=== PATIENT | male | born 1945 | race Caucasian/White ===

== ENCOUNTER → 2016-12-02 | Outpatient (CLI) | payer MEDICARE, BC ==
[2016-12-02 15:31] LABS: Anion Gap 7 mmol/L; Blood Urea Nitrogen 18 mg/dL (9-20); Calcium 8.9 mg/dL (8.4-10.2); Carbon Dioxide 24 mmol/L (22-30); Chloride 108 mmol/L (98-107); Glucose 77 mg/dL (74-99); Non-African American GFR(MDRD) >60 (>60 ml/min/1.73 sqM); Potassium 4.4 mmol/L (3.5-5.1); Sodium 139 mmol/L (137-145)
== END ==
LOC: LABWHC1 13:45
PROVIDERS: ATTEND Internal Medicine Cardiovascular Disease
DX: I50.9 Heart failure, unspecified (principal)
CPT/HCPCS: 36415; 80048

== ENCOUNTER 2017-05-30 13:35 | Inpatient (IN) | payer BC, MEDICARE ==
[2017-05-19 12:03] VITALS: BMI 35.9
--- NOTE | 2017-05-29 13:04 | HP ---
HISTORY AND PHYSICAL CHIEF COMPLAINT: Right knee pain. HISTORY OF PRESENT ILLNESS: The patient is a 72-year-old retired gentleman who presents with progressive right knee pain secondary to osteoarthrosis, worsening over the past year. He is having a difficult time with normal weightbearing activities. He has tried medications and injections with only partial temporary relief. He notes he is significantly limited. PAST MEDICAL HISTORY: Significant for ischemic cardiomyopathy, hypertension, hyperlipidemia. PAST SURGICAL HISTORY: Significant for cardiac stent placement. CURRENT MEDICATIONS: Aspirin, carvedilol, Coumadin, Crestor, nitroglycerin, lisinopril, Lasix, amiodarone. ALLERGIES: He has no known drug allergies. FAMILY HISTORY: Significant for cancer. SOCIAL HISTORY: Negative for current tobacco or alcohol use. REVIEW OF SYSTEMS: Sixteen point review of systems otherwise reviewed and is noncontributory. PHYSICAL EXAMINATION: On examination, the patient is approximately 6 feet tall, 270 pounds, of endomorphic habitus. HEENT exam is nonfocal. Neck is supple. He has painless passive motion of the right hip. Straight leg raise is negative. Active motion right knee -8 to 105 degrees of flexion. He has a moderate effusion. He is tender about the medial and lateral joint line. Collaterals are stable, Shamar's negative, Syd's is equivocal. He has genu valgum alignment. His distal neurovascular appears intact in the right lower extremity. X-rays to include weightbearing notch, lateral and Merchant views of the right knee obtained in the office show severe lateral and patellofemoral compartment narrowing. IMPRESSION: 1. Right knee severe lateral and patellofemoral compartment osteoarthrosis. 2. History of heart disease/pacemaker placement. 3. History of coronary artery disease with previous myocardial infarction. 4. Hypertension. RECOMMENDATIONS: I talked to the patient at length regarding his treatment options. At this point, he is quite symptomatic despite extensive conservative measures. After a thorough discussion, he opts to proceed with surgery. We will plan to proceed with right total knee arthroplasty. Risks and benefits were discussed at length in layman's terms. The patient underwent preoperative medical clearance by Dr. Hartman and preoperative cardiac clearance by Dr. Hsu. MMGUNNARL / DEANAN: [id number] /
[~2017-05-30 13:35] MED LIST: ACETAMINOPHEN TAB 500 MG TAB PO ONE; DEXAMETHASONE SOD PHOSPHATE 10 MG/ML 1 ML VIAL IV ONE; LIDOCAINE 1% 20 ML VIAL (10MG/ML) FOR IV START INTRADERMA PRN; MELOXICAM 7.5 MG TAB PO ONE; MIDAZOLAM 2 MG/2 ML VIAL IV PRN; ONDANSETRON 4 MG/2 ML VIAL IVP ONE; SCOPOLAMINE 1.5MG/72HR PATCH TRANSDERM ONE; TRANEXAMIC ACID 1,000 MG in SODIUM CHLORIDE 0.9% 50 ML IVPB ONE
[2017-05-30] MEDS: LACTATED RINGERS 1,000 ML IV SCH (14:16)
[2017-05-30 15:11] LABS: INR 1.3 (<1.2); Partial Thromboplastin Time 24.5 sec (22.0-30.0)
[2017-05-30] MEDS ORDERED: SUCCINYLCHOLINE CHLORIDE 100 MG/5 ML SYR IV ONE (16:14)
[2017-05-30] MEDS ORDERED: SODIUM CHLORIDE 0.9% 100 ML BAG ONE (16:14)
[2017-05-30] MEDS ORDERED: LIDOCAINE 1% INJ 10MG/ML (20 ML MDV) ONE (16:14)
[2017-05-30] MEDS ORDERED: TRANEXAMIC ACID 1,000 MG/10 ML VIAL ONE (16:14)
[2017-05-30] MEDS ORDERED: ROCURONIUM BROMIDE 10 MG/ML 10 ML VIAL IV ONE (16:14)
[2017-05-30] MEDS ORDERED: MIDAZOLAM 2 MG/2 ML VIAL ONE (16:14)
[2017-05-30] MEDS ORDERED: PROPOFOL 10 MG/ML 20 ML VIAL IV ONE (16:14)
[2017-05-30] MEDS ORDERED: HYDROmorphone (PF) 1 MG/ML ONE (16:14)
[2017-05-30] MEDS ORDERED: fentaNYL (PF) 50 MCG/ML 2 ML AMP ONE (16:14)
[2017-05-30] MEDS: ROPIVACAINE 246.25 MG, EPINEPHrine 0.5 MG, KETOROLAC 30 MG, cloNIDine HCL/PF 80 MCG, WA... MISCELLANE ONE ×10 (16:47→17:15)
[2017-05-30] MEDS ORDERED: ceFAZolin 3,000 MG in SODIUM CHLORIDE 0.9% IRRIGATIO 3,000 ML IRRIGATION ONE (16:48)
[2017-05-30] MEDS ORDERED: MAGNESIUM HYDROXIDE 2,400 MG/10 ML CUP PO PRN (18:08)
[2017-05-30] MEDS ORDERED: HYDROcodone/APAP 5-325MG 1 EACH TAB PO PRN (18:08)
[2017-05-30] MEDS ORDERED: ONDANSETRON 4 MG/2 ML VIAL IVP PRN (18:08)
[2017-05-30] MEDS ORDERED: NALOXONE 0.4 MG/ML 1 ML VIAL IV PRN (18:08)
[2017-05-30] MEDS ORDERED: HYDROmorphone 2 MG/ML 1 ML SYRINGE IVP PRN ×2 (18:08)
[2017-05-30] MEDS ORDERED: LACTATED RINGERS 1,000 ML IV ONE (18:24)
[2017-05-30] MEDS: HYDROmorphone 0.5 MG/0.5 ML SYRINGE IVP PRN ×4 (18:42→19:19)
--- NOTE | 2017-05-30 18:43 | P.OP ---
Date of Procedure: 05/30/17 Preoperative Diagnosis: Right knee severe tricompartmental osteoarthrosis Postoperative Diagnosis: Same Procedure(s) Performed: Right total knee [id number] Implants: Depuy Attune size 7 cemented femoral component, size 7 cemented tibial component , 9 mm articular surface, 35 mm cemented patellar component. This is a posterior stabilized implant. Anesthesia: GETA, local Surgeon: Angel Wright Director [employer]: Jaylon Vasquez Estimated Blood Loss (ml): 75 Pathology: other (Bone fragments) Condition: stable Disposition: PACU Indications for Procedure: The patient's a 72-year-old male who presents with progressive right knee pain secondary to osteoarthrosis despite extensive conservative treatment. A discussion of the risks and benefits of operative intervention versus continued conservative measures was made with the patient. He opted to proceed with surgery. Operative risks to include infection, neurovascular injury, development of blood clots, possible component loosening, possible component failure and need for subsequent procedures was discussed. Informed consent was obtained. Operative Findings: As below Description of Procedure: The patient was brought to the operating room, and after induction of general anesthesia the right lower extremity was prepped and draped in normal fashion. The tourniquet was inflated to 270 mmHg. A longitudinal incision extending 3 finger breaths above the superior pole of patella extending to the medial aspect the tibial tubercle was then made. The skin and subcutaneous tissues were divided sharply. Electrocautery was used for hemostasis. A medial parapatellar arthrotomy is performed. The medial soft tissues to include the superficial and deep portions the medial collateral ligament were elevated subperiosteally. The patella was everted. A portion of the retropatellar fat pad was excised sharply. The lateral soft tissues to include the lateral collateral ligament and popliteus were elevated subperiosteally off the lateral femoral epicondyle as he had significant valgus deformity. A starting hole was made in the distal femur 1 cm anterior to the posterior cruciate origin. An intramedullary femoral guide was then gently inserted planning on 5 valgus distal cut with 9 mm distal resection. The cutting block was pinned in place. The distal cut was then made. The posterior referencing sizing guide was utilized. I felt size 7 was most appropriate. 3 of external rotation was built into the system and verified off the trans-epicondylar axis and the posterior condyles. The cutting block was pinned in place. The anterior, posterior, and chamfer cuts were made. The bone fragments were then removed. The cutting block was then placed for the notch. A reciprocating saw was used to fashion the intercondylar box. The bone was removed in one fragment. A trial femoral component was then placed and was fully seated. There was good anterior to posterior and medial to lateral fit. The distal peg holes were drilled. The trial component was then removed. Attention was then paid towards preparing the proximal tibia. An extra measure tibial guide was utilized in line with the tibial shaft and second metatarsal distally. I planned on 0 posterior slope. I planned on 2 m resection from the lateral compartment. The cutting block was pinned in place. The proximal tibial cut was then made. The bone was removed in one fragment. I felt this was inadequate for both flexion and extension gaps therefore an additional 2 mm was resected utilizing the cutting block. The tibia sized most appropriate size 7. The remnants of the medial and lateral menisci were excised at the capsular junction with electrocautery. The trial femoral and tibial components were placed along with a 9 mm articular surface. I was able to obtain full flexion and extension with good stability with varus and valgus stress. The tibial rotation was marked in line with the medial one third of the tibial tubercle after several flexion and extension cycles. Attention was then paid towards preparing the patella. A patella reamer was utilized taking this down to 14 mm of bone stock. A good flush cut was made. The patella sized most appropriately 35 mm. The peg holes were drilled. The trial component was placed. The knee was taken through range of motion. I had good patellofemoral tracking with no hands technique. The trial components were then removed. The tibia was prepared in the appropriate rotation with the appropriate drill and keel punch. The posterior osteophytes off the distal femur were carefully removed with a curved osteotome. The flexion and extension gaps were checked and felt to be symmetric. The posterior soft tissues were injected with ropivacaine. The bony surfaces were prepared with pulsatile lavage and dried. The tibial component was then cemented in place and was fully seated. Excess cement was removed. The femoral component was cemented placed and was fully seated. Excess cement was removed. The trial 9 mm articular surface was placed and the knee was put in full extension. The patella component was cemented in placed and was fully seated. After the cement had sufficiently hardened, the knee was again taken through range of motion. Again I was able to obtain full flexion and extension with good stability with varus and valgus stress. The trial articular surface was then removed and the final one inserted. Care was taken to avoid any soft tissue interposition. Pulsatile lavage was again utilized. The medial parapatellar arthrotomy was closed with # 2 Ethibond suture. A deep drain was placed exiting laterally. The tourniquet was deflated less than 80 minutes total tourniquet time. Final hemostasis was obtained with electrocautery. The subcutaneous tissues were reapproximated with interrupted 2-0 Vicryl sutures. The skin was reapproximated with 3-0 subcuticular strata fix suture. Skin tape and adhesive was applied. A sterile dressing was applied. The patient was awoken from general anesthesia and transferred to the recovery room in good condition. Blood loss was estimated at 75 mL. No complications were incurred. Sponge and needle counts were correct in the case.
--- NOTE | 2017-05-30 19:27 | XR ---
PROCEDURE: XR knee limited RT DATE AND TIME: 05/30/2017 6:49 PM REFERRING PHYSICIAN: Jaylon Vasquez CLINICAL INDICATION: PHH, Evaluation for Postop abnormality and alignment TECHNIQUE: AP and crosstable lateral views COMPARISON: None FINDINGS: TKR is noted to be in anatomic alignment. No unexpected radiopaque foreign bodies. Bones an d joints and soft tissues are otherwise unremarkable. IMPRESSION: Postprocedural study.
[2017-05-30] MEDS ORDERED: FUROSEMIDE 20 MG TAB PO PRN (21:31)
[2017-05-30] MEDS ORDERED: NITROGLYCERIN SL TABS 0.4 MG TAB SUBLINGUAL PRN (21:31)
[2017-05-30] MEDS: traMADol 50 MG TAB PO SCH (22:36)
[2017-05-30] MEDS: CARVEDILOL 6.25 MG TAB PO SCH (22:37)
[2017-05-30] MEDS: SENNOSIDES-DOCUSATE SODIUM 1 EACH TAB PO SCH (22:37)
[2017-05-30] MEDS: SOTALOL 80 MG TAB PO SCH (22:37)
[2017-05-31] MEDS: LACTATED RINGERS 1,000 ML IV SCH (00:07)
[2017-05-31] MEDS ORDERED: SODIUM CHLORIDE 0.9% 1,000 ML IV SCH (05:00)
[2017-05-31 07:51] LABS: INR 1.3 (<1.2); Prothrombin Time 12.6 sec (9.0-12.0)
[2017-05-31 08:23] LABS: Basophils % (A) 0 %; Eosinophils % (A) 0 %; HCT 41.2 % (39.0-53.0); HGB 13.7 gm/dL (13.0-17.5); Lymphocytes # (A) 0.5 k/uL (1.0-4.8); Lymphocytes % (A) 5 %; MCH 30.9 pg (25.0-35.0); MCHC 33.2 g/dL (31.0-37.0); Mean Platelet Volume 8.8; Monocytes # (A) 0.9 k/uL (0-1.0); Monocytes % (A) 10 %; Neutrophils # (A) 7.3 k/uL (1.3-7.7); Neutrophils % (A) 84 %; Platelet Count 138 k/uL (150-450); RBC 4.43 m/uL (4.30-5.90); WBC 8.7 k/uL (3.8-10.6)
[2017-05-31] MEDS: ENOXAPARIN 30 MG/0.3 ML SYRINGE SQ SCH ×2 (09:10→21:15)
[2017-05-31] MEDS: SOTALOL 80 MG TAB PO SCH ×2 (09:10→21:15)
[2017-05-31] MEDS: CHOLECALCIFEROL 1,000 UNIT TAB PO SCH (09:10)
[2017-05-31] MEDS: ATORVASTATIN 10 MG TAB PO SCH (09:11)
[2017-05-31] MEDS: ASPIRIN 81 MG PO SCH (09:11)
[2017-05-31] MEDS: FAMOTIDINE 20 MG TAB PO SCH (09:11)
[2017-05-31] MEDS: CARVEDILOL 12.5 MG TAB PO SCH (09:12)
[2017-05-31] MEDS: traMADol 50 MG TAB PO SCH ×3 (09:21→17:14)
[2017-05-31] MEDS: HYDROcodone/APAP 5-325MG 1 EACH TAB PO PRN ×2 (10:08→16:12)
--- NOTE | 2017-05-31 11:55 | P.PN ---
Subjective Progress Note Date: 05/31/17 Principal diagnosis: Status post right total knee arthroplasty Patient seen today resting in his hospital chair, he has family present at bedside. He's doing very well, no acute pain. He is done well with physical therapy. He denies any headaches, lightheadedness, chest pain or shortness breath. Objective - Vital Signs Vital signs: Vital Signs Temp 97.6 F 05/31/17 07:38 Pulse 75 05/31/17 09:09 Resp 16 05/31/17 07:38 BP 115/65 05/31/17 09:09 Pulse Ox 98 05/31/17 07:38 Intake & Output 05/30/17 05/31/17 05/31/17 18:59 06:59 18:59 Intake Total 1251 550 240 Output Total 175 430 150 Balance 1076 120 90 Intake: IV 1251 550 Lactated Ringers 1,000 ml 350 @ 50 mls/hr IV .Q20H [facility] Rx#:[id number] Oral 240 Output: Drainage 180 Right Knee 180 Urine 100 250 150 Uretheral ([place]) 250 150 Estimated Blood Loss 75 Other: Voiding Method Indwelling Catheter Indwelling Catheter - Exam Right lower extremity: Incision is clean, dry, and intact. The prineo tape is in good condition. There is minimal soft tissue swelling and ecchymosis surrounding the medial and lateral aspects of the incision. Calf is soft, no tenderness with palpation. Plantar flexion, dorsiflexion, EHL, FHL are intact. Sensory exam to light touch throughout the extremity is intact, dorsal pedis pulses 2+. - Labs CBC & Chem 7: 05/31/17 06:39 Labs: Abnormal Lab Results - Last 24 Hours (Table) 05/30/17 05/31/17 05/31/17 Range/Units 14:10 06:39 06:39 Plt Count 138 L (150-450) k/uL Lymphocytes # 0.5 L (1.0-4.8) k/uL PT 12.6 H (9.0-12.0) sec INR 1.3 H 1.3 H (<1.2) Assessment and Plan Plan: Assessment: 1. Postop day 1 status post right total knee arthroplasty Plan: 1. Pain control, continue use of oral medication 2. Continue work physical therapy and use of CPM 3. Encourage incentive spirometer 4. Daily dressing changes/ice and elevate 5. GI and DVT prophylaxis, continue Xarelto Lovenox and Coumadin 6. Medical recommendations 7. Discharge planning: Patient will likely be discharged home tomorrow Time with Patient: Less than 30
--- NOTE | 2017-05-31 13:12 | P.HPIM ---
History of Present Illness H&P Date: 05/31/17 Iker Layton is a 72-year-old male who presents with progressive right knee pain secondary to osteoarthrosis despite extensive conservative treatment. He was admitted by Dr Wright and underwent right total knee arthroplasty. Patient is well known to my practice and has a known history of prior [place] was cardiac arrest history of cardiomyopathy with AICD placement and history of atrial fibrillation. Past Medical History Past Medical History: Atrial Fibrillation, Eye Disorder, Hyperlipidemia, Hypertension, Myocardial Infarction (VA), Osteoarthritis (OA) Additional Past Medical History / Comment(s): varicose veins, Last Myocardial Infarction Date:: 2006 History of Any Multi-Drug Resistant Organisms: None Reported Past Surgical History: AICD, Cardiac Ablation, Heart Catheterization With Stent Additional Past Surgical History / Comment(s): bilateral CATARACT, one cardiac stent, total right knee 05/30/16 Past Anesthesia/Blood Transfusion Reactions: No Reported Reaction Date of Last Stent Placement:: 2006 Type of Cardiac Device: AICD Device Placement Date:: [facility] Past Psychological History: No Psychological Hx Reported Smoking Status: Never smoker Past Alcohol Use History: Rare Past Drug Use History: None Reported - Past Family History Father Family Medical History: Cancer Mother Family Medical History: Cancer Medications and Allergies Home Medications Medication Instructions Recorded Confirmed Type Aspirin 81 mg PO DAILY 04/14/14 05/30/17 History Carvedilol [Coreg] 12.5 mg PO DAILY 04/14/14 05/30/17 History Furosemide [Lasix] 20 mg PO DAILY PRN 04/14/14 05/30/17 History Lisinopril [Prinivil] 10 mg PO HS 04/14/14 05/30/17 History Nitroglycerin Sl Tabs [Nitrostat] 0.4 mg SUBLINGUAL Q5M PRN 04/14/14 05/30/17 History Spironolactone [Aldactone] 12.5 mg PO HS 04/14/14 05/30/17 History Warfarin [Coumadin] 7.5 mg PO MOWESA 04/14/14 05/30/17 History Carvedilol [Coreg] 6.25 mg PO HS 06/09/14 05/30/17 History Sotalol [Betapace] 40 mg PO QAM 01/14/15 05/30/17 History Cholecalciferol [Vitamin D3] 1,000 unit PO DAILY 01/19/15 05/30/17 History Acetaminophen [Tylenol Extra 1,000 mg PO DIRECTED PRN 05/19/17 05/30/17 History Strength] Pitavastatin Calcium [Livalo] 2 mg PO DAILY 05/19/17 05/30/17 History Sotalol [Betapace] 80 mg PO HS 05/19/17 05/30/17 History Warfarin [Coumadin] 5 mg PO SUTUTHFR 05/19/17 05/30/17 History Allergies Allergy/AdvReac Type Severity Reaction Status Date / Time No Known Allergies Allergy Verified 05/30/17 19:17 Physical Exam Vitals: Vital Signs Temp Pulse Pulse Resp BP BP Pulse Ox 05/31/17 09:09 75 115/65 05/31/17 07:38 97.6 F 16 100/62 98 05/31/17 00:39 97.3 F L 59 L 16 114/66 97 05/30/17 21:30 61 129/64 05/30/17 21:23 96 05/30/17 21:15 58 L 121/65 05/30/17 21:00 113/62 05/30/17 20:45 54 L 123/60 05/30/17 20:30 56 L 119/57 05/30/17 20:15 132/63 05/30/17 20:00 62 138/62 05/30/17 19:45 64 129/77 05/30/17 19:30 97.5 F L 62 16 137/65 92 L 05/30/17 19:15 67 16 93 L 05/30/17 19:00 65 16 142/66 93 L 05/30/17 18:45 67 16 143/80 98 05/30/17 18:32 99 F 80 16 146/86 93 L 05/30/17 14:39 65 15 120/71 100 05/30/17 14:00 96.9 F L 68 16 155/83 99 Intake and Output 05/30/17 05/31/17 05/31/17 22:59 06:59 14:59 Intake Total 1151 350 240 Output Total 175 430 300 Balance 976 -80 -60 Intake: IV 1151 350 Lactated Ringers 1,000 ml 350 @ 50 mls/hr IV .Q20H [facility] Rx#:[id number] Oral 240 Output: Drainage 180 Right Knee 180 Urine 100 250 300 Uretheral ([place]) 250 300 Estimated Blood Loss 75 Other: Voiding Method Indwelling Catheter Indwelling Catheter Indwelling Catheter In general patient is alert and oriented 3 in no apparent distress HEENT head normocephalic and atraumatic Neck is supple no JVD no goiter no lymphadenopathy Chest exam reveals a few scattered crackles no wheezing Cardiac exam reveals regular heart sounds S1 and S2 no gallops no murmurs Abdomen is soft nontender no organomegaly Extremity exam reveals no edema no cyanosis or clubbing Results CBC & Chem 7: 05/31/17 06:39 Labs: Abnormal Lab Results - Last 24 Hours (Table) 05/30/17 05/31/17 05/31/17 Range/Units 14:10 06:39 06:39 Plt Count 138 L (150-450) k/uL Lymphocytes # 0.5 L (1.0-4.8) k/uL PT 12.6 H (9.0-12.0) sec INR 1.3 H 1.3 H (<1.2) Thrombosis Risk Factor Assmnt - Choose All That Apply Any of the Below Risk Factors Present?: Yes Each Factor Represents 1 point: Obesity (BMI >25), Swollen legs (current), Varicose veins Other Risk Factors: Yes Each Risk Factor Represents 2 Points: Age 61-74 years, Major surgery Other congenital or acquired thrombophilia - If yes, enter type in comment: No Thrombosis Risk Factor Assessment Total Risk Factor Score: 7 Thrombosis Risk Factor Assessment Level: High Risk Assessment and Plan Plan: #1 osteoarthritis status post right total knee arthroplasty post operative day # 1 #2 underlying history of ischemic cardiomyopathy #3 previous history of myocardial infarction with cardiac arrest #4 underlying history of atrial fibrillation #5 underlying history of hypertension #6 underlying history of hyperlipidemia #7 low urine output last night agent received IV fluid normal saline at 100 mL an hour. At this time patient is stable, urine output is adequate Will discontinue IV fluid due to known history of cardiomyopathy patient is having good oral intake Home medications were resumed Patient was started on Coumadin he is also on Lovenox until Coumadin dose is therapeutic Continue was current management will follow closely
--- NOTE | 2017-05-31 15:21 | P.CRDCN ---
History of Present Illness Consult date: 05/31/17 History of present illness: Mr. Layton is a pleasant 72-year-old male with past medical history significant for ischemic cardiomyopathy status post AICD placement, coronary artery disease with prior PCI to the LAD, chronic systolic heart failure with ejection fraction 20%, hypertension and dyslipidemia. The patient follows with Dr. Hsu in the office. He was seen prior to surgery in mid April for cardiac preoperative evaluation. He was given an acceptable with increased risk for surgery. He underwent right knee replacement as planned. There is no immediate complications of the surgery. The patient is seen sitting up in bed resting comfortably in no acute distress. He denies chest pain, shortness of breath, dizziness, palpitations, nausea, vomiting or diaphoresis. There was no EKG or chest xray done on admission. Laboratory data reviewed, hgb 13.7, plt 138, INR 1.3. Current cardiac medications include carvedilol 12.5 mg in the a.m. and 6.25 mg at bedtime, Coumadin 5 mg Monday and Monday 7.5 mg Monday, Aldactone 12.5 mg daily, sotalol 80 mg at bedtime and 40 mg in am, livalo 2 mg daily, lisinopril 10 mg daily, lasix 20mg daily prn and aspirin 81 mg daily. Review of Systems CONSTITUTIONAL: Denies fever. Denies chills. EYES: Denies blurred vision. Denies vision changes. Denies eye pain. EARS, NOSE, MOUTH & THROAT: Denies headache. Denies sore throat. Denies ear pain. CARDIOVASCULAR: Denies chest pain. Denies shortness of breath. Denies orthopnea. Denies PND. Denies palpitations. RESPIRATORY: Denies cough. GASTROINTESTINAL: Denies abdominal pain. Denies diarrhea. Denies constipation. Denies nausea. Denies vomiting. MUSCULOSKELETAL: Denies myalgias. INTEGUMENTARY: Denies pruitis. Denies rash. NEUROLOGIC: Denies numbness. Denies tingling. Denies weakness. PSYCHIATRIC: Denies anxiety. Denies depression. ENDOCRINE: Denies fatigue. Denies weight change. Denies polydipsia. Denies polyurina. GENITOURINARY: Denies burning, hematuria or urgency with micturation. HEMATOLOGIC: Denies history of anemia. Denies bleeding. Past Medical History Past Medical History: Atrial Fibrillation, Eye Disorder, Hyperlipidemia, Hypertension, Myocardial Infarction ([place]), Osteoarthritis ([place]) Additional Past Medical History / Comment(s): varicose veins, Last Myocardial Infarction Date:: 2006 History of Any Multi-Drug Resistant Organisms: None Reported Past Surgical History: AICD, Cardiac Ablation, Heart Catheterization With Stent Additional Past Surgical History / Comment(s): bilateral CATARACT, one cardiac stent, total right knee 05/30/16 Past Anesthesia/Blood Transfusion Reactions: No Reported Reaction Date of Last Stent Placement:: 2006 Type of Cardiac Device: AICD Device Placement Date:: [facility] Past Psychological History: No Psychological Hx Reported Smoking Status: Never smoker Past Alcohol Use History: Rare Past Drug Use History: None Reported - Past Family History Father Family Medical History: Cancer Mother Family Medical History: Cancer Medications and Allergies Home Medications Medication Instructions Recorded Confirmed Type Aspirin 81 mg PO DAILY 04/14/14 05/30/17 History Carvedilol [Coreg] 12.5 mg PO DAILY 04/14/14 05/30/17 History Furosemide [Lasix] 20 mg PO DAILY PRN 04/14/14 05/30/17 History Lisinopril [Prinivil] 10 mg PO HS 04/14/14 05/30/17 History Nitroglycerin Sl Tabs [Nitrostat] 0.4 mg SUBLINGUAL Q5M PRN 04/14/14 05/30/17 History Spironolactone [Aldactone] 12.5 mg PO HS 04/14/14 05/30/17 History Warfarin [Coumadin] 7.5 mg PO MOWESA 04/14/14 05/30/17 History Carvedilol [Coreg] 6.25 mg PO HS 06/09/14 05/30/17 History Sotalol [Betapace] 40 mg PO QAM 01/14/15 05/30/17 History Cholecalciferol [Vitamin D3] 1,000 unit PO DAILY 01/19/15 05/30/17 History Acetaminophen [Tylenol Extra 1,000 mg PO DIRECTED PRN 05/19/17 05/30/17 History Strength] Pitavastatin Calcium [Livalo] 2 mg PO DAILY 05/19/17 05/30/17 History Sotalol [Betapace] 80 mg PO HS 05/19/17 05/30/17 History Warfarin [Coumadin] 5 mg PO SUTUTHFR 05/19/17 05/30/17 History Allergies Allergy/AdvReac Type Severity Reaction Status Date / Time No Known Allergies Allergy Verified 05/30/17 19:17 Physical Exam Vitals: Vital Signs Temp Pulse Pulse Resp BP Pulse Ox 05/31/17 14:52 97.9 F 65 16 101/64 95 05/31/17 09:09 75 115/65 05/31/17 07:38 97.6 F 16 100/62 98 05/31/17 00:39 97.3 F L 59 L 16 114/66 97 05/30/17 21:30 61 129/64 05/30/17 21:23 96 05/30/17 21:15 58 L 121/65 05/30/17 21:00 113/62 05/30/17 20:45 54 L 123/60 05/30/17 20:30 56 L 119/57 05/30/17 20:15 132/63 05/30/17 20:00 62 138/62 05/30/17 19:45 64 129/77 05/30/17 19:30 97.5 F L 62 16 137/65 92 L 05/30/17 19:15 67 16 93 L 05/30/17 19:00 65 16 142/66 93 L 05/30/17 18:45 67 16 143/80 98 05/30/17 18:32 99 F 80 16 146/86 93 L Intake and Output 05/30/17 05/31/17 05/31/17 22:59 06:59 14:59 Intake Total 8531 169 1038 Output Total 175 430 300 Balance 976 -80 740 Intake: IV 1151 350 800 Lactated Ringers 1,000 ml 350 @ 50 mls/hr IV .Q20H ALEXEI Rx#:[id number] Sodium Chloride 0.9% 1, 800 000 ml @ 100 mls/hr IV . Q10H ALEXEI Rx#:[id number] Oral 240 Output: Drainage 180 Right Knee 180 Urine 100 250 300 Uretheral ([place]) 250 300 Estimated Blood Loss 75 Other: Voiding Method Indwelling Catheter Indwelling Catheter Indwelling Catheter Blood pressure 115/65 heart rate 75 afebrile GENERAL: This is a 72-year-old male in no apparent distress at the time of my examination. HEENT: Head is atraumatic, normocephalic. Pupils are equal, round. Sclerae anicteric. Conjunctivae are clear. Mucous membranes of the mouth are moist. Neck is supple. There is no jugular venous distention. No carotid bruit is heard. LUNGS: Clear to auscultation no wheezes, rales or rhonchi. No chest wall tenderness is noted on palpation or with deep breathing. HEART: Regular rate and rhythm without murmurs, rubs or gallops. S1 and S2 heard. ABDOMEN: Soft, nontender. Bowel sounds are heard. No organomegaly noted. EXTREMITIES: 2+ peripheral pulses with no evidence of peripheral edema and no calf tenderness noted. Right knee status post total arthroplasty. NEUROLOGIC: Patient is awake, alert and oriented x3. Results 05/31/17 06:39 Coagulation 05/30/17 05/31/17 Range/Units 14:10 06:39 PT 12.0 12.6 H (9.0-12.0) sec APTT 24.5 (22.0-30.0) sec CBC 05/31/17 Range/Units 06:39 WBC 8.7 (3.8-10.6) k/uL RBC 4.43 (4.30-5.90) m/uL Hgb 13.7 (13.0-17.5) gm/dL Hct 41.2 (39.0-53.0) % Plt Count 138 L (150-450) k/uL Current Medications Generic Name Dose Route Start Last Admin Trade Name Freq PRN Reason Stop Dose Admin Hydrocodone Bitart/Acetaminophen 1 each 05/30/17 18:08 05/31/17 04:16 [place] 5-325 PO 1 each Q6HR PRN Administration Pain Scale 1 to 5 Hydrocodone Bitart/Acetaminophen 2 each 05/30/17 18:08 05/31/17 10:08 [place] 5-325 PO 2 each Q6HR PRN Administration Pain Scale 6 to 10 Aspirin 81 mg 05/31/17 09:00 05/31/17 09:11 Aspirin PO 81 mg DAILY ALEXEI Administration Atorvastatin Calcium 10 mg 05/31/17 09:00 05/31/17 09:11 Lipitor PO 10 mg DAILY ALEXEI Administration Carvedilol 6.25 mg 05/30/17 21:45 05/30/17 22:37 Coreg PO 6.25 mg HS [facility] Administration Carvedilol 12.5 mg 05/31/17 07:30 05/31/17 09:12 Coreg PO 12.5 mg W/BRKFST [facility] Administration Cholecalciferol 1,000 unit 05/31/17 09:00 05/31/17 09:10 Vitamin D3 PO 1,000 unit DAILY [facility] Administration Enoxaparin Sodium 30 mg 05/31/17 09:00 05/31/17 09:10 Lovenox SQ 30 mg Q12HR [facility] Administration Famotidine 20 mg 05/31/17 09:00 05/31/17 09:11 Pepcid PO 20 mg DAILY [facility] Administration Furosemide 20 mg 05/30/17 21:31 Lasix PO DAILY PRN Edema Hydromorphone HCl 0.25 mg 05/30/17 18:08 Dilaudid IVP Q3HR PRN Pain Scale 1 to 3 Hydromorphone HCl 0.5 mg 05/30/17 18:08 Dilaudid IVP Q3HR PRN Pain Scale 4 to 6 Cefazolin Sodium 3 gm/ Sodium 50 mls @ 50 mls/hr 05/31/17 00:00 05/31/17 09: 22 Chloride IVPB 50 mls/hr Q8HR [facility] Administration Lidocaine HCl 0.1 ml 05/30/17 05:28 05/30/17 14:16 .Xylocaine 1% Inj (10mg/Ml) For Iv Start INTRADERMA 0.1 ml PER PROTOCOL PRN Administration IV Start Lisinopril 10 mg 05/31/17 21:00 Zestril PO HS [facility] Magnesium Hydroxide 2,400 mg 05/30/17 18:08 Milk Of Magnesia PO DAILY PRN Constipation Miscellaneous Information 1 each 05/31/17 12:00 05/31/17 13:57 Coumadin Per Ortho Protocol MISCELLANE Not Given DAILY@1200 [facility] Protocol Naloxone HCl 0.2 mg 05/30/17 18:08 Narcan IV Q2M PRN Opioid Reversal Nitroglycerin 0.4 mg 05/30/17 21:31 Nitrostat SUBLINGUAL Q5M PRN Chest Pain Ondansetron HCl 4 mg 05/30/17 18:08 Zofran IVP Q8HR PRN Nausea And Vomiting Senna/Docusate Sodium 2 each 05/30/17 21:00 05/30/17 22:37 Senokot-S PO Not Given HS [facility] Sotalol HCl 40 mg 05/31/17 09:00 05/31/17 09:10 Betapace PO 40 mg QAM [facility] Administration Sotalol HCl 80 mg 05/30/17 21:00 05/30/17 22:37 Betapace PO 80 mg HS [facility] Administration Spironolactone 12.5 mg 05/31/17 21:00 Aldactone PO HS [facility] Tramadol HCl 50 mg 05/30/17 22:00 05/31/17 13:45 Ultram PO 50 mg QID [facility] Administration Warfarin Sodium 7.5 mg 05/31/17 18:00 Coumadin PO 05/31/17 18:01 ONCE@1800 ONE Intake and Output 05/30/17 05/31/17 05/31/17 22:59 06:59 14:59 Intake Total 8123 127 6031 Output Total 175 430 300 Balance 976 -80 740 Intake: IV 1151 350 800 Lactated Ringers 1,000 ml 350 @ 50 mls/hr IV .Q20H [facility]LEXEI Rx#:[id number] Sodium Chloride 0.9% 1, 800 000 ml @ 100 mls/hr IV . Q10H [facility]LEXEI Rx#:[id number] Oral 240 Output: Drainage 180 Right Knee 180 Urine 100 250 300 Uretheral ([place]) 250 300 Estimated Blood Loss 75 Other: Voiding Method Indwelling Catheter Indwelling Catheter Indwelling Catheter 05/31/17 06:39 Assessment and Plan Assessment: ASSESSMENT 1. Right knee arthroplasty, postoperative day #1 2. Chronic stable systolic heart failure with EF 20%, currently compensated 3. History of AICD placement 4. History coronary artery disease with previous PCI LAD (2007) 5. Ischemic cardiomyopathy 6. Hypertension 7. Dyslipidemia PLAN Continue all cardiac medications as previously ordered. There is no sign of overt heart failure. Increase activity with physical therapy as tolerated. Follow up with Dr. Hsu as an outpatient. The above impression and plan of care have been discussed and directed by the signing physician. Alicia Zeng, nurse practitioner, acting as scribe for signing physician.
[2017-05-31] MEDS ORDERED: WARFARIN 7.5 MG TAB PO ONE (18:00)
[2017-05-31] MEDS ORDERED: SPIRONOLACTONE 25 MG TAB PO SCH (21:00)
[2017-05-31] MEDS ORDERED: LISINOPRIL 10 MG TAB PO SCH (21:00)
[2017-05-31] MEDS: CARVEDILOL 6.25 MG TAB PO SCH (21:15)
[2017-05-31] MEDS: SENNOSIDES-DOCUSATE SODIUM 1 EACH TAB PO SCH (21:15)
[2017-06-01] MEDS: traMADol 50 MG TAB PO SCH ×3 (00:31→12:46)
[2017-06-01 03:34] VITALS: RESP 16
[2017-06-01 07:28] LABS: INR 1.3 (<1.2); Prothrombin Time 12.7 sec (9.0-12.0)
[2017-06-01 07:32] LABS: Basophils % (A) 0 %; Eosinophils # (A) 0.1 k/uL (0-0.7); Eosinophils % (A) 1 %; HCT 40.6 % (39.0-53.0); HGB 13.4 gm/dL (13.0-17.5); Lymphocytes # (A) 0.8 k/uL (1.0-4.8); Lymphocytes % (A) 11 %; MCHC 33.1 g/dL (31.0-37.0); MCV 93.6 fL (80.0-100.0); Mean Platelet Volume 8.5; Monocytes % (A) 13 %; Neutrophils # (A) 5.4 k/uL (1.3-7.7); Neutrophils % (A) 73 %; Platelet Count 139 k/uL (150-450); RBC 4.33 m/uL (4.30-5.90); RDW 14.3 % (11.5-15.5); WBC 7.4 k/uL (3.8-10.6)
[2017-06-01 07:51] LABS: ALT 19 U/L (21-72); AST 22 U/L (17-59); Albumin 3.8 g/dL (3.5-5.0); Alkaline Phosphatase 58 U/L (38-126); Anion Gap 9 mmol/L; Blood Urea Nitrogen 24 mg/dL (9-20); Calcium 8.7 mg/dL (8.4-10.2); Carbon Dioxide 28 mmol/L (22-30); Chloride 101 mmol/L (98-107); Glucose 90 mg/dL (74-99); Potassium 4.2 mmol/L (3.5-5.1); Sodium 138 mmol/L (137-145); Total Bilirubin 0.7 mg/dL (0.2-1.3); Total Protein 5.4 g/dL (6.3-8.2)
[2017-06-01] MEDS: ENOXAPARIN 30 MG/0.3 ML SYRINGE SQ SCH (08:26)
[2017-06-01] MEDS: ATORVASTATIN 10 MG TAB PO SCH (08:26)
[2017-06-01] MEDS: CHOLECALCIFEROL 1,000 UNIT TAB PO SCH (08:26)
[2017-06-01] MEDS: ASPIRIN 81 MG PO SCH (08:26)
[2017-06-01] MEDS: SOTALOL 80 MG TAB PO SCH ×2 (08:27→11:48)
[2017-06-01] MEDS: FAMOTIDINE 20 MG TAB PO SCH (08:28)
[2017-06-01] MEDS: CARVEDILOL 12.5 MG TAB PO SCH (08:31)
--- NOTE | 2017-06-01 09:50 | P.PN ---
Subjective Progress Note Date: 06/01/17 Principal diagnosis: Status post right total knee arthroplasty Patient seen today resting in his hospital chair. He's doing very well, no acute pain. He is done well with physical therapy. He denies any headaches, lightheadedness, chest pain or shortness breath. Objective - Vital Signs Vital signs: Vital Signs Temp 97.5 F L 06/01/17 01:15 Pulse 67 06/01/17 01:15 Resp 16 06/01/17 01:15 BP 107/64 06/01/17 01:15 Pulse Ox 96 06/01/17 07:43 Intake & Output 05/31/17 06/01/17 06/01/17 18:59 06:59 18:59 Intake Total 1040 Output Total 650 Balance 390 Intake: IV 800 Sodium Chloride 0.9% 1, 800 000 ml @ 100 mls/hr IV . Q10H [facility]LEXEI Rx#:[id number] Oral 240 Output: Urine 650 Uretheral ([place]) 300 Other: Voiding Method Indwelling Catheter Indwelling Catheter # Voids 2 - Exam Right lower extremity: Incision is clean, dry, and intact. The prineo tape is in good condition. There is minimal soft tissue swelling and ecchymosis surrounding the medial and lateral aspects of the incision. Calf is soft, no tenderness with palpation. Plantar flexion, dorsiflexion, EHL, FHL are intact. Sensory exam to light touch throughout the extremity is intact, dorsal pedis pulses 2+. - Labs CBC & Chem 7: 06/01/17 06:54 06/01/17 06:54 Labs: Abnormal Lab Results - Last 24 Hours (Table) 06/01/17 06/01/17 06/01/17 Range/Units 06:54 06:54 06:54 Plt Count 139 L (150-450) k/uL Lymphocytes # 0.8 L (1.0-4.8) k/uL PT 12.7 H (9.0-12.0) sec INR 1.3 H (<1.2) BUN 24 H (9-20) mg/dL ALT 19 L (21-72) U/L Total Protein 5.4 L (6.3-8.2) g/dL Assessment and Plan Plan: Assessment: 1. Postop day #2 status post right total knee arthroplasty Plan: 1. Pain control, continue use of oral medication 2. Continue work physical therapy and use of CPM 3. Encourage incentive spirometer 4. Daily dressing changes/ice and elevate 5. GI and DVT prophylaxis, continue Coumadin after discharge 6. Medical recommendations 7. Discharge planning: Patient will be discharged home today Time with Patient: Less than 30
--- NOTE | 2017-06-01 09:54 | P.DS ---
Providers Date of admission: 05/30/17 13:35 Expected date of discharge: 06/01/17 Attending physician: Angel Wright Consults: 05/30/17 18:11 Consult Physician Routine Consulting Provider: Roman Hartman Consult Reason/Comments: Medical Management Do you want consulting provider notified?: Yes 05/30/17 21:32 Consult Physician Routine Consulting Provider: Sujatha Hsu Consult Reason/Comments: extensive cardiac history, patient's physician, post op Do you want consulting provider notified?: Yes, Notify in am Primary care physician: Roman Devan [facility] Course: Date of admission: 05/30/2017 Date of discharge: 06/01/2017 Admission diagnosis: Status post right total knee arthroplasty Discharge diagnosis: Same Attending physician: Dr. Wright Surgical procedures: Right total knee arthroplasty Brief history: Patient is a 72-year-old male with a history of progressive primary right knee osteoarthritis. At this point patient has failed conservative treatment measures and has opted to proceed with a elective right total knee arthroplasty. Hospital course: Details of patient's surgery can be found in operative report. Patient tolerated the procedure well and was subsequently transported to orthopedic floor. Patient's orthopeidc and medical care was provided daily. Patient had daily laboratory tests performed for evaluation of overall blood counts . Patient had daily physical therapy to include strengthening range of motion as well as education with walker ambulation. Patient had daily CPM usage as part of their physical therapy program. Patient was treated with Lovenox and Coumadin for their postoperative DVT prophylaxis during their inpatient stay. Patient was noted to have a relatively uneventful postoperative course. Patient reported satisfactory pain control with oral pain medications by postoperative day 0. Patient showed satisfactory progress with physical therapy. Patient moved steadily through the program and had no difficulty meeting the goals by postoperative day 2. Given patient's otherwise satisfactory course and having met physical therapy goals, plan is to discharge patient home on postoperative day 2. Discharge condition/disposition: Patient will be discharged home in stable condition. Discharge medications: Instructions are given on resumption of patient's normal daily medications per primary care recommendation, in addition patient will be prescribed Ancram 5 mg/25 mg, tramadol 50 mg, Colace 100 mg. Discharge instructions: 1. Wound care and infection precautions, keep incision dry and covered while showering, no lotions, creams, moisturizers. No soaking, tubs, pools, hottubs. Do not scrub over the incision. 2. Weight-bear as tolerated with walker / cane until follow-up. 3. Ice and elevate when necessary. Do not exceed 20 minutes per hour with ice pack. 4. Utilize compression sleeve until seen at first follow up appointment. 5. Visiting nursing care. 6. Home physical therapy including home CPM]. 7. Pain meds and anticoagulants per prescription. 8. Pain medication has potential to cause constipation. Increase oral fluid and fiber intake. Contact primary care provider if you have not had a bowel movement within 48 hours after discharge 9. No anti-inflammatory medication until discussed at first post operative visit, this including Motrin, Aleve, Mobic, Diclofenac. 10. Follow up in office at 2 weeks postop with John Vasquez PA-C 11. Follow up with your primary care doctor 7-10 days after discharge. 12. Contact [facility] with any questions, . Procedures: Right total knee arthroplasty Patient Condition at Discharge: Good Plan - Discharge Summary Discharge Rx Participant: Yes New Discharge Prescriptions: New Docusate [Colace] 100 mg PO DAILY #30 capsule Hydrocodone/Acetaminophen [Ancram 5-325] 1 - 2 each PO Q6HR PRN #60 tab PRN Reason: Pain traMADol HCl [Ultram] 50 mg PO Q6H PRN #40 tab PRN Reason: Pain No Action Carvedilol [Coreg] 12.5 mg PO DAILY Warfarin [Coumadin] 7.5 mg PO [place] Aspirin 81 mg PO DAILY Furosemide [Lasix] 20 mg PO DAILY PRN PRN Reason: Edema Nitroglycerin Sl Tabs [Nitrostat] 0.4 mg SUBLINGUAL Q5M PRN PRN Reason: Chest Pain Lisinopril [Prinivil] 10 mg PO HS Spironolactone [Aldactone] 12.5 mg PO HS Carvedilol [Coreg] 6.25 mg PO HS Sotalol [Betapace] 40 mg PO QAM Cholecalciferol [Vitamin D3] 1,000 unit PO DAILY Pitavastatin Calcium [Livalo] 2 mg PO DAILY Sotalol [Betapace] 80 mg PO HS Warfarin [Coumadin] 5 mg PO SUTUTHFR Acetaminophen [Tylenol Extra Strength] 1,000 mg PO DIRECTED PRN PRN Reason: Pain Discharge Medication List Aspirin 81 mg PO DAILY 04/14/14 [History] Carvedilol [Coreg] 12.5 mg PO DAILY 04/14/14 [History] Furosemide [Lasix] 20 mg PO DAILY PRN 04/14/14 [History] Lisinopril [Prinivil] 10 mg PO HS 04/14/14 [History] Nitroglycerin Sl Tabs [Nitrostat] 0.4 mg SUBLINGUAL Q5M PRN 04/14/14 [History] Spironolactone [Aldactone] 12.5 mg PO HS 04/14/14 [History] Warfarin [Coumadin] 7.5 mg PO MOWESA 04/14/14 [History] Carvedilol [Coreg] 6.25 mg PO HS 06/09/14 [History] Sotalol [Betapace] 40 mg PO QAM 01/14/15 [History] Cholecalciferol [Vitamin D3] 1,000 unit PO DAILY 01/19/15 [History] Acetaminophen [Tylenol Extra Strength] 1,000 mg PO DIRECTED PRN 05/19/17 [ History] Pitavastatin Calcium [Livalo] 2 mg PO DAILY 05/19/17 [History] Sotalol [Betapace] 80 mg PO HS 05/19/17 [History] Warfarin [Coumadin] 5 mg PO SUTUTHFR 05/19/17 [History] Docusate [Colace] 100 mg PO DAILY #30 capsule 06/01/17 [Rx] Hydrocodone/Acetaminophen [Ancram 5-325] 1 - 2 each PO Q6HR PRN #60 tab 06/01/17 [Rx] traMADol HCl [Ultram] 50 mg PO Q6H PRN #40 tab 06/01/17 [Rx] Follow up Appointment(s)/Referral(s): Jaylon Vasquez PAC [PHYSICIAN PRODUCTION LEADER] - 2 Weeks Roman Hartman MD [Primary Care Provider] - 1 Week Activity/Diet/Wound Care/Special Instructions: Orthopedic Discharge Instructions: 1. Wound care and infection precautions, keep incision dry and covered while showering, no lotions, creams, moisturizers. No soaking, pools, hot tubs. Do not scrub over incision. 2. Weight-bear as tolerated with walker / cane until follow-up. 3. Ice and elevate when necessary. Do not exceed 20 minutes per hour with ice pack. 4. Utilize compression sleeve until seen at first follow up appointment. 5. Visiting nursing care. 6. Home physical therapy including home CPM. 7. Pain meds and anticoagulants per prescription. 8. Pain medication has potential to cause constipation. Increase oral fluid and fiber intake. Contact primary care provider if you have not had a bowel movement within 48 hours after discharge. 9. No anti-inflammatory medication until discussed at first post operative visit, this including Motrin, Aleve, Mobic, Diclofenac. 10. Follow up in office at 2 weeks postop with John Vasquez PA-C 11. Follow up with your primary care doctor 7-10 days after discharge. 12. Contact [facility] with any questions, [phone]. 13. [facility] - [phone] - will deliver to room before discharge. Discharge Disposition: HOME WITH HOME HEALTH SERVICES
[2017-06-01 11:42] VITALS: BP 91/60; PULSE 68; TEMP 97.2
[2017-06-01] MEDS ORDERED: ENOXAPARIN 80 MG/0.8 ML SYRINGE SQ STA (12:52)
--- NOTE | 2017-06-01 12:58 | P.PN ---
Subjective Progress Note Date: 06/01/17 Status post right total knee arthroplasty. Patient is doing well with no complaints. Orthopedics have cleared him for discharge. Objective - Vital Signs Vital signs: Vital Signs Temp 97.2 F L 06/01/17 07:00 Pulse 68 06/01/17 07:00 Resp 16 06/01/17 01:15 BP 91/60 06/01/17 07:00 Pulse Ox 96 06/01/17 07:43 Intake & Output 05/31/17 06/01/17 06/01/17 18:59 06:59 18:59 Intake Total 1040 Output Total 650 Balance 390 Intake: IV 800 Sodium Chloride 0.9% 1, 800 000 ml @ 100 mls/hr IV . Q10H [facility]LEX[facility]I Rx#:[id number] Oral 240 Output: Urine 650 Uretheral ([place]) 300 Other: Voiding Method Indwelling Catheter Indwelling Catheter Indwelling Catheter # Voids 2 - Exam Head normocephalic Neck supple Lungs clear to auscultation bilaterally no wheezing or crackles Heart regular rate and rhythm S1-S2, no rub or gallop Abdomen is soft nontender nondistended positive bowel sounds no hepatosplenomegaly Extremities right knee minimal swelling. Dressing clean dry and intact Neuro alert and orientated to 3 - Labs CBC & Chem 7: 06/01/17 06:54 06/01/17 06:54 Labs: Abnormal Lab Results - Last 24 Hours (Table) 06/01/17 06/01/17 06/01/17 Range/Units 06:54 06:54 06:54 Plt Count 139 L (150-450) k/uL Lymphocytes # 0.8 L (1.0-4.8) k/uL PT 12.7 H (9.0-12.0) sec INR 1.3 H (<1.2) BUN 24 H (9-20) mg/dL ALT 19 L (21-72) U/L Total Protein 5.4 L (6.3-8.2) g/dL Assessment and Plan Assessment: #1 osteoarthritis status post right total knee arthroplasty post operative day # 2 #2 underlying history of ischemic cardiomyopathy #3 previous history of myocardial infarction with cardiac arrest #4 underlying history of atrial fibrillation #5 underlying history of hypertension #6 underlying history of hyperlipidemia #7 low urine output last night agent received IV fluid normal saline at 100 mL an hour. Urine output has improved Patient is medically stable for discharge. Please note his INR is 1.3. Recommend Coumadin 10 mg today and Lovenox 80 mg before discharge. Patient's to take his Coumadin 7.5 mg tomorrow and then starting Monday resume his home dosing of Coumadin Patient follow up with Dr. Hartman in 1 week. I performed an examination of the patient and discussed their management with the physician [employer]inisher. I have reviewed the Physician [employer] Refinisher's notes and agree with the documented findings and plan of care
[2017-06-01] MEDS ORDERED: WARFARIN 10 MG TAB PO ONE (13:00)
[2017-06-01] MEDS ORDERED: WARFARIN 7.5 MG TAB PO ONE (18:00)
== END 2017-06-01 14:07 | disposition home health service (06) | DRG 470 ==
LOC: 2ORMAIN 13:35 → 3SUR 18:05
PROVIDERS: ADMIT Orthopaedic Surgery; ATTEND Orthopaedic Surgery
PROC: 0SRC0J9 Replacement of Right Knee Joint with Synthetic Substitute, Cemented, Open Approach (ICD-10-PCS; principal; 2017-05-30 16:10)
DX: M17.11 Unilateral primary osteoarthritis, right knee (principal); I11.0 Hypertensive heart disease with heart failure; I95.9 Hypotension, unspecified; I48.91 Unspecified atrial fibrillation; I50.22 Chronic systolic (congestive) heart failure; E78.5 Hyperlipidemia, unspecified; I25.10 Atherosclerotic heart disease of native coronary artery without angina pectoris; I25.5 Ischemic cardiomyopathy; M21.061 Valgus deformity, not elsewhere classified, right knee; Z79.01 Long term (current) use of anticoagulants; Z79.82 Long term (current) use of aspirin; I25.2 Old myocardial infarction; Z79.899 Other long term (current) drug therapy; Z86.74 Personal history of sudden cardiac arrest; Z95.5 Presence of coronary angioplasty implant and graft; Z95.810 Presence of automatic (implantable) cardiac defibrillator
CPT/HCPCS: 80053; 85025; 85610; 85730; 88300; 93005; 94760

== ENCOUNTER → 2018-02-12 | Outpatient (CLI) | payer MEDICARE ==
[2018-02-12 12:50] LABS: Calcium 8.9 mg/dL (8.4-10.2); Potassium 5.2 mmol/L (3.5-5.1)
== END | disposition home or self-care (01) ==
LOC: LABWHC1 11:12
PROVIDERS: ATTEND Internal Medicine Cardiovascular Disease
DX: I50.9 Heart failure, unspecified (principal)
CPT/HCPCS: 36415; 80048; 83880

== ENCOUNTER → 2021-04-28 | Outpatient (CLI) | payer MEDICARE ==
[2021-04-28 20:33] LABS: African American GFR (CKD) 84.4 (60.0-200.0); Anion Gap 12.8 mmol/L (10.00-18.00); BUN/Creat Ratio 17.7 Ratio (12.00-20.00); Blood Urea Nitrogen 17.7 mg/dL (9.0-27.0); Calcium 9.1 mg/dL (8.7-10.3); Carbon Dioxide 24.2 mmol/L (20.0-27.5); Non-African American GFR(CKD) 72.8 (60.0-200.0); Potassium 4.5 mmol/L (3.5-5.5)
== END | disposition home or self-care (01) ==
LOC: LABWHC1 12:37
PROVIDERS: ATTEND Internal Medicine Clinical Cardiac Electrophysiology
DX: I42.9 Cardiomyopathy, unspecified (principal); I47.2 Ventricular tachycardia
CPT/HCPCS: 36415; 80048; 84443

== ENCOUNTER 2021-06-04 19:29 | Inpatient (IN) | payer MEDICARE ==
[2021-06-04] MEDS ORDERED: DEXAMETHASONE SOD PHOSPHATE 10 MG/ML 1 ML VIAL IVP STA (20:23)
[2021-06-04] MEDS ORDERED: ACETAMINOPHEN TAB 500 MG TAB PO STA (20:23)
--- NOTE | 2021-06-04 20:23 | ED ---
General Adult HPI - General Source: patient, family, RN notes reviewed, old records reviewed Mode of arrival: wheelchair Limitations: no limitations - History of Present Illness -: week(s) (2) Severity scale (1-10): 5 Quality: aching Consistency: constant Associated Symptoms: chest pain, fever/chills, loss of appetite, malaise, sh ortness of breath, weakness <Mann Neil - Last Filed: 06/05/21 00:00> <Shabbir Figueroa - Last Filed: 06/06/21 17:31> - General Chief complaint: Chest Pain Stated complaint: Chest pain,weakness Time Seen by Provider: 06/04/21 20:15 - History of Present Illness Initial comments: 76-year-old male presents to the emergency room with shortness of breath, weakness and fever for the past 2 weeks. Patient states he has been vaccinated for coronavirus last year. He has not gotten booster. He states that his has also been sick but she's gotten better. is at the bedside states that he has not been taking his water pill either. He has had decreased appetite, body aches and shortness of breath with bilateral lower extremity swelling. He does have a history of an AICD, hypertension and [place]. (Mann Neil) - Related Data Home Medications Medication Instructions Recorded Confirmed Aspirin 81 mg PO DAILY 04/14/14 06/04/21 Nitroglycerin Sl Tabs [Nitrostat] 0.4 mg SUBLINGUAL Q5M PRN 04/14/14 06/04/21 Spironolactone [Aldactone] 12.5 mg PO HS 04/14/14 06/04/21 Warfarin [Coumadin] 7.5 mg PO TUTHSA 04/14/14 06/04/21 Carvedilol [Coreg] 6.25 mg PO BID 06/09/14 06/04/21 Sotalol [Betapace] 80 mg PO BID 05/19/17 06/04/21 Warfarin [Coumadin] 5 mg PO SUMOWEFR 05/19/17 06/04/21 Allopurinol [Zyloprim] 100 mg PO DAILY 06/04/21 06/04/21 Multivit-Min/FA/Lycopen/Lutein 1 tab PO DAILY 06/04/21 06/04/21 [Centrum Silver Men Tablet] Sacubitril/Valsartan [Entresto 24 2 tab PO BID 06/04/21 06/04/21 mg-26 mg Tablet] Allergies Allergy/AdvReac Type Severity Reaction Status Date / Time No Known Allergies Allergy Verified 06/04/21 23:45 Review of Systems ROS Other: All systems not noted in ROS Statement are negative. <Mann Neil - Last Filed: 06/05/21 00:00> ROS Other: All systems not noted in ROS Statement are negative. <Shabbir Figueroa - Last Filed: 06/06/21 17:31> ROS Statement: Those systems with pertinent positive or pertinent negative responses have been documented in the HPI. Past Medical History Past Medical History: Eye Disorder, Hyperlipidemia, Hypertension, Myocardial Infarction ([place]) Additional Past Medical History / Comment(s): see Dr Jain H&P, arthritis. AICD, W/ LEAD MALFUNCTION. CATARACTS.PAST AFIB HAD ABLATION DONE, SINCE HAD 1 EPIDSODE OF AFIB CHANGED MEDS AROUND AND NO AFIB SINCE Last Myocardial Infarction Date:: 2006 History of Any Multi-Drug Resistant Organisms: None Reported Past Surgical History: Ablation, AICD, Heart Catheterization With Stent Additional Past Surgical History / Comment(s): bilateral CATARACT, one cardiac stent, total right knee 05/30/16 Past Anesthesia/Blood Transfusion Reactions: No Reported Reaction Date of Last Stent Placement:: 2006 Type of Cardiac Device: AICD Device Placement Date:: Past Psychological History: No Psychological Hx Reported Smoking Status: Never smoker Past Alcohol Use History: Rare Past Drug Use History: None Reported - Past Family History Father Family Medical History: Cancer Mother Family Medical History: Cancer <Mann Neil - Last Filed: 06/05/21 00:00> General Exam Limitations: no limitations General appearance: alert, in distress (Tachypnea) Head exam: Present: atraumatic, normocephalic, normal inspection Eye exam: Present: normal appearance, PERRL, EOMI. Absent: scleral icterus, periorbital swelling, periorbital tenderness Pupils: Present: normal accommodation ENT exam: Present: mucous membranes moist Neck exam: Present: normal inspection, full ROM. Absent: tenderness, meningismus, lymphadenopathy Respiratory exam: Present: wheezes (Bilaterally), accessory muscle use (Diaphragmatic). Absent: stridor, chest wall tenderness, decreased breath sounds Cardiovascular Exam: Present: regular rate, normal rhythm, normal heart sounds. Absent: systolic murmur, diastolic murmur, rubs, gallop, clicks GI/Abdominal exam: Present: soft, distended. Absent: tenderness, rigid Extremities exam: Present: normal capillary refill, pedal edema (Bilateral 3+). Absent: calf tenderness Back exam: Present: normal inspection. Absent: tenderness, CVA tenderness (R), CVA tenderness (L), rash noted Neurological exam: Present: alert, oriented X3 Psychiatric exam: Present: normal affect, normal mood Skin exam: Present: warm, dry, normal color. Absent: cyanosis, diaphoretic <Mann Neil - Last Filed: 06/05/21 00:00> Course - Reevaluation(s) Time: 23:28 <Mann Neil - Last Filed: 06/05/21 00:00> Vital Signs 06/04/21 06/04/21 06/04/21 20:00 21:26 23:24 Temperature 103.7 F H 98.5 F Pulse Rate 93 68 Respiratory 22 16 18 Rate Blood Pressure 121/70 106/62 O2 Sat by Pulse 96 93 L Oximetry 06/05/21 00:39 Temperature Pulse Rate 62 Respiratory 20 Rate Blood Pressure 106/62 O2 Sat by Pulse 94 L Oximetry - Reevaluation(s) Reevaluation #1: 06/04/21 23:28 Patient is asleep on the bed, temperature is down, oxygen saturation 93% on room air. No respiratory distress. The antibiotics are started, fluids started at 1 30 mL an hour. patient was not given IV fluid boluses due to his congestive heart failure with fluid overload. (Mann Neil) Medical Decision Making - Lab Data Result diagrams: 06/04/21 20:25 06/04/21 20:25 <Mann Neil - Last Filed: 06/05/21 00:00> - Lab Data Result diagrams: 06/06/21 09:08 06/06/21 09:08 <Shabbir Figueroa - Last Filed: 06/06/21 17:31> - Medical Decision Making 76-year-old male presents to the emergency room with shortness of breath, weakness and fever for the past 2 weeks. Patient states he has been vaccinated for coronavirus last year. His was sick with similar symptoms which have resolved. Patient has not been taking his water pill and has bilateral lower extremity swelling. Chest x-ray shows no evidence of pleural effusion, pulmonary vascularity is unremarkable. There is no acute cardiopulmonary disease. Blood cell count is 1.6, neutrophil count is 0.5, lymphocyte count is 0.5. hemoglobin and hematocrit are stable. D-dimer is age-appropriate at 0.77. Blood glucose level 102. Troponin is elevated 0.045, EKG shows a ventricularly paced rhythm. ProBNP is elevated at 2470, patient was given IV Lasix. Patient was unable to urinate, bladder scan shows 300 mL of urine. A Everett catheter was placed. He was febrile upon arrival. This appears to be sepsis. Blood cultures were drawn and patient was started on 2 g of Rocephin. IV fluid boluses were held because the patient is in heart failure with an elevated BNP. He was given Lasix and started on IV fluids at 0.9 normal saline 130 mL an hour. Coronavirus testing is pending. Case was discussed with Dr. Figueroa. (Mann Neil) I saw this patient in conjunction with the physician assistant professor of economics. I performed independent history and physical exam. Agree with case management. (Shabbir Figueroa) - Lab Data Lab Results 06/04/21 06/04/21 06/04/21 Range/Units 20:25 20:25 20:25 WBC 1.6 L (3.8-10.6) k/uL RBC 4.71 (4.30-5.90) m/uL Hgb 15.1 (13.0-17.5) gm/dL Hct 44.5 (39.0-53.0) % MCV 94.6 (80.0-100.0) fL MCH 32.0 (25.0-35.0) pg MCHC 33.9 (31.0-37.0) g/dL RDW 12.7 (11.5-15.5) % Plt Count 66 L (150-450) k/uL MPV 11.8 Neutrophils % (Manual) 28 % Band Neuts % (Manual) 4 % Lymphocytes % (Manual) 32 % Monocytes % (Manual) 35 % Metamyelocytes % 1 % Neutrophils # (Manual) 0.50 L (1.3-7.7) k/uL Lymphocytes # (Manual) 0.51 L (1.0-4.8) k/uL Monocytes # (Manual) 0.56 (0-1.0) k/uL Metamyelocytes # (Man) 0.02 H (0) k/uL Nucleated RBCs 0 (0-0) /100 WBC Manual Slide Review Performed PT 25.4 H (9.0-12.0) sec INR 2.6 H (<1.2) APTT 35.8 H (22.0-30.0) sec D-Dimer 0.77 H (<0.60) mg/L FEU Sodium 137 (137-145) mmol/L Potassium 4.4 (3.5-5.1) mmol/L Chloride 105 (98-107) mmol/L Carbon Dioxide 22 (22-30) mmol/L Anion Gap 10 mmol/L BUN 19 (9-20) mg/dL Creatinine 1.03 (0.66-1.25) mg/dL Est GFR (CKD-EPI)AfAm 82 (>60 ml/min/1.73 sqM) Est GFR (CKD-EPI)NonAf 71 (>60 ml/min/1.73 sqM) Glucose 102 H (74-99) mg/dL Calcium 8.5 (8.4-10.2) mg/dL Magnesium 2.1 (1.6-2.3) mg/dL Total Bilirubin 1.1 (0.2-1.3) mg/dL AST 86 H (17-59) U/L ALT 28 (4-49) U/L Alkaline Phosphatase 72 (38-126) U/L Troponin I (0.000-0.034) ng/mL NT-Pro-B Natriuret Pep pg/mL Total Protein 6.5 (6.3-8.2) g/dL Albumin 3.9 (3.5-5.0) g/dL Urine Color Urine Appearance (Clear) Urine pH (5.0-8.0) Ur Specific [place] (1.001-1.035) Urine Protein (Negative) Urine Glucose (UA) (Negative) Urine Ketones (Negative) Urine Blood (Negative) Urine Nitrite (Negative) Urine Bilirubin (Negative) Urine Urobilinogen (<2.0) mg/dL Ur Leukocyte Esterase (Negative) Urine RBC (0-5) /hpf Urine WBC (0-5) /hpf Ur Squamous Epith Cells (0-4) /hpf Urine Bacteria (None) /hpf Urine Mucus (None) /hpf Influenza Type A (PCR) (Not Detectd) Influenza Type B (PCR) (Not Detectd) RSV (PCR) (Not Detectd) SARS-CoV-2 (PCR) (Not Detectd) 06/04/21 06/04/21 06/04/21 Range/Units 20:25 20:25 21:08 WBC (3.8-10.6) k/uL RBC (4.30-5.90) m/uL Hgb (13.0-17.5) gm/dL Hct (39.0-53.0) % MCV (80.0-100.0) fL MCH (25.0-35.0) pg MCHC (31.0-37.0) g/dL RDW (11.5-15.5) % Plt Count (150-450) k/uL MPV Neutrophils % (Manual) % Band Neuts % (Manual) % Lymphocytes % (Manual) % Monocytes % (Manual) % Metamyelocytes % % Neutrophils # (Manual) (1.3-7.7) k/uL Lymphocytes # (Manual) (1.0-4.8) k/uL Monocytes # (Manual) (0-1.0) k/uL Metamyelocytes # (Man) (0) k/uL Nucleated RBCs (0-0) /100 WBC Manual Slide Review PT (9.0-12.0) sec INR (<1.2) APTT (22.0-30.0) sec D-Dimer (<0.60) mg/L FEU Sodium (137-145) mmol/L Potassium (3.5-5.1) mmol/L Chloride (98-107) mmol/L Carbon Dioxide (22-30) mmol/L Anion Gap mmol/L BUN (9-20) mg/dL Creatinine (0.66-1.25) mg/dL Est GFR (CKD-EPI)AfAm (>60 ml/min/1.73 sqM) Est GFR (CKD-EPI)NonAf (>60 ml/min/1.73 sqM) Glucose (74-99) mg/dL Calcium (8.4-10.2) mg/dL Magnesium (1.6-2.3) mg/dL Total Bilirubin (0.2-1.3) mg/dL AST (17-59) U/L ALT (4-49) U/L Alkaline Phosphatase (38-126) U/L Troponin I 0.045 H* (0.000-0.034) ng/mL NT-Pro-B Natriuret Pep 2470 pg/mL Total Protein (6.3-8.2) g/dL Albumin (3.5-5.0) g/dL Urine Color Yellow Urine Appearance Clear (Clear) Urine pH 5.5 (5.0-8.0) Ur Specific [place] 1.024 (1.001-1.035) Urine Protein 1+ H (Negative) Urine Glucose (UA) Negative (Negative) Urine Ketones 1+ H (Negative) Urine Blood Large H (Negative) Urine Nitrite Negative (Negative) Urine Bilirubin Negative (Negative) Urine Urobilinogen <2.0 (<2.0) mg/dL Ur Leukocyte Esterase Negative (Negative) Urine RBC 24 H (0-5) /hpf Urine WBC 2 (0-5) /hpf Ur Squamous Epith Cells <1 (0-4) /hpf Urine Bacteria Rare H (None) /hpf Urine Mucus Rare H (None) /hpf Influenza Type A (PCR) (Not Detectd) Influenza Type B (PCR) (Not Detectd) RSV (PCR) (Not Detectd) SARS-CoV-2 (PCR) (Not Detectd) 06/04/21 Range/Units 23:20 WBC (3.8-10.6) k/uL RBC (4.30-5.90) m/uL Hgb (13.0-17.5) gm/dL Hct (39.0-53.0) % MCV (80.0-100.0) fL MCH (25.0-35.0) pg MCHC (31.0-37.0) g/dL RDW (11.5-15.5) % Plt Count (150-450) k/uL MPV Neutrophils % (Manual) % Band Neuts % (Manual) % Lymphocytes % (Manual) % Monocytes % (Manual) % Metamyelocytes % % Neutrophils # (Manual) (1.3-7.7) k/uL Lymphocytes # (Manual) (1.0-4.8) k/uL Monocytes # (Manual) (0-1.0) k/uL Metamyelocytes # (Man) (0) k/uL Nucleated RBCs (0-0) /100 WBC Manual Slide Review PT (9.0-12.0) sec INR (<1.2) APTT (22.0-30.0) sec D-Dimer (<0.60) mg/L FEU Sodium (137-145) mmol/L Potassium (3.5-5.1) mmol/L Chloride (98-107) mmol/L Carbon Dioxide (22-30) mmol/L Anion Gap mmol/L BUN (9-20) mg/dL Creatinine (0.66-1.25) mg/dL Est GFR (CKD-EPI)AfAm (>60 ml/min/1.73 sqM) Est GFR (CKD-EPI)NonAf (>60 ml/min/1.73 sqM) Glucose (74-99) mg/dL Calcium (8.4-10.2) mg/dL Magnesium (1.6-2.3) mg/dL Total Bilirubin (0.2-1.3) mg/dL AST (17-59) U/L ALT (4-49) U/L Alkaline Phosphatase (38-126) U/L Troponin I (0.000-0.034) ng/mL NT-Pro-B Natriuret Pep pg/mL Total Protein (6.3-8.2) g/dL Albumin (3.5-5.0) g/dL Urine Color Urine Appearance (Clear) Urine pH (5.0-8.0) Ur Specific [place] (1.001-1.035) Urine Protein (Negative) Urine Glucose (UA) (Negative) Urine Ketones (Negative) Urine Blood (Negative) Urine Nitrite (Negative) Urine Bilirubin (Negative) Urine Urobilinogen (<2.0) mg/dL Ur Leukocyte Esterase (Negative) Urine RBC (0-5) /hpf Urine WBC (0-5) /hpf Ur Squamous Epith Cells (0-4) /hpf Urine Bacteria (None) /hpf Urine Mucus (None) /hpf Influenza Type A (PCR) Not Detected (Not Detectd) Influenza Type B (PCR) Not Detected (Not Detectd) RSV (PCR) Not Detected (Not Detectd) SARS-CoV-2 (PCR) Detected A (Not Detectd) Disposition Decision Date: 06/04/21 Decision Time: 23:20 <Mann Neil - Last Filed: 06/05/21 00:00> <Shabbir Figueroa - Last Filed: 06/06/21 17:31> Clinical Impression: Chest pain, Neutropenia, CHF (congestive heart failure), Urinary retention Disposition: ADMITTED IP TO THIS HOSP
[2021-06-04] MEDS ORDERED: FUROSEMIDE 10 MG/ML 4 ML VIAL IV STA (20:24)
--- NOTE | 2021-06-04 21:15 | XR ---
EXAMINATION TYPE: XR chest 1V portable DATE OF EXAM: 06/04/2021 9:00 PM COMPARISON:Chest radiographs from 11/08/2014. CLINICAL INDICATION:Male, 76 years old with history of Chest Pain; TECHNIQUE: Frontal view of the chest. FINDINGS: Lungs/Pleura: There is no evidence of pleural effusion, focal consolidation, or pneumothorax. Pulmonary vascularity: Unremarkable. Heart/mediastinum: Cardiomediastinal silhouette is enlarged and stable. Musculoskeletal: No acute osseous pathology. Other findings: Three lead cardiac conduction device overlying the left hemithorax with lead tips projecting over the right ventricle, right atrium and coronary sinus. IMPRESSION: No acute cardiopulmonary disease/process.
[2021-06-04 21:19] LABS: Appearance,Urine Clear (Clear); Bacteria,Urine Rare /hpf; Bilirubin,Urine Negative (Negative); Blood,Urine Large (Negative); Color,Urine Yellow; Glucose,Urine (UA) Negative (Negative); Ketones,Urine 1+ (Negative); Leukocyte Esterase,Urine Negative (Negative); Mucus,Urine Rare /hpf; Nitrite,Urine Negative (Negative); PH, Urine 5.5 (5.0-8.0); Protein,Urine 1+ (Negative); RBC,Urine 24 /hpf (0-5); Specific Gravity,Urine 1.024 (1.001-1.035); Squamous Epithelial Cell,Urine <1 /hpf (0-4); Urobilinogen,Urine <2.0 mg/dL (<2.0); WBC,Urine 2 /hpf (0-5)
[2021-06-04 22:04] LABS: HCT 44.5 % (39.0-53.0); HGB 15.1 gm/dL (13.0-17.5); MCHC 33.9 g/dL (31.0-37.0); MCV 94.6 fL (80.0-100.0); Mean Platelet Volume 11.8; RBC 4.71 m/uL (4.30-5.90); RDW 12.7 % (11.5-15.5); WBC 1.6 k/uL (3.8-10.6)
[2021-06-04 22:06] LABS: Platelet Count 66 k/uL (150-450)
[2021-06-04 22:14] LABS: INR 2.6 (<1.2); Partial Thromboplastin Time 35.8 sec (22.0-30.0); Prothrombin Time 25.4 sec (9.0-12.0)
[2021-06-04 22:19] LABS: Albumin 3.9 g/dL (3.5-5.0); Calcium 8.5 mg/dL (8.4-10.2); Magnesium 2.1 mg/dL (1.6-2.3); Potassium 4.4 mmol/L (3.5-5.1); Total Bilirubin 1.1 mg/dL (0.2-1.3); Total Protein 6.5 g/dL (6.3-8.2)
[2021-06-04 22:35] LABS: Band Neutrophils % 4 %; Lymphocytes # (M) 0.51 k/uL (1.0-4.8); Metamyelocytes # (M) 0.02 k/uL (0); Metamyelocytes % 1 %; Monocytes # (M) 0.56 k/uL (0-1.0); Neutrophils % (M) 28 %; Nucleated Red Blood Cells 0 /100 WBC (0-0); Total Cells Counted 100
[2021-06-04] MEDS ORDERED: NALOXONE 0.4 MG/ML 1 ML VIAL IV PRN (23:21)
[2021-06-05] MEDS: SODIUM CHLORIDE 0.9% 1,000 ML IV SCH ×2 (00:37→10:41)
[2021-06-05] MEDS ORDERED: NITROGLYCERIN SL TABS 0.4 MG TAB SUBLINGUAL PRN (09:35)
--- NOTE | 2021-06-05 10:40 | P.CRDCN ---
History of Present Illness Consult date: 06/05/21 Consult reason: chest pain, congestive heart failure Chief complaint: Chest pain History of present illness: This is Sathish Javier NP dictating a consult on this patient on behalf of Dr. Jain. The patient was interviewed and examined. HPI: [Patient is a pleasant 76-year-old male who initially presented to the hosp ital with complaints of shortness of breath, weakness, and fever for the last 2 weeks. Per emergency room notes, the patient had not been taking his water pill, and had a decreased appetite, body aches, shortness of breath, and bilateral lower extremity swelling for the last few weeks. He is also reporting chest pain, fever and chills, malaise. This prompted him to be brought to the hospital and evaluated. Patient was found to be Covid 19 positive on the emergency department. He was also found to have elevated troponin. Patient was vaccinated against COVID-19 last year, however did not receive a booster. Patient was worked up in the emergency department, and was found to be febrile, along with an elevated BNP. Patient was given IV Lasix and antipyretics. He was also diagnosed with sepsis, blood cultures were drawn and antibiotics were started. ER elected to hold fluid boluses secondary to the patient's congestive heart failure. Patient has a past medical history that includes hypertension, hyperlipidemia, myocardial infarction, arthritis, AICD implantation, cataracts, atrial fibrillation with ablation. Patient has a past surgical history that includes ablation, AICD implantation, and heart catheterization with stent placement, along with bilateral cataract removal, and a right total knee. Patient reports he is a never smoker, denies current alcohol or illicit subst ance use.] ROS: Patient had limited interview/exam secondary to active Covid infection. EXAMINATION: GENERAL: Well-appearing, well-nourished and in no acute distress. Patient had limited interview/exam secondary to active Covid infection. REVIEW OF LABS, ECG & MEDICAL DATA: LABS: White count 1.6, hemoglobin 15.1, platelets 66, d-dimer 0.77, sodium 137, potassium 4.4, B1 19, creatinine 1.03, magnesium 2.1, troponin 0.045, BNP 2470 EKG: AV dual paced rhythm IMAGING: Chest x-ray dated 06/04/2021 shows no acute cardiopulmonary disease/process VITALS: Temp 97.6, pulse 56, respirations 20, blood pressure 113/75, O2 saturation 96% on room air IMPRESSION/PLAN: [1. Congestive heart failure-BNP is currently within normal limits. Encourage oral fluid intake. Continue carvedilol, and Entresto. 2. Elevated troponin-echocardiogram. Trend troponins. 3. Peripheral edema-continue Aldactone. 4. Elevated [id number] warfarin. Further recommendations will be made based on the patient's clinical course.] Thank you for the consult and allowing us to participate in the care of this patient. The patient has been seen and evaluated. Plan of care has been reviewed and agreed upon by Dr. Jain. Past Medical History Past Medical History: Eye Disorder, Hyperlipidemia, Hypertension, Myocardial Infarction ([place]) Additional Past Medical History / Comment(s): AICD, W/ LEAD MALFUNCTION. CATARACTS.PAST AFIB HAD ABLATION DONE, SINCE HAD 1 EPIDSODE OF AFIB CHANGED MEDS AROUND AND NO AFIB SINCE Last Myocardial Infarction Date:: 2006 History of Any Multi-Drug Resistant Organisms: None Reported Past Surgical History: Ablation, AICD, Heart Catheterization With Stent Additional Past Surgical History / Comment(s): bilateral CATARACT, one cardiac stent, total right knee 05/30/16 Past Anesthesia/Blood Transfusion Reactions: No Reported Reaction Date of Last Stent Placement:: 2006 Type of Cardiac Device: AICD Device Placement Date:: unknown Past Psychological History: No Psychological Hx Reported Smoking Status: Never smoker Past Alcohol Use History: Rare Past Drug Use History: None Reported - Past Family History Father Family Medical History: Cancer Mother Family Medical History: Cancer Medications and Allergies Home Medications Medication Instructions Recorded Confirmed Type Aspirin 81 mg PO DAILY 04/14/14 06/04/21 History Nitroglycerin Sl Tabs [Nitrostat] 0.4 mg SUBLINGUAL Q5M PRN 04/14/14 06/04/21 History Spironolactone [Aldactone] 12.5 mg PO HS 04/14/14 06/04/21 History Warfarin [Coumadin] 7.5 mg PO TUTHSA 04/14/14 06/04/21 History Carvedilol [Coreg] 6.25 mg PO BID 06/09/14 06/04/21 History Sotalol [Betapace] 80 mg PO BID 05/19/17 06/04/21 History Warfarin [Coumadin] 5 mg PO SUMOWEFR 05/19/17 06/04/21 History Allopurinol [Zyloprim] 100 mg PO DAILY 06/04/21 06/04/21 History Multivit-Min/FA/Lycopen/Lutein 1 tab PO DAILY 06/04/21 06/04/21 History [Centrum Silver Men Tablet] Sacubitril/Valsartan [Entresto 24 2 tab PO BID 06/04/21 06/04/21 History mg-26 mg Tablet] Allergies Allergy/AdvReac Type Severity Reaction Status Date / Time No Known Allergies Allergy Verified 06/04/21 23:45 Physical Exam Vitals: Vital Signs Temp Pulse Pulse Resp BP BP Pulse Ox 06/05/21 03:56 97.6 F 56 L 20 113/75 96 06/05/21 02:16 20 06/05/21 02:01 97.6 F 74 20 127/80 97 06/05/21 01:43 98.6 F 64 24 110/67 95 06/05/21 00:39 62 20 106/62 94 L 06/04/21 23:24 98.5 F 68 18 106/62 93 L 06/04/21 21:26 16 06/04/21 20:00 103.7 F H 93 22 121/70 96 Intake and Output 06/04/21 06/05/21 06/05/21 22:59 06:59 14:59 Output Total 700 Balance -700 Output: Urine 700 Other: Voiding Method Indwelling Catheter Weight 129.274 kg 129.27 kg Results 06/04/21 20:25 06/04/21 20:25 Cardiac Enzymes 06/04/21 06/04/21 Range/Units 20:25 20:25 AST 86 H (17-59) U/L Troponin I 0.045 H* (0.000-0.034) ng/mL Coagulation 06/04/21 Range/Units 20:25 PT 25.4 H (9.0-12.0) sec APTT 35.8 H (22.0-30.0) sec CBC 06/04/21 Range/Units 20:25 WBC 1.6 L (3.8-10.6) k/uL RBC 4.71 (4.30-5.90) m/uL Hgb 15.1 (13.0-17.5) gm/dL Hct 44.5 (39.0-53.0) % Plt Count 66 L (150-450) k/uL Comprehensive Metabolic Panel 06/04/21 Range/Units 20:25 Sodium 137 (137-145) mmol/L Potassium 4.4 (3.5-5.1) mmol/L Chloride 105 (98-107) mmol/L Carbon Dioxide 22 (22-30) mmol/L BUN 19 (9-20) mg/dL Creatinine 1.03 (0.66-1.25) mg/dL Glucose 102 H (74-99) mg/dL Calcium 8.5 (8.4-10.2) mg/dL AST 86 H (17-59) U/L ALT 28 (4-49) U/L Alkaline Phosphatase 72 (38-126) U/L Total Protein 6.5 (6.3-8.2) g/dL Albumin 3.9 (3.5-5.0) g/dL Current Medications Generic Name Dose Route Start Last Admin Trade Name Freq PRN Reason Stop Dose Admin Allopurinol 100 mg 06/05/21 09:45 Allopurinol 100 Mg Tab PO DAILY [facility] Aspirin 81 mg 06/05/21 09:45 Aspirin 81 Mg PO DAILY [facility] Carvedilol 6.25 mg 06/05/21 09:45 Carvedilol 6.25 Mg Tab PO AC-BID [facility] Miscellaneous Information 0 each 06/05/21 09:44 Warfarin Per Pharmacy MISCELLANE DIRECTED PRN ANTICOAG Multivitamins 1 each 06/06/21 09:00 Multivitamins, Thera 1 Each Tab PO DAILY [facility] Naloxone HCl 0.2 mg 06/04/21 23:21 Naloxone 0.4 Mg/Ml 1 Ml Vial IV Q2M PRN Opioid Reversal Nitroglycerin 0.4 mg 06/05/21 09:35 Nitroglycerin Sl Tabs 0.4 Mg Tab SUBLINGUAL Q5M PRN Chest Pain Sacubitril/Valsartan 2 each 06/05/21 09:45 Sacubitril/Valsartan 24 Mg-26 Mg Tablet PO BID [facility] Sotalol HCl 80 mg 06/05/21 21:00 Sotalol 80 Mg Tab PO BID [facility] Spironolactone 12.5 mg 06/05/21 21:00 Spironolactone 25 Mg Tab PO HS [facility] Warfarin Sodium 5 mg 06/06/21 18:00 Warfarin 5 Mg Tab PO [email or web address] [facility] Protocol Warfarin Sodium 7.5 mg 06/05/21 18:00 Warfarin 7.5 Mg Tab PO [email or web address] [facility] Protocol Intake and Output 06/04/21 06/05/21 06/05/21 22:59 06:59 14:59 Output Total 700 Balance -700 Output: Urine 700 Other: Voiding Method Indwelling Catheter Weight 129.274 kg 129.27 kg 06/04/21 20:25 06/04/21 20:25
[2021-06-05] MEDS: SACUBITRIL/VALSARTAN 24 MG-26 MG TABLET PO SCH ×2 (10:41→20:20)
[2021-06-05] MEDS: allopurinoL 100 MG TAB PO SCH (10:42)
[2021-06-05] MEDS: ASPIRIN 81 MG PO SCH (10:42)
[2021-06-05] MEDS: carvediloL 6.25 MG TAB PO SCH ×2 (10:42→17:41)
[2021-06-05 11:09] LABS: INR 2.7 (<1.2); Prothrombin Time 26.5 sec (9.0-12.0)
--- NOTE | 2021-06-05 13:00 | ECHOF ---
Referral Reason:CHF MEASUREMENTS -------- HEIGHT: 182.9 cm WEIGHT: 128.8 kg BP: 113/75 IVSd: 1.2 cm (0.6 - 1.1) LVIDd: 5.5 cm (3.9 - 5.3) LVPWd: 1.1 cm (0.6 - 1.1) EDV(Teich): 148 ml IVSs: 1.1 cm LVIDs: 5.2 cm LVPWs: 1.7 cm %IVS Thck: -8 % ESV(Teich): 132 ml EF(Teich): 11 % %FS: 5 % SV(Teich): 16 ml LA Diam: 3.9 cm (2.7 - 3.8) RVIDd: 3.6 cm (< 3.3) LALs A4C: 6.3 cm LAAs A4C: 21.9 cm LAESV A-L A4C: 65 ml LAESV MOD A4C: 60 ml LALs A2C: 4.9 cm LAAs A2C: 17.2 cm LAESV A-L A2C: 52 ml LAESV MOD A2C: 50 ml LAESV(A-L): 66 ml LAESV Index (A-L): 26.59 ml/m Ao Diam: 3.4 cm (2.0 - 3.7) AV Cusp: 2.2 cm (1.5 - 2.6) EPSS: 3.9 cm MV E Ricky: 0.58 m/s MV DecT: 179 ms MV Dec [place]: 3.2 m/s MV A Ricky: 0.66 m/s MV E/A Ratio: 0.88 MV PHT: 52 ms AV Vmax: 1.01 m/s AV maxP.06 mmHg TR Vmax: 2.03 m/s TR maxP.56 mmHg RAP: 5.00 mmHg RVSP: 21.56 mmHg MV EF SLOPE: 50.78 mm/s (70 - 150) MV EXCURSION: 12.84 mm (> 18.000) FINDINGS -------- This was a technically difficult study with suboptimal views. The left ventricular size is normal. There is borderline concentric left ventricular hypertrophy. Overall left ventricular systolic function is severely impaired with, an EF between 20 - 25 %. Abby bal hypokinesis The right ventricle is mildly enlarged. Normal LA size by volume 22+/-6 ml/m2. The right atrium is normal in size. The aortic valve is trileaflet, and appears structurally normal. No aortic stenosis or regurgitation. The mitral valve is normal. Mild tricuspid regurgitation present. Right ventricular systolic pressure is normal at < 35 mmHg. The pulmonic valve was not well visualized. The aortic root size is normal. Normal inferior vena cava with normal inspiratory collapse consistent with estimated right atrial pre ssure of 5 mmHg. There is no pericardial effusion. CONCLUSIONS -------- 1. The left ventricular size is normal. 2. There is borderline concentric left ventricular hypertrophy. 3. Overall left ventricular systolic function is severely impaired with, an EF between 20 - 25 %. 4. Global hypokinesis 5. The right ventricle is mildly enlarged. 6. The aortic valve is trileaflet, and appears structurally normal. No aortic stenosis or regurgitati on. 7. Mild tricuspid regurgitation present. 8. There is no pericardial effusion. [employer] ARCHITECT: Aixa Cox RDCS
--- NOTE | 2021-06-05 14:11 | P.HPIM ---
History of Present Illness H&P Date: 06/05/21 Iker Layton, is a 76-year-old male well-known to my practice who presented to [facility] emergency room with a chief complaint of severe weakness, diarrhea, and occasional episodes of sharp pain in the chest for the last several days. He was evaluated in the emergency room vital examination on presentation revealed a temperature of 103.7 pulse 93 respiration 22 blood pressure 121/70 and pulse ox 96% on room air Laboratory data revealed a white blood count of 1.6 hemoglobin 15.1 platelet count 66 INR 2.6 d-dimer 0.77 BUN 19 creatinine 1.03 troponin level 0.045 COVID- 19 PCR was positive Testing in the emergency room revealed chest x-ray done emergency room revealed no acute cardiopulmonary disease, EKG revealed dual paced rhythm. Patient was admitted to medical floor for further evaluation and treatment. Past medical history is significant for chronic systolic congestive heart failure with cardiomyopathy, ejection fraction 20-25%, history of cardiac arrhythmia with pacemaker placement. On review of systems patient was complaining of severe weakness and diarrhea for several days, there was episodes of fever no chills, no headache or dizziness, he had frequent sharp episodes of chest pain lasting a few seconds, there was no shortness of breath no cough no nausea or vomiting no abdominal pain however patient had severe diarrhea, no blood in the stools no burning with urination no frequency or urgency no hematuria. Past Medical History Past Medical History: Eye Disorder, Hyperlipidemia, Hypertension, Myocardial Infarction ([place]) Additional Past Medical History / Comment(s): AICD, W/ LEAD MALFUNCTION. CATARACTS.PAST AFIB HAD ABLATION DONE, SINCE HAD 1 EPIDSODE OF AFIB CHANGED MEDS AROUND AND NO AFIB SINCE Last Myocardial Infarction Date:: 2006 History of Any Multi-Drug Resistant Organisms: None Reported Past Surgical History: Ablation, AICD, Heart Catheterization With Stent Additional Past Surgical History / Comment(s): bilateral CATARACT, one cardiac stent, total right knee 05/30/16 Past Anesthesia/Blood Transfusion Reactions: No Reported Reaction Date of Last Stent Placement:: 2006 Type of Cardiac Device: AICD Device Placement Date:: unknown Past Psychological History: No Psychological Hx Reported Smoking Status: Never smoker Past Alcohol Use History: Rare Past Drug Use History: None Reported - Past Family History Father Family Medical History: Cancer Mother Family Medical History: Cancer Medications and Allergies Home Medications Medication Instructions Recorded Confirmed Type Aspirin 81 mg PO DAILY 04/14/14 06/04/21 History Nitroglycerin Sl Tabs [Nitrostat] 0.4 mg SUBLINGUAL Q5M PRN 04/14/14 06/04/21 History Spironolactone [Aldactone] 12.5 mg PO HS 04/14/14 06/04/21 History Warfarin [Coumadin] 7.5 mg PO TUTHSA 04/14/14 06/04/21 History Carvedilol [Coreg] 6.25 mg PO BID 06/09/14 06/04/21 History Sotalol [Betapace] 80 mg PO BID 05/19/17 06/04/21 History Warfarin [Coumadin] 5 mg PO SUMOWEFR 05/19/17 06/04/21 History Allopurinol [Zyloprim] 100 mg PO DAILY 06/04/21 06/04/21 History Multivit-Min/FA/Lycopen/Lutein 1 tab PO DAILY 06/04/21 06/04/21 History [Centrum Silver Men Tablet] Sacubitril/Valsartan [Entresto 24 2 tab PO BID 06/04/21 06/04/21 History mg-26 mg Tablet] Allergies Allergy/AdvReac Type Severity Reaction Status Date / Time No Known Allergies Allergy Verified 06/04/21 23:45 Physical Exam Vitals: Vital Signs Temp Pulse Pulse Resp BP BP Pulse Ox 06/05/21 03:56 97.6 F 56 L 20 113/75 96 06/05/21 02:16 20 06/05/21 02:01 97.6 F 74 20 127/80 97 06/05/21 01:43 98.6 F 64 24 110/67 95 06/05/21 00:39 62 20 106/62 94 L 06/04/21 23:24 98.5 F 68 18 106/62 93 L 06/04/21 21:26 16 06/04/21 20:00 103.7 F H 93 22 121/70 96 Intake and Output 06/04/21 06/05/21 06/05/21 22:59 06:59 14:59 Output Total 700 Balance -700 Output: Urine 700 Other: Voiding Method Indwelling Catheter Weight 129.274 kg 129.27 kg In general patient is alert and oriented x 3 in no distress HEENT head normocephalic and atraumatic Neck is supple no JVD no goiter no lymphadenopathy no carotid bruit Chest examination is clear to auscultation no crackles no wheezing Cardiac exam reveals regular heart sounds S1 and S2 no gallops no murmurs Abdomen is soft nontender no organomegaly with normal bowel sounds Extremity exam reveals no edema no cyanosis or clubbing Neurological examination reveals no gross focal deficits Results CBC & Chem 7: 06/04/21 20:25 06/04/21 20:25 Labs: Abnormal Lab Results - Last 24 Hours (Table) 06/04/21 06/04/21 06/04/21 Range/Units 20:25 20:25 20:25 WBC 1.6 L (3.8-10.6) k/uL Plt Count 66 L (150-450) k/uL Neutrophils # (Manual) 0.50 L (1.3-7.7) k/uL Lymphocytes # (Manual) 0.51 L (1.0-4.8) k/uL Metamyelocytes # (Man) 0.02 H (0) k/uL PT 25.4 H (9.0-12.0) sec INR 2.6 H (<1.2) APTT 35.8 H (22.0-30.0) sec D-Dimer 0.77 H (<0.60) mg/L FEU Glucose 102 H (74-99) mg/dL AST 86 H (17-59) U/L Troponin I (0.000-0.034) ng/mL Urine Protein (Negative) Urine Ketones (Negative) Urine Blood (Negative) Urine RBC (0-5) /hpf Urine Bacteria (None) /hpf Urine Mucus (None) /hpf SARS-CoV-2 (PCR) (Not Detectd) 06/04/21 06/04/21 06/04/21 Range/Units 20:25 21:08 23:20 WBC (3.8-10.6) k/uL Plt Count (150-450) k/uL Neutrophils # (Manual) (1.3-7.7) k/uL Lymphocytes # (Manual) (1.0-4.8) k/uL Metamyelocytes # (Man) (0) k/uL PT (9.0-12.0) sec INR (<1.2) APTT (22.0-30.0) sec D-Dimer (<0.60) mg/L FEU Glucose (74-99) mg/dL AST (17-59) U/L Troponin I 0.045 H* (0.000-0.034) ng/mL Urine Protein 1+ H (Negative) Urine Ketones 1+ H (Negative) Urine Blood Large H (Negative) Urine RBC 24 H (0-5) /hpf Urine Bacteria Rare H (None) /hpf Urine Mucus Rare H (None) /hpf SARS-CoV-2 (PCR) Detected A (Not Detectd) Thrombosis Risk Factor Assmnt - Choose All That Apply Any of the Below Risk Factors Present?: Yes Each Risk Factor Represents 3 Points: Age 75 years or older Thrombosis Risk Factor Assessment Total Risk Factor Score: 3 Thrombosis Risk Factor Assessment Level: Moderate Risk Assessment and Plan Plan: Acute Covid 19 infection, no evidence of pneumonia, no evidence of respiratory failure patient is maintained on room air O2 sat duration is 94% Severe diarrhea, will obtain stool sample for culture and C. diff Leukopenia white blood count is 1.6 Will monitor Thrombocytopenia platelet count 66 Mildly elevated d-dimer at 0.77 Underlying history of paroxysmal atrial fibrillation maintained on Coumadin INR therapeutic History of chronic systolic congestive heart failure, with cardiomyopathy, ejection fraction 20-25% Underlying history of coronary artery disease Underlying history of hypertension Underlying history of gout Underlying history of hyperlipidemia At this time patient is admitted to telemetry floor, cardiology consultation was requested Home medications reviewed and reordered Echocardiogram Will check stool samples and repeat labs in a.m. Patient was given 1 dose of IV Rocephin in the emergency room, however no clear evidence of bacterial infection at this time will hold IV antibiotic and consult infectious disease
[2021-06-05] MEDS: ASCORBIC ACID 500 MG TAB PO SCH (17:41)
[2021-06-05] MEDS: CHOLECALCIFEROL 25 MCG (1000 IU) TABLET PO SCH (17:41)
[2021-06-05] MEDS ORDERED: WARFARIN 7.5 MG TAB PO SCH (18:00)
[2021-06-05] MEDS: SPIRONOLACTONE 25 MG TAB PO SCH (20:20)
[2021-06-05] MEDS: SOTALOL 80 MG TAB PO SCH (20:20)
[2021-06-06] MEDS: METOPROLOL TARTRATE 25 MG TAB PO SCH ×2 (08:53→21:35)
[2021-06-06] MEDS: allopurinoL 100 MG TAB PO SCH (08:53)
[2021-06-06] MEDS: SACUBITRIL/VALSARTAN 24 MG-26 MG TABLET PO SCH ×2 (08:53→21:36)
[2021-06-06] MEDS: SOTALOL 80 MG TAB PO SCH ×2 (08:53→21:36)
[2021-06-06] MEDS: guaiFENesin-Coden 100-10MG/5ML 10 ML CUP PO PRN ×2 (08:53→16:34)
[2021-06-06] MEDS: MULTIVITAMINS, THERA 1 EACH TAB PO SCH (08:54)
[2021-06-06] MEDS: ZINC SULFATE 220 MG CAP PO SCH (08:54)
[2021-06-06] MEDS: ASPIRIN 81 MG PO SCH (08:54)
[2021-06-06] MEDS: ASCORBIC ACID 500 MG TAB PO SCH (08:54)
[2021-06-06] MEDS: CHOLECALCIFEROL 25 MCG (1000 IU) TABLET PO SCH (08:54)
[2021-06-06 10:08] LABS: INR 3.8 (<1.2); Partial Thromboplastin Time 37.1 sec (22.0-30.0); Prothrombin Time 36.3 sec (9.0-12.0)
[2021-06-06 10:26] LABS: ALT 37 U/L (4-49); AST 91 U/L (17-59); African American GFR (CKD) 83 (>60 ml/min/1.73 sqM); Albumin 3.7 g/dL (3.5-5.0); Alkaline Phosphatase 60 U/L (38-126); Anion Gap 7 mmol/L; Blood Urea Nitrogen 30 mg/dL (9-20); Calcium 8.2 mg/dL (8.4-10.2); Carbon Dioxide 25 mmol/L (22-30); Chloride 105 mmol/L (98-107); Glucose 107 mg/dL (74-99); LDH 1356 U/L (313-618); Magnesium 2.2 mg/dL (1.6-2.3); Non-African American GFR(CKD) 72 (>60 ml/min/1.73 sqM); Potassium 4.4 mmol/L (3.5-5.1); Sodium 137 mmol/L (137-145); Total Protein 6.3 g/dL (6.3-8.2)
--- NOTE | 2021-06-06 10:37 | P.GSCN ---
History of Present Illness Consult date: 06/06/21 Reason for Consult: Urinary retention Requesting physician: Roman Hartman History of present illness: The patient is a 76-year-old white male with an unremarkable urologic history. Specifically, he denies any prior history of UTIs, urolithiasis, or BPH. For the past week, he has experienced significant weakness and diarrhea. He has been incontinent of feces and urine. He presented to the ER and was admitted. He has tested positive for caliber, but has no respiratory distress. Bladder Scan in the ER showed 300 mL, and a Everett catheter was placed. Review of Systems - Constitutional Reports chills, Reports fever, Reports weakness - Gastrointestinal Reports diarrhea, Denies nausea, Denies vomiting - Genitourinary Denies dysuria, Denies flank pain, Denies hematuria Past Medical History Past Medical History: Eye Disorder, Hyperlipidemia, Hypertension, Myocardial Infarction ([place]) Additional Past Medical History / Comment(s): AICD, W/ LEAD MALFUNCTION. CATARACTS.PAST AFIB HAD ABLATION DONE, SINCE HAD 1 EPIDSODE OF AFIB CHANGED MEDS AROUND AND NO AFIB SINCE Last Myocardial Infarction Date:: 2006 History of Any Multi-Drug Resistant Organisms: None Reported Past Surgical History: Ablation, AICD, Heart Catheterization With Stent Additional Past Surgical History / Comment(s): bilateral CATARACT, one cardiac stent, total right knee 05/30/16 Past Anesthesia/Blood Transfusion Reactions: No Reported Reaction Date of Last Stent Placement:: 2006 Type of Cardiac Device: AICD Device Placement Date:: unknown Past Psychological History: No Psychological Hx Reported Smoking Status: Never smoker Past Alcohol Use History: Rare Past Drug Use History: None Reported - Past Family History Father Family Medical History: Cancer Mother Family Medical History: Cancer Medications and Allergies Home Medications Medication Instructions Recorded Confirmed Type Aspirin 81 mg PO DAILY 04/14/14 06/04/21 History Nitroglycerin Sl Tabs [Nitrostat] 0.4 mg SUBLINGUAL Q5M PRN 04/14/14 06/04/21 History Spironolactone [Aldactone] 12.5 mg PO HS 04/14/14 06/04/21 History Warfarin [Coumadin] 7.5 mg PO TUTHSA 04/14/14 06/04/21 History Carvedilol [Coreg] 6.25 mg PO BID 06/09/14 06/04/21 History Sotalol [Betapace] 80 mg PO BID 05/19/17 06/04/21 History Warfarin [Coumadin] 5 mg PO SUMOWEFR 05/19/17 06/04/21 History Allopurinol [Zyloprim] 100 mg PO DAILY 06/04/21 06/04/21 History Multivit-Min/FA/Lycopen/Lutein 1 tab PO DAILY 06/04/21 06/04/21 History [Centrum Silver Men Tablet] Sacubitril/Valsartan [Entresto 24 2 tab PO BID 06/04/21 06/04/21 History mg-26 mg Tablet] Allergies Allergy/AdvReac Type Severity Reaction Status Date / Time No Known Allergies Allergy Verified 06/04/21 23:45 Surgical - Exam Vital Signs Temp Pulse Resp BP Pulse Ox 103.7 F H 93 22 121/70 96 06/04/21 20:00 06/04/21 20:00 06/04/21 20:00 06/04/21 20:00 06/04/21 20:00 - General well developed, well nourished, no distress - Respiratory normal respiratory effort - Abdomen Abdomen: soft, non tender, no guarding, no rigid, no rebound - Genitourinary normal penis with no external lesions, testicles non-tender - Rectum Rectum: normal sphincter tone, no masses, other (Prostate moderately enlarged and smooth) - Psychiatric oriented to time, oriented to person, oriented to place, speech is normal, memory intact Results - Labs 06/04/21 20:25 06/06/21 09:08 Abnormal Lab Results - Last 24 Hours (Table) 06/05/21 06/05/21 Range/Units 09:12 10:34 PT 26.5 H (9.0-12.0) sec INR 2.7 H (<1.2) Procalcitonin 0.62 H (0.02-0.09) ng/mL Microbiology - Last 24 Hours (Table) 06/05/21 15:05 Stool Culture - Preliminary Stool 06/04/21 21:00 Blood Culture - Preliminary Blood No Growth after 24 hours 06/04/21 21:16 Blood Culture - Preliminary Blood No Growth after 24 hours Assessment and Plan (1) Urinary retention Current Visit: Yes Status: Acute Code(s): R33.9 - RETENTION OF URINE, UNSPECIFIED SNOMED Code(s): 973834271 Plan: The patient was admitted with a febrile illness. He was noted to be leukopenic at the time of admission. He denies inability to void, and states that his primary urinary symptom was incontinence. This may be a manifestation of his overall illness. The 300 mL volume of urine does not constitute urinary retention. I would suggest the Everett catheter remain in place until his overall condition improves. At that time, the catheter may be removed for a voiding trial. Postvoid residuals should be monitored to confirm adequate bladder emptying. Time with Patient: Greater than 30
[2021-06-06 10:39] LABS: HGB 17.9 gm/dL (13.0-17.5); Hypochromasia Slight; MCH 31.8 pg (25.0-35.0); MCHC 31.8 g/dL (31.0-37.0); Mean Platelet Volume 11.3; RBC 5.62 m/uL (4.30-5.90); RDW 13.2 % (11.5-15.5); WBC 3.9 k/uL (3.8-10.6)
[2021-06-06 10:41] LABS: HCT 56.2 % (39.0-53.0); MCV 99.9 fL (80.0-100.0); Platelet Count 86 k/uL (150-450)
[2021-06-06 11:00] LABS: Band Neutrophils % 1 %; Lymphocytes # (M) 0.51 k/uL (1.0-4.8); Metamyelocytes # (M) 0.04 k/uL (0); Metamyelocytes % 1 %; Monocytes # (M) 0.94 k/uL (0-1.0); Myelocytes # (M) 0.04 k/uL (0); Myelocytes % 1 %; Neutrophils % (M) 61 %; Nucleated Red Blood Cells 0 /100 WBC (0-0); Total Cells Counted 200
[2021-06-06 11:01] LABS: Anisocytosis (M) Present; Poikilocytosis (M) Present
--- NOTE | 2021-06-06 11:22 | P.PN ---
Subjective Progress Note Date: 06/06/21 This is Sathish rojas NP, dictating a progress note on behalf of Dr. Jain. Patient was interviewed and examined. Patient's pleasant 76-year-old male reports that he doesn't feel very good today. He doesn't chest pain and shortness of breath, and cannot give a real definitive description of why he doesn't feel so good. Troponin is back to normal. He is positive for COVID-19. GENERAL: Well-appearing, well-nourished and in no acute distress. NECK: Supple without JVD or thyromegaly. LUNGS: Breath sounds clear to auscultation bilaterally. Respiration equal and unlabored. No wheezes, rales or rhonchi. HEART: Regular rate and rhythm without murmurs, rubs or gallops. S1 and S2 heard. EXTREMITIES: Normal range of motion, no edema. No clubbing or cyanosis. Peripheral pulses intact and strong. VITALS: Temp 99.5, pulse 76, respirations 16, blood pressure 105/67, O2 saturation 94% on room air TELEMETRY: [AV dual paced rhythm on telemetry] LABS: [White count 3.9, hemoglobin 17.9, platelets 86, PT 36.3, INR 3.8, sodium 137, potassium 4.4, B1 30, creatinine 1.01, magnesium 2.2, iron studies pending, troponin 0.028] IMPRESSION: [Congestive heart failure Elevated troponin Peripheral edema Elevated d-dimer] PLAN: [Continue medications as prescribed Encourage oral fluid intake] The patient has been seen and evaluated. Plan of care has been reviewed and agreed upon by Dr. Jain. Please to hesitate to contact us if further recommendations are needed. Objective - Vital Signs Vital signs: Vital Signs Temp 98.1 F 06/06/21 03:46 Pulse 100 06/06/21 03:46 Resp 18 06/06/21 03:46 BP 91/59 06/06/21 03:46 Pulse Ox 97 06/06/21 03:46 Intake & Output 06/05/21 06/06/21 06/06/21 18:59 06:59 18:59 Intake Total 838 240 Output Total 375 500 Balance 463 -500 240 Intake: Oral 838 240 Output: Urine 375 500 Other: Voiding Method Indwelling Catheter Indwelling Catheter # Bowel Movements 1 - Labs CBC & Chem 7: 06/06/21 09:08 06/06/21 09:08 Labs: Abnormal Lab Results - Last 24 Hours (Table) 06/05/21 06/05/21 Range/Units 09:12 10:34 PT 26.5 H (9.0-12.0) sec INR 2.7 H (<1.2) Procalcitonin 0.62 H (0.02-0.09) ng/mL Microbiology - Last 24 Hours (Table) 06/05/21 15:05 Stool Culture - Preliminary Stool 06/04/21 21:00 Blood Culture - Preliminary Blood No Growth after 24 hours 06/04/21 21:16 Blood Culture - Preliminary Blood No Growth after 24 hours
[2021-06-06] MEDS ORDERED: ACETAMINOPHEN TAB 325 MG TAB PO PRN (12:01)
--- NOTE | 2021-06-06 15:21 | P.PN ---
Subjective Progress Note Date: 06/06/21 Iker Layton, is a 76-year-old male well-known to my practice who presented to [facility] emergency room with a chief complaint of severe weakness, diarrhea, and occasional episodes of sharp pain in the chest for the last several days. He was evaluated in the emergency room vital examination on presentation revealed a temperature of 103.7 pulse 93 respiration 22 blood pressure 121/70 and pulse ox 96% on room air Laboratory data revealed a white blood count of 1.6 hemoglobin 15.1 platelet count 66 INR 2.6 d-dimer 0.77 BUN 19 creatinine 1.03 troponin level 0.045 COVID- 19 PCR was positive Testing in the emergency room revealed chest x-ray done emergency room revealed no acute cardiopulmonary disease, EKG revealed dual paced rhythm. Patient was admitted to medical floor for further evaluation and treatment. Past medical history is significant for chronic systolic congestive heart failure with cardiomyopathy, ejection fraction 20-25%, history of cardiac arrhythmia with pacemaker placement. On review of systems patient was complaining of severe weakness and diarrhea for several days, there was episodes of fever no chills, no headache or dizziness, he had frequent sharp episodes of chest pain lasting a few seconds, there was no shortness of breath no cough no nausea or vomiting no abdominal pain however patient had severe diarrhea, no blood in the stools no burning with urination no frequency or urgency no hematuria. On 06/06/2021 patient was seen and examined on the telemetry floor he is alert and oriented 3 in no apparent distress he is complaining of cough and feeling tired and weak otherwise he denies any complaints, he had a high temperature of 102.3 this morning no chills no headache or dizziness no chest pain no shortness of breath there is no nausea or vomiting no abdominal pain no diarrhea no blood in the stools patient has a Everett catheter in place. Due to elevated temperature this morning I am repeating blood culture, chest x- ray, and urine analysis, patient had elevated pro-calcitonin I would start him on IV Zosyn prophylactically consultation for infectious disease was initiated Objective - Vital Signs Vital signs: Vital Signs Temp 99.5 F 06/06/21 13:50 Pulse 110 H 06/06/21 11:25 Resp 16 06/06/21 11:25 BP 110/72 06/06/21 11:25 Pulse Ox 92 L 06/06/21 11:25 Intake & Output 06/05/21 06/06/21 06/06/21 18:59 06:59 18:59 Intake Total 838 240 Output Total 375 500 350 Balance 463 -500 -110 Intake: Oral 838 240 Output: Urine 375 500 350 Other: Voiding Method Indwelling Catheter Indwelling Catheter Indwelling Catheter # Bowel Movements 1 - Exam In general patient is alert and oriented x 3 in no distress HEENT head normocephalic and atraumatic Neck is supple no JVD no goiter no lymphadenopathy no carotid bruit Chest examination is clear to auscultation no crackles no wheezing Cardiac exam reveals regular heart sounds S1 and S2 no gallops no murmurs Abdomen is soft nontender no organomegaly with normal bowel sounds Extremity exam reveals no edema no cyanosis or clubbing Neurological examination reveals no gross focal deficits - Labs CBC & Chem 7: 06/06/21 09:08 06/06/21 09:08 Labs: Abnormal Lab Results - Last 24 Hours (Table) 06/05/21 06/06/21 06/06/21 Range/Units 09:12 09:08 09:08 Hgb 17.9 H (13.0-17.5) gm/dL Hct 56.2 H (39.0-53.0) % Plt Count 86 L (150-450) k/uL Lymphocytes # (Manual) 0.51 L (1.0-4.8) k/uL Metamyelocytes # (Man) 0.04 H (0) k/uL Myelocytes # (Manual) 0.04 H (0) k/uL ESR (0-15) mm/hr PT 36.3 H (9.0-12.0) sec INR 3.8 H (<1.2) APTT 37.1 H (22.0-30.0) sec BUN (9-20) mg/dL Glucose (74-99) mg/dL Calcium (8.4-10.2) mg/dL AST (17-59) U/L Lactate Dehydrogenase (313-618) U/L Procalcitonin 0.62 H (0.02-0.09) ng/mL 06/06/21 06/06/21 Range/Units 09:08 11:37 Hgb (13.0-17.5) gm/dL Hct (39.0-53.0) % Plt Count (150-450) k/uL Lymphocytes # (Manual) (1.0-4.8) k/uL Metamyelocytes # (Man) (0) k/uL Myelocytes # (Manual) (0) k/uL ESR 17 H (0-15) mm/hr PT (9.0-12.0) sec INR (<1.2) APTT (22.0-30.0) sec BUN 30 H (9-20) mg/dL Glucose 107 H (74-99) mg/dL Calcium 8.2 L (8.4-10.2) mg/dL AST 91 H (17-59) U/L Lactate Dehydrogenase 1356 H (313-618) U/L Procalcitonin (0.02-0.09) ng/mL Microbiology - Last 24 Hours (Table) 06/05/21 15:05 Stool Culture - Preliminary Stool 06/04/21 21:00 Blood Culture - Preliminary Blood No Growth after 24 hours 06/04/21 21:16 Blood Culture - Preliminary Blood No Growth after 24 hours Assessment and Plan Plan: Acute Covid 19 infection, no evidence of pneumonia, no evidence of respiratory failure patient is maintained on room air O2 sat duration is 94% Severe diarrhea, will obtain stool sample for culture and C. diff Leukopenia white blood count is 1.6 Will monitor Thrombocytopenia platelet count 66 Mildly elevated d-dimer at 0.77 Underlying history of paroxysmal atrial fibrillation maintained on Coumadin INR therapeutic History of chronic systolic congestive heart failure, with cardiomyopathy, ejection fraction 20-25% Underlying history of coronary artery disease Underlying history of hypertension Underlying history of gout Underlying history of hyperlipidemia At this time patient is admitted to telemetry floor, cardiology consultation was requested Home medications reviewed and reordered Echocardiogram Will check stool samples and repeat labs in a.m. Patient was given 1 dose of IV Rocephin in the emergency room, however no clear evidence of bacterial infection at this time will hold IV antibiotic and consult infectious disease
--- NOTE | 2021-06-06 16:20 | P.CONS ---
History of Present Illness - Reason for Consult Consult date: 06/06/21 Leukopenia and Thrombocytopenia Requesting physician: Roman Hartman - Chief Complaint COVID Pneumonia - History of Present Illness Mr. Layton has been admitted to [facility] with Covid Pneumonia. Cesar admission complaints of weakness, diarrhea, and chest pain. Symptoms progessed over the past week and when worsened he presented to emergency. Fever on admission 103.7, COVID positive. WNC = 1.6, Platelet 66K In trending his WBC it appears he has had a low normal WBC since 08/2017. His Platelet count also appears to run in low normal range approx 120K. Records from January within the past few months reeveal Platelet in 90K. Because of the cytopenias we have been asked to further evaluate. He has known cardiac medical history AICD, MD and HTN. Review of Systems All systems: negative Constitutional: Reports as per HPI Past Medical History Past Medical History: Eye Disorder, Hyperlipidemia, Hypertension, Myocardial Infarction (MD) Additional Past Medical History / Comment(s): AICD, W/ LEAD MALFUNCTION. CATARACTS.PAST AFIB HAD ABLATION DONE, SINCE HAD 1 EPIDSODE OF AFIB CHANGED MEDS AROUND AND NO AFIB SINCE Last Myocardial Infarction Date:: 2006 History of Any Multi-Drug Resistant Organisms: None Reported Past Surgical History: Ablation, AICD, Heart Catheterization With Stent Additional Past Surgical History / Comment(s): bilateral CATARACT, one cardiac stent, total right knee 05/30/16 Past Anesthesia/Blood Transfusion Reactions: No Reported Reaction Date of Last Stent Placement:: 2006 Type of Cardiac Device: AICD Device Placement Date:: unknown Past Psychological History: No Psychological Hx Reported Smoking Status: Never smoker Past Alcohol Use History: Rare Past Drug Use History: None Reported - Past Family History Father Family Medical History: Cancer Mother Family Medical History: Cancer Medications and Allergies Home Medications Medication Instructions Recorded Confirmed Type Aspirin 81 mg PO DAILY 04/14/14 06/04/21 History Nitroglycerin Sl Tabs [Nitrostat] 0.4 mg SUBLINGUAL Q5M PRN 04/14/14 06/04/21 History Spironolactone [Aldactone] 12.5 mg PO HS 04/14/14 06/04/21 History Warfarin [Coumadin] 7.5 mg PO TUTHSA 04/14/14 06/04/21 History Carvedilol [Coreg] 6.25 mg PO BID 06/09/14 06/04/21 History Sotalol [Betapace] 80 mg PO BID 05/19/17 06/04/21 History Warfarin [Coumadin] 5 mg PO SUMOWEFR 05/19/17 06/04/21 History Allopurinol [Zyloprim] 100 mg PO DAILY 06/04/21 06/04/21 History Multivit-Min/FA/Lycopen/Lutein 1 tab PO DAILY 06/04/21 06/04/21 History [Centrum Silver Men Tablet] Sacubitril/Valsartan [Entresto 24 2 tab PO BID 06/04/21 06/04/21 History mg-26 mg Tablet] Allergies Allergy/AdvReac Type Severity Reaction Status Date / Time No Known Allergies Allergy Verified 06/04/21 23:45 Physical Exam Vitals: Vital Signs Temp Pulse Resp BP Pulse Ox 06/06/21 13:50 99.5 F 06/06/21 11:25 102.7 F H 110 H 16 110/72 92 L 06/06/21 09:25 99.5 F 76 16 105/67 94 L 06/06/21 03:46 98.1 F 100 18 91/59 97 06/06/21 01:23 18 06/06/21 00:00 98.4 F 126 H 18 90/51 96 06/05/21 20:00 98.4 F 122 H 18 90/48 95 06/05/21 16:40 98.5 F 47 L 16 110/62 96 Intake and Output 06/06/21 06/06/21 06/06/21 06:59 14:59 22:59 Intake Total 240 Output Total 500 350 Balance -500 -110 Intake: Oral 240 Output: Urine 500 350 Other: Voiding Method Indwelling Catheter Indwelling Catheter - Constitutional General appearance: cooperative, no acute distress - EENT Eyes: EOMI ENT: NA/AT - Neck Neck: normal ROM - Respiratory Respiratory: bilateral: diminished - Cardiovascular Rhythm: regularly irregular - Gastrointestinal General gastrointestinal: soft - Integumentary Integumentary: pale - Neurologic Neurologic: CNII-XII intact - Musculoskeletal Musculoskeletal: generalized weakness - Psychiatric Psychiatric: A&O x's 3 Results CBC & Chem 7: 06/06/21 09:08 06/06/21 09:08 Labs: Abnormal Lab Results - Last 24 Hours (Table) 06/05/21 06/06/21 06/06/21 Range/Units 09:12 09:08 09:08 Hgb 17.9 H (13.0-17.5) gm/dL Hct 56.2 H (39.0-53.0) % Plt Count 86 L (150-450) k/uL Lymphocytes # (Manual) 0.51 L (1.0-4.8) k/uL Metamyelocytes # (Man) 0.04 H (0) k/uL Myelocytes # (Manual) 0.04 H (0) k/uL ESR (0-15) mm/hr PT 36.3 H (9.0-12.0) sec INR 3.8 H (<1.2) APTT 37.1 H (22.0-30.0) sec BUN (9-20) mg/dL Glucose (74-99) mg/dL Calcium (8.4-10.2) mg/dL AST (17-59) U/L Lactate Dehydrogenase (313-618) U/L Procalcitonin 0.62 H (0.02-0.09) ng/mL 06/06/21 06/06/21 Range/Units 09:08 11:37 Hgb (13.0-17.5) gm/dL Hct (39.0-53.0) % Plt Count (150-450) k/uL Lymphocytes # (Manual) (1.0-4.8) k/uL Metamyelocytes # (Man) (0) k/uL Myelocytes # (Manual) (0) k/uL ESR 17 H (0-15) mm/hr PT (9.0-12.0) sec INR (<1.2) APTT (22.0-30.0) sec BUN 30 H (9-20) mg/dL Glucose 107 H (74-99) mg/dL Calcium 8.2 L (8.4-10.2) mg/dL AST 91 H (17-59) U/L Lactate Dehydrogenase 1356 H (313-618) U/L Procalcitonin (0.02-0.09) ng/mL Microbiology - Last 24 Hours (Table) 06/05/21 15:05 Stool Culture - Preliminary Stool 06/04/21 21:00 Blood Culture - Preliminary Blood No Growth after 24 hours 06/04/21 21:16 Blood Culture - Preliminary Blood No Growth after 24 hours Assessment and Plan (1) Leukopenia Narrative/Plan: - Appears he has a chronically decreased WBC, and with the inflammatory picture of COVID this was decreased further. It appears to have improved today and as he recovers from COVID should continue to see improvements. - Additional testing has been ordered to rule out other associated contributing factors of thrombocytopenia and Leukopenia Current Visit: Yes Status: Acute Code(s): D72.819 - DECREASED WHITE BLOOD CELL COUNT, UNSPECIFIED SNOMED Code(s): 10852495 (2) Thrombocytopenia associated with COVID-19 Narrative/Plan: Monitor closely Hold AC therapy if less than 40K Current Visit: Yes Status: Acute Code(s): U07.1 - COVID-19; D69.59 - OTHER SECONDARY THROMBOCYTOPENIA SNOMED Code(s): 447480777 (3) COVID-19 Narrative/Plan: Per pulmonary and ID Current Visit: Yes Status: Acute Code(s): U07.1 - COVID-19 SNOMED Code(s): 429596711
[2021-06-06] MEDS: PIPERACILLIN-TAZOBACTAM 3.375 GM in SODIUM CHLORIDE 0.9% 100 ML IVPB SCH (16:33)
[2021-06-06 17:18] LABS: Appearance,Urine Cloudy (Clear); Bacteria,Urine Few /hpf; Bilirubin,Urine Negative (Negative); Blood,Urine Large (Negative); Color,Urine Yellow; Glucose,Urine (UA) Negative (Negative); Ketones,Urine Negative (Negative); Leukocyte Esterase,Urine Small (Negative); Mucus,Urine Many /hpf; Nitrite,Urine Negative (Negative); PH, Urine 5.5 (5.0-8.0); Protein,Urine 1+ (Negative); RBC,Urine >182 /hpf (0-5); Specific Gravity,Urine 1.031 (1.001-1.035); Squamous Epithelial Cell,Urine <1 /hpf (0-4); WBC,Urine 25 /hpf (0-5)
[2021-06-06 17:20] LABS: Protein, Total 6.2 g/dL (6.2-8.2)
[2021-06-06 17:36] LABS: % Iron Saturation 38.48 (15.00-50.00); Iron 91 ug/dL (65-175); Total Iron Binding Capacity 235 ug/dL (228-460)
[2021-06-06 17:49] LABS: Rheumatoid Factor, Qnt <10 IU/mL (0-15)
[2021-06-06] MEDS ORDERED: WARFARIN 0.5 MG TAB PO ONE (18:00)
[2021-06-06] MEDS ORDERED: WARFARIN 5 MG TAB PO SCH (18:00)
--- NOTE | 2021-06-06 21:15 | P.CONS ---
History of Present Illness - Reason for Consult Consult date: 06/06/21 Fever Requesting physician: Roman Hartman - Chief Complaint weakness and fever x 2 weeks - History of Present Illness History of present illness : Patient is 76-year male partially vaccinated for COVID-19 with the Pfizer last/second dose was in July 2020 when he did not get the booster patient presenting to the ER 2 days ago for evaluation of increasing shortness of breath weakness and fever in this patient symptom has been going on for almost a week before presentation to the hospital with the symptoms not improving and the patient was getting worse having increased weakness decreased appetite body aches shortness of breath and lower extremity swelling with the symptom the patient was brought into the ER on arrival to the ER patient did have a fever of 103.7 degree for night patient was hypoxic and is requiring supplemental oxygen patient did have leukopenia as well as lymphopenia repeat white count is normal D-dimer was mildly elevated creatinine was normal AST is elevated troponin was mildly elevated but there is a 0.6 2 repeat urine is mildly positive COVID PCR was positive patient did have a chest x-ray no acute cardiopulmonary disease he did have a repeat x-ray done this afternoon with report currently pending with his persistent fever in fectious disease was consulted for further management Review of system: CONSTITUTIONAL: Positive for weakness along with the fever. EYES: No complaint. ENT: No complaint. RESPIRATORY: As per history of present illness. CARDIOVASCULAR: No complaint. GENITOURINARY: No complaint. GASTROINTESTINAL: As per history of present illness. MUSCULOSKELETAL: No complaint. INTEGUMENTARY: No complaint. PSYCHOLOGIC: No complaint. ENDOCRINE: No complaint. NEUROLOGIC: No complaint. Past medical history : Reviewed, documented below Past surgical history : Reviewed, documented below Social history: Reviewed, documented below Medications: Reviewed, as documented below EXAMINATION: Vital sigans= Reviewed and documented below GENERAL DESCRIPTION: Elderly male lying in bed, no distress. No tachypnea or accessory muscle of respiration use. HEENT: Shows Pallor , no scleral icterus. Oral mucous membrane is dry. NECK: Trachea central, no thyromegaly. LUNGS: Unlabored breathing. Decreased breath sounds at bases. No wheeze or crackle. HEART: S1, S2, regular rate and rhythm. ABDOMEN: Soft, no tenderness , guarding or rigidity EXTREMITIES: No edema of feet. SKIN: No rash, no masses palpable. NEUROLOGICAL: The patient is awake, alert, oriented x3, mood and affect normal. LABS AND RADIOLOGY: Reviewed results see below Assessment : Patient presented hospital of head with increasing weakness ge neralized body aches and a fever symptom has been going on for more than 2 weeks secondary to COVID-19 pneumonia in this patient is partially vaccinated for COVID-19 unfortunately symptoms have been going on for more than 7 days and would not qualify for remdesivir per [facility] policy clinic suspicious low for secondary bacterial pneumonia as a prophylaxis with mildly elevated, patient did have mildly positive UA possible urinary source not entirely excluded for his fever Plan: 1-we will start the patient on dexamethasone he is on Coumadin zinc and ascorbic acid 2-Zosyn has been added empirically to continue antibiotic for the consult to finalize 3-no blood isolation and respiratory support We will follow on clinical condition and cultures to further adjust medication if needed Thank you for this consultation we will follow the patient along with you Past Medical History Past Medical History: Eye Disorder, Hyperlipidemia, Hypertension, Myocardial Infarction (CT) Additional Past Medical History / Comment(s): AICD, W/ LEAD MALFUNCTION. CATARACTS.PAST AFIB HAD ABLATION DONE, SINCE HAD 1 EPIDSODE OF AFIB CHANGED MEDS AROUND AND NO AFIB SINCE Last Myocardial Infarction Date:: 2006 History of Any Multi-Drug Resistant Organisms: None Reported Past Surgical History: Ablation, AICD, Heart Catheterization With Stent Additional Past Surgical History / Comment(s): bilateral CATARACT, one cardiac stent, total right knee 05/30/16 Past Anesthesia/Blood Transfusion Reactions: No Reported Reaction Date of Last Stent Placement:: 2006 Type of Cardiac Device: AICD Device Placement Date:: Past Psychological History: No Psychological Hx Reported Smoking Status: Never smoker Past Alcohol Use History: Rare Past Drug Use History: None Reported - Past Family History Father Family Medical History: Cancer Mother Family Medical History: Cancer Medications and Allergies Home Medications Medication Instructions Recorded Confirmed Type Aspirin 81 mg PO DAILY 04/14/14 06/04/21 History Nitroglycerin Sl Tabs [Nitrostat] 0.4 mg SUBLINGUAL Q5M PRN 04/14/14 06/04/21 History Spironolactone [Aldactone] 12.5 mg PO HS 04/14/14 06/04/21 History Warfarin [Coumadin] 7.5 mg PO TUTHSA 04/14/14 06/04/21 History Carvedilol [Coreg] 6.25 mg PO BID 06/09/14 06/04/21 History Sotalol [Betapace] 80 mg PO BID 05/19/17 06/04/21 History Warfarin [Coumadin] 5 mg PO SUMOWEFR 05/19/17 06/04/21 History Allopurinol [Zyloprim] 100 mg PO DAILY 06/04/21 06/04/21 History Multivit-Min/FA/Lycopen/Lutein 1 tab PO DAILY 06/04/21 06/04/21 History [Centrum Silver Men Tablet] Sacubitril/Valsartan [Entresto 24 2 tab PO BID 06/04/21 06/04/21 History mg-26 mg Tablet] Allergies Allergy/AdvReac Type Severity Reaction Status Date / Time No Known Allergies Allergy Verified 06/04/21 23:45 Physical Exam Vitals: Vital Signs Temp Pulse Resp BP Pulse Ox 06/06/21 13:50 99.5 F 06/06/21 11:25 102.7 F H 110 H 16 110/72 92 L 06/06/21 09:25 99.5 F 76 16 105/67 94 L 06/06/21 03:46 98.1 F 100 18 91/59 97 06/06/21 01:23 18 06/06/21 00:00 98.4 F 126 H 18 90/51 96 06/05/21 20:00 98.4 F 122 H 18 90/48 95 06/05/21 16:40 98.5 F 47 L 16 110/62 96 Intake and Output 06/06/21 06/06/21 06/06/21 06:59 14:59 22:59 Intake Total 240 Output Total 500 350 Balance -500 -110 Intake: Oral 240 Output: Urine 500 350 Other: Voiding Method Indwelling Catheter Indwelling Catheter Results CBC & Chem 7: 06/06/21 09:08 06/06/21 09:08 Labs: Abnormal Lab Results - Last 24 Hours (Table) 06/05/21 06/06/21 06/06/21 Range/Units 09:12 09:08 09:08 Hgb 17.9 H (13.0-17.5) gm/dL Hct 56.2 H (39.0-53.0) % Plt Count 86 L (150-450) k/uL Lymphocytes # (Manual) 0.51 L (1.0-4.8) k/uL Metamyelocytes # (Man) 0.04 H (0) k/uL Myelocytes # (Manual) 0.04 H (0) k/uL ESR (0-15) mm/hr PT 36.3 H (9.0-12.0) sec INR 3.8 H (<1.2) APTT 37.1 H (22.0-30.0) sec BUN (9-20) mg/dL Glucose (74-99) mg/dL Calcium (8.4-10.2) mg/dL AST (17-59) U/L Lactate Dehydrogenase (313-618) U/L Procalcitonin 0.62 H (0.02-0.09) ng/mL 06/06/21 06/06/21 Range/Units 09:08 11:37 Hgb (13.0-17.5) gm/dL Hct (39.0-53.0) % Plt Count (150-450) k/uL Lymphocytes # (Manual) (1.0-4.8) k/uL Metamyelocytes # (Man) (0) k/uL Myelocytes # (Manual) (0) k/uL ESR 17 H (0-15) mm/hr PT (9.0-12.0) sec INR (<1.2) APTT (22.0-30.0) sec BUN 30 H (9-20) mg/dL Glucose 107 H (74-99) mg/dL Calcium 8.2 L (8.4-10.2) mg/dL AST 91 H (17-59) U/L Lactate Dehydrogenase 1356 H (313-618) U/L Procalcitonin (0.02-0.09) ng/mL Microbiology - Last 24 Hours (Table) 06/05/21 15:05 Stool Culture - Preliminary Stool 06/04/21 21:00 Blood Culture - Preliminary Blood No Growth after 24 hours 06/04/21 21:16 Blood Culture - Preliminary Blood No Growth after 24 hours
[2021-06-06] MEDS: SPIRONOLACTONE 25 MG TAB PO SCH (21:35)
--- NOTE | 2021-06-06 21:54 | XR ---
EXAMINATION TYPE: XR chest 1V portable DATE OF EXAM: 06/06/2021 COMPARISON: Chest radiograph 06/04/2021 HISTORY: Fever. TECHNIQUE: Single frontal view of the chest is obtained. FINDINGS: Left chest wall generator so with lead tips over the right atrium, right ventricle and cor onary sinus. The cardiomediastinal silhouette and pulmonary vasculature are within normal limits. Strandy opacities at the left base and blunting of the left costophrenic angle similar to prior. The right lung is clear. IMPRESSION: Left basilar atelectasis. No acute process.
[2021-06-06] MEDS: DEXAMETHASONE SOD PHOSPHATE 10 MG/ML 1 ML VIAL IV SCH (22:00)
[2021-06-07] MEDS: PIPERACILLIN-TAZOBACTAM 3.375 GM in SODIUM CHLORIDE 0.9% 100 ML IVPB SCH ×4 (00:10→23:46)
[2021-06-07] MEDS: ZINC SULFATE 220 MG CAP PO SCH (08:32)
[2021-06-07] MEDS: ASPIRIN 81 MG PO SCH (08:32)
[2021-06-07] MEDS: allopurinoL 100 MG TAB PO SCH (08:32)
[2021-06-07] MEDS: MULTIVITAMINS, THERA 1 EACH TAB PO SCH (08:32)
[2021-06-07] MEDS: ASCORBIC ACID 500 MG TAB PO SCH (08:32)
[2021-06-07] MEDS: CHOLECALCIFEROL 25 MCG (1000 IU) TABLET PO SCH (08:32)
[2021-06-07] MEDS: DEXAMETHASONE SOD PHOSPHATE 10 MG/ML 1 ML VIAL IV SCH (08:32)
[2021-06-07] MEDS: METOPROLOL TARTRATE 25 MG TAB PO SCH ×2 (08:36→21:03)
[2021-06-07] MEDS: SOTALOL 80 MG TAB PO SCH ×2 (08:37→21:04)
[2021-06-07] MEDS: SACUBITRIL/VALSARTAN 24 MG-26 MG TABLET PO SCH ×2 (08:37→21:04)
[2021-06-07 10:04] LABS: HCT 43.1 % (39.0-53.0); MCH 31.8 pg (25.0-35.0); MCHC 33.4 g/dL (31.0-37.0); MCV 95.3 fL (80.0-100.0); Mean Platelet Volume 10.1; Platelet Count 104 k/uL (150-450); RBC 4.53 m/uL (4.30-5.90); RDW 13.3 % (11.5-15.5); WBC 2.1 k/uL (3.8-10.6)
[2021-06-07 10:10] LABS: Prothrombin Time 38.7 sec (9.0-12.0)
[2021-06-07 10:16] LABS: HGB 14.4 gm/dL (13.0-17.5)
[2021-06-07 11:00] LABS: Free Kappa Lt Chain Qnt, Serum 2.11 mg/dL (0.33-1.94)
--- NOTE | 2021-06-07 13:23 | CDI ---
Documentation Clarification Form Date: 06/07/2021 01:12:32 PM From: Cesilia Capps CCS, CCDS Admit Date: 06/05/2021 12:35:00 AM Patient Name: Iker Layton Visit Number: [id number] Discharge Date: ATTENTION: The Clinical Documentation Specialists (CDI) and [facility] Coding Staff appreciate your assistance in clarifying documentation. Please respond to the clarification below the line at the bottom and electronically sign. The CDI & [facility] Coding staff will review the response and follow-up if needed. Please note: Queries are made part of the Legal Health Record. If you have any questions, please contact the author of this message via ITS. Dr. Roman Hartman: The patient is admitted with Severe Diarrhea and diagnosed with COVID 19 infection. Please clarify if there is a relationship between the diagnosis and Severe Diarrhea and COVID 19. History/Risk Factors per the 06/05 H/P: Paroxysmal Atrial Fibrillation on Coumadin, Chronic Systolic CHF with Cardiomyopathy and EF 20-25%, CAD with history of FL, CABG and coronary stent, Hypertension, Hyperlipidemia and Gout. Clinical Indicators: Presented to the ED on 06/04 with Chest Pain, Fever, Chills, Loss of Appetite, Malaise, SOB and Weakness, symptoms >7 days. Admit with Chest Pain, Neutropenia, CHF and Urinary Retention. Per the H/P: Admit with COVID 19 infection, no evidence of Pneumonia, no evidence of Respiratory Failure; Severe Diarrhea. 06/04 VS: T 103.7, P 93, R 22 (sob, cough, talks in phrases), BP 121/70, PO 96 RA - 93 RA, BMI: 38.7 06/04 LAB: WBC 1.6, Pl Ct 66, Neut 0.50, Lymph 0.51, Nabb 0.02; PT 25.4, INR 2.6, APTT 35.8, D Dimer 0.77; Glucose 102, AST 86, Troponin 0.045, BNP 2470, Procalcitonin 0.62 06/04 UA: 1+ protein, 1+ ketones, Large blood, RBC 24. 06/04 Influenza A/B: Negative 06/04 RSV: Negative 06/04 COVID Positive 06/05 C Diff Negative. Treatment: Blood culture, O2 2Lnc, IV Decadron, IV Lasix, IV Rocephin, IV fluid bolus held due to CHF (per ED note). Please clarify the relationship, if any, which is clinically appropriate for this patient: [x ] Severe Diarrhea is due to COVID infection [ ] Severe Diarrhea is not due to COVID infection [ ] Other cause of Diarrhea, please specify: [ ] Unable to determine (Template Last Revised: July 2020) MTDD
--- NOTE | 2021-06-07 16:16 | P.PN ---
Subjective Progress Note Date: 06/07/21 Principal diagnosis: bicytopenia In f/u today pt is doing fairly well, no acute c/o, he denies bleeding, hemoptysis. Objective - Vital Signs Vital signs: Vital Signs Temp 98 F 06/07/21 12:01 Pulse 64 06/07/21 12:01 Resp 18 06/07/21 12:01 BP 108/66 06/07/21 12:01 Pulse Ox 95 06/07/21 12:01 Intake & Output 06/06/21 06/07/21 06/07/21 18:59 06:59 18:59 Intake Total 358 240 Output Total 350 700 225 Balance 8 -700 15 Intake: Oral 358 240 Output: Urine 350 700 225 Other: Voiding Method Indwelling Catheter Indwelling Catheter Indwelling Catheter # Bowel Movements 0 0 1 - Constitutional General appearance: Present: average body habitus, cooperative, no acute distress - EENT Eyes: Present: anicteric sclerae, EOMI ENT: Present: hearing grossly normal - Neurologic Neurologic: Present: CNII-XII intact (grossly) - Psychiatric Psychiatric: Present: A&O x's 3, appropriate affect, intact judgment & insight - Labs CBC & Chem 7: 06/07/21 09:22 06/06/21 09:08 Labs: Abnormal Lab Results - Last 24 Hours (Table) 06/06/21 06/06/21 06/06/21 Range/Units 09:08 09:08 16:40 WBC (3.8-10.6) k/uL Plt Count (150-450) k/uL Haptoglobin 286.0 H (31.2-198.0) mg/dL PT (9.0-12.0) sec INR (<1.2) Transferrin 168.0 L (204.0-354.0) mg/dL Ferritin 1387.0 H (22.0-322.0) ng/mL Urine Protein 1+ H (Negative) Urine Blood Large H (Negative) Ur Leukocyte Esterase Small H (Negative) Urine RBC >182 H (0-5) /hpf Urine WBC 25 H (0-5) /hpf Urine Bacteria Few H (None) /hpf Urine Mucus Many H (None) /hpf Free [place] Tak LC, Quant 2.11 H (0.33-1.94) mg/dL 06/07/21 06/07/21 Range/Units 09:22 09:22 WBC 2.1 L (3.8-10.6) k/uL Plt Count 104 L (150-450) k/uL Haptoglobin (31.2-198.0) mg/dL PT 38.7 H (9.0-12.0) sec INR 4.0 H (<1.2) Transferrin (204.0-354.0) mg/dL Ferritin (22.0-322.0) ng/mL Urine Protein (Negative) Urine Blood (Negative) Ur Leukocyte Esterase (Negative) Urine RBC (0-5) /hpf Urine WBC (0-5) /hpf Urine Bacteria (None) /hpf Urine Mucus (None) /hpf Free [place] LC, Quant (0.33-1.94) mg/dL Microbiology - Last 24 Hours (Table) 06/04/21 21:16 Blood Culture - Preliminary Blood No Growth after 48 hours 06/04/21 21:00 Blood Culture - Preliminary Blood No Growth after 48 hours - Imaging and Cardiology Chest x-ray: report reviewed (lt basilar atelectasis) Assessment and Plan (1) Bicytopenia Narrative/Plan: Still pending work up. Counts are low but not needing intervention at this time. Current Visit: Yes Status: Acute Priority: High Code(s): D75.89 - OTHER SPECIFIED DISEASES OF BLOOD AND BLOOD-FORMING ORGANS SNOMED Code(s): 45610393
[2021-06-07] MEDS ORDERED: WARFARIN 0.5 MG TAB PO ONE (18:00)
--- NOTE | 2021-06-07 18:15 | P.PN ---
Subjective Progress Note Date: 06/07/21 Iker Layton, is a 76-year-old male well-known to my practice who presented to [facility] emergency room with a chief complaint of severe weakness, diarrhea, and occasional episodes of sharp pain in the chest for the last several days. He was evaluated in the emergency room vital examination on presentation revealed a temperature of 103.7 pulse 93 respiration 22 blood pressure 121/70 and pulse ox 96% on room air Laboratory data revealed a white blood count of 1.6 hemoglobin 15.1 platelet count 66 INR 2.6 d-dimer 0.77 BUN 19 creatinine 1.03 troponin level 0.045 COVID- 19 PCR was positive Testing in the emergency room revealed chest x-ray done emergency room revealed no acute cardiopulmonary disease, EKG revealed dual paced rhythm. Patient was admitted to medical floor for further evaluation and treatment. Past medical history is significant for chronic systolic congestive heart failure with cardiomyopathy, ejection fraction 20-25%, history of cardiac arrhythmia with pacemaker placement. On review of systems patient was complaining of severe weakness and diarrhea for several days, there was episodes of fever no chills, no headache or dizziness, he had frequent sharp episodes of chest pain lasting a few seconds, there was no shortness of breath no cough no nausea or vomiting no abdominal pain however patient had severe diarrhea, no blood in the stools no burning with urination no frequency or urgency no hematuria. On 06/06/2021 patient was seen and examined on the telemetry floor he is alert and oriented 3 in no apparent distress he is complaining of cough and feeling tired and weak otherwise he denies any complaints, he had a high temperature of 102.3 this morning no chills no headache or dizziness no chest pain no shortness of breath there is no nausea or vomiting no abdominal pain no diarrhea no blood in the stools patient has a Everett catheter in place. Due to elevated temperature this morning I am repeating blood culture, chest x- ray, and urine analysis, patient had elevated pro-calcitonin I would start him on IV Zosyn prophylactically consultation for infectious disease was initiated On 06/07/2021 patient was seen and examined on the medical floor he is alert and oriented 3 in no apparent distress he is still complaining of generalized body ache and severe fatigue and weakness otherwise he denies any complaints there is no fever or chills no headache or dizziness no chest pain no shortness of breath no cough, no nausea or vomiting no abdominal pain no diarrhea no blood in the stools no burning with urination no frequency or urgency and no hematuria. Objective - Vital Signs Vital signs: Vital Signs Temp 98.6 F 06/07/21 08:44 Pulse 66 06/07/21 08:44 Resp 16 06/07/21 08:44 BP 96/55 06/07/21 08:44 Pulse Ox 96 06/07/21 08:44 Intake & Output 06/06/21 06/07/21 06/07/21 18:59 06:59 18:59 Intake Total 358 240 Output Total 350 700 225 Balance 8 -700 15 Intake: Oral 358 240 Output: Urine 350 700 225 Other: Voiding Method Indwelling Catheter Indwelling Catheter Indwelling Catheter # Bowel Movements 0 0 1 - Exam In general patient is alert and oriented x 3 in no distress HEENT head normocephalic and atraumatic Neck is supple no JVD no goiter no lymphadenopathy no carotid bruit Chest examination is clear to auscultation no crackles no wheezing Cardiac exam reveals regular heart sounds S1 and S2 no gallops no murmurs Abdomen is soft nontender no organomegaly with normal bowel sounds Extremity exam reveals no edema no cyanosis or clubbing Neurological examination reveals no gross focal deficits - Labs CBC & Chem 7: 06/07/21 09:22 06/06/21 09:08 Labs: Abnormal Lab Results - Last 24 Hours (Table) 06/06/21 06/06/21 06/06/21 Range/Units 09:08 09:08 09:08 Hgb 17.9 H (13.0-17.5) gm/dL Hct 56.2 H (39.0-53.0) % Plt Count 86 L (150-450) k/uL Lymphocytes # (Manual) 0.51 L (1.0-4.8) k/uL Metamyelocytes # (Man) 0.04 H (0) k/uL Myelocytes # (Manual) 0.04 H (0) k/uL ESR (0-15) mm/hr Haptoglobin 286.0 H (31.2-198.0) mg/dL PT (9.0-12.0) sec INR (<1.2) BUN 30 H (9-20) mg/dL Glucose 107 H (74-99) mg/dL Calcium 8.2 L (8.4-10.2) mg/dL Transferrin 168.0 L (204.0-354.0) mg/dL Ferritin 1387.0 H (22.0-322.0) ng/mL AST 91 H (17-59) U/L Lactate Dehydrogenase 1356 H (313-618) U/L Urine Protein (Negative) Urine Blood (Negative) Ur Leukocyte Esterase (Negative) Urine RBC (0-5) /hpf Urine WBC (0-5) /hpf Urine Bacteria (None) /hpf Urine Mucus (None) /hpf 06/06/21 06/06/21 06/07/21 Range/Units 11:37 16:40 09:22 Hgb (13.0-17.5) gm/dL Hct (39.0-53.0) % Plt Count (150-450) k/uL Lymphocytes # (Manual) (1.0-4.8) k/uL Metamyelocytes # (Man) (0) k/uL Myelocytes # (Manual) (0) k/uL ESR 17 H (0-15) mm/hr Haptoglobin (31.2-198.0) mg/dL PT 38.7 H (9.0-12.0) sec INR 4.0 H (<1.2) BUN (9-20) mg/dL Glucose (74-99) mg/dL Calcium (8.4-10.2) mg/dL Transferrin (204.0-354.0) mg/dL Ferritin (22.0-322.0) ng/mL AST (17-59) U/L Lactate Dehydrogenase (313-618) U/L Urine Protein 1+ H (Negative) Urine Blood Large H (Negative) Ur Leukocyte Esterase Small H (Negative) Urine RBC >182 H (0-5) /hpf Urine WBC 25 H (0-5) /hpf Urine Bacteria Few H (None) /hpf Urine Mucus Many H (None) /hpf Microbiology - Last 24 Hours (Table) 06/04/21 21:16 Blood Culture - Preliminary Blood No Growth after 48 hours 06/04/21 21:00 Blood Culture - Preliminary Blood No Growth after 48 hours Assessment and Plan Plan: Acute Covid 19 infection, no evidence of pneumonia, no evidence of respiratory failure patient is maintained on room air O2 sat duration is 94% Severe diarrhea, will obtain stool sample for culture and C. diff Leukopenia white blood count is 1.6 Will monitor Thrombocytopenia platelet count 66 Mildly elevated d-dimer at 0.77 Underlying history of paroxysmal atrial fibrillation maintained on Coumadin INR therapeutic History of chronic systolic congestive heart failure, with cardiomyopathy, ejection fraction 20-25% Underlying history of coronary artery disease Underlying history of hypertension Underlying history of gout Underlying history of hyperlipidemia At this time patient is admitted to telemetry floor, cardiology consultation was requested Home medications reviewed and reordered Echocardiogram Will check stool samples and repeat labs in a.m. Patient was given 1 dose of IV Rocephin in the emergency room, however no clear evidence of bacterial infection at this time will hold IV antibiotic and consult infectious disease
[2021-06-07] MEDS: SPIRONOLACTONE 25 MG TAB PO SCH (21:03)
[2021-06-08 08:53] LABS: HCT 50.3 % (39.0-53.0); Hypochromasia Slight; MCH 31.5 pg (25.0-35.0); MCHC 31.9 g/dL (31.0-37.0); MCV 98.7 fL (80.0-100.0); Mean Platelet Volume 10.4; RDW 12.9 % (11.5-15.5); WBC 2.6 k/uL (3.8-10.6)
[2021-06-08 09:07] LABS: INR 4.4 (<1.2); Prothrombin Time 42.4 sec (9.0-12.0)
[2021-06-08 09:08] LABS: ALT 71 U/L (4-49); African American GFR (CKD) >90 (>60 ml/min/1.73 sqM); Albumin 3.1 g/dL (3.5-5.0); Anion Gap 3 mmol/L; Blood Urea Nitrogen 27 mg/dL (9-20); Carbon Dioxide 25 mmol/L (22-30); Chloride 108 mmol/L (98-107); Glucose 124 mg/dL (74-99); Non-African American GFR(CKD) 78 (>60 ml/min/1.73 sqM); Sodium 136 mmol/L (137-145); Total Bilirubin 1.2 mg/dL (0.2-1.3); Total Protein 5.7 g/dL (6.3-8.2)
[2021-06-08 09:11] LABS: Platelet Count 92 k/uL (150-450)
[2021-06-08 09:13] LABS: AST 91 U/L (17-59); Alkaline Phosphatase 54 U/L (38-126); Potassium 4.8 mmol/L (3.5-5.1)
[2021-06-08] MEDS: CHOLECALCIFEROL 25 MCG (1000 IU) TABLET PO SCH (09:51)
[2021-06-08] MEDS: MULTIVITAMINS, THERA 1 EACH TAB PO SCH (09:51)
[2021-06-08] MEDS: allopurinoL 100 MG TAB PO SCH (09:51)
[2021-06-08] MEDS: ASPIRIN 81 MG PO SCH (09:51)
[2021-06-08] MEDS: METOPROLOL TARTRATE 25 MG TAB PO SCH ×2 (09:51→20:19)
[2021-06-08] MEDS: SACUBITRIL/VALSARTAN 24 MG-26 MG TABLET PO SCH ×2 (09:51→20:20)
[2021-06-08] MEDS: DEXAMETHASONE SOD PHOSPHATE 10 MG/ML 1 ML VIAL IV SCH (09:52)
[2021-06-08] MEDS: ZINC SULFATE 220 MG CAP PO SCH (09:52)
[2021-06-08] MEDS: ASCORBIC ACID 500 MG TAB PO SCH (09:52)
[2021-06-08] MEDS: PIPERACILLIN-TAZOBACTAM 3.375 GM in SODIUM CHLORIDE 0.9% 100 ML IVPB SCH ×3 (09:52→22:55)
[2021-06-08] MEDS: SOTALOL 80 MG TAB PO SCH ×2 (09:52→20:20)
[2021-06-08 12:17] LABS: Lymphocytes # (M) 0.88 k/uL (1.0-4.8); Monocytes # (M) 0.52 k/uL (0-1.0); Neutrophils % (M) 46 %; Nucleated Red Blood Cells 0 /100 WBC (0-0); Total Cells Counted 100
[2021-06-08 12:20] LABS: Poikilocytosis (M) Present
[2021-06-08 14:04] LABS: Heparin Induced Plt Abs 0.074 OD (<0.4)
--- NOTE | 2021-06-08 16:59 | P.PN ---
Subjective Progress Note Date: 06/08/21 Principal diagnosis: bicytopenia In f/u today pt is doing better, he is starting to eat a little more, he was up in the chair did walk around the room with assistance today. He has been cleared to get up and go to the bathroom. He feels his breathing is stable, he is no longer on oxygen. He denies any bleeding. Objective - Vital Signs Vital signs: Vital Signs Temp 97.6 F 06/08/21 16:26 Pulse 59 L 06/08/21 16:26 Resp 16 06/08/21 16:26 BP 97/61 06/08/21 16:26 Pulse Ox 96 06/08/21 16:26 Intake & Output 06/07/21 06/08/21 06/08/21 18:59 06:59 18:59 Intake Total 720 360 Output Total 625 575 300 Balance 95 -575 60 Weight 128 kg 129 kg Intake: Oral 720 360 Output: Urine 625 575 300 Other: Voiding Method Indwelling Catheter Indwelling Catheter Indwelling Catheter # Bowel Movements 1 - Exam Deferred secondary to covid infection. Visually patient is well-developed, adequately nourished, no acute distress, A&O 4. Resp are even and unlabored. - Constitutional General appearance: Present: average body habitus, cooperative, no acute distress - Labs CBC & Chem 7: 06/08/21 07:46 06/08/21 07:46 Labs: Abnormal Lab Results - Last 24 Hours (Table) 06/08/21 06/08/21 06/08/21 Range/Units 07:46 07:46 07:46 WBC 2.6 L (3.8-10.6) k/uL Plt Count 92 L (150-450) k/uL Neutrophils # (Manual) 1.20 L (1.3-7.7) k/uL Lymphocytes # (Manual) 0.88 L (1.0-4.8) k/uL PT 42.4 H (9.0-12.0) sec INR 4.4 H (<1.2) Sodium 136 L (137-145) mmol/L Chloride 108 H (98-107) mmol/L BUN 27 H (9-20) mg/dL Glucose 124 H (74-99) mg/dL Calcium 8.0 L (8.4-10.2) mg/dL AST 91 H (17-59) U/L ALT 71 H (4-49) U/L Total Protein 5.7 L (6.3-8.2) g/dL Albumin 3.1 L (3.5-5.0) g/dL Microbiology - Last 24 Hours (Table) 06/04/21 21:16 Blood Culture - Preliminary Blood No Growth after 72 hours 06/04/21 21:00 Blood Culture - Preliminary Blood No Growth after 72 hours 06/06/21 16:11 Blood Culture - Preliminary Blood No Growth after 24 hours 06/05/21 15:05 Stool Culture - Preliminary Stool Assessment and Plan (1) Bicytopenia Narrative/Plan: Hit antibody negative. WBC and platelet counts are stable. Results are slowly resulting, nothing concerning thus far. Will follow up until all results avail able. Counts are low but not needing intervention at this time. Current Visit: Yes Status: Acute Priority: High Code(s): D75.89 - OTHER SPECIFIED DISEASES OF BLOOD AND BLOOD-FORMING ORGANS SNOMED Code(s): 10104707
--- NOTE | 2021-06-08 17:13 | P.PN ---
Subjective Progress Note Date: 06/08/21 Iker Layton, is a 76-year-old male well-known to my practice who presented to [facility] emergency room with a chief complaint of severe weakness, diarrhea, and occasional episodes of sharp pain in the chest for the last several days. He was evaluated in the emergency room vital examination on presentation revealed a temperature of 103.7 pulse 93 respiration 22 blood pressure 121/70 and pulse ox 96% on room air Laboratory data revealed a white blood count of 1.6 hemoglobin 15.1 platelet count 66 INR 2.6 d-dimer 0.77 BUN 19 creatinine 1.03 troponin level 0.045 COVID- 19 PCR was positive Testing in the emergency room revealed chest x-ray done emergency room revealed no acute cardiopulmonary disease, EKG revealed dual paced rhythm. Patient was admitted to medical floor for further evaluation and treatment. Past medical history is significant for chronic systolic congestive heart failure with cardiomyopathy, ejection fraction 20-25%, history of cardiac arrhythmia with pacemaker placement. On review of systems patient was complaining of severe weakness and diarrhea for several days, there was episodes of fever no chills, no headache or dizziness, he had frequent sharp episodes of chest pain lasting a few seconds, there was no shortness of breath no cough no nausea or vomiting no abdominal pain however patient had severe diarrhea, no blood in the stools no burning with urination no frequency or urgency no hematuria. On 06/06/2021 patient was seen and examined on the telemetry floor he is alert and oriented 3 in no apparent distress he is complaining of cough and feeling tired and weak otherwise he denies any complaints, he had a high temperature of 102.3 this morning no chills no headache or dizziness no chest pain no shortness of breath there is no nausea or vomiting no abdominal pain no diarrhea no blood in the stools patient has a Everett catheter in place. Due to elevated temperature this morning I am repeating blood culture, chest x- ray, and urine analysis, patient had elevated pro-calcitonin I would start him on IV Zosyn prophylactically consultation for infectious disease was initiated On 06/07/2021 patient was seen and examined on the medical floor he is alert and oriented 3 in no apparent distress he is still complaining of generalized body ache and severe fatigue and weakness otherwise he denies any complaints there is no fever or chills no headache or dizziness no chest pain no shortness of breath no cough, no nausea or vomiting no abdominal pain no diarrhea no blood in the stools no burning with urination no frequency or urgency and no hematuria. On 06/08/2021 patient was seen and examined on the medical floor he is alert and oriented, he is still complaining fatigue and weakness otherwise he denies any complaints there is no fever or chills no headache or dizziness no chest pain no shortness of breath no cough, no nausea or vomiting no abdominal pain no diarrhea no blood in the stools no burning with urination no frequency or urgency and no hematuria. Objective - Vital Signs Vital signs: Vital Signs Temp 98.3 F 06/08/21 12:25 Pulse 58 L 06/08/21 12:25 Resp 17 06/08/21 12:25 BP 96/64 06/08/21 12:25 Pulse Ox 95 06/08/21 12:25 Intake & Output 06/07/21 06/08/21 06/08/21 18:59 06:59 18:59 Intake Total 720 360 Output Total 625 575 Balance 95 -575 360 Weight 128 kg 129 kg Intake: Oral 720 360 Output: Urine 625 575 Other: Voiding Method Indwelling Catheter Indwelling Catheter Indwelling Catheter # Bowel Movements 1 - Exam In general patient is alert and oriented x 3 in no distress HEENT head normocephalic and atraumatic Neck is supple no JVD no goiter no lymphadenopathy no carotid bruit Chest examination is clear to auscultation no crackles no wheezing Cardiac exam reveals regular heart sounds S1 and S2 no gallops no murmurs Abdomen is soft nontender no organomegaly with normal bowel sounds Extremity exam reveals no edema no cyanosis or clubbing Neurological examination reveals no gross focal deficits - Labs CBC & Chem 7: 06/08/21 07:46 06/08/21 07:46 Labs: Abnormal Lab Results - Last 24 Hours (Table) 06/08/21 06/08/21 06/08/21 Range/Units 07:46 07:46 07:46 WBC 2.6 L (3.8-10.6) k/uL Plt Count 92 L (150-450) k/uL Neutrophils # (Manual) 1.20 L (1.3-7.7) k/uL Lymphocytes # (Manual) 0.88 L (1.0-4.8) k/uL PT 42.4 H (9.0-12.0) sec INR 4.4 H (<1.2) Sodium 136 L (137-145) mmol/L Chloride 108 H (98-107) mmol/L BUN 27 H (9-20) mg/dL Glucose 124 H (74-99) mg/dL Calcium 8.0 L (8.4-10.2) mg/dL AST 91 H (17-59) U/L ALT 71 H (4-49) U/L Total Protein 5.7 L (6.3-8.2) g/dL Albumin 3.1 L (3.5-5.0) g/dL Microbiology - Last 24 Hours (Table) 06/04/21 21:16 Blood Culture - Preliminary Blood No Growth after 72 hours 06/04/21 21:00 Blood Culture - Preliminary Blood No Growth after 72 hours 06/06/21 16:11 Blood Culture - Preliminary Blood No Growth after 24 hours 06/05/21 15:05 Stool Culture - Preliminary Stool Assessment and Plan Plan: Acute Covid 19 infection, no evidence of pneumonia, no evidence of respiratory failure patient is maintained on room air O2 sat duration is 94% Severe diarrhea, will obtain stool sample for culture and C. diff Leukopenia white blood count is 1.6 Will monitor Thrombocytopenia platelet count 66 Mildly elevated d-dimer at 0.77 Underlying history of paroxysmal atrial fibrillation maintained on Coumadin INR therapeutic History of chronic systolic congestive heart failure, with cardiomyopathy, ejection fraction 20-25% Underlying history of coronary artery disease Underlying history of hypertension Underlying history of gout Underlying history of hyperlipidemia At this time patient is admitted to telemetry floor, cardiology consultation was requested Home medications reviewed and reordered Echocardiogram Will check stool samples and repeat labs in a.m. Patient was given 1 dose of IV Rocephin in the emergency room, however no clear evidence of bacterial infection at this time will hold IV antibiotic and consult infectious disease
[2021-06-08] MEDS ORDERED: WARFARIN 0.5 MG TAB PO ONE (18:00)
[2021-06-08 20:15] LABS: Glucose,Whole Blood 166 mg/dL (75-99)
[2021-06-08] MEDS: INSULIN ASPART (NovoLOG) 100 UNIT/ML VIAL SQ SCH (20:19)
[2021-06-08] MEDS: SPIRONOLACTONE 25 MG TAB PO SCH (20:20)
[2021-06-08] MEDS: guaiFENesin-Coden 100-10MG/5ML 10 ML CUP PO PRN (20:40)
--- NOTE | 2021-06-08 23:13 | P.PN ---
Subjective Progress Note Date: 06/07/21 Principal diagnosis: Pneumonia Patient is a 76 year male partially vaccination for COVID-19 presented to the hospital for increasing shortness of breath has been diagnosed with the COVID-19 pneumonia. On today's evaluation that is 06/07/2020 the patient is afebrile, the patient is breathing comfortably, denies having any chest pain she did have a cough not bringing up any sputum. No abdominal pain no diarrhea Objective - Vital Signs Vital signs: Vital Signs Temp 98 F 06/07/21 12:01 Pulse 64 06/07/21 12:01 Resp 18 06/07/21 12:01 BP 108/66 06/07/21 12:01 Pulse Ox 95 06/07/21 12:01 Intake & Output 06/06/21 06/07/21 06/07/21 18:59 06:59 18:59 Intake Total 358 240 Output Total 350 700 225 Balance 8 -700 15 Intake: Oral 358 240 Output: Urine 350 700 225 Other: Voiding Method Indwelling Catheter Indwelling Catheter Indwelling Catheter # Bowel Movements 0 0 1 - Exam General description is an elderly male lying in bed in no distress. Respiratory system:Unlabored breathing, decreased intensity in breath sounds. No wheeze. Heart S1, S2. Regular rate and rhythm. Abdomen soft, no tenderness. Extremities: No edema feet - Labs CBC & Chem 7: 06/08/21 07:46 06/08/21 07:46 Labs: Abnormal Lab Results - Last 24 Hours (Table) 06/06/21 06/06/21 06/06/21 Range/Units 09:08 09:08 16:40 WBC (3.8-10.6) k/uL Plt Count (150-450) k/uL Haptoglobin 286.0 H (31.2-198.0) mg/dL PT (9.0-12.0) sec INR (<1.2) Transferrin 168.0 L (204.0-354.0) mg/dL Ferritin 1387.0 H (22.0-322.0) ng/mL Urine Protein 1+ H (Negative) Urine Blood Large H (Negative) Ur Leukocyte Esterase Small H (Negative) Urine RBC >182 H (0-5) /hpf Urine WBC 25 H (0-5) /hpf Urine Bacteria Few H (None) /hpf Urine Mucus Many H (None) /hpf [place] LC, Quant 2.11 H (0.33-1.94) mg/dL 06/07/21 06/07/21 Range/Units 09:22 09:22 WBC 2.1 L (3.8-10.6) k/uL Plt Count 104 L (150-450) k/uL Haptoglobin (31.2-198.0) mg/dL PT 38.7 H (9.0-12.0) sec INR 4.0 H (<1.2) Transferrin (204.0-354.0) mg/dL Ferritin (22.0-322.0) ng/mL Urine Protein (Negative) Urine Blood (Negative) Ur Leukocyte Esterase (Negative) Urine RBC (0-5) /hpf Urine WBC (0-5) /hpf Urine Bacteria (None) /hpf Urine Mucus (None) /hpf [place] LC, Quant (0.33-1.94) mg/dL Microbiology - Last 24 Hours (Table) 06/04/21 21:16 Blood Culture - Preliminary Blood No Growth after 48 hours 06/04/21 21:00 Blood Culture - Preliminary Blood No Growth after 48 hours Assessment and Plan Assessment: 1- patient with fever source is acute covid 19 pneumonia clinically suspicious low for secondary bacterial pneumonia not entirely excluded patient seemed to be clinically responded to the current supportive treatment of dexamethasone Coumadin zinc and ascorbic to continue on empiric Zosyn, try to obtain a sputum
--- NOTE | 2021-06-08 23:15 | P.PN ---
Subjective Progress Note Date: 06/08/21 Principal diagnosis: Pneumonia Patient is a 76 year male partially vaccination for COVID-19 presented to the hospital for increasing shortness of breath has been diagnosed with the COVID-19 pneumonia. On today's evaluation that is 06/08/2020 the patient remains to be afebrile, the patient is breathing comfortably on nasal cannula oxygen, the patient denies having any chest pain she did have a cough not bringing up any sputum. No abdominal pain no diarrhea Objective - Vital Signs Vital signs: Vital Signs Temp 98.1 F 06/08/21 23:11 Pulse 56 L 06/08/21 23:11 Resp 18 06/08/21 23:11 BP 113/69 06/08/21 23:11 Pulse Ox 96 06/08/21 23:11 Intake & Output 06/08/21 06/08/21 06/09/21 06:59 18:59 06:59 Intake Total 582 260 Output Total 575 300 Balance -575 282 260 Weight 129 kg Intake: IV 160 0.9 160 Intake, IV Titration 100 Amount Piperacillin-Tazobactam 3 100 .375 gm In Sodium Chloride 0.9% 100 ml @ 25 mls/hr IVPB Q8HR [facility] Rx# :[id number] Oral 582 Output: Urine 575 300 Other: Voiding Method Indwelling Catheter Indwelling Catheter Indwelling Catheter - Exam General description is an elderly male lying in bed in no distress. Respiratory system:Unlabored breathing, decreased intensity in breath sounds. No wheeze. Heart S1, S2. Regular rate and rhythm. Abdomen soft, no tenderness. Extremities: No edema feet - Labs CBC & Chem 7: 06/08/21 07:46 06/08/21 07:46 Labs: Abnormal Lab Results - Last 24 Hours (Table) 06/08/21 06/08/21 06/08/21 Range/Units 07:46 07:46 07:46 WBC 2.6 L (3.8-10.6) k/uL Plt Count 92 L (150-450) k/uL Neutrophils # (Manual) 1.20 L (1.3-7.7) k/uL Lymphocytes # (Manual) 0.88 L (1.0-4.8) k/uL PT 42.4 H (9.0-12.0) sec INR 4.4 H (<1.2) Sodium 136 L (137-145) mmol/L Chloride 108 H (98-107) mmol/L BUN 27 H (9-20) mg/dL Glucose 124 H (74-99) mg/dL POC Glucose (mg/dL) (75-99) mg/dL Calcium 8.0 L (8.4-10.2) mg/dL AST 91 H (17-59) U/L ALT 71 H (4-49) U/L Total Protein 5.7 L (6.3-8.2) g/dL Albumin 3.1 L (3.5-5.0) g/dL 06/08/21 Range/Units 20:13 WBC (3.8-10.6) k/uL Plt Count (150-450) k/uL Neutrophils # (Manual) (1.3-7.7) k/uL Lymphocytes # (Manual) (1.0-4.8) k/uL PT (9.0-12.0) sec INR (<1.2) Sodium (137-145) mmol/L Chloride (98-107) mmol/L BUN (9-20) mg/dL Glucose (74-99) mg/dL POC Glucose (mg/dL) 166 H (75-99) mg/dL Calcium (8.4-10.2) mg/dL AST (17-59) U/L ALT (4-49) U/L Total Protein (6.3-8.2) g/dL Albumin (3.5-5.0) g/dL Microbiology - Last 24 Hours (Table) 06/06/21 16:11 Blood Culture - Preliminary Blood No Growth after 48 hours 06/05/21 15:05 Stool Culture - Final Stool 06/04/21 21:16 Blood Culture - Preliminary Blood No Growth after 72 hours 06/04/21 21:00 Blood Culture - Preliminary Blood No Growth after 72 hours Assessment and Plan Assessment: 1- patient with fever source is acute covid 19 pneumonia clinically suspicious low for secondary bacterial pneumonia not entirely excluded patient has clinically responded to the current supportive treatment of dexamethasone Coumadin zinc and ascorbic to continue on empiric Zosyn, try to obtain a sputum to narrow down his antibiotics and recheck his inflammatory markers
[2021-06-09] MEDS: guaiFENesin-Coden 100-10MG/5ML 10 ML CUP PO PRN ×3 (02:26→20:24)
[2021-06-09 06:10] LABS: Glucose,Whole Blood 117 mg/dL (75-99)
[2021-06-09] MEDS: INSULIN ASPART (NovoLOG) 100 UNIT/ML VIAL SQ SCH ×4 (06:12→20:24)
[2021-06-09 08:22] LABS: Basophils # (A) 0.1 k/uL (0-0.2); Basophils % (A) 2 %; Eosinophils % (A) 0 %; HCT 43.9 % (39.0-53.0); HGB 14.4 gm/dL (13.0-17.5); Lymphocytes # (A) 0.7 k/uL (1.0-4.8); Lymphocytes % (A) 17 %; MCH 31.8 pg (25.0-35.0); MCHC 32.9 g/dL (31.0-37.0); MCV 96.6 fL (80.0-100.0); Mean Platelet Volume 10.2; Monocytes # (A) 0.5 k/uL (0-1.0); Monocytes % (A) 11 %; Neutrophils % (A) 68 %; Platelet Count 103 k/uL (150-450); RBC 4.54 m/uL (4.30-5.90); RDW 12.7 % (11.5-15.5); WBC 4.4 k/uL (3.8-10.6)
[2021-06-09 08:33] LABS: Albumin 3.1 g/dL (3.5-5.0); Calcium 8.2 mg/dL (8.4-10.2); Potassium 4.6 mmol/L (3.5-5.1); Total Bilirubin 1.2 mg/dL (0.2-1.3); Total Protein 5.6 g/dL (6.3-8.2)
[2021-06-09 08:35] LABS: INR 3.8 (<1.2); Prothrombin Time 36.2 sec (9.0-12.0)
[2021-06-09 08:48] LABS: Albumin 3.58 g/dL (3.80-4.90); Gamma Globulin 0.57 g/dL (0.70-1.50)
[2021-06-09] MEDS: allopurinoL 100 MG TAB PO SCH (09:17)
[2021-06-09] MEDS: PIPERACILLIN-TAZOBACTAM 3.375 GM in SODIUM CHLORIDE 0.9% 100 ML IVPB SCH ×3 (09:17→23:36)
[2021-06-09] MEDS: ASCORBIC ACID 500 MG TAB PO SCH (09:17)
[2021-06-09] MEDS: ZINC SULFATE 220 MG CAP PO SCH (09:17)
[2021-06-09] MEDS: CHOLECALCIFEROL 25 MCG (1000 IU) TABLET PO SCH (09:17)
[2021-06-09] MEDS: METOPROLOL TARTRATE 25 MG TAB PO SCH ×2 (09:18→20:25)
[2021-06-09] MEDS: DEXAMETHASONE SOD PHOSPHATE 10 MG/ML 1 ML VIAL IV SCH (09:18)
[2021-06-09] MEDS: SACUBITRIL/VALSARTAN 24 MG-26 MG TABLET PO SCH ×2 (09:18→20:25)
[2021-06-09] MEDS: ASPIRIN 81 MG PO SCH (09:18)
[2021-06-09] MEDS: MULTIVITAMINS, THERA 1 EACH TAB PO SCH (09:18)
[2021-06-09] MEDS: SOTALOL 80 MG TAB PO SCH ×2 (09:19→20:25)
[2021-06-09 09:35] LABS: C Reactive Protein 1.6 mg/dL (<1.0)
--- NOTE | 2021-06-09 09:59 | CDI ---
Documentation Clarification Form Date: 06/09/2021 09:34:56 AM From: Cesilia Capps CCS, CCDS Admit Date: 06/05/2021 12:35:00 AM Patient Name: Iker Layton Visit Number: [id number] Discharge Date: ATTENTION: The Clinical Documentation Specialists (CDI) and [facility] Coding Staff appreciate your assistance in clarifying documentation. Please respond to the clarification below the line at the bottom and electronically sign. The CDI & [facility] Coding staff will review the response and follow-up if needed. Please note: Queries are made part of the Legal Health Record. If you have any questions, please contact the author of this message via ITS. Dr. Roman Hartman: Conflicting documentation has been found in the medical record. As attending physician, please provide clarification. Per the 06/05 H/P and subsequent Progress Notes: Acute COVID 19 infection, no evidence of pneumonia, no evidence of respiratory failure. Per the 06/06 Infectious Disease Consult and Progress Notes: Presented with increasing weakness, generalized body aches and a fever, symptoms going on for more than 2 weeks secondary to COVID 19 pneumonia. History/Risk Factors per the 06/06 H/P: Chronic Systolic CHF with Cardiomyopathy, EF 20-25%, Atrial Fibrillation with Pacemaker and Ablation, Hypertension, Hyperlipidemia, GA, previous Heart Catheterization with Stent. Clinical Indicators: Presented to the ED on 06/04 with Chest Pain, Fever, Chills, Loss of Appetite, Malaise, SOB and Weakness x2 weeks, vaccinated for COVID last year. The patient's has been ill. A: Chest Pain, Neutropenia, CHF, Urinary Retention 06/04 VS: T 103.7, P 93, R 22 (sob, cough), BP 121/70, PO 96 RA - 93 RA, BMI: 38.3 06/04 LAB: WBC 1.6, Pl Ct 66, Neut 0.50, Lymph 0.51, [place] 0.02; PT 25.4, INR 2.6, APTT 35.8, D Dimer 0.77; Glucose 102, AST 86, Troponin 0.045, Procalcitonin 0.62 06/04 UA: 1+ protein, 1+ ketones, Large blood, RBC 24 06/04 Serology: C Diff: negative. Influenza A/B: negative. RSV negative. 06/04 COVID: Positive 06/04 Blood Culture x2: (Preliminary) negative. 06/05 Stool Culture (Final) negative. 06/06 Blood Culture (Preliminary @ 48 hrs) Negative. Treatment: Blood Cultures, Sputum Culture, No O2, IV Decadron 10 mg x1, IV Lasix 40 mg x1, IV Rocephin 50 mls x1 06/06: IV Zosyn 100 mls q8H Please clarify which diagnosis is most appropriate: [x ] Pneumonia, ruled in; Please specify type, if known: ___viral____ [ x] Present on Admission [ ] Not Present on Admission [ ] Pneumonia, ruled out [ ] Other (please specify) [ ] Unable to determine (Template Last Revised: July 2020) MTDD
[2021-06-09 16:42] LABS: Glucose,Whole Blood 111 mg/dL (75-99)
[2021-06-09] MEDS ORDERED: WARFARIN 0.5 MG TAB PO ONE (18:00)
--- NOTE | 2021-06-09 18:03 | P.PN ---
Subjective Progress Note Date: 06/09/21 Principal diagnosis: bicytopenia In f/u today pt cont to improve, he was up in chair, is walking in the room without significant SOB, he does recognize he is still weak but better each day. Objective - Vital Signs Vital signs: Vital Signs Temp 98 F 06/09/21 12:00 Pulse 61 06/09/21 13:33 Resp 18 06/09/21 12:00 BP 101/64 06/09/21 12:00 Pulse Ox 96 06/09/21 12:00 Intake & Output 06/08/21 06/09/21 06/09/21 18:59 06:59 18:59 Intake Total 582 260 240 Output Total 300 1025 Balance 282 -765 240 Weight 128 kg Intake: IV 160 0.9 160 Intake, IV Titration 100 Amount Piperacillin-Tazobactam 3 100 .375 gm In Sodium Chloride 0.9% 100 ml @ 25 mls/hr IVPB Q8HR [facility] Rx# :[id number] Oral 582 240 Output: Urine 300 1025 Other: Voiding Method Indwelling Catheter Indwelling Catheter Indwelling Catheter - Exam Deferred secondary to covid infection. Visually patient is well-developed, adequately nourished, no acute distress, A&O 4. Resp are even and unlabored. - Constitutional General appearance: Present: average body habitus, cooperative, no acute distress - EENT Eyes: Present: anicteric sclerae - Neurologic Neurologic: Present: CNII-XII intact (grossly) - Musculoskeletal Musculoskeletal: Present: generalized weakness - Psychiatric Psychiatric: Present: A&O x's 3, appropriate affect, intact judgment & insight - Labs CBC & Chem 7: 06/09/21 07:11 06/09/21 07:11 Labs: Abnormal Lab Results - Last 24 Hours (Table) 06/06/21 06/08/21 06/09/21 Range/Units 09:08 20:13 06:01 Plt Count (150-450) k/uL Lymphocytes # (1.0-4.8) k/uL PT (9.0-12.0) sec INR (<1.2) Sodium (137-145) mmol/L BUN (9-20) mg/dL Glucose (74-99) mg/dL POC Glucose (mg/dL) 166 H 117 H (75-99) mg/dL Calcium (8.4-10.2) mg/dL AST (17-59) U/L ALT (4-49) U/L C-Reactive Protein (<1.0) mg/dL Total Protein (6.3-8.2) g/dL Albumin (3.5-5.0) g/dL Albumin (PEP) 3.58 L (3.80-4.90) g/dL Ylzye-8-Wxsoslniu 0.43 H (0.10-0.40) g/dL Qjvdn-4-Pvfgtfvbu 1.05 H (0.60-1.00) g/dL Beta Globulins 0.57 L (0.60-1.30) g/dL Gamma Globulins 0.57 L (0.70-1.50) g/dL 06/09/21 06/09/21 06/09/21 Range/Units 07:11 07:11 07:11 Plt Count 103 L (150-450) k/uL Lymphocytes # 0.7 L (1.0-4.8) k/uL PT 36.2 H (9.0-12.0) sec INR 3.8 H (<1.2) Sodium 136 L (137-145) mmol/L BUN 28 H (9-20) mg/dL Glucose 102 H (74-99) mg/dL POC Glucose (mg/dL) (75-99) mg/dL Calcium 8.2 L (8.4-10.2) mg/dL AST 60 H (17-59) U/L ALT 64 H (4-49) U/L C-Reactive Protein 1.6 H (<1.0) mg/dL Total Protein 5.6 L (6.3-8.2) g/dL Albumin 3.1 L (3.5-5.0) g/dL Albumin (PEP) (3.80-4.90) g/dL Ensya-6-Oerldqsyn (0.10-0.40) g/dL Lzlyp-3-Sdvogcmtz (0.60-1.00) g/dL Beta Globulins (0.60-1.30) g/dL Gamma Globulins (0.70-1.50) g/dL Microbiology - Last 24 Hours (Table) 06/05/21 15:05 Stool Culture - Final Stool 06/04/21 21:16 Blood Culture - Preliminary Blood No Growth after 96 hours 06/04/21 21:00 Blood Culture - Preliminary Blood No Growth after 96 hours 06/06/21 16:11 Blood Culture - Preliminary Blood No Growth after 48 hours Assessment and Plan (1) Bicytopenia Narrative/Plan: Hit antibody negative, no m-protein, WBC normal today, plt increased to 103,000, no hemolysis, inflammatory markers are elevated. Cont to follow counts to ensure return to baseline. US liver and spleen now that pt is stable. Current Visit: Yes Status: Acute Priority: High Code(s): D75.89 - OTHER SPECIFIED DISEASES OF BLOOD AND BLOOD-FORMING ORGANS SNOMED Code(s): 14618437
--- NOTE | 2021-06-09 18:14 | P.PN ---
Subjective Progress Note Date: 06/09/21 Iker Layton, is a 76-year-old male well-known to my practice who presented to [facility] emergency room with a chief complaint of severe weakness, diarrhea, and occasional episodes of sharp pain in the chest for the last several days. He was evaluated in the emergency room vital examination on presentation revealed a temperature of 103.7 pulse 93 respiration 22 blood pressure 121/70 and pulse ox 96% on room air Laboratory data revealed a white blood count of 1.6 hemoglobin 15.1 platelet count 66 INR 2.6 d-dimer 0.77 BUN 19 creatinine 1.03 troponin level 0.045 COVID- 19 PCR was positive Testing in the emergency room revealed chest x-ray done emergency room revealed no acute cardiopulmonary disease, EKG revealed dual paced rhythm. Patient was admitted to medical floor for further evaluation and treatment. Past medical history is significant for chronic systolic congestive heart failure with cardiomyopathy, ejection fraction 20-25%, history of cardiac arrhythmia with pacemaker placement. On review of systems patient was complaining of severe weakness and diarrhea for several days, there was episodes of fever no chills, no headache or dizziness, he had frequent sharp episodes of chest pain lasting a few seconds, there was no shortness of breath no cough no nausea or vomiting no abdominal pain however patient had severe diarrhea, no blood in the stools no burning with urination no frequency or urgency no hematuria. On 06/06/2021 patient was seen and examined on the telemetry floor he is alert and oriented 3 in no apparent distress he is complaining of cough and feeling tired and weak otherwise he denies any complaints, he had a high temperature of 102.3 this morning no chills no headache or dizziness no chest pain no shortness of breath there is no nausea or vomiting no abdominal pain no diarrhea no blood in the stools patient has a Everett catheter in place. Due to elevated temperature this morning I am repeating blood culture, chest x- ray, and urine analysis, patient had elevated pro-calcitonin I would start him on IV Zosyn prophylactically consultation for infectious disease was initiated On 06/07/2021 patient was seen and examined on the medical floor he is alert and oriented 3 in no apparent distress he is still complaining of generalized body ache and severe fatigue and weakness otherwise he denies any complaints there is no fever or chills no headache or dizziness no chest pain no shortness of breath no cough, no nausea or vomiting no abdominal pain no diarrhea no blood in the stools no burning with urination no frequency or urgency and no hematuria. On 06/08/2021 patient was seen and examined on the medical floor he is alert and oriented, he is still complaining fatigue and weakness otherwise he denies any complaints there is no fever or chills no headache or dizziness no chest pain no shortness of breath no cough, no nausea or vomiting no abdominal pain no diarrhea no blood in the stools no burning with urination no frequency or urgency and no hematuria. On 06/09/2021 patient was seen and examined on the medical floor he is alert and oriented 3 in no distress , he is still complaining of fatigue and generalized weakness otherwise he denies any complaints there is no fever or chills no headache or dizziness no chest pain no shortness of breath no cough, no nausea or vomiting no abdominal pain no diarrhea no blood in the stools and no urinary symptoms, patient had a Everett catheter for mild urinary retention on pr esentation, at this time will discontinue Everett catheter, and check bladder scan every 3 hours for the next 12 hours, will reassess in a.m., patient was encouraged to ambulate, possible discharge to home in the next 1-2 days Objective - Vital Signs Vital signs: Vital Signs Temp 98 F 06/09/21 12:00 Pulse 61 06/09/21 13:33 Resp 18 06/09/21 12:00 BP 101/64 06/09/21 12:00 Pulse Ox 96 06/09/21 12:00 Intake & Output 06/08/21 06/09/21 06/09/21 18:59 06:59 18:59 Intake Total 582 260 240 Output Total 300 1025 Balance 282 -765 240 Weight 128 kg Intake: IV 160 0.9 160 Intake, IV Titration 100 Amount Piperacillin-Tazobactam 3 100 .375 gm In Sodium Chloride 0.9% 100 ml @ 25 mls/hr IVPB Q8HR [facility] Rx# :[id number] Oral 582 240 Output: Urine 300 1025 Other: Voiding Method Indwelling Catheter Indwelling Catheter Indwelling Catheter - Exam In general patient is alert and oriented x 3 in no distress HEENT head normocephalic and atraumatic Neck is supple no JVD no goiter no lymphadenopathy no carotid bruit Chest examination is clear to auscultation no crackles no wheezing Cardiac exam reveals regular heart sounds S1 and S2 no gallops no murmurs Abdomen is soft nontender no organomegaly with normal bowel sounds Extremity exam reveals no edema no cyanosis or clubbing Neurological examination reveals no gross focal deficits - Labs CBC & Chem 7: 06/09/21 07:11 06/09/21 07:11 Labs: Abnormal Lab Results - Last 24 Hours (Table) 06/06/21 06/08/21 06/09/21 Range/Units 09:08 20:13 06:01 Plt Count (150-450) k/uL Lymphocytes # (1.0-4.8) k/uL PT (9.0-12.0) sec INR (<1.2) Sodium (137-145) mmol/L BUN (9-20) mg/dL Glucose (74-99) mg/dL POC Glucose (mg/dL) 166 H 117 H (75-99) mg/dL Calcium (8.4-10.2) mg/dL AST (17-59) U/L ALT (4-49) U/L C-Reactive Protein (<1.0) mg/dL Total Protein (6.3-8.2) g/dL Albumin (3.5-5.0) g/dL Albumin (PEP) 3.58 L (3.80-4.90) g/dL Csocr-1-Kidajzacl 0.43 H (0.10-0.40) g/dL Rsbhy-7-Emozhevmi 1.05 H (0.60-1.00) g/dL Beta Globulins 0.57 L (0.60-1.30) g/dL Gamma Globulins 0.57 L (0.70-1.50) g/dL 06/09/21 06/09/21 06/09/21 Range/Units 07:11 07:11 07:11 Plt Count 103 L (150-450) k/uL Lymphocytes # 0.7 L (1.0-4.8) k/uL PT 36.2 H (9.0-12.0) sec INR 3.8 H (<1.2) Sodium 136 L (137-145) mmol/L BUN 28 H (9-20) mg/dL Glucose 102 H (74-99) mg/dL POC Glucose (mg/dL) (75-99) mg/dL Calcium 8.2 L (8.4-10.2) mg/dL AST 60 H (17-59) U/L ALT 64 H (4-49) U/L C-Reactive Protein 1.6 H (<1.0) mg/dL Total Protein 5.6 L (6.3-8.2) g/dL Albumin 3.1 L (3.5-5.0) g/dL Albumin (PEP) (3.80-4.90) g/dL Felwf-5-Tkttaooev (0.10-0.40) g/dL Nnpbc-4-Wqgytstmz (0.60-1.00) g/dL Beta Globulins (0.60-1.30) g/dL Gamma Globulins (0.70-1.50) g/dL Microbiology - Last 24 Hours (Table) 06/05/21 15:05 Stool Culture - Final Stool 06/04/21 21:16 Blood Culture - Preliminary Blood No Growth after 96 hours 06/04/21 21:00 Blood Culture - Preliminary Blood No Growth after 96 hours 06/06/21 16:11 Blood Culture - Preliminary Blood No Growth after 48 hours Assessment and Plan Plan: Acute Covid 19 infection, no evidence of pneumonia, no evidence of respiratory failure patient is maintained on room air O2 sat duration is 94% Severe diarrhea, will obtain stool sample for culture and C. diff Leukopenia white blood count is 1.6 Will monitor Thrombocytopenia platelet count 66 Mildly elevated d-dimer at 0.77 Underlying history of paroxysmal atrial fibrillation maintained on Coumadin INR therapeutic History of chronic systolic congestive heart failure, with cardiomyopathy, ejection fraction 20-25% Underlying history of coronary artery disease Underlying history of hypertension Underlying history of gout Underlying history of hyperlipidemia At this time patient is admitted to telemetry floor, cardiology consultation was requested Home medications reviewed and reordered Echocardiogram Will check stool samples and repeat labs in a.m. Patient was given 1 dose of IV Rocephin in the emergency room, however no clear evidence of bacterial infection at this time will hold IV antibiotic and consult infectious disease
[2021-06-09 20:04] LABS: Glucose,Whole Blood 133 mg/dL (75-99)
[2021-06-09] MEDS: SPIRONOLACTONE 25 MG TAB PO SCH (20:24)
--- NOTE | 2021-06-09 21:35 | P.PN ---
Subjective Progress Note Date: 06/09/21 Principal diagnosis: Pneumonia Patient is a 76 year male partially vaccination for COVID-19 presented to the hospital for increasing shortness of breath has been diagnosed with the COVID-19 pneumonia. On today's evaluation that is 06/09/2020 The patient continues to be afebrile, the patient is breathing comfortably on room air denies any chest pain cough decreased intensity is mostly dry in nature denies any nausea no vomiting no abdominal pain and no diarrhea Objective - Vital Signs Vital signs: Vital Signs Temp 97.4 F L 06/09/21 16:00 Pulse 55 L 06/09/21 16:00 Resp 18 06/09/21 16:00 BP 112/63 06/09/21 16:00 Pulse Ox 95 06/09/21 16:00 Intake & Output 06/09/21 06/09/21 06/10/21 06:59 18:59 06:59 Intake Total 260 480 Output Total 1025 Balance -765 480 Weight 128 kg Intake: IV 160 0.9 160 Intake, IV Titration 100 Amount Piperacillin-Tazobactam 3 100 .375 gm In Sodium Chloride 0.9% 100 ml @ 25 mls/hr IVPB Q8HR [facility] Rx# :[id number] Oral 480 Output: Urine 1025 Other: Voiding Method Indwelling Catheter Indwelling Catheter - Exam General description is an elderly male lying in bed in no distress. Respiratory system:Unlabored breathing, decreased intensity in breath sounds. No wheeze. Heart S1, S2. Regular rate and rhythm. Abdomen soft, no tenderness. Extremities: No edema feet - Labs CBC & Chem 7: 06/09/21 07:11 06/09/21 07:11 Labs: Abnormal Lab Results - Last 24 Hours (Table) 06/06/21 06/09/21 06/09/21 Range/Units 09:08 06:01 07:11 Plt Count (150-450) k/uL Lymphocytes # (1.0-4.8) k/uL PT 36.2 H (9.0-12.0) sec INR 3.8 H (<1.2) Sodium (137-145) mmol/L BUN (9-20) mg/dL Glucose (74-99) mg/dL POC Glucose (mg/dL) 117 H (75-99) mg/dL Calcium (8.4-10.2) mg/dL AST (17-59) U/L ALT (4-49) U/L C-Reactive Protein (<1.0) mg/dL Total Protein (6.3-8.2) g/dL Albumin (3.5-5.0) g/dL Albumin (PEP) 3.58 L (3.80-4.90) g/dL Imstz-9-Wiolwgljb 0.43 H (0.10-0.40) g/dL Hmsrl-3-Sopydpkwx 1.05 H (0.60-1.00) g/dL Beta Globulins 0.57 L (0.60-1.30) g/dL Gamma Globulins 0.57 L (0.70-1.50) g/dL Procalcitonin (0.02-0.09) ng/mL 06/09/21 06/09/21 06/09/21 Range/Units 07:11 07:11 07:11 Plt Count 103 L (150-450) k/uL Lymphocytes # 0.7 L (1.0-4.8) k/uL PT (9.0-12.0) sec INR (<1.2) Sodium 136 L (137-145) mmol/L BUN 28 H (9-20) mg/dL Glucose 102 H (74-99) mg/dL POC Glucose (mg/dL) (75-99) mg/dL Calcium 8.2 L (8.4-10.2) mg/dL AST 60 H (17-59) U/L ALT 64 H (4-49) U/L C-Reactive Protein 1.6 H (<1.0) mg/dL Total Protein 5.6 L (6.3-8.2) g/dL Albumin 3.1 L (3.5-5.0) g/dL Albumin (PEP) (3.80-4.90) g/dL Eytsc-1-Lrbdwibci (0.10-0.40) g/dL Bnsep-8-Kgzqfqyam (0.60-1.00) g/dL Beta Globulins (0.60-1.30) g/dL Gamma Globulins (0.70-1.50) g/dL Procalcitonin 0.12 H (0.02-0.09) ng/mL 06/09/21 06/09/21 Range/Units 16:31 20:03 Plt Count (150-450) k/uL Lymphocytes # (1.0-4.8) k/uL PT (9.0-12.0) sec INR (<1.2) Sodium (137-145) mmol/L BUN (9-20) mg/dL Glucose (74-99) mg/dL POC Glucose (mg/dL) 111 H 133 H (75-99) mg/dL Calcium (8.4-10.2) mg/dL AST (17-59) U/L ALT (4-49) U/L C-Reactive Protein (<1.0) mg/dL Total Protein (6.3-8.2) g/dL Albumin (3.5-5.0) g/dL Albumin (PEP) (3.80-4.90) g/dL Vanft-2-Lqukcltvb (0.10-0.40) g/dL Sqxbn-0-Dvhdtbwam (0.60-1.00) g/dL Beta Globulins (0.60-1.30) g/dL Gamma Globulins (0.70-1.50) g/dL Procalcitonin (0.02-0.09) ng/mL Microbiology - Last 24 Hours (Table) 06/06/21 16:11 Blood Culture - Preliminary Blood No Growth after 72 hours 06/05/21 15:05 Stool Culture - Final Stool 06/04/21 21:16 Blood Culture - Preliminary Blood No Growth after 96 hours 06/04/21 21:00 Blood Culture - Preliminary Blood No Growth after 96 hours Assessment and Plan Assessment: 1- patient with fever source is acute covid 19 pneumonia clinically suspicious low for secondary bacterial pneumonia Less likely as a procalcitonin 0.12, patient seen at overall clinical improvement and is currently off supplemental oxygen to continue with current supportive treatment of dexamethasone zinc ascorbic acid and monitor clinical course closely Time with Patient: Less than 30
[2021-06-10 04:00] VITALS: RESP 16
[2021-06-10] MEDS: INSULIN ASPART (NovoLOG) 100 UNIT/ML VIAL SQ SCH ×2 (06:26→12:18)
[2021-06-10] MEDS: PIPERACILLIN-TAZOBACTAM 3.375 GM in SODIUM CHLORIDE 0.9% 100 ML IVPB SCH (09:11)
[2021-06-10] MEDS: ZINC SULFATE 220 MG CAP PO SCH (09:12)
[2021-06-10] MEDS: METOPROLOL TARTRATE 25 MG TAB PO SCH (09:12)
[2021-06-10] MEDS: MULTIVITAMINS, THERA 1 EACH TAB PO SCH (09:12)
[2021-06-10] MEDS: CHOLECALCIFEROL 25 MCG (1000 IU) TABLET PO SCH (09:12)
[2021-06-10] MEDS: ASCORBIC ACID 500 MG TAB PO SCH (09:12)
[2021-06-10] MEDS: allopurinoL 100 MG TAB PO SCH (09:12)
[2021-06-10] MEDS: ASPIRIN 81 MG PO SCH (09:12)
[2021-06-10] MEDS: DEXAMETHASONE SOD PHOSPHATE 10 MG/ML 1 ML VIAL IV SCH (09:12)
[2021-06-10] MEDS: SOTALOL 80 MG TAB PO SCH (09:13)
[2021-06-10] MEDS: SACUBITRIL/VALSARTAN 24 MG-26 MG TABLET PO SCH (09:13)
[2021-06-10] MEDS: guaiFENesin-Coden 100-10MG/5ML 10 ML CUP PO PRN (09:24)
[2021-06-10 09:27] LABS: HCT 44.9 % (39.0-53.0); HGB 14.6 gm/dL (13.0-17.5); MCH 31.5 pg (25.0-35.0); MCHC 32.6 g/dL (31.0-37.0); MCV 96.5 fL (80.0-100.0); Mean Platelet Volume 9.5; Platelet Count 149 k/uL (150-450); RBC 4.65 m/uL (4.30-5.90); RDW 13.4 % (11.5-15.5); WBC 7.1 k/uL (3.8-10.6)
[2021-06-10 09:43] LABS: Calcium 8.3 mg/dL (8.4-10.2); Potassium 4.5 mmol/L (3.5-5.1); Total Bilirubin 1.1 mg/dL (0.2-1.3); Total Protein 5.5 g/dL (6.3-8.2)
[2021-06-10 09:45] LABS: INR 2.8 (<1.2); Prothrombin Time 27.1 sec (9.0-12.0)
[2021-06-10 09:49] LABS: Glucose,Whole Blood 99 mg/dL (75-99)
[2021-06-10 11:51] LABS: Glucose,Whole Blood 96 mg/dL (75-99)
--- NOTE | 2021-06-10 12:32 | P.PN ---
Subjective Progress Note Date: 06/10/21 Principal diagnosis: bicytopenia In f/u today pt is anticipating discharge, he feels pretty good, no acute physical c/o. Objective - Vital Signs Vital signs: Vital Signs Temp 97.9 F 06/10/21 10:05 Pulse 58 L 06/10/21 10:05 Resp 16 06/10/21 10:05 BP 109/69 06/10/21 10:05 Pulse Ox 94 L 06/10/21 10:05 Intake & Output 06/09/21 06/10/21 06/10/21 18:59 06:59 18:59 Intake Total 480 940 Output Total 1400 100 Balance 480 -1400 840 Weight 128.5 kg Intake: Intake, IV Titration 100 Amount Piperacillin-Tazobactam 3 100 .375 gm In Sodium Chloride 0.9% 100 ml @ 25 mls/hr IVPB Q8HR [facility] Rx# :[id number] Oral 480 840 Output: Urine 1400 100 Uretheral (Everett) 100 Other: Voiding Method Indwelling Catheter Indwelling Catheter Indwelling Catheter - Exam Deferred secondary to covid infection. Visually patient is well-developed, adequately nourished, no acute distress, A&O 4. Resp are even and unlabored. - Labs CBC & Chem 7: 06/10/21 08:54 06/10/21 08:54 Labs: Abnormal Lab Results - Last 24 Hours (Table) 06/09/21 06/09/21 06/09/21 Range/Units 07:11 16:31 20:03 Plt Count (150-450) k/uL PT (9.0-12.0) sec INR (<1.2) Sodium (137-145) mmol/L Chloride (98-107) mmol/L Carbon Dioxide (22-30) mmol/L BUN (9-20) mg/dL Glucose (74-99) mg/dL POC Glucose (mg/dL) 111 H 133 H (75-99) mg/dL Calcium (8.4-10.2) mg/dL ALT (4-49) U/L Total Protein (6.3-8.2) g/dL Albumin (3.5-5.0) g/dL Procalcitonin 0.12 H (0.02-0.09) ng/mL 06/10/21 06/10/2122 Range/Units 08:54 08:54 08:54 Plt Count 149 L (150-450) k/uL PT 27.1 H (9.0-12.0) sec INR 2.8 H (<1.2) Sodium 136 L (137-145) mmol/L Chloride 109 H (98-107) mmol/L Carbon Dioxide 21 L (22-30) mmol/L BUN 25 H (9-20) mg/dL Glucose 113 H (74-99) mg/dL POC Glucose (mg/dL) (75-99) mg/dL Calcium 8.3 L (8.4-10.2) mg/dL ALT 52 H (4-49) U/L Total Protein 5.5 L (6.3-8.2) g/dL Albumin 3.0 L (3.5-5.0) g/dL Procalcitonin (0.02-0.09) ng/mL Microbiology - Last 24 Hours (Table) 06/04/21 21:00 Blood Culture - Preliminary Blood No Growth after 120 hours 06/04/21 21:16 Blood Culture - Preliminary Blood No Growth after 120 hours 06/06/21 16:11 Blood Culture - Preliminary Blood No Growth after 72 hours 06/05/21 15:05 Stool Culture - Final Stool Assessment and Plan (1) Bicytopenia Narrative/Plan: Bicytopenia has recovered as pt has recovered from covid infection. Hit antibody negative, no m-protein, WBC normal today, plt increased to 149,000, no hemolysis, inflammatory markers are elevated likely 2/2 infection. Pt will cont to follow with his PCP. If pt has any recurrent abnormalities then referral back to Hematology for further work up would be warranted. Current Visit: Yes Status: Acute Priority: High Code(s): D75.89 - OTHER SPECIFIED DISEASES OF BLOOD AND BLOOD-FORMING ORGANS SNOMED Code(s): 87604855
[2021-06-10 13:09] LABS: Band Neutrophils % 3 %; Eosinophils # (M) 0.07 k/uL (0-0.7); Lymphocytes # (M) 0.92 k/uL (1.0-4.8); Monocytes # (M) 1.28 k/uL (0-1.0); Neutrophils % (M) 65 %; Nucleated Red Blood Cells 0 /100 WBC (0-0); Total Cells Counted 100
[2021-06-10 14:13] VITALS: BMI 38.4
[2021-06-10 15:46] VITALS: BP 97/55; PULSE 55; TEMP 97.4
--- NOTE | 2021-06-10 17:12 | P.DS ---
Providers Date of admission: 06/05/21 00:35 Expected date of discharge: 06/10/21 Attending physician: Roman Hartman Consults: 06/04/21 23:22 Consult Physician Routine Consulting Provider: Osvaldo Barrow Consult Reason/Comments: Urinary retention Do you want consulting provider notified?: Yes 06/04/21 23:23 Consult Physician Routine Consulting Provider: Wayne Charles Consult Reason/Comments: CHF Do you want consulting provider notified?: Yes 06/05/21 14:15 Consult Physician Routine Consulting Provider: Pito Jones Consult Reason/Comments: leukopenia, thrombocytopenia Do you want consulting provider notified?: Yes 06/06/21 14:46 Consult Physician Routine Consulting Provider: Stephania Hensley Consult Reason/Comments: fever Do you want consulting provider notified?: Yes Primary care physician: Roman Hartman [facility] Course: Diagnosis on discharge: Acute Covid 19 infection, no evidence of pneumonia, no evidence of respiratory failure patient is maintained on room air O2 sat duration is 94% Severe diarrhea, will obtain stool sample for culture and C. diff Leukopenia white blood count is 1.6 Will monitor Thrombocytopenia platelet count 66 Mildly elevated d-dimer at 0.77 Underlying history of paroxysmal atrial fibrillation maintained on Coumadin INR therapeutic History of chronic systolic congestive heart failure, with cardiomyopathy, ejection fraction 20-25% Underlying history of coronary artery disease Underlying history of hypertension Underlying history of gout Underlying history of hyperlipidemia Urinary tract infection treated with IV Zosyn and switched to oral Augmentin at the time of discharge Hospital course: Iker Layton, is a 76-year-old male well-known to my practice who presented to [facility] emergency room with a chief complaint of severe weakness, diarrhea, and occasional episodes of sharp pain in the chest for the last several days. He was evaluated in the emergency room vital examination on presentation revealed a temperature of 103.7 pulse 93 respiration 22 blood pressure 121/70 and pulse ox 96% on room air Laboratory data revealed a white blood count of 1.6 hemoglobin 15.1 platelet count 66 INR 2.6 d-dimer 0.77 BUN 19 creatinine 1.03 troponin level 0.045 COVID- 19 PCR was positive Testing in the emergency room revealed chest x-ray done emergency room revealed no acute cardiopulmonary disease, EKG revealed dual paced rhythm. Patient was admitted to medical floor for further evaluation and treatment. Past medical history is significant for chronic systolic congestive heart failure with cardiomyopathy, ejection fraction 20-25%, history of cardiac arrhythmia with pacemaker placement. On review of systems patient was complaining of severe weakness and diarrhea for several days, there was episodes of fever no chills, no headache or dizziness, he had frequent sharp episodes of chest pain lasting a few seconds, there was no shortness of breath no cough no nausea or vomiting no abdominal pain however patient had severe diarrhea, no blood in the stools no burning with urination no frequency or urgency no hematuria. On 06/06/2021 patient was seen and examined on the telemetry floor he is alert and oriented 3 in no apparent distress he is complaining of cough and feeling tired and weak otherwise he denies any complaints, he had a high temperature of 102.3 this morning no chills no headache or dizziness no chest pain no shortness of breath there is no nausea or vomiting no abdominal pain no diarrhea no blood in the stools patient has a Everett catheter in place. Due to elevated temperature this morning I am repeating blood culture, chest x- ray, and urine analysis, patient had elevated pro-calcitonin I would start him o n IV Zosyn prophylactically consultation for infectious disease was initiated On 06/07/2021 patient was seen and examined on the medical floor he is alert and oriented 3 in no apparent distress he is still complaining of generalized body ache and severe fatigue and weakness otherwise he denies any complaints there is no fever or chills no headache or dizziness no chest pain no shortness of breath no cough, no nausea or vomiting no abdominal pain no diarrhea no blood in the stools no burning with urination no frequency or urgency and no hematuria. On 06/08/2021 patient was seen and examined on the medical floor he is alert and oriented, he is still complaining fatigue and weakness otherwise he denies any complaints there is no fever or chills no headache or dizziness no chest pain no shortness of breath no cough, no nausea or vomiting no abdominal pain no diarrhea no blood in the stools no burning with urination no frequency or urgency and no hematuria. On 06/09/2021 patient was seen and examined on the medical floor he is alert and oriented 3 in no distress , he is still complaining of fatigue and generalized weakness otherwise he denies any complaints there is no fever or chills no headache or dizziness no chest pain no shortness of breath no cough, no nausea or vomiting no abdominal pain no diarrhea no blood in the stools and no urinary symptoms, patient had a Everett catheter for mild urinary retention on presentation, at this time will discontinue Everett catheter, and check bladder scan every 3 hours for the next 12 hours, will reassess in a.m., patient was encouraged to ambulate, possible discharge to home in the next 1-2 days On 06/10/2021 patient was seen and examined on the medical floor he is alert and oriented 3 in no apparent distress he is feeling better, diarrhea has stopped, his oral intake has improved, there is no fever or chills no headache or dizziness no chest pain no shortness of breath no cough no nausea or vomiting no abdominal pain no diarrhea no blood in the stools, Everett catheter was removed and patient is able to urinate without significant post void residual. At this time IV antibiotic will be discontinued patient will be started on oral Augmentin he will be followed in our office within one week for further evaluation Plan - Discharge Summary Discharge Rx Participant: No New Discharge Prescriptions: New Amoxic-Pot Clav 500-125 mg [Augmentin 500-125 mg] 1 tab PO Q12HR 7 Days #14 tab Metoprolol Tartrate [Lopressor] 75 mg PO BID tab Zinc Sulfate [Orazinc] 220 mg PO DAILY cap Ascorbic Acid [Vitamin C] 500 mg PO DAILY tab Cholecalciferol [Vitamin D3 (25 Mcg = 1000 Iu)] 25 mcg PO DAILY tablet Continue Warfarin [Coumadin] 7.5 mg PO TUTHSA Aspirin 81 mg PO DAILY Nitroglycerin Sl Tabs [Nitrostat] 0.4 mg SUBLINGUAL Q5M PRN PRN Reason: Chest Pain Spironolactone [Aldactone] 12.5 mg PO HS Sotalol [Betapace] 80 mg PO BID Warfarin [Coumadin] 5 mg PO SUMOWEFR Sacubitril/Valsartan [Entresto 24 mg-26 mg Tablet] 2 tab PO BID Multivit-Min/FA/Lycopen/Lutein [Centrum Silver Men Tablet] 1 tab PO DAILY Allopurinol [Zyloprim] 100 mg PO DAILY Discontinued Carvedilol [Coreg] 6.25 mg PO BID Discharge Medication List Aspirin 81 mg PO DAILY 04/14/14 [History] Nitroglycerin Sl Tabs [Nitrostat] 0.4 mg SUBLINGUAL Q5M PRN 04/14/14 [History] Spironolactone [Aldactone] 12.5 mg PO HS 04/14/14 [History] Warfarin [Coumadin] 7.5 mg PO TUTHSA 04/14/14 [History] Sotalol [Betapace] 80 mg PO BID 05/19/17 [History] Warfarin [Coumadin] 5 mg PO SUMOWEFR 05/19/17 [History] Allopurinol [Zyloprim] 100 mg PO DAILY 06/04/21 [History] Multivit-Min/FA/Lycopen/Lutein [Centrum Silver Men Tablet] 1 tab PO DAILY 06/04/21 [History] Sacubitril/Valsartan [Entresto 24 mg-26 mg Tablet] 2 tab PO BID 06/04/21 [History] Amoxic-Pot Clav 500-125 mg [Augmentin 500-125 mg] 1 tab PO Q12HR 7 Days #14 tab 06/10/21 [Rx] Ascorbic Acid [Vitamin C] 500 mg PO DAILY tab 06/10/21 [Rx] Cholecalciferol [Vitamin D3 (25 Mcg = 1000 Iu)] 25 mcg PO DAILY tablet 06/10/21 [Rx] Metoprolol Tartrate [Lopressor] 75 mg PO BID tab 06/10/21 [Rx] Zinc Sulfate [Orazinc] 220 mg PO DAILY cap 06/10/21 [Rx] Follow up Appointment(s)/Referral(s): Roman Hartman MD [Primary Care Provider] - 1-2 days Patient Instructions/Handouts: Coronavirus Disease 2019 (COVID-19) Discharge Disposition: HOME SELF-CARE
[2021-06-10] MEDS ORDERED: WARFARIN 2.5 MG TAB PO ONE (18:00)
[2021-06-11 08:22] LABS: Methylmalonic Acid 0.28 umol/L (<0.40)
--- NOTE | 2021-06-14 11:28 | CDI ---
Documentation Clarification Form Date: 06/14/21 From: Yeny Ortiz Admit Date: 06/05/2021 12:35:00 AM Patient Name: Iker Layton Visit Number: [id number] Discharge Date: 06/10/2021 04:53:00 PM ATTENTION: The Clinical Documentation Specialists (CDI) and [facility] Coding Staff appreciate your assistance in clarifying documentation. Please respond to the clarification below the line at the bottom and electronically sign. The CDI & [facility] Coding staff will review the response and follow-up if needed. Please note: Queries are made part of the Legal Health Record. If you have any questions, please contact the author of this message via ITS. Dr. Roman Hartman, Sepsis is documented in the ED Note, and in 06/05 cardiology consult, but is not noted in subsequent documentation. Clarification is requested. 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
--- NOTE | 2021-06-17 20:45 | P.PN ---
Subjective Progress Note Date: 06/10/21 Principal diagnosis: Pneumonia Patient is a 76 year male partially vaccination for COVID-19 presented to the hospital for increasing shortness of breath has been diagnosed with the COVID-19 pneumonia. On today's evaluation that is 06/10/2020 The patient remains to be afebrile, the patient is breathing comfortably on room air, the patient denies any chest pain cough has decreased intensity is mostly dry in nature, the patient denies any nausea no vomiting no abdominal pain and no diarrhea Objective - Vital Signs Vital signs: Vital Signs Temp 97.9 F 06/10/21 10:05 Pulse 58 L 06/10/21 10:05 Resp 16 06/10/21 10:05 BP 109/69 06/10/21 10:05 Pulse Ox 94 L 06/10/21 10:05 Intake & Output 06/09/21 06/10/21 06/10/21 18:59 06:59 18:59 Intake Total 480 940 Output Total 1400 100 Balance 480 -1400 840 Weight 128.5 kg 128.5 kg Intake: Intake, IV Titration 100 Amount Piperacillin-Tazobactam 3 100 .375 gm In Sodium Chloride 0.9% 100 ml @ 25 mls/hr IVPB Q8HR [facility] Rx# :[id number] Oral 480 840 Output: Urine 1400 100 Uretheral (Everett) 100 Other: Voiding Method Indwelling Catheter Indwelling Catheter Indwelling Catheter - Exam General description is an elderly male lying in bed in no distress. Respiratory system:Unlabored breathing, decreased intensity in breath sounds. No wheeze. Heart S1, S2. Regular rate and rhythm. Abdomen soft, no tenderness. Extremities: No edema feet - Labs CBC & Chem 7: 06/10/21 08:54 06/10/21 08:54 Labs: Abnormal Lab Results - Last 24 Hours (Table) 06/09/21 06/09/21 06/09/21 Range/Units 07:11 16:31 20:03 Plt Count (150-450) k/uL Lymphocytes # (Manual) (1.0-4.8) k/uL Monocytes # (Manual) (0-1.0) k/uL PT (9.0-12.0) sec INR (<1.2) Sodium (137-145) mmol/L Chloride (98-107) mmol/L Carbon Dioxide (22-30) mmol/L BUN (9-20) mg/dL Glucose (74-99) mg/dL POC Glucose (mg/dL) 111 H 133 H (75-99) mg/dL Calcium (8.4-10.2) mg/dL ALT (4-49) U/L Total Protein (6.3-8.2) g/dL Albumin (3.5-5.0) g/dL Procalcitonin 0.12 H (0.02-0.09) ng/mL 06/10/21 06/10/21 06/10/21 Range/Units 08:54 08:54 08:54 Plt Count 149 L (150-450) k/uL Lymphocytes # (Manual) 0.92 L (1.0-4.8) k/uL Monocytes # (Manual) 1.28 H (0-1.0) k/uL PT 27.1 H (9.0-12.0) sec INR 2.8 H (<1.2) Sodium 136 L (137-145) mmol/L Chloride 109 H (98-107) mmol/L Carbon Dioxide 21 L (22-30) mmol/L BUN 25 H (9-20) mg/dL Glucose 113 H (74-99) mg/dL POC Glucose (mg/dL) (75-99) mg/dL Calcium 8.3 L (8.4-10.2) mg/dL ALT 52 H (4-49) U/L Total Protein 5.5 L (6.3-8.2) g/dL Albumin 3.0 L (3.5-5.0) g/dL Procalcitonin (0.02-0.09) ng/mL Microbiology - Last 24 Hours (Table) 06/04/21 21:00 Blood Culture - Preliminary Blood No Growth after 120 hours 06/04/21 21:16 Blood Culture - Preliminary Blood No Growth after 120 hours 06/06/21 16:11 Blood Culture - Preliminary Blood No Growth after 72 hours 06/05/21 15:05 Stool Culture - Final Stool Assessment and Plan Assessment: 1- patient with fever source is acute covid 19 pneumonia clinically suspicious low for secondary bacterial pneumonia , patient has shown overall clinical improvement and is currently off supplemental oxygen to continue with current supportive treatment of dexamethasone zinc ascorbic acid and close outpatient follow-up Time with Patient: Less than 30
== END 2021-06-10 16:53 | disposition home or self-care (01) | DRG 177 ==
LOC: EC 19:29 → 3SCARD 06-05 00:35 → 4SSUR 06-10 10:04
PROVIDERS: ADMIT Internal Medicine; ATTEND Internal Medicine
DX: U07.1 COVID-19 (principal); J12.82 Pneumonia due to coronavirus disease 2019; I50.22 Chronic systolic (congestive) heart failure; I42.9 Cardiomyopathy, unspecified; N39.0 Urinary tract infection, site not specified; A08.39 Other viral enteritis; D70.9 Neutropenia, unspecified; D69.59 Other secondary thrombocytopenia; I11.0 Hypertensive heart disease with heart failure; I48.0 Paroxysmal atrial fibrillation; E78.5 Hyperlipidemia, unspecified; I25.10 Atherosclerotic heart disease of native coronary artery without angina pectoris; I25.2 Old myocardial infarction; M10.9 Gout, unspecified; R33.9 Retention of urine, unspecified; R32 Unspecified urinary incontinence; R15.9 Full incontinence of feces; M19.90 Unspecified osteoarthritis, unspecified site; Z79.82 Long term (current) use of aspirin; Z79.01 Long term (current) use of anticoagulants; Z79.899 Other long term (current) drug therapy; Z95.810 Presence of automatic (implantable) cardiac defibrillator; Z98.42 Cataract extraction status, left eye; Z98.41 Cataract extraction status, right eye; Z95.5 Presence of coronary angioplasty implant and graft; Z96.651 Presence of right artificial knee joint; Z98.890 Other specified postprocedural states; Z71.3 Dietary counseling and surveillance; Z80.9 Family history of malignant neoplasm, unspecified
CPT/HCPCS: 36415; 71045; 80053; 81001; 82607; 82728; 82746; 82784; 83010; 83540; 83550; 83615; 83735; 83880; 83883; 83921; 84145; 84165; 84484; 85025; 85027; 85379; 85610; 85652; 85730; 86022; 86038; 86140; 86334; 86431; 87040; 87045; 87046; 87324; 87636; 93005; 93306; 94760; 96374; 96375; 99285

== ENCOUNTER 2022-02-23 16:53 | Emergency (ER) | payer MEDICARE ==
--- NOTE | 2022-02-23 17:25 | ED ---
General Adult HPI - General Chief complaint: Recheck/Abnormal Lab/Rx Stated complaint: pacemaker went off Time Seen by Provider: 02/23/22 17:13 Source: patient Mode of arrival: ambulatory Limitations: no limitations - History of Present Illness Initial comments: This patient is 77-year-old man who presents 7 evaluation after his defibrillator fired this afternoon. The patient states that he had been mowing grass. He finished that and went to go into his house. He states that he started feeling lightheaded and then felt the defibrillator fire. He was not having chest pain prior to or after. No dyspnea or diaphoresis. No nausea or vomiting. The patient states that he feels nearly back to his baseline he is just a little shaky right now. Onset/Timin -: hour(s) Severity scale (1-10): 0 Consistency: now resolved Improves with: none Worsens with: none Associated Symptoms: other (Lightheadedness) Treatments Prior to Arrival: none - Related Data Home Medications Medication Instructions Recorded Confirmed Aspirin 81 mg PO DAILY 04/14/14 02/23/22 Nitroglycerin Sl Tabs [Nitrostat] 0.4 mg SUBLINGUAL Q5M PRN 04/14/14 02/23/22 Spironolactone [Aldactone] 12.5 mg PO HS 04/14/14 02/23/22 Warfarin [Coumadin] 7.5 mg PO TUTHSA@1700 04/14/14 02/23/22 Sotalol [Betapace] 80 mg PO BID 05/19/17 02/23/22 Warfarin [Coumadin] 5 mg PO SUMOWEFR@1700 05/19/17 02/23/22 Sacubitril/Valsartan [Entresto 24 2 tab PO BID 06/04/21 02/23/22 mg-26 mg Tablet] allopurinoL [Zyloprim] 100 mg PO HS 06/04/21 02/23/22 Furosemide [Lasix] 20 mg PO DAILY PRN 02/23/22 02/23/22 Tamsulosin [Flomax] 0.4 mg PO DAILY@1700 02/23/22 02/23/22 carvediloL [Coreg] 12.5 mg PO BID 02/23/22 02/23/22 Previous Rx's Medication Instructions Recorded Cholecalciferol [Vitamin D3 (25 25 mcg PO DAILY tablet 06/10/21 Mcg = 1000 Iu)] Allergies Allergy/AdvReac Type Severity Reaction Status Date / Time No Known Allergies Allergy Verified 02/23/22 18:23 Review of Systems ROS Statement: Those systems with pertinent positive or pertinent negative responses have been documented in the HPI. ROS Other: All systems not noted in ROS Statement are negative. Constitutional: Denies: fever, chills Respiratory: Denies: cough, dyspnea Cardiovascular: Reports: as per HPI, syncope (Lightheadedness). Denies: chest p ain, palpitations, orthopnea, edema Gastrointestinal: Denies: abdominal pain, nausea, vomiting, melena, hematochezia Genitourinary: Denies: dysuria, frequency Musculoskeletal: Denies: back pain Skin: Denies: rash Neurological: Denies: headache, weakness, numbness, confusion Past Medical History Past Medical History: Eye Disorder, Hyperlipidemia, Hypertension, Myocardial Infarction (VT) Additional Past Medical History / Comment(s): AICD, W/ LEAD MALFUNCTION. CATARACTS.PAST AFIB HAD ABLATION DONE, SINCE HAD 1 EPIDSODE OF AFIB CHANGED MEDS AROUND AND NO AFIB SINCE Last Myocardial Infarction Date:: 2006 History of Any Multi-Drug Resistant Organisms: None Reported Past Surgical History: Ablation, AICD, Heart Catheterization With Stent Additional Past Surgical History / Comment(s): bilateral CATARACT, one cardiac stent, total right knee 05/30/16 Past Anesthesia/Blood Transfusion Reactions: No Reported Reaction Date of Last Stent Placement:: 2006 Type of Cardiac Device: AICD Device Placement Date:: Past Psychological History: No Psychological Hx Reported Smoking Status: Never smoker Past Alcohol Use History: Rare Past Drug Use History: None Reported - Past Family History Father Family Medical History: Cancer Mother Family Medical History: Cancer General Exam Limitations: no limitations General appearance: alert, in no apparent distress Head exam: Present: atraumatic, normocephalic Eye exam: Present: normal appearance. Absent: scleral icterus, conjunctival injection Neck exam: Present: normal inspection, full ROM Respiratory exam: Present: normal lung sounds bilaterally. Absent: respiratory distress, wheezes, rales, rhonchi, stridor Cardiovascular Exam: Present: regular rate, normal rhythm, normal heart sounds. Absent: systolic murmur, diastolic murmur, rubs, gallop GI/Abdominal exam: Present: soft. Absent: distended, tenderness, guarding, rebound, rigid, mass Extremities exam: Present: normal inspection, normal capillary refill, pedal edema (Unchanged per patient). Absent: calf tenderness Back exam: Present: normal inspection. Absent: CVA tenderness (R), CVA tenderness (L) Neurological exam: Present: alert Skin exam: Present: warm, dry, intact, normal color. Absent: rash Course Vital Signs 02/23/22 02/23/22 02/23/22 17:02 18:00 20:55 Temperature 97.9 F 98 F Pulse Rate 58 L 64 62 Respiratory 16 15 18 Rate Blood Pressure 112/76 113/72 107/73 O2 Sat by Pulse 98 95 97 Oximetry EKG Findings - EKG Comments: EKG Findings:: 12-lead ECG shows paced rhythm rate is 73 bpm - EKG Results: EKG: interpreted by CARLOS Medical Decision Making - Medical Decision Making Patient is 77-year-old man here after his defibrillator had fired. The workup within normal limits other than perhaps mild degree of CHF based on chest x-ray. The patient is feeling well and would like to go home. We do not have the defibrillator report yet, and he realizes that there is possibility of missing cardiac event. Patient will follow with his 3d artist, returning if any symptoms develop. - Lab Data Result diagrams: 02/23/22 18:44 02/23/22 18:44 Lab Results 02/23/22 02/23/22 02/23/22 Range/Units 18:44 18:44 18:44 WBC 3.4 L (3.8-10.6) k/uL RBC 4.25 L (4.30-5.90) m/uL Hgb 13.1 (13.0-17.5) gm/dL Hct 38.6 L (39.0-53.0) % MCV 90.9 (80.0-100.0) fL MCH 30.8 (25.0-35.0) pg MCHC 33.8 (31.0-37.0) g/dL RDW 13.6 (11.5-15.5) % Plt Count 91 L (150-450) k/uL MPV 10.5 Neutrophils % 52 % Lymphocytes % 22 % Monocytes % 20 % Eosinophils % 3 % Basophils % 0 % Neutrophils # 1.8 (1.3-7.7) k/uL Lymphocytes # 0.8 L (1.0-4.8) k/uL Monocytes # 0.7 (0-1.0) k/uL Eosinophils # 0.1 (0-0.7) k/uL Basophils # 0.0 (0-0.2) k/uL Manual Slide Review Performed PT 18.7 H (9.0-12.0) sec INR 1.9 H (<1.2) APTT 28.1 (22.0-30.0) sec Sodium 139 (137-145) mmol/L Potassium 4.1 (3.5-5.1) mmol/L Chloride 107 (98-107) mmol/L Carbon Dioxide 24 (22-30) mmol/L Anion Gap 8 mmol/L BUN 20 (9-20) mg/dL Creatinine 0.93 (0.66-1.25) mg/dL Est GFR (CKD-EPI)AfAm >90 (>60 ml/min/1.73 sqM) Est GFR (CKD-EPI)NonAf 79 (>60 ml/min/1.73 sqM) Glucose 86 (74-99) mg/dL Calcium 8.8 (8.4-10.2) mg/dL Magnesium 2.1 (1.6-2.3) mg/dL Total Bilirubin 0.8 (0.2-1.3) mg/dL AST 22 (17-59) U/L ALT 14 (4-49) U/L Alkaline Phosphatase 83 (38-126) U/L Troponin I (0.000-0.034) ng/mL Total Protein 6.1 L (6.3-8.2) g/dL Albumin 4.1 (3.5-5.0) g/dL 02/23/22 Range/Units 18:44 WBC (3.8-10.6) k/uL RBC (4.30-5.90) m/uL Hgb (13.0-17.5) gm/dL Hct (39.0-53.0) % MCV (80.0-100.0) fL MCH (25.0-35.0) pg MCHC (31.0-37.0) g/dL RDW (11.5-15.5) % Plt Count (150-450) k/uL MPV Neutrophils % % Lymphocytes % % Monocytes % % Eosinophils % % Basophils % % Neutrophils # (1.3-7.7) k/uL Lymphocytes # (1.0-4.8) k/uL Monocytes # (0-1.0) k/uL Eosinophils # (0-0.7) k/uL Basophils # (0-0.2) k/uL Manual Slide Review PT (9.0-12.0) sec INR (<1.2) APTT (22.0-30.0) sec Sodium (137-145) mmol/L Potassium (3.5-5.1) mmol/L Chloride (98-107) mmol/L Carbon Dioxide (22-30) mmol/L Anion Gap mmol/L BUN (9-20) mg/dL Creatinine (0.66-1.25) mg/dL Est GFR (CKD-EPI)AfAm (>60 ml/min/1.73 sqM) Est GFR (CKD-EPI)NonAf (>60 ml/min/1.73 sqM) Glucose (74-99) mg/dL Calcium (8.4-10.2) mg/dL Magnesium (1.6-2.3) mg/dL Total Bilirubin (0.2-1.3) mg/dL AST (17-59) U/L ALT (4-49) U/L Alkaline Phosphatase (38-126) U/L Troponin I <0.012 (0.000-0.034) ng/mL Total Protein (6.3-8.2) g/dL Albumin (3.5-5.0) g/dL Disposition Clinical Impression: Defibrillator discharge Disposition: HOME SELF-CARE Condition: Good Instructions (If sedation given, give patient instructions): Implantable Cardioverter Defibrillator (DC) Additional Instructions: As we discussed, follow-up with your 3d artist. Return if any symptoms develop or if you're not feeling right in anyway. Is patient prescribed a controlled substance at d/c from ED?: No Referrals: Roman Hartman MD [Primary Care Provider] - 1-2 days
[2022-02-23 19:10] LABS: ALT 14 U/L (4-49); AST 22 U/L (17-59); African American GFR (CKD) >90 (>60 ml/min/1.73 sqM); Albumin 4.1 g/dL (3.5-5.0); Alkaline Phosphatase 83 U/L (38-126); Anion Gap 8 mmol/L; Blood Urea Nitrogen 20 mg/dL (9-20); Calcium 8.8 mg/dL (8.4-10.2); Carbon Dioxide 24 mmol/L (22-30); Chloride 107 mmol/L (98-107); Glucose 86 mg/dL (74-99); Magnesium 2.1 mg/dL (1.6-2.3); Non-African American GFR(CKD) 79 (>60 ml/min/1.73 sqM); Potassium 4.1 mmol/L (3.5-5.1); Sodium 139 mmol/L (137-145); Total Bilirubin 0.8 mg/dL (0.2-1.3); Total Protein 6.1 g/dL (6.3-8.2)
[2022-02-23 19:14] LABS: Basophils % (A) 0 %; Eosinophils # (A) 0.1 k/uL (0-0.7); Eosinophils % (A) 3 %; HCT 38.6 % (39.0-53.0); HGB 13.1 gm/dL (13.0-17.5); Lymphocytes # (A) 0.8 k/uL (1.0-4.8); Lymphocytes % (A) 22 %; MCH 30.8 pg (25.0-35.0); MCHC 33.8 g/dL (31.0-37.0); MCV 90.9 fL (80.0-100.0); Mean Platelet Volume 10.5; Monocytes # (A) 0.7 k/uL (0-1.0); Monocytes % (A) 20 %; Neutrophils # (A) 1.8 k/uL (1.3-7.7); Neutrophils % (A) 52 %; RBC 4.25 m/uL (4.30-5.90); RDW 13.6 % (11.5-15.5); WBC 3.4 k/uL (3.8-10.6)
[2022-02-23 19:19] LABS: INR 1.9 (<1.2)
[2022-02-23 19:20] LABS: Partial Thromboplastin Time 28.1 sec (22.0-30.0); Prothrombin Time 18.7 sec (9.0-12.0)
[2022-02-23 19:35] LABS: Platelet Count 91 k/uL (150-450)
--- NOTE | 2022-02-23 19:48 | XR ---
EXAMINATION TYPE: XR chest 2V DATE OF EXAM: 02/23/2022 7:19 PM COMPARISON: Chest radiographs from 06/06/2021. TECHNIQUE: XR chest 2V Frontal and lateral views of the chest. CLINICAL INDICATION:Male, 77 years old with history of Chest Pain; FINDINGS: Lungs/Pleura: There is no evidence of pleural effusion, focal consolidation, or pneumothorax. Pulmonary vascularity: Pulmonary vascular prominence Heart/mediastinum: Cardiomediastinal silhouette is enlarged and stable. Two lead cardiac conduction d evice overlying the left hemithorax with lead tips projecting over the right ventricle and right atri um. Musculoskeletal: No acute osseous pathology. IMPRESSION: No focal consolidation, cardiomegaly correlate with BNP for congestive heart failure.
[2022-02-23 20:57] VITALS: BP 107/73; PULSE 62; RESP 18; TEMP 98
== END 2022-02-23 21:11 | disposition home or self-care (01) ==
LOC: EC 16:53
DX: Z45.02 Encounter for adjustment and management of automatic implantable cardiac defibrillator (principal); E78.5 Hyperlipidemia, unspecified; I10 Essential (primary) hypertension; I25.2 Old myocardial infarction
CPT/HCPCS: 36415; 71046; 80053; 83735; 84484; 85025; 85610; 85730; 93005; 99284

== ENCOUNTER → 2022-03-07 | Outpatient (CLI) | payer MEDICARE ==
[2022-03-08 01:17] LABS: T4, Free (Free Thyroxine) 1.26 ng/dL (0.800-1.800)
== END | disposition home or self-care (01) ==
LOC: LABWHC1 12:10
PROVIDERS: ATTEND Internal Medicine Clinical Cardiac Electrophysiology
DX: I48.0 Paroxysmal atrial fibrillation (principal); I47.20 Ventricular tachycardia, unspecified
CPT/HCPCS: 36415; 84439; 84443

== ENCOUNTER → 2022-12-28 | Day surgery (SDC) | payer MEDICARE ==
[2022-12-21 15:05] VITALS: BMI 40.6
[~2022-12-28] MED LIST changes: +ACETAMINOPHEN IV (For NPO) 1,000 MG in EMPTY BAG 1 BAG IVPB ONE; +ACETAMINOPHEN TAB 325 MG TAB PO PRN; -ACETAMINOPHEN TAB 500 MG TAB PO ONE; -DEXAMETHASONE SOD PHOSPHATE 10 MG/ML 1 ML VIAL IV ONE; +FUROSEMIDE 40 MG TAB PO ONE; +LACTATED RINGERS 1,000 ML IV SCH; +LIDOCAINE 1% (10MG/ML) FOR IV START INTRADERMA PRN; -LIDOCAINE 1% 20 ML VIAL (10MG/ML) FOR IV START INTRADERMA PRN; +LIDOCAINE 1% INJ 10MG/ML (20 ML MDV) ONE; +LIDOCAINE 1% INJ 10MG/ML (20 ML MDV) SQ ONE; -MELOXICAM 7.5 MG TAB PO ONE; -MIDAZOLAM 2 MG/2 ML VIAL IV PRN; +MIDAZOLAM 2 MG/2 ML VIAL ONE; -ONDANSETRON 4 MG/2 ML VIAL IVP ONE; -SCOPOLAMINE 1.5MG/72HR PATCH TRANSDERM ONE; +SODIUM CHLORIDE 0.9% 1,000 ML IV ONE; +SODIUM CHLORIDE 0.9% 1,000 ML IV SCH; -TRANEXAMIC ACID 1,000 MG in SODIUM CHLORIDE 0.9% 50 ML IVPB ONE; +VANCOMYCIN 2,000 MG in SODIUM CHLORIDE 0.9% 500 ML 500 ML IVPB STA; +ceFAZolin 1 GM in SODIUM CHLORIDE 0.9% IRRIG BTL 250 ML IRRIGATION PRN; +ceFAZolin 1,000 MG in SODIUM CHLORIDE 0.9% IRRIGATIO 1,000 ML IRRIGATION ONE; +ceFAZolin 3 GM in SODIUM CHLORIDE 0.9% 100 ML IVPB ONE; +diphenhydrAMINE 50 MG/ML 1 ML VIAL ONE; +fentaNYL (PF) 50 MCG/ML 2 ML AMP ONE
[2022-12-28 09:58] VITALS: RESP 16; TEMP 97.3
[2022-12-28 10:24] LABS: INR 2.8 (<1.2); Prothrombin Time 27.4 sec (9.0-12.0)
[2022-12-28 10:26] LABS: African American GFR (CKD) 78 (>60 ml/min/1.73 sqM); Anion Gap 9 mmol/L; Blood Urea Nitrogen 22 mg/dL (9-20); Calcium 8.6 mg/dL (8.4-10.2); Carbon Dioxide 24 mmol/L (22-30); Chloride 107 mmol/L (98-107); Glucose 99 mg/dL (74-99); Non-African American GFR(CKD) 68 (>60 ml/min/1.73 sqM); Potassium 4.3 mmol/L (3.5-5.1); Sodium 140 mmol/L (137-145)
[2022-12-28 10:49] LABS: Basophils % (A) 0 %; Eosinophils # (A) 0.1 k/uL (0-0.7); Eosinophils % (A) 3 %; HCT 41.8 % (39.0-53.0); HGB 14.5 gm/dL (13.0-17.5); Lymphocytes # (A) 0.7 k/uL (1.0-4.8); Lymphocytes % (A) 22 %; MCH 31.8 pg (25.0-35.0); MCHC 34.7 g/dL (31.0-37.0); MCV 91.8 fL (80.0-100.0); Mean Platelet Volume 9.8; Monocytes # (A) 0.8 k/uL (0-1.0); Monocytes % (A) 26 %; Neutrophils # (A) 1.5 k/uL (1.3-7.7); Neutrophils % (A) 46 %; RBC 4.55 m/uL (4.30-5.90); RDW 13.6 % (11.5-15.5); WBC 3.1 k/uL (3.8-10.6)
[2022-12-28 10:50] LABS: Platelet Count 76 k/uL (150-450)
--- NOTE | 2022-12-28 12:04 | P.EPPROC ---
- EP Procedure Note Electrophysiology Procedure Note: Diagnosis Ischemic Cardiomyopathy, chronic CAD status post stenting Congestive heart failure [place] [employer] class2-3 Wide QRS On guide line directed medical treatment History of sustained monomorphic ventricular tachycardia, on sotalol Status post biventricular ICD. Generator is at TREVON for normal battery depletion Procedure: Biventricular ICD generator change under conscious sedation Result: Successful biventricular ICD generator change, [employer]/Friend Atrial lead: P wave 5 mV, pacing impedance 410 ohms, pacing threshold 0.75 V at 0.5 ms RV ICD lead: DF 1-lead, R waves 12 mV, pacing impedance 380 ohms, pacing threshold 0.5 V at 0.5 ms, high-voltage impedance 47 ohms Left ventricular lead: [employer] medical, pacing threshold in M3-RV coil = 1.75 V at 0.5 ms Procedure details: Patient was brought to the EP lab in a fasting state. Written informed consent was obtained prior to the procedure. Options, pros and cons, benefits and risks and complications discussed with patient in detail prior to the procedure (shared decision making) previously. Importance of continuing medical treatment emphasized previously. Alternatives discussed previously. The left pectoral area was prepped and draped as a protocol. IV antibiotics administered 1% lidocaine was used for local anesthesia. A 4 cm incision was made parallel to the deltopectoral groove, about 1.5 cm medial to it. The incision was carried down to the level of the pectoralis muscle and the ge nerator was explanted. Partial capsulectomy was performed. Hemostasis assured. New generator implanted, [employer] MP, Friend [id number] Serial number [id number] Pocket irrigated with antibiotic solution. Antibiotic pouch placed Leads connected to the biventricular ICD generator. Wound closed in 3 layers and dressed per protocol Biventricular ICD interrogated and programmed. Appropriate pacing parameters, antitachycardia therapies with antitachycardia pacing cardioversion defibrillations programmed. AV delay and biventricular pacing parameters programmed to achieve optimal physiologic pacing Patient tolerated the procedure well without any acute complications. See scanned device report in EMR for lead details Result Successful biventricular ICD generator change, Friend [employer] medical
[2022-12-28 15:28] VITALS: BP 155/59; PULSE 64
== END ==
LOC: CATHEP 09:13
PROVIDERS: ATTEND Internal Medicine Clinical Cardiac Electrophysiology
DX: I48.91 Unspecified atrial fibrillation (principal); I11.0 Hypertensive heart disease with heart failure; I25.5 Ischemic cardiomyopathy; I50.9 Heart failure, unspecified; I47.20 Ventricular tachycardia, unspecified; I25.10 Atherosclerotic heart disease of native coronary artery without angina pectoris; E78.5 Hyperlipidemia, unspecified; Z79.01 Long term (current) use of anticoagulants
CPT/HCPCS: 33264; 80048; 85025; 85610; C1882; J2250; J3370; J1200; J0690; J2001; J3010; J0131

== ENCOUNTER 2023-03-25 06:09 | Inpatient (IN) | payer MEDICARE ==
[2023-03-25] MEDS ORDERED: SODIUM CHLORIDE 0.9% 500 ML 500 ML IV STA (06:27)
[2023-03-25] MEDS ORDERED: IPRATROPIUM-ALBUTEROL 3 ML NEB INHALATION STA (06:28)
[2023-03-25] MEDS ORDERED: methylPREDNISolone SOD SUCCI 125 MG/2 ML VIAL IV STA (06:29)
--- NOTE | 2023-03-25 06:54 | ED ---
General Adult HPI - General Chief complaint: Shortness of Breath Stated complaint: Difficulty breathing Time Seen by Provider: 03/25/23 06:11 Source: patient, EMS, RN notes reviewed Mode of arrival: EMS Limitations: no limitations - History of Present Illness Initial comments: 78-year-old male presents emergency Department with chief complaint of shortness of breath. Patient presented via EMS. Patient states that is not fell over the last few days states this morning negative couch because he was so weak. He denies any history of asthma or COPD patient was given DuoNeb treatment still continues to have increasing wheezing. Patient denies any chest pain denies abdominal pain. Patient states that he does have left leg swelling which is chronic he states he looks fluid. He does have Lasix when necessary states is not taking it lately. Denies any significant orthopnea. Patient denies fevers or chills. Patient does have notable cough. - Related Data Home Medications Medication Instructions Recorded Confirmed Aspirin 81 mg PO DAILY 04/14/14 03/25/23 Nitroglycerin Sl Tabs [Nitrostat] 0.4 mg SUBLINGUAL Q5M PRN 04/14/14 03/25/23 Spironolactone [Aldactone] 12.5 mg PO HS 04/14/14 03/25/23 Warfarin [Coumadin] 5 mg PO SUTUTHSA@1700 04/14/14 03/25/23 Sotalol [Betapace] 80 mg PO BID 05/19/17 03/25/23 Warfarin [Coumadin] 7.5 mg PO MOWEFR@1700 05/19/17 03/25/23 allopurinoL [Zyloprim] 100 mg PO HS 06/04/21 03/25/23 Furosemide [Lasix] 20 mg PO DAILY PRN 02/23/22 03/25/23 Tamsulosin [Flomax] 0.4 mg PO DAILY@1700 02/23/22 03/25/23 carvediloL [Coreg] 6.25 mg PO BID 02/23/22 03/25/23 Mv-Min/Folic/K1/Lycopen/Lutein 1 tab PO DAILY 12/21/22 03/25/23 [Centrum Silver Men Tablet] Sacubitril/Valsartan [Entresto 49 1 tab PO BID 12/21/22 03/25/23 mg-51 mg Tablet] Allergies Allergy/AdvReac Type Severity Reaction Status Date / Time No Known Allergies Allergy Verified 03/25/23 12:30 Review of Systems ROS Statement: Those systems with pertinent positive or pertinent negative responses have been documented in the HPI. ROS Other: All systems not noted in ROS Statement are negative. Past Medical History Past Medical History: Atrial Fibrillation, Eye Disorder, Hyperlipidemia, Hypertension, Myocardial Infarction (CA) Additional Past Medical History / Comment(s): See Dr Jain's H&P,CATARACTS.PAST AFIB,COVID infection 2021-hospitalized. Last Myocardial Infarction Date:: 2006 History of Any Multi-Drug Resistant Organisms: None Reported Past Surgical History: AICD, Cardiac Ablation, Heart Catheterization With Stent Additional Past Surgical History / Comment(s): bilateral CATARACT, one cardiac stent, total right knee 05/30/16,[facility] Left chest Past Anesthesia/Blood Transfusion Reactions: No Reported Reaction Additional Past Anesthesia/Blood Transfusion Reaction / Comment(s): no hx blood transfusion Date of Last Stent Placement:: 2006 Type of Cardiac Device: AICD Device Placement Date:: Past Psychological History: No Psychological Hx Reported Smoking Status: Never smoker Past Alcohol Use History: None Reported Past Drug Use History: None Reported - Past Family History Father Family Medical History: Cancer Mother Family Medical History: Cancer General Exam Limitations: no limitations General appearance: alert, in no apparent distress Head exam: Present: atraumatic, normocephalic, normal inspection Eye exam: Present: normal appearance, PERRL, EOMI. Absent: scleral icterus, conjunctival injection, periorbital swelling ENT exam: Present: normal exam, normal oropharynx, mucous membranes moist Neck exam: Present: normal inspection. Absent: tenderness, meningismus, lymphadenopathy Respiratory exam: Present: wheezes. Absent: normal lung sounds bilaterally, respiratory distress, rales, rhonchi, stridor Cardiovascular Exam: Present: tachycardia, irregular rhythm, normal heart sounds. Absent: regular rate, normal rhythm, systolic murmur, diastolic murmur, rubs, gallop, clicks GI/Abdominal exam: Present: soft, normal bowel sounds. Absent: distended, tenderness, guarding, rebound, rigid Extremities exam: Present: other (Left leg edema) Skin exam: Present: warm, dry, intact, normal color. Absent: rash Course Vital Signs 03/25/23 03/25/2303/25/23 06:15 06:29 06:40 Temperature 97.4 F L Pulse Rate 116 H 124 H 112 H Respiratory 32 H 32 H Rate Blood Pressure 79/48 83/59 O2 Sat by Pulse 97 100 Oximetry 03/25/23 03/25/23 03/25/23 06:47 07:20 07:50 Temperature Pulse Rate 120 H 118 H 131 H Respiratory 32 H 32 H Rate Blood Pressure 109/47 108/64 O2 Sat by Pulse 97 97 Oximetry 03/25/23 03/25/23 03/25/23 08:05 08:28 09:02 Temperature Pulse Rate 112 H 117 H 122 H Respiratory 30 H 18 28 H Rate Blood Pressure 75/54 94/84 86/55 O2 Sat by Pulse 97 97 100 Oximetry 03/25/23 03/25/23 03/25/23 10:00 10:27 11:08 Temperature Pulse Rate 107 H 108 H 105 H Respiratory 22 20 20 Rate Blood Pressure 91/44 85/45 82/49 O2 Sat by Pulse 98 98 100 Oximetry 03/25/23 03/25/23 03/25/23 11:41 12:05 12:28 Temperature Pulse Rate 106 H 106 H Respiratory 18 18 Rate Blood Pressure 102/68 84/36 89/62 O2 Sat by Pulse 97 95 Oximetry 03/25/23 12:51 Temperature Pulse Rate 117 H Respiratory 18 Rate Blood Pressure 101/46 O2 Sat by Pulse 97 Oximetry Medical Decision Making - Medical Decision Making Was pt. sent in by a medical professional or institution (, PA, PAINTING INSTRUCTOR, urgent care, hospital, or long-term...) When possible be specific @ -No Did you speak to anyone other than the patient for history (EMS, parent, family, police, friend...)? What history was obtained from this source @ - since the past medical history, EMS providing prehospital treatment and vitals Did you review nursing and triage notes (agree or disagree)? Why? @ -I reviewed and agree with nursing and triage notes Were old charts reviewed (outside hosp., previous admission, EMS record, old EKG, old radiological studies, urgent care reports/EKG's, long-term records)? Report findings @ -No old charts were reviewed Differential Diagnosis (chest pain, altered mental status, abdominal pain women, abdominal pain men, vaginal bleeding, weakness, fever, dyspnea, syncope, headache, dizziness, GI bleed, back pain, seizure, CVA, palpatations, mental health, musculoskeletal)? @ -Differential Dyspnea: Coronary syndrome, arrhythmia, tamponade, asthma, COPD, pulmonary embolism, pneumonia, pneumothorax, pulmonary effusion, anaphylaxis, diabetic ketoacidosis, flailed chest, pulmonary contusion, diaphragmatic rupture, anemia, neuromuscular, this is not meant to be an all-inclusive list. e EKG interpreted by me (3pts min.). @ -As above X-rays interpreted by me (1pt min.). @ -Chest x-ray shows pulmonary edema CT interpreted by me (1pt min.). @ -None done U/S interpreted by me (1pt. min.). @ -None done What testing was considered but not performed or refused? (CT, X-rays, U/S, labs)? Why? @ -None What meds were considered but not given or refused? Why? @ -None Did you discuss the management of the patient with other professionals (professionals i.e. , PA, PAINTING INSTRUCTOR, lab, RT, psych nurse, high school social studies teacher, manager plant, teacher, workers' compensation hearings officer, residential case manager)? Give summary @ -[Dr. Jaramillo for admission secondary to A. fib, acute kidney injury, CHF Was smoking cessation discussed for >3mins.? @ -No Was critical care preformed (if so, how long)? @ -35mins , Were there social determinants of health that impacted care today? How? (Homelessness, low income, unemployed, alcoholism, drug addiction, transportation, low edu. Level, literacy, decrease access to med. care, retirement, rehab)? @ -No Was there de-escalation of care discussed even if they declined (Discuss DNR or withdrawal of care, Hospice)? DNR status @ -No What co-morbidities impacted this encounter? (DM, HTN, Smoking, COPD, CAD, Cancer, CVA, ARF, Chemo, Hep., AIDS, mental health diagnosis, sleep apnea, morbid obesity)? @ -[A. fib, CHF Was patient admitted / discharged? Hospital course, mention meds given and route, prescriptions, significant lab abnormalities, going to OR and other pertinent info. @ -admitted patient was found initially in A. fib RVR with acute wheezing. Patient was given region, site Medrol. Patient chest x-ray did show mild pulmonary edema patient was initially given 500 mL of saline bolus secondary to hypotension blood pressure did improve Cardizem 2.5 was ordered. Patient her he was improving but secondary to persistent hypotension this was discontinued patient was started on dopamine once blood pressure improved with Lasix was given. Patient be admitted for CHF exacerbation, A. fib RVR, acute kidney injury Undiagnosed new problem with uncertain prognosis? @ -No Drug Therapy requiring intensive monitoring for toxicity (Heparin, Nitro, Insulin, Cardizem)? @ -Cardizem, dopamine Were any procedures done? @ -No Diagnosis/symptom? @ -CHF, A. fib, acute kidney injury Acute, or Chronic, or Acute on Chronic? @ -[Acute Uncomplicated (without systemic symptoms) or Complicated (systemic symptoms)? @ -Complicated Side effects of treatment? @ -No Exacerbation, Progression, or Severe Exacerbation? @ -No Poses a threat to life or bodily function? How? (Chest pain, [place], CA, pneumonia, PE, COPD, DKA, ARF, appy, cholecystitis, CVA, Diverticulitis, Homicidal, Suicidal, threat to staff... and all critical care pts) @ -Yes patient has chronic arrhythmia, CHF with hypotension - Lab Data Result diagrams: 03/25/23 06:16 03/25/23 06:16 Lab Results 03/25/23 03/25/23 03/25/23 Range/Units 06:16 06:16 06:16 WBC 9.5 (3.8-10.6) k/uL RBC 4.22 L (4.30-5.90) m/uL Hgb 13.2 (13.0-17.5) gm/dL Hct 39.7 (39.0-53.0) % MCV 94.1 (80.0-100.0) fL MCH 31.2 (25.0-35.0) pg MCHC 33.2 (31.0-37.0) g/dL RDW 14.2 (11.5-15.5) % Plt Count 58 L (150-450) k/uL MPV 11.5 Neutrophils % (Manual) 87 % Band Neuts % (Manual) 9 % Lymphocytes % (Manual) 1 % Monocytes % (Manual) 3 % Neutrophils # (Manual) 9.10 H (1.3-7.7) k/uL Lymphocytes # (Manual) 0.10 L (1.0-4.8) k/uL Monocytes # (Manual) 0.29 (0-1.0) k/uL Nucleated RBCs 0 (0-0) /100 WBC Manual Slide Review Performed RBC Morphology Normal PT 32.1 H (10.0-12.5) sec INR 3.3 H (<1.2) APTT 37.3 H (22.0-30.0) sec Sodium 138 (137-145) mmol/L Potassium 5.3 H (3.5-5.1) mmol/L Chloride 105 (98-107) mmol/L Carbon Dioxide 20 L (22-30) mmol/L Anion Gap 13 mmol/L BUN 64 H (9-20) mg/dL Creatinine 2.29 H (0.66-1.25) mg/dL Est GFR (CKD-EPI)AfAm 31 (>60 ml/min/1.73 sqM) Est GFR (CKD-EPI)NonAf 26 (>60 ml/min/1.73 sqM) Glucose 120 H (74-99) mg/dL Lactic Ac Sepsis Rflx Plasma Lactic Acid Rios (0.7-2.0) mmol/L Calcium 8.7 (8.4-10.2) mg/dL Magnesium 1.8 (1.6-2.3) mg/dL Total Bilirubin 0.9 (0.2-1.3) mg/dL AST 22 (17-59) U/L ALT 15 (4-49) U/L Alkaline Phosphatase 58 (38-126) U/L Troponin I (0.000-0.034) ng/mL NT-Pro-B Natriuret Pep 44781 pg/mL Total Protein 6.1 L (6.3-8.2) g/dL Albumin 3.7 (3.5-5.0) g/dL Urine Color Urine Appearance (Clear) Urine pH (5.0-8.0) Ur Specific [place] (1.001-1.035) Urine Protein (Negative) Urine Glucose (UA) (Negative) Urine Ketones (Negative) Urine Blood (Negative) Urine Nitrite (Negative) Urine Bilirubin (Negative) Urine Urobilinogen (<2.0) mg/dL Ur Leukocyte Esterase (Negative) Urine RBC (0-5) /hpf Urine WBC (0-5) /hpf Ur Squamous Epith Cells (0-4) /hpf Hyaline Casts (0-2) /lpf Urine Mucus (None) /hpf Influenza Type A (PCR) (Not Detectd) Influenza Type B (PCR) (Not Detectd) RSV (PCR) (Not Detectd) SARS-CoV-2 (PCR) (Not Detectd) 03/25/23 03/25/23 03/25/23 Range/Units 06:16 06:16 06:16 WBC (3.8-10.6) k/uL RBC (4.30-5.90) m/uL Hgb (13.0-17.5) gm/dL Hct (39.0-53.0) % MCV (80.0-100.0) fL MCH (25.0-35.0) pg MCHC (31.0-37.0) g/dL RDW (11.5-15.5) % Plt Count (150-450) k/uL MPV Neutrophils % (Manual) % Band Neuts % (Manual) % Lymphocytes % (Manual) % Monocytes % (Manual) % Neutrophils # (Manual) (1.3-7.7) k/uL Lymphocytes # (Manual) (1.0-4.8) k/uL Monocytes # (Manual) (0-1.0) k/uL Nucleated RBCs (0-0) /100 WBC Manual Slide Review RBC Morphology PT (10.0-12.5) sec INR (<1.2) APTT (22.0-30.0) sec Sodium (137-145) mmol/L Potassium (3.5-5.1) mmol/L Chloride (98-107) mmol/L Carbon Dioxide (22-30) mmol/L Anion Gap mmol/L BUN (9-20) mg/dL Creatinine (0.66-1.25) mg/dL Est GFR (CKD-EPI)AfAm (>60 ml/min/1.73 sqM) Est GFR (CKD-EPI)NonAf (>60 ml/min/1.73 sqM) Glucose (74-99) mg/dL Lactic Ac Sepsis Rflx Plasma Lactic Acid Rios 2.6 H* (0.7-2.0) mmol/L Calcium (8.4-10.2) mg/dL Magnesium (1.6-2.3) mg/dL Total Bilirubin (0.2-1.3) mg/dL AST (17-59) U/L ALT (4-49) U/L Alkaline Phosphatase (38-126) U/L Troponin I 0.032 (0.000-0.034) ng/mL NT-Pro-B Natriuret Pep pg/mL Total Protein (6.3-8.2) g/dL Albumin (3.5-5.0) g/dL Urine Color Urine Appearance (Clear) Urine pH (5.0-8.0) Ur Specific [place] (1.001-1.035) Urine Protein (Negative) Urine Glucose (UA) (Negative) Urine Ketones (Negative) Urine Blood (Negative) Urine Nitrite (Negative) Urine Bilirubin (Negative) Urine Urobilinogen (<2.0) mg/dL Ur Leukocyte Esterase (Negative) Urine RBC (0-5) /hpf Urine WBC (0-5) /hpf Ur Squamous Epith Cells (0-4) /hpf Hyaline Casts (0-2) /lpf Urine Mucus (None) /hpf Influenza Type A (PCR) Not Detected (Not Detectd) Influenza Type B (PCR) Not Detected (Not Detectd) RSV (PCR) Not Detected (Not Detectd) SARS-CoV-2 (PCR) Not Detected (Not Detectd) 03/25/23 03/25/23 03/25/23 Range/Units 07:29 09:58 10:55 WBC (3.8-10.6) k/uL RBC (4.30-5.90) m/uL Hgb (13.0-17.5) gm/dL Hct (39.0-53.0) % MCV (80.0-100.0) fL MCH (25.0-35.0) pg MCHC (31.0-37.0) g/dL RDW (11.5-15.5) % Plt Count (150-450) k/uL MPV Neutrophils % (Manual) % Band Neuts % (Manual) % Lymphocytes % (Manual) % Monocytes % (Manual) % Neutrophils # (Manual) (1.3-7.7) k/uL Lymphocytes # (Manual) (1.0-4.8) k/uL Monocytes # (Manual) (0-1.0) k/uL Nucleated RBCs (0-0) /100 WBC Manual Slide Review RBC Morphology PT (10.0-12.5) sec INR (<1.2) APTT (22.0-30.0) sec Sodium (137-145) mmol/L Potassium (3.5-5.1) mmol/L Chloride (98-107) mmol/L Carbon Dioxide (22-30) mmol/L Anion Gap mmol/L BUN (9-20) mg/dL Creatinine (0.66-1.25) mg/dL Est GFR (CKD-EPI)AfAm (>60 ml/min/1.73 sqM) Est GFR (CKD-EPI)NonAf (>60 ml/min/1.73 sqM) Glucose (74-99) mg/dL Lactic Ac Sepsis Rflx Y Plasma Lactic Acid Rios 1.9 (0.7-2.0) mmol/L Calcium (8.4-10.2) mg/dL Magnesium (1.6-2.3) mg/dL Total Bilirubin (0.2-1.3) mg/dL AST (17-59) U/L ALT (4-49) U/L Alkaline Phosphatase (38-126) U/L Troponin I 0.036 H* (0.000-0.034) ng/mL NT-Pro-B Natriuret Pep pg/mL Total Protein (6.3-8.2) g/dL Albumin (3.5-5.0) g/dL Urine Color Urine Appearance (Clear) Urine pH (5.0-8.0) Ur Specific [place] (1.001-1.035) Urine Protein (Negative) Urine Glucose (UA) (Negative) Urine Ketones (Negative) Urine Blood (Negative) Urine Nitrite (Negative) Urine Bilirubin (Negative) Urine Urobilinogen (<2.0) mg/dL Ur Leukocyte Esterase (Negative) Urine RBC (0-5) /hpf Urine WBC (0-5) /hpf Ur Squamous Epith Cells (0-4) /hpf Hyaline Casts (0-2) /lpf Urine Mucus (None) /hpf Influenza Type A (PCR) (Not Detectd) Influenza Type B (PCR) (Not Detectd) RSV (PCR) (Not Detectd) SARS-CoV-2 (PCR) (Not Detectd) 03/25/23 Range/Units 11:07 WBC (3.8-10.6) k/uL RBC (4.30-5.90) m/uL Hgb (13.0-17.5) gm/dL Hct (39.0-53.0) % MCV (80.0-100.0) fL MCH (25.0-35.0) pg MCHC (31.0-37.0) g/dL RDW (11.5-15.5) % Plt Count (150-450) k/uL MPV Neutrophils % (Manual) % Band Neuts % (Manual) % Lymphocytes % (Manual) % Monocytes % (Manual) % Neutrophils # (Manual) (1.3-7.7) k/uL Lymphocytes # (Manual) (1.0-4.8) k/uL Monocytes # (Manual) (0-1.0) k/uL Nucleated RBCs (0-0) /100 WBC Manual Slide Review RBC Morphology PT (10.0-12.5) sec INR (<1.2) APTT (22.0-30.0) sec Sodium (137-145) mmol/L Potassium (3.5-5.1) mmol/L Chloride (98-107) mmol/L Carbon Dioxide (22-30) mmol/L Anion Gap mmol/L BUN (9-20) mg/dL Creatinine (0.66-1.25) mg/dL Est GFR (CKD-EPI)AfAm (>60 ml/min/1.73 sqM) Est GFR (CKD-EPI)NonAf (>60 ml/min/1.73 sqM) Glucose (74-99) mg/dL Lactic Ac Sepsis Rflx Plasma Lactic Acid Rios (0.7-2.0) mmol/L Calcium (8.4-10.2) mg/dL Magnesium (1.6-2.3) mg/dL Total Bilirubin (0.2-1.3) mg/dL AST (17-59) U/L ALT (4-49) U/L Alkaline Phosphatase (38-126) U/L Troponin I (0.000-0.034) ng/mL NT-Pro-B Natriuret Pep pg/mL Total Protein (6.3-8.2) g/dL Albumin (3.5-5.0) g/dL Urine Color Yellow Urine Appearance Clear (Clear) Urine pH 5.0 (5.0-8.0) Ur Specific [place] 1.021 (1.001-1.035) Urine Protein 1+ H (Negative) Urine Glucose (UA) Negative (Negative) Urine Ketones Negative (Negative) Urine Blood Small H (Negative) Urine Nitrite Negative (Negative) Urine Bilirubin Negative (Negative) Urine Urobilinogen <2.0 (<2.0) mg/dL Ur Leukocyte Esterase Negative (Negative) Urine RBC 30 H (0-5) /hpf Urine WBC 4 (0-5) /hpf Ur Squamous Epith Cells 1 (0-4) /hpf Hyaline Casts 16 H (0-2) /lpf Urine Mucus Rare H (None) /hpf Influenza Type A (PCR) (Not Detectd) Influenza Type B (PCR) (Not Detectd) RSV (PCR) (Not Detectd) SARS-CoV-2 (PCR) (Not Detectd) Disposition Clinical Impression: CHF (congestive heart failure), Atrial fibrillation with RVR, LUCIA (acute kidney injury) Disposition: ADMITTED IP TO THIS HOSP Condition: Poor Time of Disposition: 10:31
[2023-03-25 07:00] LABS: INR 3.3 (<1.2); Partial Thromboplastin Time 37.3 sec (22.0-30.0); Prothrombin Time 32.1 sec (10.0-12.5)
[2023-03-25 07:05] LABS: ALT 15 U/L (4-49); AST 22 U/L (17-59); African American GFR (CKD) 31 (>60 ml/min/1.73 sqM); Albumin 3.7 g/dL (3.5-5.0); Alkaline Phosphatase 58 U/L (38-126); Anion Gap 13 mmol/L; Blood Urea Nitrogen 64 mg/dL (9-20); Calcium 8.7 mg/dL (8.4-10.2); Carbon Dioxide 20 mmol/L (22-30); Chloride 105 mmol/L (98-107); Glucose 120 mg/dL (74-99); Magnesium 1.8 mg/dL (1.6-2.3); Non-African American GFR(CKD) 26 (>60 ml/min/1.73 sqM); Potassium 5.3 mmol/L (3.5-5.1); Sodium 138 mmol/L (137-145); Total Bilirubin 0.9 mg/dL (0.2-1.3); Total Protein 6.1 g/dL (6.3-8.2)
[2023-03-25 07:13] LABS: NT-Pro-B-Type Natriuretic Pept 10500 pg/mL
[2023-03-25 07:22] LABS: HCT 39.7 % (39.0-53.0); HGB 13.2 gm/dL (13.0-17.5); MCH 31.2 pg (25.0-35.0); MCHC 33.2 g/dL (31.0-37.0); MCV 94.1 fL (80.0-100.0); Mean Platelet Volume 11.5; RBC 4.22 m/uL (4.30-5.90); RDW 14.2 % (11.5-15.5); WBC 9.5 k/uL (3.8-10.6)
[2023-03-25] MEDS ORDERED: DILTIAZEM DRIP BOLUS FROM BAG 1 MG SOLN IV ONE (07:38)
--- NOTE | 2023-03-25 07:52 | XR ---
EXAMINATION TYPE: XR chest 2V DATE OF EXAM: 03/25/2023 7:37 AM CLINICAL INDICATION:Male, 78 years old with history of difficulty breathing; [facility] COMPARISON: 02/23/2022 TECHNIQUE: XR chest 2V Frontal and lateral views of the chest. FINDINGS: Lines/Tubes: EKG leads overlie the chest. No indwelling lines are seen. Left chest dual-lead AICD/pacemaker appea rs stable. Old abandoned epicardial leads over the heart. Lungs/Pleura: There is no evidence of significant pleural effusion, focal consolidation, or pneumotho rax. Pulmonary vascularity: Mild pulmonary vascular congestion. Diffusely increased interstitial markings likely related to edema versus infiltrates. Heart/mediastinum: Heart appears enlarged and stable. Stable mediastinal silhouette. Musculoskeletal: No acute osseous abnormality is demonstrated. Degenerative changes of the shoulders and remote appearing deformity of the left upper chest wall again seen. Mild endplate spurring in the dorsal spine. Other findings: None significant. IMPRESSION: 1. Cardiomegaly with stable left chest AICD/pacemaker. 2. Mild pulmonary vascular congestion. Diffusely increased interstitial markings likely related to e bishnu versus infiltrates. Correlate for CHF.
[2023-03-25] MEDS ORDERED: DILTIAZEM 125 MG in SODIUM CHLORIDE 0.9% 100 ML IV SCH (08:15)
[2023-03-25] MEDS ORDERED: SODIUM CHLORIDE 0.9% 500 ML 500 ML IV ONE (10:33)
[2023-03-25 10:49] LABS: Band Neutrophils % 9 %; Monocytes # (M) 0.29 k/uL (0-1.0); Neutrophils % (M) 87 %; Nucleated Red Blood Cells 0 /100 WBC (0-0); Total Cells Counted 100
[2023-03-25 10:50] LABS: RBC Morphology Normal
[2023-03-25 10:51] LABS: Platelet Count 58 k/uL (150-450)
[2023-03-25] MEDS ORDERED: DOBUTamine DRIP 500 MG in DEXTROSE/WATER 1 250ML.BAG IV SCH (11:00)
[2023-03-25] MEDS ORDERED: FUROSEMIDE 10 MG/ML 2 ML VIAL IV STA (11:42)
[2023-03-25 12:43] LABS: Appearance,Urine Clear (Clear); Bilirubin,Urine Negative (Negative); Blood,Urine Small (Negative); Color,Urine Yellow; Glucose,Urine (UA) Negative (Negative); Hyaline Casts,Urine 16 /lpf (0-2); Ketones,Urine Negative (Negative); Leukocyte Esterase,Urine Negative (Negative); Mucus,Urine Rare /hpf; Nitrite,Urine Negative (Negative); Protein,Urine 1+ (Negative); RBC,Urine 30 /hpf (0-5); Specific Gravity,Urine 1.021 (1.001-1.035); Squamous Epithelial Cell,Urine 1 /hpf (0-4); Urobilinogen,Urine <2.0 mg/dL (<2.0); WBC,Urine 4 /hpf (0-5)
[2023-03-25] MEDS ORDERED: DEXTROSE/WATER 1 250ML.BAG with DOPamine DRIP 800 MG IV SCH (13:00)
--- NOTE | 2023-03-25 13:18 | P.HPIM ---
History of Present Illness H&P Date: 03/25/23 History of present illness; patient is a 78-year-old gentleman with past medical history significant for hypertension, hyperlipidemia, myocardial infarction, AICD implantation, cataracts, atrial fibrillation with ablation presented to the hospital for not feeling well for the last few days. Patient stated that 2 days ago he started feeling lethargic and weak. There was no complain of any fever but patient felt cold. Complaining of shortness of breath at rest. Denies any chest pain. Denies any nausea, vomiting abdominal pain. Patient has chronic swelling of left lower extremity. Complaining of lightheadedness. Denied any orthopnea or PND. Because symptoms, patient came to the ER Initial lab work done in the ER showed WBC 9.5, hemoglobin 13.2, platelet count 58 sodium 1:30, potassium 5.3, BUN 64, creatinine 2.09 EKG done in the ER Chest x-ray done in the ER showed cardiomegaly with stable left chest AICD, mild pulmonary vascular congestion, diffuse increased interstitial markings related to edema versus infiltrates Patient admitted to medicine service REVIEW OF SYSTEMS: CONSTITUTIONAL: As mentioned above HEENT: No recent visual problems or hearing problems. Denied any sore throat. CARDIOVASCULAR: No chest pain, as mentioned above PULMONARY: As mentioned in GASTROINTESTINAL: No diarrhea, no nausea, no vomiting, no abdominal pain. NEUROLOGICAL: No headaches, no weakness, no numbness. HEMATOLOGICAL: Denies any bleeding or petechiae. GENITOURINARY: Denies any burning micturition, frequency, or urgency. MUSCULOSKELETAL/RHEUMATOLOGICAL: Denies any joint pain, swelling, or any muscle pain. ENDOCRINE: Denies any polyuria or polydipsia. The rest of the 14-point review of systems is negative. PHYSICAL EXAMINATION: GENERAL: The patient is alert and oriented x3, not in any acute distress. Ill- looking HEENT: Pupils are round and equally reacting to light. EOMI. No scleral icterus. No conjunctival pallor. Normocephalic, atraumatic. No pharyngeal erythema. No thyromegaly. CARDIOVASCULAR: S1 and S2 present. No murmurs, rubs, or gallops. Tachycardia, irregular in rate and rhythm PULMONARY: Diminished breath sounds at the bases bilaterally ABDOMEN: Soft, nontender, nondistended, normoactive bowel sounds. No palpable organomegaly. MUSCULOSKELETAL: No joint swelling or deformity. EXTREMITIES: Lower extremity swollen, left more than right NEUROLOGICAL: Gross neurological examination did not reveal any focal deficits. SKIN: No rashes. Assessment and plan A. fib with RVR Hypotension Hyperkalemia Acute kidney injury History of hypertension History of hyperlipidemia history of coronary artery disease Monitor vital signs Monitor CBC Monitor CMP Continue telemetry monitoring Continue oxygen supplementation Encourage use of I-S, Bronchopulmonary hygiene Trend troponins Continue Cardizem drip Patient blood pressure is borderline, start patient on dopamine Hold blood pressure medications for now Avoid nephrotoxic agents Ordered 2-D echo ordered ultrasound of kidneys Nephrology consulted Cardiology consulted Pulmonology consulted Labs and medication were reviewed.. Continue same treatment. Continue with symptomatic treatment. Resume home medication. Monitor labs and vitals. DVT and GI prophylaxis. Further recommendations as per clinical course of the patient Dictation was produced using [employer]ger[employer] dictation software. please excuse any grammatical, word or spelling errors. Past Medical History Past Medical History: Atrial Fibrillation, Eye Disorder, Hyperlipidemia, Hypertension, Myocardial Infarction ([place]) Additional Past Medical History / Comment(s): See Dr Jain's H&P,CATARACTS.PAST AFIB,COVID infection 2021-hospitalized. Last Myocardial Infarction Date:: 2006 History of Any Multi-Drug Resistant Organisms: None Reported Past Surgical History: AICD, Cardiac Ablation, Heart Catheterization With Stent Additional Past Surgical History / Comment(s): bilateral CATARACT, one cardiac stent, total right knee 05/30/16,[facility] Left chest Past Anesthesia/Blood Transfusion Reactions: No Reported Reaction Additional Past Anesthesia/Blood Transfusion Reaction / Comment(s): no hx blood transfusion Date of Last Stent Placement:: 2006 Type of Cardiac Device: AICD Device Placement Date:: unknown Past Psychological History: No Psychological Hx Reported Smoking Status: Never smoker Past Alcohol Use History: None Reported Past Drug Use History: None Reported - Past Family History Father Family Medical History: Cancer Mother Family Medical History: Cancer Medications and Allergies Home Medications Medication Instructions Recorded Confirmed Type Aspirin 81 mg PO DAILY 04/14/14 03/25/23 History Nitroglycerin Sl Tabs [Nitrostat] 0.4 mg SUBLINGUAL Q5M PRN 04/14/14 03/25/23 History Spironolactone [Aldactone] 12.5 mg PO HS 04/14/14 03/25/23 History Warfarin [Coumadin] 5 mg PO SUTUTHSA@1700 04/14/14 03/25/23 History Sotalol [Betapace] 80 mg PO BID 05/19/17 03/25/23 History Warfarin [Coumadin] 7.5 mg PO MOWEFR@1700 05/19/17 03/25/23 History allopurinoL [Zyloprim] 100 mg PO HS 06/04/21 03/25/23 History Furosemide [Lasix] 20 mg PO DAILY PRN 02/23/22 03/25/23 History Tamsulosin [Flomax] 0.4 mg PO DAILY@1700 02/23/22 03/25/23 History carvediloL [Coreg] 6.25 mg PO BID 02/23/22 03/25/23 History Mv-Min/Folic/K1/Lycopen/Lutein 1 tab PO DAILY 12/21/22 03/25/23 History [Centrum Silver Men Tablet] Sacubitril/Valsartan [Entresto 49 1 tab PO BID 12/21/22 03/25/23 History mg-51 mg Tablet] Allergies Allergy/AdvReac Type Severity Reaction Status Date / Time No Known Allergies Allergy Verified 03/25/23 12:30 Physical Exam Vitals: Vital Signs Temp Pulse Resp BP Pulse Ox 03/25/23 12:51 117 H 18 101/46 97 03/25/23 12:28 106 H 18 89/62 95 03/25/23 12:05 84/36 03/25/23 11:41 106 H 18 102/68 97 03/25/23 11:08 105 H 20 82/49 100 03/25/23 10:27 108 H 20 85/45 98 03/25/23 10:00 107 H 22 91/44 98 03/25/23 09:02 122 H 28 H 86/55 100 03/25/23 08:28 117 H 18 94/84 97 03/25/23 08:05 112 H 30 H 75/54 97 03/25/23 07:50 131 H 32 H 108/64 97 03/25/23 07:20 118 H 32 H 109/47 97 03/25/23 06:47 120 H 03/25/23 06:40 112 H 03/25/23 06:29 124 H 32 H 83/59 100 03/25/23 06:15 97.4 F L 116 H 32 H 79/48 97 Intake and Output 03/24/23 03/25/23 03/25/23 22:59 06:59 14:59 Other: Weight 142.882 kg Results CBC & Chem 7: 03/25/23 06:16 03/25/23 06:16 Labs: Abnormal Lab Results - Last 24 Hours (Table) 03/25/23 03/25/23 03/25/23 Range/Units 06:16 06:16 06:16 RBC 4.22 L (4.30-5.90) m/uL Plt Count 58 L (150-450) k/uL Neutrophils # (Manual) 9.10 H (1.3-7.7) k/uL Lymphocytes # (Manual) 0.10 L (1.0-4.8) k/uL PT 32.1 H (10.0-12.5) sec INR 3.3 H (<1.2) APTT 37.3 H (22.0-30.0) sec Potassium 5.3 H (3.5-5.1) mmol/L Carbon Dioxide 20 L (22-30) mmol/L BUN 64 H (9-20) mg/dL Creatinine 2.29 H (0.66-1.25) mg/dL Glucose 120 H (74-99) mg/dL Plasma Lactic Acid Rios (0.7-2.0) mmol/L Troponin I (0.000-0.034) ng/mL Total Protein 6.1 L (6.3-8.2) g/dL Urine Protein (Negative) Urine Blood (Negative) Urine RBC (0-5) /hpf Hyaline Casts (0-2) /lpf Urine Mucus (None) /hpf 03/25/23 03/25/23 03/25/23 Range/Units 06:16 10:55 11:07 RBC (4.30-5.90) m/uL Plt Count (150-450) k/uL Neutrophils # (Manual) (1.3-7.7) k/uL Lymphocytes # (Manual) (1.0-4.8) k/uL PT (10.0-12.5) sec INR (<1.2) APTT (22.0-30.0) sec Potassium (3.5-5.1) mmol/L Carbon Dioxide (22-30) mmol/L BUN (9-20) mg/dL Creatinine (0.66-1.25) mg/dL Glucose (74-99) mg/dL Plasma Lactic Acid Rios 2.6 H* (0.7-2.0) mmol/L Troponin I 0.036 H* (0.000-0.034) ng/mL Total Protein (6.3-8.2) g/dL Urine Protein 1+ H (Negative) Urine Blood Small H (Negative) Urine RBC 30 H (0-5) /hpf Hyaline Casts 16 H (0-2) /lpf Urine Mucus Rare H (None) /hpf
--- NOTE | 2023-03-25 13:22 | P.CRDCN ---
History of Present Illness Consult date: 03/25/23 History of present illness: History of Present Illness: The patient is a 78-year-old male who presented was progressive fatigue and weakness and dyspnea. He is followed on a regular basis by Dr. Jain. He has a known history of severe ischemic cardiomyopathy status post bi-V ICD implantation, history of atrial fibrillation, CAD who has been complaining for the last week or so for progressive weakness with worsening dyspnea and peripheral edema. He has no chest discomfort. He does not feel the atrial fibrillation. Has underwent ablation in the past. He denies any cough or fever no nausea or vomiting. He feels dizzy at times. He is quite limited in his a ctivity recently. His ejection fraction in May 2021 was 20-25%. He has been maintained on sotalol and has been anticoagulated. On presentation he was in atrial fibrillation with episodes of rapid ventricular response. Medications: Coumadin, Coreg 6.25 mg twice a day, sotalol 80 mg twice a day, aspirin, Aldactone 12.5 mg daily, Entresto 4951 milligrams twice a day and Lasix on as-needed basis Review of Systems: Respiratory: He has symptoms of progressive dyspnea but no recent cough GI: No nausea or vomiting . No history of peptic ulcer disease. No recent GI bleed. : No hematuria or dysuria. Nervous System: No stroke or seizure. Physical Examination: 78-year-old male, alert and oriented mildly dyspneic ,Blood pressure 101/50, Heart rate 110 Head: Normocephalic. Eyes: Sclerae nonicteric. Neck: Good carotid upstroke, no bruit, no jugular venous distention. Lungs: Bibasilar crackles Heart: Irregular rate and rhythm, S1-S2, no S3, no rub. Systolic ejection murmur. Abdomen: Soft nontender, positive bowel sounds no organomegaly. Extremities: 2-3+ edema, intact distal pulses. Chronic skin changes Labs: INR 3.3, hemoglobin 13.2, potassium 5.3, BUN 64, creatinine 2.29, NT proBNP 10,500, troponin 0.032 and 0.036. Chest x-ray with evidence of heart failure EKG: Atrial fibrillation was evidence of pacemaker function, rate of 117 Impression: 1. Acute on chronic congestive heart failure in a patient with a known history of severe ischemic cardiomyopathy 2. Atrial fibrillation, anticoagulated 3. History of CAD 4. Worsening renal failure, probable related to low cardiac output 5. History of CAD 6. Status post ICD biventricular implant Plan: 1. IV Lasix 2. Restart beta boy and Betapace 3. Hold interest until blood pressure stabilize 4. Hold Aldactone and follow her renal functions 5. Repeat echocardiogram 6. Add Farxiga 10 mg daily 7. Follow INR 8. Depending on his progress further recommendations will be made, thank you for this consult we will follow with you. Past Medical History Past Medical History: Atrial Fibrillation, Eye Disorder, Hyperlipidemia, Hypertension, Myocardial Infarction ([place]) Additional Past Medical History / Comment(s): See Dr Jain's H&P,CATARACTS.PAST AFIB,COVID infection 2021-hospitalized. Last Myocardial Infarction Date:: 2006 History of Any Multi-Drug Resistant Organisms: None Reported Past Surgical History: AICD, Cardiac Ablation, Heart Catheterization With Stent Additional Past Surgical History / Comment(s): bilateral CATARACT, one cardiac stent, total right knee 05/30/16,[facility] Left chest Past Anesthesia/Blood Transfusion Reactions: No Reported Reaction Additional Past Anesthesia/Blood Transfusion Reaction / Comment(s): no hx blood transfusion Date of Last Stent Placement:: 2006 Type of Cardiac Device: AICD Device Placement Date:: unknown Past Psychological History: No Psychological Hx Reported Smoking Status: Never smoker Past Alcohol Use History: None Reported Past Drug Use History: None Reported - Past Family History Father Family Medical History: Cancer Mother Family Medical History: Cancer Medications and Allergies Home Medications Medication Instructions Recorded Confirmed Type Aspirin 81 mg PO DAILY 04/14/14 03/25/23 History Nitroglycerin Sl Tabs [Nitrostat] 0.4 mg SUBLINGUAL Q5M PRN 04/14/14 03/25/23 History Spironolactone [Aldactone] 12.5 mg PO HS 04/14/14 03/25/23 History Warfarin [Coumadin] 5 mg PO SUTUTHSA@1700 04/14/14 03/25/23 History Sotalol [Betapace] 80 mg PO BID 05/19/17 03/25/23 History Warfarin [Coumadin] 7.5 mg PO MOWEFR@1700 05/19/17 03/25/23 History allopurinoL [Zyloprim] 100 mg PO HS 06/04/21 03/25/23 History Furosemide [Lasix] 20 mg PO DAILY PRN 02/23/22 03/25/23 History Tamsulosin [Flomax] 0.4 mg PO DAILY@1700 02/23/22 03/25/23 History carvediloL [Coreg] 6.25 mg PO BID 02/23/22 03/25/23 History Mv-Min/Folic/K1/Lycopen/Lutein 1 tab PO DAILY 12/21/22 03/25/23 History [Centrum Silver Men Tablet] Sacubitril/Valsartan [Entresto 49 1 tab PO BID 12/21/22 03/25/23 History mg-51 mg Tablet] Allergies Allergy/AdvReac Type Severity Reaction Status Date / Time No Known Allergies Allergy Verified 03/25/23 12:30 Physical Exam Vitals: Vital Signs Temp Pulse Resp BP Pulse Ox 03/25/23 12:51 117 H 18 101/46 97 03/25/23 12:28 106 H 18 89/62 95 03/25/23 12:05 84/36 03/25/23 11:41 106 H 18 102/68 97 03/25/23 11:08 105 H 20 82/49 100 03/25/23 10:27 108 H 20 85/45 98 03/25/23 10:00 107 H 22 91/44 98 03/25/23 09:02 122 H 28 H 86/55 100 03/25/23 08:28 117 H 18 94/84 97 03/25/23 08:05 112 H 30 H 75/54 97 03/25/23 07:50 131 H 32 H 108/64 97 03/25/23 07:20 118 H 32 H 109/47 97 03/25/23 06:47 120 H 03/25/23 06:40 112 H 03/25/23 06:29 124 H 32 H 83/59 100 03/25/23 06:15 97.4 F L 116 H 32 H 79/48 97 Intake and Output 03/24/23 03/25/23 03/25/23 22:59 06:59 14:59 Other: Weight 142.882 kg Results 03/25/23 06:16 03/25/23 06:16 Cardiac Enzymes 03/25/23 03/25/23 03/25/23 Range/Units 06:16 06:16 10:55 AST 22 (17-59) U/L Troponin I 0.032 0.036 H* (0.000-0.034) ng/mL Coagulation 03/25/23 Range/Units 06:16 PT 32.1 H (10.0-12.5) sec APTT 37.3 H (22.0-30.0) sec CBC 03/25/23 Range/Units 06:16 WBC 9.5 (3.8-10.6) k/uL RBC 4.22 L (4.30-5.90) m/uL Hgb 13.2 (13.0-17.5) gm/dL Hct 39.7 (39.0-53.0) % Plt Count 58 L (150-450) k/uL Comprehensive Metabolic Panel 03/25/23 Range/Units 06:16 Sodium 138 (137-145) mmol/L Potassium 5.3 H (3.5-5.1) mmol/L Chloride 105 (98-107) mmol/L Carbon Dioxide 20 L (22-30) mmol/L BUN 64 H (9-20) mg/dL Creatinine 2.29 H (0.66-1.25) mg/dL Glucose 120 H (74-99) mg/dL Calcium 8.7 (8.4-10.2) mg/dL AST 22 (17-59) U/L ALT 15 (4-49) U/L Alkaline Phosphatase 58 (38-126) U/L Total Protein 6.1 L (6.3-8.2) g/dL Albumin 3.7 (3.5-5.0) g/dL Current Medications Generic Name Dose Route Start Last Admin Trade Name Freq PRN Reason Stop Dose Admin Diltiazem HCl 125 mg/ Sodium 125 mls @ 2.5 mls/hr 03/25/23 08:15 03/25/23 07:58 Chloride IV 2.5 mg/hr .Q24H ALEXEI 2.5 mls/hr Administration 2.5 MG/HR Dopamine HCl/Dextrose 800 mg/ 250 mls @ 6.698 mls/hr 03/25/23 13:00 03/25/23 12:48 IV Solution IV 6.698 mls/hr .Q24H ALEXEI Administration 2.5 MCG/KG/MIN Intake and Output 03/24/23 03/25/23 03/25/23 22:59 06:59 14:59 Other: Weight 142.882 kg 03/25/23 06:16 03/25/23 06:16
[2023-03-25] MEDS: METOPROLOL TARTRATE 25 MG TAB PO SCH ×2 (14:15→21:21)
[2023-03-25] MEDS: SOTALOL 80 MG TAB PO SCH ×3 (14:50→21:22)
[2023-03-25] MEDS: DAPAGLIFLOZIN PROPANEDIOL 10 MG TABLET PO SCH (14:51)
--- NOTE | 2023-03-25 14:59 | CA ---
Transthoracic Echo Report Name: Iker Layton Age: 78 Gender: M : 1945 Exam Date: 03/25/2023 12:40 Exam Location: [facility] Ht (in): 72 Wt (lb): 315 Ordering Physician: Marvel Shannon Attending/Referring Phys: [id number], Shiva Senior Investment Manager Opal Akhtar RDCS Procedure CPT: Indications: Heart failure Cardiac Hx: Technical Quality: Technically difficult study Contrast 1: Definity Total Dose (mL): 2 Contrast 2: Total Dose (mL): MEASUREMENTS (Male / Female) Normal Values 2D ECHO LV Diastolic Diameter PLAX 5.9 cm 4.2 - 5.9 / 3.9 - 5.3 cm LV Systolic Diameter PLAX 5.8 cm IVS Diastolic Thickness 1.0 cm 0.6 - 1.0 / 0.6 - 0.9 cm LVPW Diastolic Thickness 1.1 cm 0.6 - 1.0 / 0.6 - 0.9 cm LV Relative Wall Thickness 0.4 RV Internal Dim ED PLAX 2.9 cm LA Volume 105.8 cm??? 18 - 58 / 22 - 52 cm??? LA Volume Index 38.4 cm???/m??? 16 - 28 cm???/m??? M-MODE Aortic Root Diameter MM 3.2 cm LA Systolic Diameter MM 4.6 cm LA Ao Ratio MM 1.4 AV Cusp Separation MM 1.6 cm DOPPLER AV Peak Velocity 97.7 cm/s AV Peak Gradient 3.8 mmHg AV Mean Velocity 73.1 cm/s AV Mean Gradient 2.3 mmHg AV Velocity Time Integral 15.3 cm LVOT Peak Velocity 80.4 cm/s LVOT Peak Gradient 2.6 mmHg LVOT Velocity Time Integral 12.4 cm MV E' Velocity 6.2 cm/s TR Peak Velocity 280.4 cm/s TR Peak Gradient 31.5 mmHg Right Ventricular Systolic Press 36.5 mmHg FINDINGS Left Ventricle Left ventricular wall thickness normal. Mild left ventricular dilatation. Severely reduced global left ventricular systolic function. Anteroapical akinesis with severe hypokinesis in the rest of the segments. Left ventricular ejection fraction is estimated at < 20 %. Right Ventricle Normal right ventricular size. Mild pulmonary hypertension. Right Atrium Right atrium not well visualized. Left Atrium Moderately increased left atrial volume. Mildly increased left atrial area. Mitral Valve Structurally normal mitral valve. Mild mitral regurgitation. Aortic Valve No aortic valve stenosis or regurgitation. Aortic valve sclerosis. Tricuspid Valve [id number]-yztoshox tricuspid regurgitation.structurally normal tricuspid valve. Pulmonic Valve Pulmonic valve not well visualized. Pericardium No pericardial effusion. Aorta Normal size aortic root and proximal ascending aorta. CONCLUSIONS Technically difficult study. Definity ECHO contrast used for improved visualization of the endocardial borders (inadequate visualization of two or more contiguous segments). Dilated left ventricle with severe impairment in the left ventricular systolic function with segmental wall motion abnormalities Mild mitral with mild to moderate tricuspid regurgitation Previewed by: Dr. Maynor Mercedes MD (Electronically Signed) Final Date: 25 March 2023 14:58
[2023-03-25] MEDS: FUROSEMIDE 10 MG/ML 4 ML VIAL IV SCH ×2 (15:31→23:43)
[2023-03-25] MEDS: TAMSULOSIN 0.4 MG CAP.ER.24H PO SCH (17:01)
--- NOTE | 2023-03-25 17:35 | US ---
EXAMINATION TYPE: US kidneys/renal and bladder DATE OF EXAM: 03/25/2023 COMPARISON: NONE CLINICAL INDICATION: Male, 78 years old with history of Georeg; GEORGE EXAM MEASUREMENTS: Right Kidney: 10.6 x 5.9 x 4.8 cm Left Kidney: 10.4 x 5.7 x 4.8 cm *Technical limitations due to overlying bowel gas Right Kidney: no evidence of hydronephrosis Left Kidney: possible anechoic area upper pole = 4.1 x 3.6 x 3.5cm Bladder: diverticula noted anteriorly Bilateral Jets seen: no There is no evidence for hydronephrosis at this point in time. No nephrolithiasis is seen. No jorge l s are identified. The urinary bladder is anechoic. The renal cortices are normal in echotexture and thickness and there is no evidence of medical renal disease. There is probable 4 cm exophytic cyst of the upper pole of the left kidney. IMPRESSION: 1. No hydronephrosis. 2. No renal calcifications. 3. Probable 4 cm exophytic cyst of the upper pole left kidney 4. No medical renal disease. 5. Bladder diverticulum.
[2023-03-25 20:24] LABS: Creatinine,Urine Random 207.7 mg/dL
[2023-03-26] MEDS: DAPAGLIFLOZIN PROPANEDIOL 10 MG TABLET PO SCH (08:46)
[2023-03-26] MEDS: METOPROLOL TARTRATE 25 MG TAB PO SCH ×3 (08:46→21:53)
[2023-03-26] MEDS: SOTALOL 80 MG TAB PO SCH ×2 (08:46→21:53)
[2023-03-26] MEDS: FUROSEMIDE 10 MG/ML 4 ML VIAL IV SCH ×3 (08:46→23:56)
[2023-03-26] MEDS: ASPIRIN 81 MG PO SCH (08:46)
[2023-03-26 10:11] LABS: MCH 31.3 pg (25.0-35.0); MCHC 32.6 g/dL (31.0-37.0); MCV 96.2 fL (80.0-100.0); Mean Platelet Volume 11.7; RBC 3.85 m/uL (4.30-5.90); RDW 13.8 % (11.5-15.5); WBC 6.8 k/uL (3.8-10.6)
[2023-03-26 10:16] LABS: INR 3.3 (<1.2); Prothrombin Time 32.7 sec (10.0-12.5)
[2023-03-26 10:18] LABS: African American GFR (CKD) 46 (>60 ml/min/1.73 sqM); Anion Gap 13 mmol/L; Blood Urea Nitrogen 70 mg/dL (9-20); Calcium 8.2 mg/dL (8.4-10.2); Carbon Dioxide 19 mmol/L (22-30); Chloride 105 mmol/L (98-107); Glucose 132 mg/dL (74-99); Non-African American GFR(CKD) 40 (>60 ml/min/1.73 sqM); Sodium 137 mmol/L (137-145)
[2023-03-26 10:22] LABS: Platelet Count 76 k/uL (150-450)
[2023-03-26 10:23] LABS: Potassium 4.9 mmol/L (3.5-5.1)
--- NOTE | 2023-03-26 11:19 | P.NPCON ---
History of Present Illness - Reason for Consult acute renal failure - History of Present Illness Reason for consultation: Acute kidney injury History of present illness: Patient is a 78-year-old male seen in renal consultation for acute kidney injury. Patient's baseline creatinine is near 1-1.2. Creatinine was 2.29 on admission and is improved to 1.62 today. Patient came to the hospital for worsening shortness of breath over the last 1 week. Patient states he does have history of congestive heart failure with ejection fraction of less than 20% and mild to moderate tricuspid regurgitation with history of AICD placement. Patient states he takes Lasix on and off. He does have a cardiac stent. No history of diabetes. He does admit to taking NSAIDs for pain almost on a daily basis. Denies vomiting or diarrhea. No chest pain. He's currently on a nasal cannula. Denies gross hematuria or dysuria. Kidney ultrasound showed no evidence of hydronephrosis. Patient receiving IV Lasix. He was also on dobutamine which is now been discontinued. No fever or chills. Vital signs are stable. General: No acute distress. HEENT: Head exam is unremarkable. On nasal cannula. LUNGS: Scattered rhonchi. HEART: Rate and Rhythm are regular. ABDOMEN: Obese, nontender. EXTREMITITES: 2+ edema. Left lower extremity wrapped. Past Medical History Past Medical History: Atrial Fibrillation, Eye Disorder, Hyperlipidemia, Hypertension, Myocardial Infarction ([place]) Additional Past Medical History / Comment(s): See Dr Jain's H&P,CATARACT S.PAST AFIB,COVID infection 2021-hospitalized. Last Myocardial Infarction Date:: 2006 History of Any Multi-Drug Resistant Organisms: None Reported Past Surgical History: AICD, Cardiac Ablation, Heart Catheterization With Stent Additional Past Surgical History / Comment(s): bilateral CATARACT, one cardiac stent, total right knee 05/30/16,[facility] Left chest Past Anesthesia/Blood Transfusion Reactions: No Reported Reaction Additional Past Anesthesia/Blood Transfusion Reaction / Comment(s): no hx blood transfusion Date of Last Stent Placement:: 2006 Type of Cardiac Device: AICD Device Placement Date:: unknown Past Psychological History: No Psychological Hx Reported Smoking Status: Never smoker Past Alcohol Use History: None Reported Past Drug Use History: None Reported - Past Family History Father Family Medical History: Cancer Mother Family Medical History: Cancer Medications and Allergies Home Medications Medication Instructions Recorded Confirmed Type Aspirin 81 mg PO DAILY 04/14/14 03/25/23 History Nitroglycerin Sl Tabs [Nitrostat] 0.4 mg SUBLINGUAL Q5M PRN 04/14/14 03/25/23 History Spironolactone [Aldactone] 12.5 mg PO HS 04/14/14 03/25/23 History Warfarin [Coumadin] 5 mg PO SUTUTHSA@1700 04/14/14 03/25/23 History Sotalol [Betapace] 80 mg PO BID 05/19/17 03/25/23 History Warfarin [Coumadin] 7.5 mg PO MOWEFR@1700 05/19/17 03/25/23 History allopurinoL [Zyloprim] 100 mg PO HS 06/04/21 03/25/23 History Furosemide [Lasix] 20 mg PO DAILY PRN 02/23/22 03/25/23 History Tamsulosin [Flomax] 0.4 mg PO DAILY@1700 02/23/22 03/25/23 History carvediloL [Coreg] 6.25 mg PO BID 02/23/22 03/25/23 History Mv-Min/Folic/K1/Lycopen/Lutein 1 tab PO DAILY 12/21/22 03/25/23 History [Centrum Silver Men Tablet] Sacubitril/Valsartan [Entresto 49 1 tab PO BID 12/21/22 03/25/23 History mg-51 mg Tablet] Allergies Allergy/AdvReac Type Severity Reaction Status Date / Time No Known Allergies Allergy Verified 03/25/23 12:30 Physical Exam Vitals: Vital Signs Temp Pulse Pulse Resp BP BP Pulse Ox 03/26/23 08:52 98.2 F 122 H 24 103/71 96 03/26/23 04:00 98.6 F 117 H 22 102/69 96 03/26/23 01:08 EST 120 H 03/25/23 23:49 98.2 F 120 H 24 90/56 95 03/25/23 21:29 116 H 03/25/23 20:14 98.4 F 115 H 28 H 88/52 96 03/25/23 16:20 99 F 126 H 22 117/70 96 03/25/23 15:27 122 H 27 H 97/42 100 03/25/23 12:51 117 H 18 101/46 97 03/25/23 12:28 106 H 18 89/62 95 Intake and Output 03/25/23 03/26/23 03/26/23 23:59 06:59 14:59 Intake Total 354 Output Total 500 Balance -146 Intake: Oral 354 Output: Urine 500 Other: Voiding Method External Catheter # Voids Weight Results - Lab Results Most recent lab results Calcium 8.2 mg/dL (8.4-10.2) L 03/26/23 09:39 Magnesium 1.8 mg/dL (1.6-2.3) 03/25/23 06:16 03/26/23 09:39 03/26/23 09:39 Assessment and Plan Plan: Assessment: 1. Acute kidney injury secondary to ATN secondary to cardiorenal syndrome and NSAID use. Creatinine 2.29 on admission and is 1.62 today. Baseline creatinine 1-1.2. No hydronephrosis noted on imaging. UA reveals 1+ protein and some blood. 2. Acute on chronic systolic CHF ejection fraction of 20% with mild to moderate tricuspid regurgitation. 3. Volume overload. 4. Coronary disease with prior stenting. 5. Metabolic acidosis secondary to acute kidney injury. Plan: Maintain IV Lasix. Maintain [id number]. Repeat UA. Low-salt diet and 1500 mL fluid restriction. Avoid nephrotoxins. Continue to monitor renal function and urine output. Thank you for the consultation. I will continue to follow this patient with you during his hospital stay.
--- NOTE | 2023-03-26 12:45 | P.PN ---
Subjective Progress Note Date: 03/26/23 PROGRESS NOTE The patient is a 78-year-old male who presented was progressive fatigue and weakness and dyspnea. He is followed on a regular basis by Dr. Jain. He has a known history of severe ischemic cardiomyopathy status post bi-V ICD implantation, history of atrial fibrillation, CAD who has been complaining for the last week or so for progressive weakness with worsening dyspnea and peripheral edema. He has no chest discomfort. He does not feel the atrial fibrillation. Has underwent ablation in the past. He denies any cough or fever no nausea or vomiting. He feels dizzy at times. He is quite limited in his activity recently. His ejection fraction in May 2021 was 20-25%. He has b een maintained on sotalol and has been anticoagulated. On presentation he was in atrial fibrillation with episodes of rapid ventricular response. March 26: The patient presented yesterday with symptoms of worsening heart failure, severe fatigue. He's feeling slightly better today but continues to be dyspneic. His edema is better. He denies any dizziness or palpitations, he continues to be in atrial fibrillation. He denies any nausea or vomiting. His echocardiogram showed a severely impaired left ventricle systolic function with segmental wall motion abnormality and mild mitral with mild to moderate tricuspid regurgitation. His weight is down. Medications: Aspirin, Lasix 40 mg IV every 8 hours, metoprolol 25 mg twice a day, sotalol 80 mg twice a day. Coumadin is on hold PHYSICAL EXAMINATION: Blood pressure 103/70 heart rate 110 LUNGS: Few crackles at the base HEART: Irregularly irregular, S1-S2 was a systolic murmur at the base ABDOMEN: Soft, nontender, no organomegaly EXTREMETIES: +1-2 edema with chronic skin changes LAB: Hemoglobin 12, INR 3.3, BUN 70, creatinine 1.62 IMPRESSION: 1. Acute exacerbation of CHF in a patient with known history of severe ischemic cardiomyopathy 2. Atrial fibrillation, anticoagulated, continues to have episodes of rapid ventricle response 3. History of CAD 4. Status post ICD BiV implant 5. Acute renal injury, improving PLAN: 1. Continue IV diuresis 2. For blood pressure renal function and if stable restart Entresto 3. Interrogate his ICD to see if atrial fibrillation is persistent, evaluate for the need to restore sinus mechanism 4. Increase beta boy to 3 times a day and depending on the blood pressure make further adjustment 5. Follow renal functions Objective - Vital Signs Vital signs: Vital Signs Temp 98.2 F 03/26/23 08:52 Pulse 111 H 03/26/23 12:24 Resp 20 03/26/23 12:24 BP 99/70 03/26/23 12:24 Pulse Ox 95 03/26/23 12:24 FiO2 Intake & Output 03/25/23 03/26/23 03/26/23 19:59 06:59 18:59 Intake Total 354 Output Total 700 Balance -346 Weight Intake: Oral 354 Output: Urine 700 Other: Voiding Method External Catheter # Voids - Labs CBC & Chem 7: 03/26/23 09:39 03/26/23 09:39 Labs: Abnormal Lab Results - Last 24 Hours (Table) 03/26/23 03/26/23 03/26/23 Range/Units 09:39 09:39 09:39 RBC 3.85 L (4.30-5.90) m/uL Hgb 12.0 L (13.0-17.5) gm/dL Hct 37.0 L (39.0-53.0) % Plt Count 76 L (150-450) k/uL PT 32.7 H (10.0-12.5) sec INR 3.3 H (<1.2) Carbon Dioxide 19 L (22-30) mmol/L BUN 70 H (9-20) mg/dL Creatinine 1.62 H (0.66-1.25) mg/dL Glucose 132 H (74-99) mg/dL Calcium 8.2 L (8.4-10.2) mg/dL
--- NOTE | 2023-03-26 13:41 | P.PN ---
Subjective Progress Note Date: 03/26/23 patient is a 78-year-old gentleman with past medical history significant for hypertension, hyperlipidemia, myocardial infarction, AICD implantation, cataracts, atrial fibrillation with ablation presented to the hospital for not feeling well for the last few days. Patient stated that 2 days ago he started feeling lethargic and weak. There was no complain of any fever but patient felt cold. Complaining of shortness of breath at rest. Denies any chest pain. Denies any nausea, vomiting abdominal pain. Patient has chronic swelling of left lower extremity. Complaining of lightheadedness. Denied any orthopnea or PND. Because symptoms, patient came to the ER Initial lab work done in the ER showed WBC 9.5, hemoglobin 13.2, platelet count 58 sodium 1:30, potassium 5.3, BUN 64, creatinine 2.09 EKG done in the ER Chest x-ray done in the ER showed cardiomegaly with stable left chest AICD, mild pulmonary vascular congestion, diffuse increased interstitial markings related to edema versus infiltrates Patient admitted to medicine service 03/26. Patient seen and examined. Still complaining of shortness of breath on exertion. Denies any chest pain. Denies any nausea or vomiting. Currently on 2 L of oxygen REVIEW OF SYSTEMS: CONSTITUTIONAL: No fever, no malaise,. CARDIOVASCULAR: No chest pain, no palpitations, no syncope. PULMONARY: No shortness of breath, no cough, GASTROINTESTINAL: No diarrhea, no nausea, no vomiting, no abdominal pain. NEUROLOGICAL: No headaches, no weakness, PHYSICAL EXAMINATION: GENERAL: The patient is alert and oriented x3, not in any acute distress. Well developed, well nourished. HEENT: Pupils are round and equally reacting to light. EOMI. No scleral icterus. No conjunctival pallor. Normocephalic, atraumatic. No pharyngeal erythema. No thyromegaly. CARDIOVASCULAR: S1 and S2 present. No murmurs, rubs, or gallops. PULMONARY: Chest is clear to auscultation, no wheezing or crackles. ABDOMEN: Soft, nontender, nondistended, normoactive bowel sounds. No palpable organomegaly. MUSCULOSKELETAL: No joint swelling or deformity. EXTREMITIES: 2+ pitting edema lower extremities bilaterally NEUROLOGICAL: Gross neurological examination did not reveal any focal deficits. SKIN: No rashes. Assessment and plan A. fib with RVR Acute on chronic systolic CHF Ischemic cardiomyopathy Hypotension Hyperkalemia Acute kidney injury History of hypertension History of hyperlipidemia history of coronary artery disease Monitor vital signs Monitor CBC Monitor CMP Continue telemetry monitoring Continue oxygen supplementation Encourage use of I-S, Bronchopulmonary hygiene Trend troponins Strict I's and O's, daily weights, continue IV Lasix Continue Lopressor and sotalol Hold Aldactone and eneteresto for now Avoid nephrotoxic agents Ordered 2-D echo Nephrology following Cardiology following Pulmonology following Labs and medication were reviewed.. Continue same treatment. Continue with symptomatic treatment. Resume home medication. Monitor labs and vitals. DVT and GI prophylaxis. Further recommendations as per clinical course of the patient Dictation was produced using [employer] dictation software. please excuse any grammatical, word or spelling errors. Objective - Vital Signs Vital signs: Vital Signs Temp 98.2 F 03/26/23 08:52 Pulse 122 H 03/26/23 08:52 Resp 24 03/26/23 08:52 BP 103/71 03/26/23 08:52 Pulse Ox 96 03/26/23 08:52 FiO2 Intake & Output 03/25/23 03/26/23 03/26/23 19:59 06:59 18:59 Intake Total 354 Output Total 250 Balance 104 Weight Intake: Oral 354 Output: Urine 250 Other: Voiding Method # Voids - Labs CBC & Chem 7: 03/26/23 09:39 03/26/23 09:39 Labs: Abnormal Lab Results - Last 24 Hours (Table) 03/25/23 03/25/23 03/25/23 Range/Units 06:16 10:55 11:07 Plt Count 58 L (150-450) k/uL Neutrophils # (Manual) 9.10 H (1.3-7.7) k/uL Lymphocytes # (Manual) 0.10 L (1.0-4.8) k/uL Troponin I 0.036 H* (0.000-0.034) ng/mL Urine Protein 1+ H (Negative) Urine Blood Small H (Negative) Urine RBC 30 H (0-5) /hpf Hyaline Casts 16 H (0-2) /lpf Urine Mucus Rare H (None) /hpf
--- NOTE | 2023-03-26 14:14 | P.CNPUL ---
History of Present Illness Consult date: 03/26/23 Requesting physician: Melchor Jaramillo Reason for consult: dyspnea, hypoxemia, abnormal CXR/CT Chief complaint: Shortness of breath, lower extremity swelling History of present illness: This is a 78-year-old male patient with a known history of atrial fibrillation anticoagulated with warfarin, congestive heart failure, gout, hyperlipidemia, hypertension, coronary artery disease with previous stenting, ischemic cardiomyopathy with AICD placement. Lifelong nonsmoker. He presented to the emergency room yesterday with a 3 to four-day history of increasing shortness of breath, weakness, lower extremity swelling. He was to be on Lasix but has been somewhat noncompliant with that according to the patient's . His x-ray revealed evidence of cardiomegaly with mild pulmonary vascular congestion. Diffuse initially increased interstitial markings suspicious for pulmonary edema/CHF. Echocardiogram revealed severely impaired left ventricle systolic function with ejection fraction less than 20%. Anteroapical akinesis with severe hypokinesis and the rest of the segments. White count 6.8. Hemoglobin 12.0. INR 3.3. Platelets 76,000. Sodium 137. Potassium 4.9. Bicarb 19. BUN 70. Creatinine 1.62. Glucose 132. He is seen today in consultation on the selective care unit. Currently resting quite flat in bed. Awake and alert in no acute distress. Maintaining O2 saturations in the 90s on 2 L/m per nasal cannula. He is breathing a bit easier today compared to yesterday. He is cur rently on Lasix 40 mg IV every 8 hours. He is initiated on Farxiga. Review of Systems REVIEW OF SYSTEMS: CONSTITUTIONAL: Positive for weight gain. EYES: Denies change in vision. EARS, NOSE, MOUTH, THROAT: Denies headaches, denies sore throat. CARDIOVASCULAR: Denies chest pain, palpitations or syncopal episodes. RESPIRATORY: Positive for shortness of breath, cough, congestion no hemoptysis. GASTROINTESTINAL: Denies change in appetite, denies abdominal pain GENITOURINARY: Denies hematuria, denies infections. MUSKULOSKELETAL: Positive for swelling. INTEGUMENTARY: Denies rash, denies eczema. NEUROLOGICAL: Denies recent memory loss, no recent seizure activity. PSYCHIATRIC: Denies anxiety, denies depression. HEMATOLOGIC/LYMPHATIC: Denies anemia, denies enlarged lymph nodes. Past Medical History Past Medical History: Atrial Fibrillation, Eye Disorder, Hyperlipidemia, Hypertension, Myocardial Infarction ([place]) Additional Past Medical History / Comment(s): See Dr Jain's H&P,CATARACTS.PAST AFIB,COVID infection 2021-hospitalized. Last Myocardial Infarction Date:: 2006 History of Any Multi-Drug Resistant Organisms: None Reported Past Surgical History: AICD, Cardiac Ablation, Heart Catheterization With Stent Additional Past Surgical History / Comment(s): bilateral CATARACT, one cardiac stent, total right knee 05/30/16,[facility] Left chest Past Anesthesia/Blood Transfusion Reactions: No Reported Reaction Additional Past Anesthesia/Blood Transfusion Reaction / Comment(s): no hx blood transfusion Date of Last Stent Placement:: 2006 Type of Cardiac Device: AICD Device Placement Date:: unknown Past Psychological History: No Psychological Hx Reported Smoking Status: Never smoker Past Alcohol Use History: None Reported Past Drug Use History: None Reported - Past Family History Father Family Medical History: Cancer Mother Family Medical History: Cancer Medications and Allergies Home Medications Medication Instructions Recorded Confirmed Type Aspirin 81 mg PO DAILY 04/14/14 03/25/23 History Nitroglycerin Sl Tabs [Nitrostat] 0.4 mg SUBLINGUAL Q5M PRN 04/14/14 03/25/23 History Spironolactone [Aldactone] 12.5 mg PO HS 04/14/14 03/25/23 History Warfarin [Coumadin] 5 mg PO SUTUTHSA@1700 04/14/14 03/25/23 History Sotalol [Betapace] 80 mg PO BID 05/19/17 03/25/23 History Warfarin [Coumadin] 7.5 mg PO MOWEFR@1700 05/19/17 03/25/23 History allopurinoL [Zyloprim] 100 mg PO HS 06/04/21 03/25/23 History Furosemide [Lasix] 20 mg PO DAILY PRN 02/23/22 03/25/23 History Tamsulosin [Flomax] 0.4 mg PO DAILY@1700 02/23/22 03/25/23 History carvediloL [Coreg] 6.25 mg PO BID 02/23/22 03/25/23 History Mv-Min/Folic/K1/Lycopen/Lutein 1 tab PO DAILY 12/21/22 03/25/23 History [Centrum Silver Men Tablet] Sacubitril/Valsartan [Entresto 49 1 tab PO BID 12/21/22 03/25/23 History mg-51 mg Tablet] Allergies Allergy/AdvReac Type Severity Reaction Status Date / Time No Known Allergies Allergy Verified 03/25/23 12:30 Physical Exam Vitals: Vital Signs Temp Pulse Pulse Resp BP BP Pulse Ox 03/26/23 12:24 111 H 20 99/70 95 03/26/23 08:52 98.2 F 122 H 24 103/71 96 03/26/23 04:00 98.6 F 117 H 22 102/69 96 03/26/23 01:08 EST 120 H 03/25/23 23:49 98.2 F 120 H 24 90/56 95 03/25/23 21:29 116 H 03/25/23 20:14 98.4 F 115 H 28 H 88/52 96 03/25/23 16:20 99 F 126 H 22 117/70 96 03/25/23 15:27 122 H 27 H 97/42 100 Intake and Output 03/25/23 03/26/23 03/26/23 23:59 06:59 14:59 Intake Total 492 Output Total 700 Balance -208 Intake: IV 20 Invasive Line 1 10 Invasive Line 2 10 Oral 472 Output: Urine 700 Other: Voiding Method External Catheter # Voids Weight GENERAL EXAM: Alert, pleasant 78-year-old male, on 2 L nasal cannula, fairly comfortable in no apparent distress. HEAD: Normocephalic. EYES: Normal reaction of pupils, equal size. NOSE: Clear with pink turbinates. THROAT: No erythema or exudates. NECK: No masses, no JVD. CHEST: No chest wall deformity. LUNGS: Equal air entry with bibasilar crackles. CVS: S1 and S2 normal with no audible murmur, regular rhythm. ABDOMEN: No hepatosplenomegaly, normal bowel sounds, no guarding or rigidity. SPINE: No scoliosis or deformity SKIN: No rashes CENTRAL NERVOUS SYSTEM: No focal deficits, tone is normal in all 4 extremities. EXTREMITIES: There is 1-2+ peripheral edema. No clubbing, no cyanosis. Peripheral pulses are intact. Results - Laboratory Findings CBC and BMP: 03/26/23 09:39 03/26/23 09:39 PT/INR, D-dimer PT 32.7 sec (10.0-12.5) H 03/26/23 09:39 INR 3.3 (<1.2) H 03/26/23 09:39 Abnormal lab findings: Abnormal Labs 03/25/23 03/25/23 03/25/23 06:16 06:16 06:16 RBC 4.22 L Hgb Hct Plt Count 58 L Neutrophils # (Manual) 9.10 H Lymphocytes # (Manual) 0.10 L PT 32.1 H INR 3.3 H APTT 37.3 H Potassium 5.3 H Carbon Dioxide 20 L BUN 64 H Creatinine 2.29 H Glucose 120 H Plasma Lactic Acid Rios Calcium Troponin I Total Protein 6.1 L Urine Protein Urine Blood Urine RBC Hyaline Casts Urine Mucus 03/25/23 03/25/23 03/25/23 06:16 10:55 11:07 RBC Hgb Hct Plt Count Neutrophils # (Manual) Lymphocytes # (Manual) PT INR APTT Potassium Carbon Dioxide BUN Creatinine Glucose Plasma Lactic Acid Rios 2.6 H* Calcium Troponin I 0.036 H* Total Protein Urine Protein 1+ H Urine Blood Small H Urine RBC 30 H Hyaline Casts 16 H Urine Mucus Rare H 03/26/23 03/26/23 03/26/23 09:39 09:39 09:39 RBC 3.85 L Hgb 12.0 L Hct 37.0 L Plt Count 76 L Neutrophils # (Manual) Lymphocytes # (Manual) PT 32.7 H INR 3.3 H APTT Potassium Carbon Dioxide 19 L BUN 70 H Creatinine 1.62 H Glucose 132 H Plasma Lactic Acid Rios Calcium 8.2 L Troponin I Total Protein Urine Protein Urine Blood Urine RBC Hyaline Casts Urine Mucus - Diagnostic Findings Chest x-ray: image reviewed Assessment and Plan Assessment: Acute hypoxemic respiratory failure secondary to an acute exacerbation of chronic systolic congestive heart failure. Ejection fraction less than 20%. Severe ischemic cardiomyopathy, status post AICD placement History of coronary disease with previous stent placements Chronic atrial fibrillation anticoagulated with warfarin History of gout Hypertension Hyperlipidemia Lifelong nonsmoker Plan: The patient was seen and evaluated Chest x-ray, labs and medications reviewed Continue IV diuretics Continue to monitor intake and output Titrate the FiO2 as tolerated Anticoagulated with warfarin We will continue to follow and make further recommendations based on his clinical status I have personally seen and examined the patient, performed the documentation and the assessment and plan as written. Number of minutes spent on the visit: 20.
[2023-03-26 15:04] LABS: Appearance,Urine Cloudy (Clear); Bacteria,Urine Rare /hpf; Bilirubin,Urine Negative (Negative); Blood,Urine Small (Negative); Color,Urine Light Yellow; Glucose,Urine (UA) 3+ (Negative); Ketones,Urine Negative (Negative); Leukocyte Esterase,Urine Negative (Negative); Mucus,Urine Rare /hpf; Nitrite,Urine Negative (Negative); Protein,Urine Trace (Negative); RBC,Urine 6 /hpf (0-5); Specific Gravity,Urine 1.016 (1.001-1.035); Squamous Epithelial Cell,Urine <1 /hpf (0-4); Urobilinogen,Urine <2.0 mg/dL (<2.0); WBC,Urine 1 /hpf (0-5)
[2023-03-26] MEDS: TAMSULOSIN 0.4 MG CAP.ER.24H PO SCH (15:11)
[2023-03-26] MEDS ORDERED: ACETAMINOPHEN TAB 325 MG TAB PO PRN (16:41)
[2023-03-26 21:51] LABS: Glucose,Whole Blood 161 mg/dL (70-110)
[2023-03-27 04:54] LABS: Glucose,Whole Blood 117 mg/dL (70-110)
[2023-03-27] MEDS ORDERED: SODIUM CHLORIDE 0.9% 500 ML 500 ML IV ONE ×3 (04:57→17:18)
[2023-03-27] MEDS ORDERED: DOBUTamine DRIP 500 MG in DEXTROSE/WATER 1 250ML.BAG IV SCH (05:15)
[2023-03-27] MEDS ORDERED: NOREPINEPHRINE 4 MG in SODIUM CHLORIDE 0.9% 250 ML IV SCH (05:45)
[2023-03-27 07:18] LABS: HCT 38.3 % (39.0-53.0); HGB 12.2 gm/dL (13.0-17.5); MCH 30.6 pg (25.0-35.0); MCHC 31.8 g/dL (31.0-37.0); MCV 96.4 fL (80.0-100.0); Mean Platelet Volume 11.1; RBC 3.97 m/uL (4.30-5.90); RDW 13.8 % (11.5-15.5); WBC 6.4 k/uL (3.8-10.6)
[2023-03-27 07:28] LABS: Platelet Count 89 k/uL (150-450)
[2023-03-27 07:47] LABS: ALT 18 U/L (4-49); AST 28 U/L (17-59); African American GFR (CKD) 33 (>60 ml/min/1.73 sqM); Albumin 2.7 g/dL (3.5-5.0); Alkaline Phosphatase 47 U/L (38-126); Anion Gap 11 mmol/L; Blood Urea Nitrogen 86 mg/dL (9-20); Calcium 8.1 mg/dL (8.4-10.2); Carbon Dioxide 22 mmol/L (22-30); Chloride 105 mmol/L (98-107); Glucose 122 mg/dL (74-99); Magnesium 2.3 mg/dL (1.6-2.3); Non-African American GFR(CKD) 29 (>60 ml/min/1.73 sqM); Potassium 4.8 mmol/L (3.5-5.1); Sodium 138 mmol/L (137-145); Total Bilirubin 1.2 mg/dL (0.2-1.3)
[2023-03-27] MEDS: DOBUTamine DRIP 500 MG in DEXTROSE/WATER 1 250ML.BAG IV SCH (08:28)
[2023-03-27] MEDS ORDERED: IPRATROPIUM-ALBUTEROL 3 ML NEB INHALATION PRN (09:42)
[2023-03-27] MEDS ORDERED: METOPROLOL TARTRATE 5 MG/5 ML VIAL IVP ONE (10:00)
--- NOTE | 2023-03-27 10:08 | XR ---
EXAMINATION TYPE: XR chest 1V portable DATE OF EXAM: 03/27/2023 COMPARISON: 03/25/2023 HISTORY: Central line placement TECHNIQUE: Single frontal view of the chest is obtained. FINDINGS: There is no focal air space opacity, pleural effusion, or pneumothorax seen. The cardiac silhouette size is within normal limits. The osseous structures are intact. A left-sided cardiac de vice is noted with multiple leads. There is a left-sided central line with the tip overlying the SVC. Chronic deformities of the rib cage. Limited inspiration with elevated hemidiaphragm. Stable. IMPRESSION: 1. Left-sided Central line placement with tip overlying SVC and no sizable pneumothorax. 2. Interval improved interstitial correlate for improving venous congestion.
--- NOTE | 2023-03-27 10:10 | OP ---
OPERATIVE REPORT DATE OF SERVICE : PROCEDURES PERFORMED: Right radial art line. PREOPERATIVE DIAGNOSES: Frequent blood draws and blood gas monitoring, hypotension. POSTOPERATIVE DIAGNOSES: Frequent blood draws and blood gas monitoring, hypotension. CAR SCRUBBER: First surgical resident, Dr. Radha Camargo. We used a right radial artery. There was good blood return. There was good waveform. The catheter was sutured in place. There was no immediate complication. Sterile dressing was applied by the nurse. Left internal jugular triple-lumen catheter: PREOPERATIVE DIAGNOSES: Administration of fluids and pressors, hypotension patient on norepinephrine. POSTOPERATIVE DIAGNOSES: Administration of fluids and pressors, hypotension patient on norepinephrine. CAR SCRUBBER: First surgical resident, Dr. Radha Camargo. There was informed consent and universal timeout. The patient's procedure took place in room 267. TRIPLE LUMEN CATHETER PLACEMENT: Indication: Hemodynamic monitoring/Intravenous access. A time-out was completed verifying correct patient, procedure, site, positioning, and implant(s) or special equipment if applicable. The patient was placed in a dependent position appropriate for triple lumen catheter placement based on the vein to be cannulated. The patient's left neck was prepped and draped in sterile fashion. 1% Lidocaine was used to anesthetize the surrounding skin area. A triple lumen 9F Cordis catheter was introduced into the left internal jugular vein using Seldinger technique. The catheter was threaded smoothly over the guide wire and appropriate blood return was obtained. Each lumen of the catheter was evacuated of air and flushed with sterile saline. The catheter was then sutured in place to the skin and a sterile dressing applied. Perfusion to the extremity distal to the point of catheter insertion was checked and found to be adequate. We went via posterior approach. There was good blood return from all 3 ports. The patient tolerated the procedure well. The catheter was seen at the junction of superior vena cava, right atrium. The catheter was sutured in place. Sterile dressing was applied by the nurse. There was no immediate complication. MMODL / IJN: [id number] /
[2023-03-27] MEDS: NOREPINEPHRINE 32 MG in SODIUM CHLORIDE 0.9% 218 ML IV SCH (10:19)
[2023-03-27 10:21] LABS: INR 2.9 (<1.2); Prothrombin Time 28.6 sec (10.0-12.5)
--- NOTE | 2023-03-27 10:25 | PN ---
PROGRESS NOTE SUBJECTIVE: Iker is a 78-year-old gentleman with a history of ischemic cardiomyopathy, status post Bi-V ICD; atrial fibrillation; and coronary artery disease, who is admitted to hospital with worsening dyspnea and peripheral edema. The patient developed hypotension on the floor due to which he is transferred to ICU, and I am seeing him for the first time in the intensive care unit. The patient has cardiomyopathy with an ejection fraction of 20% to 25% and had been on sotalol at home, which has been continued. At the time of my evaluation, he is hypotensive. I am starting the patient on Levophed, cut back on the dose of dobutamine to 2.5 mg daily, and hold his metoprolol, and they will resume it once the blood pressure improves. I am going to review his outpatient records, and if there were no issues with amiodarone, I might consider starting him on amiodarone. His INR was 3.3 yesterday. We will follow the INR and resume the Coumadin when we can. Labs today showed a potassium of 4.8, BUN is 86, creatinine is 2. The patient denies any chest pain or difficulty in breathing. He has discomfort over the left leg, where he seems to have cellulitis. His white cell count is normal. OBJECTIVE: VITAL SIGNS: The patient is hypotensive. Heart rate is elevated. O2 saturation is 95%. CHEST: Reveals good air entry without any crackles. HEART: Reveals first and second heart sounds. Irregular rhythm. ABDOMEN: Soft. EXTREMITIES: Examination of extremities reveals bilateral chronic stasis changes with erythema and swelling of the left leg, probably related to cellulitis. ASSESSMENT: 1. Atrial fibrillation with poorly-controlled ventricular rate. 2. Severe hypotension. 3. Cellulitis. 4. Cardiomyopathy with congestive heart failure, currently intravascularly volume depleted. 5. The patient's baseline BUN is 20, and on this admission, he is at 86. His creatinine is 2.1, and this was 1.2. PLAN: The patient seemed to have complex and multiple medical problems including intravascular volume depletion, acute renal failure, atrial fibrillation with poorly- controlled ventricular rate, and hypotension. We will continue the dobutamine and Levophed and consider adding amiodarone after reviewing his outpatient records. Send blood cultures given the cellulitis and the hypotension. I asked the nurse to talk to the [facility] rn picu about starting him on antibiotics. MMODL / IJN: [id number] /
[2023-03-27] MEDS ORDERED: AMIODARONE 360 MG in DEXTROSE 5% IN WATER 200 ML IV ONE ×2 (11:00)
[2023-03-27 11:24] LABS: Glucose,Whole Blood 175 mg/dL (70-110)
[2023-03-27] MEDS: IPRATROPIUM-ALBUTEROL 3 ML NEB INHALATION SCH ×4 (11:34→20:05)
--- NOTE | 2023-03-27 11:45 | P.PN ---
Subjective Progress Note Date: 03/27/23 Principal diagnosis: Hypotension. This is a 78-year-old male patient with a known history of atrial fibrillation anticoagulated with warfarin, congestive heart failure, gout, hyperlipidemia, hypertension, coronary artery disease with previous stenting, ischemic cardiomyopathy with AICD placement. Lifelong nonsmoker. He presented to the emergency room yesterday with a 3 to four-day history of increasing shortness of breath, weakness, lower extremity swelling. He was to be on Lasix but has been somewhat noncompliant with that according to the patient's . His x-ray rev ealed evidence of cardiomegaly with mild pulmonary vascular congestion. Diffuse initially increased interstitial markings suspicious for pulmonary edema/CHF. Echocardiogram revealed severely impaired left ventricle systolic function with ejection fraction less than 20%. Anteroapical akinesis with severe hypokinesis and the rest of the segments. White count 6.8. Hemoglobin 12.0. INR 3.3. Emilio telets 76,000. Sodium 137. Potassium 4.9. Bicarb 19. BUN 70. Creatinine 1.62. Glucose 132. He is seen today in consultation on the selective care unit. Currently resting quite flat in bed. Awake and alert in no acute distress. Maintaining O2 saturations in the 90s on 2 L/m per nasal cannula. He is breathing a bit easier today compared to yesterday. He is currently on Lasix 40 mg IV every 8 hours. He is initiated on Farxiga. Progress note dated 03/27/2023. This is a 78-year-old male who is seen today in the intensive care unit, room 267. He was admitted to the hospital on March 25, with a diagnosis of acute kidney injury, congestive heart failure, and atrial fibrillation. The patient was transferred down to the intensive care unit, by our nurse practitioner, because of severe hypotension. On dobutamine by the hospital service, and, norepinephrine was added by cardiology. Currently, he's on 2 L nasal cannula, receiving dobutamine at 2.5 mcg/kg/m, and is on norepinephrine at 14 mcg/m. The patient does not have adequate IV access, so I place a right radial art line, and a left internal jugular triple-lumen catheter. White count 6.4, hemoglobin 12.2, hematocrit 38.3, and platelet count is 89,000. PTT was 28.6 with an INR of 2.9. Sodium 138, potassium 4.8, chlorides 105, CO2 22, anion gap 11, BUN 86, and creatinine 2.14. Albumin 2.7. Chest x-ray shows improving interstitial edema. Objective - Vital Signs Vital signs: Vital Signs Temp 98.1 F 03/27/23 11:15 Pulse 137 H 03/27/23 11:34 Resp 26 H 03/27/23 11:34 BP 98/56 03/27/23 11:15 Pulse Ox 97 03/27/23 11:15 FiO2 Intake & Output 03/26/23 03/27/23 03/27/23 18:59 06:59 18:59 Intake Total 632 500 813.066 Output Total 700 600 345 Balance -68 -100 468.066 Weight 142.1 kg Intake: IV 40 500 600 Invasive Line 1 20 Invasive Line 2 20 Sodium Chloride 0.9% 500 500 ml 500 ml @ 999 mls/hr IV .Q31M [facility] Rx#:[id number] Sodium Chloride 0.9% 500 500 ml 500 ml @ 999 mls/hr IV .Q31M [facility] Rx#:[id number] ceFAZolin 2 gm In Sodium 100 Chloride 0.9% 50 ml @ 100 mls/hr IVPB Q8HR [facility] Rx# :[id number] Intake, IV Titration 213.066 Amount DOBUTamine DRIP 500 mg In 61.281 Dextrose/Water 1 250ml. bag @ 5 MCG/KG/MIN 19.875 mls/hr IV .[id number] [facility] Rx#:[id number] Norepinephrine 4 mg In 151.785 Sodium Chloride 0.9% 250 ml @ 0.03 MCG/KG/MIN 15. 145 mls/hr IV .[id number] [facility] Rx#:[id number] Oral 592 Output: Urine 700 600 345 Male - External 100 Other: Voiding Method External Catheter External Catheter ABP, PAP, CO, CI - Last Documented Arterial Blood Pressure 113/55 - Exam No acute distress, patient's lethargic, but does arouse. Mild increase in respi ratory rate. HEENT examination is grossly unremarkable. Mucous membranes are moist. No oral lesions. Neck supple. Full range of motion. No adenopathy thyromegaly or neck vein distention. Cardiovascular examination reveals regular rhythm rate. S1-S2 normal. No S3 or S4. No discernible murmur noted. Heart sounds are distant. Heart rate 140 bpm. Lungs reveal scattered rhonchi and crackles. No wheezes. Breath sounds are equal bilaterally. Saturations are 96% on 2 L. Abdomen soft bowel sounds are heard. No masses or tenderness. Extremities are intact. No cyanosis clubbing or edema. Skin is without rash or lesion. Neurologic examination is brief but nonfocal. Patient is a bit lethargic. - Labs CBC & Chem 7: 03/27/23 06:59 03/27/23 06:59 Labs: Abnormal Lab Results - Last 24 Hours (Table) 03/25/23 03/26/23 03/26/23 Range/Units 14:42 14:33 21:50 RBC (4.30-5.90) m/uL Hgb (13.0-17.5) gm/dL Hct (39.0-53.0) % Plt Count (150-450) k/uL PT (10.0-12.5) sec INR (<1.2) BUN (9-20) mg/dL Creatinine (0.66-1.25) mg/dL Glucose (74-99) mg/dL POC Glucose (mg/dL) 161 H (70-110) mg/dL Calcium (8.4-10.2) mg/dL Total Protein (6.3-8.2) g/dL Albumin (3.5-5.0) g/dL Urine Protein Trace H (Negative) Urine Glucose (UA) 3+ H (Negative) Urine Blood Small H (Negative) Urine RBC 6 H (0-5) /hpf Urine Bacteria Rare H (None) /hpf Urine Mucus Rare H (None) /hpf Ur Random Sodium <20 L (40-220) mmol/L 03/27/23 03/27/23 03/27/23 Range/Units 04:52 06:59 06:59 RBC 3.97 L (4.30-5.90) m/uL Hgb 12.2 L (13.0-17.5) gm/dL Hct 38.3 L (39.0-53.0) % Plt Count 89 L (150-450) k/uL PT (10.0-12.5) sec INR (<1.2) BUN 86 H (9-20) mg/dL Creatinine 2.14 H (0.66-1.25) mg/dL Glucose 122 H (74-99) mg/dL POC Glucose (mg/dL) 117 H (70-110) mg/dL Calcium 8.1 L (8.4-10.2) mg/dL Total Protein 5.0 L (6.3-8.2) g/dL Albumin 2.7 L (3.5-5.0) g/dL Urine Protein (Negative) Urine Glucose (UA) (Negative) Urine Blood (Negative) Urine RBC (0-5) /hpf Urine Bacteria (None) /hpf Urine Mucus (None) /hpf Ur Random Sodium (40-220) mmol/L 03/27/23 03/27/23 Range/Units 09:40 11:22 RBC (4.30-5.90) m/uL Hgb (13.0-17.5) gm/dL Hct (39.0-53.0) % Plt Count (150-450) k/uL PT 28.6 H (10.0-12.5) sec INR 2.9 H (<1.2) BUN (9-20) mg/dL Creatinine (0.66-1.25) mg/dL Glucose (74-99) mg/dL POC Glucose (mg/dL) 175 H (70-110) mg/dL Calcium (8.4-10.2) mg/dL Total Protein (6.3-8.2) g/dL Albumin (3.5-5.0) g/dL Urine Protein (Negative) Urine Glucose (UA) (Negative) Urine Blood (Negative) Urine RBC (0-5) /hpf Urine Bacteria (None) /hpf Urine Mucus (None) /hpf Ur Random Sodium (40-220) mmol/L Assessment and Plan Assessment: Acute hypoxemic respiratory failure secondary to an acute exacerbation of chronic systolic congestive heart failure. Ejection fraction less than 20%. Hypotension, severe, with transfer to the intensive care unit, for dobutamine and norepinephrine. Severe ischemic cardiomyopathy, status post AICD placement. History of coronary disease with previous stent placements. Chronic atrial fibrillation. History of gout. Hypertension. Hyperlipidemia. Lifelong nonsmoker. Plan: Plan dated 03/27/2023. The patient was transferred to the intensive care unit, for closer monitoring and management. The patient was placed on dobutamine at 2.5 mcg/kg/m, and, for hypotension, is receiving norepinephrine at 14 mcg/m. Labs, x-rays, and medications are reviewed. The patient's overall prognosis remains very guarded. We placed a right radial arterial line today, as well as a left internal jugular triple-lumen catheter, for better monitoring and management. We'll continue to follow make recommendations along the way. Prognosis is certainly guarded. Time with Patient: Greater than 30
[2023-03-27] MEDS: ASPIRIN 81 MG PO SCH (12:02)
--- NOTE | 2023-03-27 12:11 | P.PN ---
Subjective Patient is seen for follow-up for acute kidney injury. He was admitted to the hospital with shortness of breath and increased weakness. Underlying history of CHF with EF of 20%. Patient was maintained on dobutamine and was diuresed. Serum creatinine had improved from 2.2 on initial admission to 1.6 yesterday. A team was called in yesterday for severe hypotension with systolic blood pressure in the 70s. Patient was started on levo fed this morning and it has been increased to 0.2 mcg/kg. Urine output at about 40 mL/h Patient is also in A. fib with RVR and has been started on amiodarone drip. CVP was 15. Patient had a fever of 10 1F yesterday. Objective - Vital Signs Vital signs: Vital Signs Temp 98.1 F 03/27/23 11:15 Pulse 138 H 03/27/23 11:45 Resp 29 H 03/27/23 11:45 BP 98/56 03/27/23 11:15 Pulse Ox 97 03/27/23 11:15 FiO2 Intake & Output 03/26/23 03/27/23 03/27/23 18:59 06:59 18:59 Intake Total 632 500 813.066 Output Total 700 600 345 Balance -68 -100 468.066 Weight 142.1 kg Intake: IV 40 500 600 Invasive Line 1 20 Invasive Line 2 20 Sodium Chloride 0.9% 500 500 ml 500 ml @ 999 mls/hr IV .Q31M [facility] Rx#:[id number] Sodium Chloride 0.9% 500 500 ml 500 ml @ 999 mls/hr IV .Q31M [facility] Rx#:[id number] ceFAZolin 2 gm In Sodium 100 Chloride 0.9% 50 ml @ 100 mls/hr IVPB Q8HR [facility] Rx# :[id number] Intake, IV Titration 213.066 Amount DOBUTamine DRIP 500 mg In 61.281 Dextrose/Water 1 250ml. bag @ 5 MCG/KG/MIN 19.875 mls/hr IV .[id number] [facility] Rx#:[id number] Norepinephrine 4 mg In 151.785 Sodium Chloride 0.9% 250 ml @ 0.03 MCG/KG/MIN 15. 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 - Labs CBC & Chem 7: 03/27/23 06:59 03/27/23 06:59 Labs: Abnormal Lab Results - Last 24 Hours (Table) 03/25/23 03/26/23 03/26/23 Range/Units 14:42 14:33 21:50 RBC (4.30-5.90) m/uL Hgb (13.0-17.5) gm/dL Hct (39.0-53.0) % Plt Count (150-450) k/uL PT (10.0-12.5) sec INR (<1.2) BUN (9-20) mg/dL Creatinine (0.66-1.25) mg/dL Glucose (74-99) mg/dL POC Glucose (mg/dL) 161 H (70-110) mg/dL Calcium (8.4-10.2) mg/dL Total Protein (6.3-8.2) g/dL Albumin (3.5-5.0) g/dL Urine Protein Trace H (Negative) Urine Glucose (UA) 3+ H (Negative) Urine Blood Small H (Negative) Urine RBC 6 H (0-5) /hpf Urine Bacteria Rare H (None) /hpf Urine Mucus Rare H (None) /hpf Ur Random Sodium <20 L (40-220) mmol/L 03/27/23 03/27/23 03/27/23 Range/Units 04:52 06:59 06:59 RBC 3.97 L (4.30-5.90) m/uL Hgb 12.2 L (13.0-17.5) gm/dL Hct 38.3 L (39.0-53.0) % Plt Count 89 L (150-450) k/uL PT (10.0-12.5) sec INR (<1.2) BUN 86 H (9-20) mg/dL Creatinine 2.14 H (0.66-1.25) mg/dL Glucose 122 H (74-99) mg/dL POC Glucose (mg/dL) 117 H (70-110) mg/dL Calcium 8.1 L (8.4-10.2) mg/dL Total Protein 5.0 L (6.3-8.2) g/dL Albumin 2.7 L (3.5-5.0) g/dL Urine Protein (Negative) Urine Glucose (UA) (Negative) Urine Blood (Negative) Urine RBC (0-5) /hpf Urine Bacteria (None) /hpf Urine Mucus (None) /hpf Ur Random Sodium (40-220) mmol/L 03/27/23 03/27/23 Range/Units 09:40 11:22 RBC (4.30-5.90) m/uL Hgb (13.0-17.5) gm/dL Hct (39.0-53.0) % Plt Count (150-450) k/uL PT 28.6 H (10.0-12.5) sec INR 2.9 H (<1.2) BUN (9-20) mg/dL Creatinine (0.66-1.25) mg/dL Glucose (74-99) mg/dL POC Glucose (mg/dL) 175 H (70-110) mg/dL Calcium (8.4-10.2) mg/dL Total Protein (6.3-8.2) g/dL Albumin (3.5-5.0) g/dL Urine Protein (Negative) Urine Glucose (UA) (Negative) Urine Blood (Negative) Urine RBC (0-5) /hpf Urine Bacteria (None) /hpf Urine Mucus (None) /hpf Ur Random Sodium (40-220) mmol/L Assessment and Plan Assessment: 1. Acute kidney injury, ATN, from hypotension and cardiorenal syndrome curren tly nonoliguric. History of NSAID use prior to admission. No obstruction noted on ultrasound. UA reveals 1+ protein trace blood 2. Acute on chronic systolic CHF with EF of 20% with mild to moderate tricuspid regurgitation 3. Hypotension multifactorial including underlying infection as well as severe cardiomyopathy, maintained on pressors and antibiotics 4. A. fib with RVR maintained on amiodarone drip 5. Cellulitis left lower extremity with sepsis 6. Metabolic acidosis associated with acute kidney injury Plan: IV fluid bolus Continue with empiric antibiotics Hold farxiga for now. Hold Lasix Avoid nephrotoxic agents Check random cortisol level
[2023-03-27] MEDS: AMIODARONE 450 MG in DEXTROSE 5% IN WATER 250 ML IV SCH ×2 (16:02)
[2023-03-27 16:10] LABS: ABG Base Excess -3.5 mmol/L; ABG HCO3 21 mmol/L (21-25); ABG Oxygen Saturation 95.5 % (94-97); ABG PCO2 30 mmHg (35-45); ABG PH 7.44 (7.35-7.45); ABG PO2 72 mmHg (83-108); ABG TCO2 22 mmol/L (19-24)
[2023-03-27] MEDS: LORazepam 2 MG/ML INJ IV PRN (16:33)
[2023-03-27] MEDS: METOPROLOL TARTRATE 25 MG TAB PO SCH ×2 (16:33→21:26)
[2023-03-27] MEDS: TAMSULOSIN 0.4 MG CAP.ER.24H PO SCH (16:33)
[2023-03-27 16:41] LABS: Glucose,Whole Blood 159 mg/dL (70-110)
[2023-03-28] MEDS: LORazepam 2 MG/ML INJ IV PRN ×3 (01:43→11:12)
[2023-03-28] MEDS: DOBUTamine DRIP 500 MG in DEXTROSE/WATER 1 250ML.BAG IV SCH (01:50)
[2023-03-28 03:23] LABS: ABG Base Excess -4.2 mmol/L; ABG HCO3 19 mmol/L (21-25); ABG Oxygen Saturation 98.9 % (94-97); ABG PCO2 26 mmHg (35-45); ABG PH 7.48 (7.35-7.45); ABG PO2 131 mmHg (83-108); ABG TCO2 20 mmol/L (19-24); Allen Test Performed? Yes
[2023-03-28] MEDS ORDERED: METOPROLOL TARTRATE 5 MG/5 ML VIAL IVP STA (03:32)
[2023-03-28] MEDS: NOREPINEPHRINE 32 MG in SODIUM CHLORIDE 0.9% 218 ML IV SCH ×2 (04:59→17:39)
--- NOTE | 2023-03-28 05:42 | XR ---
EXAM: XR Chest, 1 View CLINICAL HISTORY: ITS.REASON XR Reason: CHF TECHNIQUE: Frontal view of the chest. COMPARISON: Yesterday FINDINGS: Lungs: Mild diffuse interstitial opacities throughout both lungs. Pleural space: Unremarkable. No pneumothorax. Heart: Cardiomegaly. Bones/joints: Unchanged. Tubes, lines and devices: Left pacer and jugular central venous catheter are again noted. IMPRESSION: No substantial change.
[2023-03-28 05:55] LABS: African American GFR (CKD) 48 (>60 ml/min/1.73 sqM); Anion Gap 13 mmol/L; Blood Urea Nitrogen 85 mg/dL (9-20); Calcium 8.2 mg/dL (8.4-10.2); Carbon Dioxide 17 mmol/L (22-30); Chloride 109 mmol/L (98-107); Glucose 129 mg/dL (74-99); Non-African American GFR(CKD) 41 (>60 ml/min/1.73 sqM); Sodium 139 mmol/L (137-145)
[2023-03-28 06:00] LABS: Potassium 4.5 mmol/L (3.5-5.1)
[2023-03-28 06:12] LABS: INR 2.1 (<1.2); Prothrombin Time 20.8 sec (10.0-12.5)
[2023-03-28 07:15] LABS: HCT 41.1 % (39.0-53.0); HGB 13.5 gm/dL (13.0-17.5); MCHC 32.8 g/dL (31.0-37.0); MCV 94.6 fL (80.0-100.0); Mean Platelet Volume 12.2; Platelet Count 115 k/uL (150-450); RBC 4.35 m/uL (4.30-5.90)
[2023-03-28] MEDS: AMIODARONE 450 MG in DEXTROSE 5% IN WATER 250 ML IV SCH ×2 (07:35)
[2023-03-28] MEDS: IPRATROPIUM-ALBUTEROL 3 ML NEB INHALATION SCH ×4 (08:55→20:32)
[2023-03-28] MEDS: PANTOPRAZOLE 40 MG/10 ML VIAL IVP SCH (08:58)
[2023-03-28] MEDS: ASPIRIN 81 MG PO SCH (08:58)
[2023-03-28] MEDS: CEFEPIME 2 GM in SODIUM CHLORIDE 0.9% 100 ML IVPB SCH ×2 (08:58→20:27)
[2023-03-28] MEDS ORDERED: DILTIAZEM 5 MG/ML 5 ML VIAL IVP STA (09:19)
[2023-03-28 09:20] LABS: Band Neutrophils % 6 %; Lymphocytes # (M) 0.63 k/uL (1.0-4.8); Metamyelocytes # (M) 0.21 k/uL (0); Metamyelocytes % 1 %; Monocytes # (M) 1.68 k/uL (0-1.0); Myelocytes # (M) 0.21 k/uL (0); Myelocytes % 1 %; Neutrophils % (M) 83 %; Nucleated Red Blood Cells 1 /100 WBC (0-0); Total Cells Counted 200
[2023-03-28 09:24] LABS: Dohle Bodies Present; Large Platelets Present
[2023-03-28] MEDS: VASOPRESSIN 60 UNIT in SODIUM CHLORIDE 0.9% 150 ML IV SCH (09:40)
[2023-03-28] MEDS: DILTIAZEM 125 MG in SODIUM CHLORIDE 0.9% 100 ML IV SCH (10:50)
--- NOTE | 2023-03-28 11:18 | P.PN ---
Subjective Progress Note Date: 03/28/23 Principal diagnosis: Hypotension. This is a 78-year-old male patient with a known history of atrial fibrillation anticoagulated with warfarin, congestive heart failure, gout, hyperlipidemia, hypertension, coronary artery disease with previous stenting, ischemic cardiomyopathy with AICD placement. Lifelong nonsmoker. He presented to the emergency room yesterday with a 3 to four-day history of increasing shortness of breath, weakness, lower extremity swelling. He was to be on Lasix but has been somewhat noncompliant with that according to the patient's . His x-ray rev ealed evidence of cardiomegaly with mild pulmonary vascular congestion. Diffuse initially increased interstitial markings suspicious for pulmonary edema/CHF. Echocardiogram revealed severely impaired left ventricle systolic function with ejection fraction less than 20%. Anteroapical akinesis with severe hypokinesis and the rest of the segments. White count 6.8. Hemoglobin 12.0. INR 3.3. Emilio telets 76,000. Sodium 137. Potassium 4.9. Bicarb 19. BUN 70. Creatinine 1.62. Glucose 132. He is seen today in consultation on the selective care unit. Currently resting quite flat in bed. Awake and alert in no acute distress. Maintaining O2 saturations in the 90s on 2 L/m per nasal cannula. He is breathing a bit easier today compared to yesterday. He is currently on Lasix 40 mg IV every 8 hours. He is initiated on Farxiga. Progress note dated 03/27/2023. This is a 78-year-old male who is seen today in the intensive care unit, room 267. He was admitted to the hospital on March 25, with a diagnosis of acute kidney injury, congestive heart failure, and atrial fibrillation. The patient was transferred down to the intensive care unit, by our nurse practitioner, because of severe hypotension. On dobutamine by the hospital service, and, norepinephrine was added by cardiology. Currently, he's on 2 L nasal cannula, receiving dobutamine at 2.5 mcg/kg/m, and is on norepinephrine at 14 mcg/m. The patient does not have adequate IV access, so I place a right radial art line, and a left internal jugular triple-lumen catheter. White count 6.4, hemoglobin 12.2, hematocrit 38.3, and platelet count is 89,000. PTT was 28.6 with an INR of 2.9. Sodium 138, potassium 4.8, chlorides 105, CO2 22, anion gap 11, BUN 86, and creatinine 2.14. Albumin 2.7. Chest x-ray shows improving interstitial edema. Progress note dated 03/28/2023. 78-year-old male seen in the intensive care unit, room 267. The patient was admitted to the hospital on March 25, with a diagnosis of acute kidney injury, congestive heart failure, and atrial fibrillation. The patient was transferred down to the intensive care unit, because of hypotension. Dobutamine was started by the hospitalist service, and subsequent to that, with the development of hypotension, norepinephrine, was added, and now vasopressin. Currently, the patient is on 4 L by nasal cannula. He continues on amiodarone at 0.5 mg/m, dobutamine at 2.5 mcg/kg/m, norepinephrine at 28 mcg/m, and vasopressin at 0.04 units per minute. His pro-calcitonin level was quite elevated, and there were gram-negative bacilli, in the blood. The patient is currently on cefepime. BiPAP settings are 12/5, and 40%. He spent most of the night on BiPAP. CODE STATUS has been addressed, but I've asked the nurse to recheck to the family a gain. White count is 21,000, hemoglobin 13.5, hematocrit 41.1, with a platelet count of 115,000. PT is 20.8 with an INR 2.1. Sodium 139, potassium 4.5, chlorides 109, CO2 17, anion gap 13, BUN 85, and creatinine 1.59. Blood gases done last night show pO2 of 131, pCO2 26, and a pH is 7.48. These blood gases are consistent with a combined respiratory alkalosis and mild metabolic acidosis. Chest x-ray shows diffuse bilateral infiltrates, mostly interstitial in nature. Objective - Vital Signs Vital signs: Vital Signs Temp 98.7 F 03/28/23 08:00 Pulse 144 H 03/28/23 10:00 Resp 28 H 03/28/23 10:00 BP 91/52 03/28/23 10:00 Pulse Ox 96 03/28/23 10:00 FiO2 40 03/28/23 07:15 Intake & Output 03/27/23 03/28/23 03/28/23 18:59 06:59 18:59 Intake Total 1171.931 381.634 523.822 Output Total 1195 750 425 Balance -23.069 -368.366 98.822 Weight 146.9 kg Intake: IV 650 50 100 Sodium Chloride 0.9% 500 500 ml 500 ml @ 999 mls/hr IV .Q31M [facility] Rx#:[id number] ceFAZolin 2 gm In Sodium 150 50 100 Chloride 0.9% 50 ml @ 100 mls/hr IVPB Q8HR [facility] Rx# :[id number] Intake, IV Titration 471.931 331.634 373.822 Amount Amiodarone 360 mg In 179.443 Dextrose 5% in Water 200 ml @ 1 MG/MIN 33.333 mls/ hr IV .Q6H [facility] Rx#: [id number] Amiodarone 450 mg In 291.668 Dextrose 5% in Water 250 ml @ 0.5 MG/MIN 16.667 mls/hr IV .Q15H [facility] Rx#: [id number] DOBUTamine DRIP 500 mg In 172.59 82.154 Dextrose/Water 1 250ml. bag @ 2.5 MCG/KG/MIN 9. 938 mls/hr IV .Q24H [facility] Rx#:[id number] DOBUTamine DRIP 500 mg In 61.281 Dextrose/Water 1 250ml. bag @ 5 MCG/KG/MIN 19.875 mls/hr IV .[id number] [facility] Rx#:[id number] Norepinephrine 32 mg In 79.422 159.044 Sodium Chloride 0.9% 218 ml @ 0.04 MCG/KG/MIN 2. 664 mls/hr IV .Q24H [facility] Rx#:[id number] Norepinephrine 4 mg In 151.785 Sodium Chloride 0.9% 250 ml @ 0.03 MCG/KG/MIN 15. 145 mls/hr IV .[id number] [facility] Rx#:[id number] Oral 50 50 Output: Urine 1195 750 425 Male - External 100 Other: Voiding Method Indwelling Catheter Indwelling Catheter ABP, PAP, CO, CI - Last Documented Arterial Blood Pressure 106/52 - Exam No acute distress, patient's lethargic, but does arouse. Mild increase in respiratory rate. HEENT examination is grossly unremarkable. Mucous membranes are moist. No oral lesions. Neck supple. Full range of motion. No adenopathy thyromegaly or neck vein distention. Cardiovascular examination reveals regular rhythm rate. S1-S2 normal. No S3 or S4. No discernible murmur noted. Heart sounds are distant. Heart rate 144 bpm. Lungs reveal scattered rhonchi and crackles. No wheezes. Breath sounds are equal bilaterally. Saturations are 96% on 4 L. Abdomen soft bowel sounds are heard. No masses or tenderness. Extremities are intact. No cyanosis clubbing or edema. Skin is without rash or lesion. Neurologic examination is brief but nonfocal. Patient is a bit lethargic. - Labs CBC & Chem 7: 03/28/23 05:36 03/28/23 05:36 Labs: Abnormal Lab Results - Last 24 Hours (Table) 03/27/23 03/27/23 03/27/23 Range/Units 09:40 11:22 16:08 WBC (3.8-10.6) k/uL Plt Count (150-450) k/uL Neutrophils # (Manual) (1.3-7.7) k/uL Lymphocytes # (Manual) (1.0-4.8) k/uL Monocytes # (Manual) (0-1.0) k/uL Metamyelocytes # (Man) (0) k/uL Myelocytes # (Manual) (0) k/uL Nucleated RBCs (0-0) /100 WBC PT (10.0-12.5) sec INR (<1.2) ABG pH (7.35-7.45) ABG pCO2 30 L (35-45) mmHg ABG pO2 72 L (83-108) mmHg ABG HCO3 (21-25) mmol/L ABG O2 Saturation (94-97) % Chloride (98-107) mmol/L Carbon Dioxide (22-30) mmol/L BUN (9-20) mg/dL Creatinine (0.66-1.25) mg/dL Glucose (74-99) mg/dL POC Glucose (mg/dL) 175 H (70-110) mg/dL Calcium (8.4-10.2) mg/dL Procalcitonin 25.00 H (0.02-0.09) ng/mL 03/27/23 03/28/23 03/28/23 Range/Units 16:37 03:18 05:36 WBC (3.8-10.6) k/uL Plt Count (150-450) k/uL Neutrophils # (Manual) (1.3-7.7) k/uL Lymphocytes # (Manual) (1.0-4.8) k/uL Monocytes # (Manual) (0-1.0) k/uL Metamyelocytes # (Man) (0) k/uL Myelocytes # (Manual) (0) k/uL Nucleated RBCs (0-0) /100 WBC PT 20.8 H (10.0-12.5) sec INR 2.1 H (<1.2) ABG pH 7.48 H (7.35-7.45) ABG pCO2 26 L (35-45) mmHg ABG pO2 131 H (83-108) mmHg ABG HCO3 19 L (21-25) mmol/L ABG O2 Saturation 98.9 H (94-97) % Chloride (98-107) mmol/L Carbon Dioxide (22-30) mmol/L BUN (9-20) mg/dL Creatinine (0.66-1.25) mg/dL Glucose (74-99) mg/dL POC Glucose (mg/dL) 159 H (70-110) mg/dL Calcium (8.4-10.2) mg/dL Procalcitonin (0.02-0.09) ng/mL 03/28/23 03/28/23 Range/Units 05:36 05:36 WBC 21.0 H (3.8-10.6) k/uL Plt Count 115 L (150-450) k/uL Neutrophils # (Manual) 18.60 H (1.3-7.7) k/uL Lymphocytes # (Manual) 0.63 L (1.0-4.8) k/uL Monocytes # (Manual) 1.68 H (0-1.0) k/uL Metamyelocytes # (Man) 0.21 H (0) k/uL Myelocytes # (Manual) 0.21 H (0) k/uL Nucleated RBCs 1 H (0-0) /100 WBC PT (10.0-12.5) sec INR (<1.2) ABG pH (7.35-7.45) ABG pCO2 (35-45) mmHg ABG pO2 (83-108) mmHg ABG HCO3 (21-25) mmol/L ABG O2 Saturation (94-97) % Chloride 109 H (98-107) mmol/L Carbon Dioxide 17 L (22-30) mmol/L BUN 85 H (9-20) mg/dL Creatinine 1.59 H (0.66-1.25) mg/dL Glucose 129 H (74-99) mg/dL POC Glucose (mg/dL) (70-110) mg/dL Calcium 8.2 L (8.4-10.2) mg/dL Procalcitonin (0.02-0.09) ng/mL Microbiology - Last 24 Hours (Table) 03/27/23 09:12 Blood Culture Gram Stain - Preliminary Blood Assessment and Plan Assessment: Acute hypoxemic respiratory failure secondary to an acute exacerbation of chronic systolic congestive heart failure. Ejection fraction less than 20%. Hypotension, severe, with transfer to the intensive care unit, for dobutamine and norepinephrine. Likely sepsis, secondary to gram-negative bacteremia. Severe ischemic cardiomyopathy, status post AICD placement. History of coronary disease with previous stent placements. Chronic atrial fibrillation. History of gout. Hypertension. Hyperlipidemia. Lifelong nonsmoker. Plan: Plan dated 03/27/2023. The patient was transferred to the intensive care unit, for closer monitoring and management. The patient was placed on dobutamine at 2.5 mcg/kg/m, and, for hypotension, is receiving norepinephrine at 14 mcg/m. Labs, x-rays, and medications are reviewed. The patient's overall prognosis remains very guarded. We placed a right radial arterial line today, as well as a left internal j ugular triple-lumen catheter, for better monitoring and management. We'll continue to follow make recommendations along the way. Prognosis is certainly guarded. Plan dated 03/28/2023. The patient is currently on cefepime, for gram-negative bacilli discovered in his blood. The patient is on 4 L of oxygen by nasal cannula. The patient can go to BiPAP, with settings of 12/5, and 40%. We'll add vasopressin 0.04 units per minute to the patient's regimen. He is already on norepinephrine at 20 mcg/m. He is also receiving amiodarone 0.5 mg/m, and dobutamine 2.5 mcg/kg/m. We'll ask cardiology to stop the dobutamine. Labs, x-rays, medications are reviewed. The patient's pro-calcitonin level was quite high at 25. Prognosis is certainly guarded. The patient may end up on mechanical ventilation. We'll discuss CODE STATUS with the family again. Time with Patient: Greater than 30
--- NOTE | 2023-03-28 11:53 | P.PN ---
Subjective Patient is seen for follow-up for acute kidney injury. He was admitted to the hospital with shortness of breath and increased weakness. Underlying history of CHF with EF of 20%. Patient was maintained on dobutamine and was diuresed. Patient was transferred to the ICU due to significant hypotension and shortness of breath. He is currently maintained on pressors. Patient is also in A. fib with RVR with heart rate staying in the 140s. Status post IV Lopressor and amiodarone drip and started on Cardizem drip this morning. Urine output at about 40 mL/h Status post fluid bolus. Blood pressure remains low and maintained on high-dose pressors Blood cultures are growing gram-negative bacilli. Started on BiPAP this morning Objective - Vital Signs Vital signs: Vital Signs Temp 98.7 F 03/28/23 08:00 Pulse 144 H 03/28/23 10:00 Resp 28 H 03/28/23 10:00 BP 91/52 03/28/23 10:00 Pulse Ox 96 03/28/23 10:00 FiO2 40 03/28/23 07:15 Intake & Output 03/27/23 03/28/23 03/28/23 18:59 06:59 18:59 Intake Total 1171.931 381.634 523.822 Output Total 1195 750 425 Balance -23.069 -368.366 98.822 Weight 146.9 kg Intake: IV 650 50 100 Sodium Chloride 0.9% 500 500 ml 500 ml @ 999 mls/hr IV .Q31M [facility] Rx#:[id number] ceFAZolin 2 gm In Sodium 150 50 100 Chloride 0.9% 50 ml @ 100 mls/hr IVPB Q8HR [facility] Rx# :[id number] Intake, IV Titration 471.931 331.634 373.822 Amount Amiodarone 360 mg In 179.443 Dextrose 5% in Water 200 ml @ 1 MG/MIN 33.333 mls/ hr IV .Q6H [facility] Rx#: [id number] Amiodarone 450 mg In 291.668 Dextrose 5% in Water 250 ml @ 0.5 MG/MIN 16.667 mls/hr IV .Q15H [facility] Rx#: [id number] DOBUTamine DRIP 500 mg In 172.59 82.154 Dextrose/Water 1 250ml. bag @ 2.5 MCG/KG/MIN 9. 938 mls/hr IV .Q24H [facility] Rx#:[id number] DOBUTamine DRIP 500 mg In 61.281 Dextrose/Water 1 250ml. bag @ 5 MCG/KG/MIN 19.875 mls/hr IV .[id number] [facility] Rx#:[id number] Norepinephrine 32 mg In 79.422 159.044 Sodium Chloride 0.9% 218 ml @ 0.04 MCG/KG/MIN 2. 664 mls/hr IV .Q24H [facility] Rx#:[id number] Norepinephrine 4 mg In 151.785 Sodium Chloride 0.9% 250 ml @ 0.03 MCG/KG/MIN 15. 145 mls/hr IV .[id number] [facility] Rx#:[id number] Oral 50 50 Output: Urine 1195 750 425 Male - External 100 Other: Voiding Method Indwelling Catheter Indwelling Catheter ABP, PAP, CO, CI - Last Documented Arterial Blood Pressure 106/52 - Exam Patient is awake, maintained on BiPAP He is weak Examination of the heart S1 and S2 Examination of the lungs decreased breath sounds at the bases Abdomen is soft nontender Examination of lower extremities shows edema 1+ bilaterally, erythema on the left leg seems to have increased [employer] exam grossly intact - Labs CBC & Chem 7: 03/28/23 05:36 03/28/23 05:36 Labs: Abnormal Lab Results - Last 24 Hours (Table) 03/27/23 03/27/23 03/27/23 Range/Units 09:40 16:08 16:37 WBC (3.8-10.6) k/uL Plt Count (150-450) k/uL Neutrophils # (Manual) (1.3-7.7) k/uL Lymphocytes # (Manual) (1.0-4.8) k/uL Monocytes # (Manual) (0-1.0) k/uL Metamyelocytes # (Man) (0) k/uL Myelocytes # (Manual) (0) k/uL Nucleated RBCs (0-0) /100 WBC PT (10.0-12.5) sec INR (<1.2) ABG pH (7.35-7.45) ABG pCO2 30 L (35-45) mmHg ABG pO2 72 L (83-108) mmHg ABG HCO3 (21-25) mmol/L ABG O2 Saturation (94-97) % Chloride (98-107) mmol/L Carbon Dioxide (22-30) mmol/L BUN (9-20) mg/dL Creatinine (0.66-1.25) mg/dL Glucose (74-99) mg/dL POC Glucose (mg/dL) 159 H (70-110) mg/dL Calcium (8.4-10.2) mg/dL Procalcitonin 25.00 H (0.02-0.09) ng/mL 03/28/23 03/28/23 03/28/23 Range/Units 03:18 05:36 05:36 WBC 21.0 H (3.8-10.6) k/uL Plt Count 115 L (150-450) k/uL Neutrophils # (Manual) 18.60 H (1.3-7.7) k/uL Lymphocytes # (Manual) 0.63 L (1.0-4.8) k/uL Monocytes # (Manual) 1.68 H (0-1.0) k/uL Metamyelocytes # (Man) 0.21 H (0) k/uL Myelocytes # (Manual) 0.21 H (0) k/uL Nucleated RBCs 1 H (0-0) /100 WBC PT 20.8 H (10.0-12.5) sec INR 2.1 H (<1.2) ABG pH 7.48 H (7.35-7.45) ABG pCO2 26 L (35-45) mmHg ABG pO2 131 H (83-108) mmHg ABG HCO3 19 L (21-25) mmol/L ABG O2 Saturation 98.9 H (94-97) % Chloride (98-107) mmol/L Carbon Dioxide (22-30) mmol/L BUN (9-20) mg/dL Creatinine (0.66-1.25) mg/dL Glucose (74-99) mg/dL POC Glucose (mg/dL) (70-110) mg/dL Calcium (8.4-10.2) mg/dL Procalcitonin (0.02-0.09) ng/mL 03/28/23 Range/Units 05:36 WBC (3.8-10.6) k/uL Plt Count (150-450) k/uL Neutrophils # (Manual) (1.3-7.7) k/uL Lymphocytes # (Manual) (1.0-4.8) k/uL Monocytes # (Manual) (0-1.0) k/uL Metamyelocytes # (Man) (0) k/uL Myelocytes # (Manual) (0) k/uL Nucleated RBCs (0-0) /100 WBC PT (10.0-12.5) sec INR (<1.2) ABG pH (7.35-7.45) ABG pCO2 (35-45) mmHg ABG pO2 (83-108) mmHg ABG HCO3 (21-25) mmol/L ABG O2 Saturation (94-97) % Chloride 109 H (98-107) mmol/L Carbon Dioxide 17 L (22-30) mmol/L BUN 85 H (9-20) mg/dL Creatinine 1.59 H (0.66-1.25) mg/dL Glucose 129 H (74-99) mg/dL POC Glucose (mg/dL) (70-110) mg/dL Calcium 8.2 L (8.4-10.2) mg/dL Procalcitonin (0.02-0.09) ng/mL Microbiology - Last 24 Hours (Table) 03/27/23 09:12 Blood Culture Gram Stain - Preliminary Blood Assessment and Plan Assessment: 1. Acute kidney injury, ATN, from hypotension, infection, currently nonoliguric. History of NSAID use prior to admission. No obstruction noted on ultrasound. UA reveals 1+ protein trace blood 2. Acute on chronic systolic CHF with EF of 20% with mild to moderate tricuspid regurgitation 3. Hypotension multifactorial including underlying infection as well as severe cardiomyopathy, maintained on pressors and antibiotics 4. A. fib with RVR, started Cardizem drip today 5. Cellulitis left lower extremity with sepsis 6. Metabolic acidosis associated with acute kidney injury Plan: Add IV bicarb Hold farxiga for now. Avoid nephrotoxic agents
--- NOTE | 2023-03-28 12:37 | PN ---
PROGRESS NOTE SUBJECTIVE: Iker is a 78-year-old gentleman with ischemic cardiomyopathy with severe LV dysfunction, chronic systolic heart failure, acute on chronic renal failure, and atrial fibrillation, who is in the ICU with hypotension and atrial fibrillation with poorly controlled ventricular rate. We tried him on IV intermittent IV Lopressor, oral Lopressor, intravenous amiodarone without any response. Heart rate remains elevated. He has cellulitis of the left leg and his blood cultures are positive and currently on antibiotics and hopefully once the infection improves, he is going to do better. I will try him on some Cardizem to see if I can control his heart rate better. Dobutamine is going to be stopped, and his pressors are being changed by the [employer]. OBJECTIVE: VITAL SIGNS: Heart rate is elevated at 140 beats per minute. Blood pressure is 106/50, respiratory rate is 18, O2 saturation is 96% on 4 L. CHEST: Reveals diminished air entry with occasional rhonchi. HEART: Reveals first and second heart sounds, irregular rhythm. EXTREMITIES: Reveals bilateral 1+ pitting edema. There is cellulitis of the right leg with bilateral edema. LABORATORY DATA: Labs show that the hemoglobin is 13.5, white cell count is 21, which is a significant jump from 6.4. Potassium is 4.5, creatinine is 1.5 with a BUN of 85. ASSESSMENT: 1. Atrial fibrillation with rapid ventricular rate. 2. Severe hypotension. 3. Cellulitis with septicemia. PLAN: I will try Cardizem and see if I can control the heart rate better and continue the Coumadin. MMODL / IJN: [id number] /
[2023-03-28] MEDS: ACETAMINOPHEN IV (For NPO) 1,000 MG in EMPTY BAG 1 BAG IVPB PRN (12:39)
--- NOTE | 2023-03-28 13:14 | CDI ---
Documentation Clarification Form Date: 03/28/2023 12:50:41 PM From: Stephania Rene RN CCDS Phone: [phone] Admit Date: 03/25/2023 11:28:00 AM Patient Name: Iker Layton Visit Number: [id number] Discharge Date: ATTENTION: The Clinical Documentation Specialists (CDI) and [facility] Coding Staff appreciate your assistance in clarifying documentation. Please respond to the clarification below the line at the bottom and electronically sign. The CDI & [facility] Coding staff will review the response and follow-up if needed. Please note: Queries are made part of the Legal Health Record. If you have any questions, please contact the author of this message via ITS. Dr. Roman Hartman The patient has Cellulitis left lower extremity with sepsis, 03/27, Nephrology. Based on this information and the findings below, is there an additional diagnosis that is clinically appropriate for this patient? History/Risk Factors: 78-year-old male presented to the ED for shortness of breath weakness and lower extremity swelling. Medical History: Atiral fibrillation, CHF, HTN and Ischemic cardiomyopathy. 03/25, H&P. Clinical Indicators: Captain Room Service note, 03/28: Likely sepsis, secondary to gram negative bacteremia WBC, 03/25: Lactic acid, 03/25: Blood cultures 03/27: Gram negative bacilli Vitals signs, 03/25: B/P 79/48; HR 116; RR 32; SpO2 97% 3L nasal cannula Treatment: 03/25 Dobutamine IV d/cd 03/25; 03/27 Dobutamine IV d/c 03/28; 03/27 Norepinphrine IV dc 03/28; 03/28 Vasopressin IV; ID Consult: Antibiotics: 03/27 Cefazolin ivpb d/c 03/27; IV Bolus: 03/25 0.9NS 500cc IV bolus x 2; 03/27 0.9ns 500cc bolus x 2; 03/28 Cefepime IVPB; Is there an additional diagnosis that is clinically appropriate for this patient? [ x ] Sepsis with septic shock, present on admission [ ] Sepsis, developed during stay, not present on admission [ ] Other, please specify [ ] Unable to determine SIRS Criteria: 2 or more of the following may indicate SIRS Temperature < 96.8F (36C) or > 101.0F (38.3C) Heart Rate > 90 bpm Respiratory Rate > 20 breaths/min or PaCO2 < 32 mmHg White Blood Cell Count > 12,000 or < 4,000 cells/mm3 or > 10% bands (Template Last Reviewed: May 2022) MTDD
[2023-03-28] MEDS: DEXTROSE 5% IN WATER 1,000 ML with SODIUM BICARB (1 MEQ/ML) 150 ML IV SCH (13:53)
--- NOTE | 2023-03-28 16:25 | P.PN ---
Subjective Progress Note Date: 03/27/23 patient is a 78-year-old gentleman with past medical history significant for hypertension, hyperlipidemia, myocardial infarction, AICD implantation, cataracts, atrial fibrillation with ablation presented to the hospital for not feeling well for the last few days. Patient stated that 2 days ago he started feeling lethargic and weak. There was no complain of any fever but patient felt cold. Complaining of shortness of breath at rest. Denies any chest pain. Denies any nausea, vomiting abdominal pain. Patient has chronic swelling of left lower extremity. Complaining of lightheadedness. Denied any orthopnea or PND. Because symptoms, patient came to the ER Initial lab work done in the ER showed WBC 9.5, hemoglobin 13.2, platelet count 58 sodium 1:30, potassium 5.3, BUN 64, creatinine 2.09 EKG done in the ER Chest x-ray done in the ER showed cardiomegaly with stable left chest AICD, mild pulmonary vascular congestion, diffuse increased interstitial markings related to edema versus infiltrates Patient admitted to medicine service 03/26. Patient seen and examined. Still complaining of shortness of breath on exertion. Denies any chest pain. Denies any nausea or vomiting. Currently on 2 L of oxygen On 03/27/2023 patient was seen and examined in the ICU he is somnolent, currently maintained on BiPAP, there is no fever or chills no headache or dizziness no chest pain, no cough no nausea or vomiting no abdominal pain no diarrhea and no urinary symptoms Objective - Vital Signs Vital signs: Vital Signs Temp 99.0 F 03/27/23 15:15 Pulse 142 H 03/27/23 16:00 Resp 34 H 03/27/23 16:00 BP 96/71 03/27/23 16:00 Pulse Ox 98 03/27/23 16:00 FiO2 40 03/27/23 16:23 Intake & Output 03/26/23 03/27/23 03/27/23 18:59 06:59 18:59 Intake Total 723 471 5085.642 Output Total 700 600 915 Balance -68 -100 167.642 Weight 142.1 kg Intake: IV 40 500 600 Invasive Line 1 20 Invasive Line 2 20 Sodium Chloride 0.9% 500 500 ml 500 ml @ 999 mls/hr IV .Q31M [facility] Rx#:[id number] Sodium Chloride 0.9% 500 500 ml 500 ml @ 999 mls/hr IV .Q31M [facility] Rx#:[id number] ceFAZolin 2 gm In Sodium 100 Chloride 0.9% 50 ml @ 100 mls/hr IVPB Q8HR [facility] Rx# :[id number] Intake, IV Titration 432.642 Amount Amiodarone 360 mg In 179.443 Dextrose 5% in Water 200 ml @ 1 MG/MIN 33.333 mls/ hr IV .Q6H [facility] Rx#: [id number] DOBUTamine DRIP 500 mg In 61.281 Dextrose/Water 1 250ml. bag @ 5 MCG/KG/MIN 19.875 mls/hr IV .[id number] [facility] Rx#:[id number] Norepinephrine 32 mg In 40.133 Sodium Chloride 0.9% 218 ml @ 0.03 MCG/KG/MIN 1. 998 mls/hr IV .Q24H [facility] Rx#:[id number] Norepinephrine 4 mg In 151.785 Sodium Chloride 0.9% 250 ml @ 0.03 MCG/KG/MIN 15. 145 mls/hr IV .[id number] [facility] Rx#:[id number] Oral 592 50 Output: Urine 700 600 915 Male - External 100 Other: Voiding Method External Catheter External Catheter ABP, PAP, CO, CI - Last Documented Arterial Blood Pressure 100/52 - Exam In general patient is alert and oriented x 3 in no distress HEENT head normocephalic and atraumatic Neck is supple no JVD no goiter no lymphadenopathy no carotid bruit Chest examination is clear to auscultation no crackles no wheezing Cardiac exam reveals regular heart sounds S1 and S2 no gallops no murmurs Abdomen is soft nontender no organomegaly with normal bowel sounds Extremity exam reveals no edema no cyanosis or clubbing Neurological examination reveals no gross focal deficits - Labs CBC & Chem 7: 03/28/23 05:36 03/28/23 05:36 Labs: Abnormal Lab Results - Last 24 Hours (Table) 03/25/23 03/26/23 03/27/23 Range/Units 14:42 21:50 04:52 RBC (4.30-5.90) m/uL Hgb (13.0-17.5) gm/dL Hct (39.0-53.0) % Plt Count (150-450) k/uL PT (10.0-12.5) sec INR (<1.2) ABG pCO2 (35-45) mmHg ABG pO2 (83-108) mmHg BUN (9-20) mg/dL Creatinine (0.66-1.25) mg/dL Glucose (74-99) mg/dL POC Glucose (mg/dL) 161 H 117 H (70-110) mg/dL Calcium (8.4-10.2) mg/dL Total Protein (6.3-8.2) g/dL Albumin (3.5-5.0) g/dL Procalcitonin (0.02-0.09) ng/mL Ur Random Sodium <20 L (40-220) mmol/L 03/27/23 03/27/23 03/27/23 Range/Units 06:59 06:59 09:40 RBC 3.97 L (4.30-5.90) m/uL Hgb 12.2 L (13.0-17.5) gm/dL Hct 38.3 L (39.0-53.0) % Plt Count 89 L (150-450) k/uL PT 28.6 H (10.0-12.5) sec INR 2.9 H (<1.2) ABG pCO2 (35-45) mmHg ABG pO2 (83-108) mmHg BUN 86 H (9-20) mg/dL Creatinine 2.14 H (0.66-1.25) mg/dL Glucose 122 H (74-99) mg/dL POC Glucose (mg/dL) (70-110) mg/dL Calcium 8.1 L (8.4-10.2) mg/dL Total Protein 5.0 L (6.3-8.2) g/dL Albumin 2.7 L (3.5-5.0) g/dL Procalcitonin (0.02-0.09) ng/mL Ur Random Sodium (40-220) mmol/L 03/27/23 03/27/23 03/27/23 Range/Units 09:40 11:22 16:08 RBC (4.30-5.90) m/uL Hgb (13.0-17.5) gm/dL Hct (39.0-53.0) % Plt Count (150-450) k/uL PT (10.0-12.5) sec INR (<1.2) ABG pCO2 30 L (35-45) mmHg ABG pO2 72 L (83-108) mmHg BUN (9-20) mg/dL Creatinine (0.66-1.25) mg/dL Glucose (74-99) mg/dL POC Glucose (mg/dL) 175 H (70-110) mg/dL Calcium (8.4-10.2) mg/dL Total Protein (6.3-8.2) g/dL Albumin (3.5-5.0) g/dL Procalcitonin 25.00 H (0.02-0.09) ng/mL Ur Random Sodium (40-220) mmol/L 03/27/23 Range/Units 16:37 RBC (4.30-5.90) m/uL Hgb (13.0-17.5) gm/dL Hct (39.0-53.0) % Plt Count (150-450) k/uL PT (10.0-12.5) sec INR (<1.2) ABG pCO2 (35-45) mmHg ABG pO2 (83-108) mmHg BUN (9-20) mg/dL Creatinine (0.66-1.25) mg/dL Glucose (74-99) mg/dL POC Glucose (mg/dL) 159 H (70-110) mg/dL Calcium (8.4-10.2) mg/dL Total Protein (6.3-8.2) g/dL Albumin (3.5-5.0) g/dL Procalcitonin (0.02-0.09) ng/mL Ur Random Sodium (40-220) mmol/L Assessment and Plan Plan: A. fib with RVR Acute on chronic systolic CHF Ischemic cardiomyopathy Hypotension Hyperkalemia Acute kidney injury History of hypertension History of hyperlipidemia history of coronary artery disease Monitor vital signs Monitor CBC Monitor CMP Continue telemetry monitoring Continue oxygen supplementation Encourage use of I-S, Bronchopulmonary hygiene Trend troponins Strict I's and O's, daily weights, continue IV Lasix Continue Lopressor and sotalol Hold Aldactone and eneteresto for now Avoid nephrotoxic agents Ordered 2-D echo Nephrology following Cardiology following Pulmonology following
--- NOTE | 2023-03-28 16:57 | P.PN ---
Subjective Progress Note Date: 03/28/23 patient is a 78-year-old gentleman with past medical history significant for hypertension, hyperlipidemia, myocardial infarction, AICD implantation, cataracts, atrial fibrillation with ablation presented to the hospital for not feeling well for the last few days. Patient stated that 2 days ago he started feeling lethargic and weak. There was no complain of any fever but patient felt cold. Complaining of shortness of breath at rest. Denies any chest pain. Denies any nausea, vomiting abdominal pain. Patient has chronic swelling of left lower extremity. Complaining of lightheadedness. Denied any orthopnea or PND. Because symptoms, patient came to the ER Initial lab work done in the ER showed WBC 9.5, hemoglobin 13.2, platelet count 58 sodium 1:30, potassium 5.3, BUN 64, creatinine 2.09 EKG done in the ER Chest x-ray done in the ER showed cardiomegaly with stable left chest AICD, mild pulmonary vascular congestion, diffuse increased interstitial markings related to edema versus infiltrates Patient admitted to medicine service 03/26. Patient seen and examined. Still complaining of shortness of breath on exertion. Denies any chest pain. Denies any nausea or vomiting. Currently on 2 L of oxygen On 03/27/2023 patient was seen and examined in the ICU he is somnolent, currently maintained on BiPAP, there is no fever or chills no headache or dizziness no chest pain, no cough no nausea or vomiting no abdominal pain no diarrhea and no urinary symptoms On 03/28/2023 patient was seen and examined in the ICU, he is somnolent, responsive, in no apparent distress, he is still maintained on BiPAP, blood culture is positive for gram-negative bacilli, patient was started on IV cef epime, heart rate is better controlled today at 101, he has low grade fever, white blood count is elevated at 21,000. CODE STATUS was discussed with family today and at this time patient remained full code. Objective - Vital Signs Vital signs: Vital Signs Temp 99.7 F H 03/28/23 16:00 Pulse 133 H 03/28/23 16:06 Resp 24 03/28/23 16:00 BP 94/76 03/28/23 16:00 Pulse Ox 96 03/28/23 16:00 FiO2 40 03/28/23 15:55 Intake & Output 03/27/23 03/28/23 03/28/23 18:59 06:59 18:59 Intake Total 1171.931 381.634 648.616 Output Total 1195 750 815 Balance -23.069 -368.366 -166.384 Weight 146.9 kg Intake: IV 650 50 100 Sodium Chloride 0.9% 500 500 ml 500 ml @ 999 mls/hr IV .Q31M [facility] Rx#:[id number] ceFAZolin 2 gm In Sodium 150 50 100 Chloride 0.9% 50 ml @ 100 mls/hr IVPB Q8HR [facility] Rx# :[id number] Intake, IV Titration 471.931 331.634 498.616 Amount Amiodarone 360 mg In 179.443 Dextrose 5% in Water 200 ml @ 1 MG/MIN 33.333 mls/ hr IV .Q6H [facility] Rx#: [id number] Amiodarone 450 mg In 291.668 Dextrose 5% in Water 250 ml @ 0.5 MG/MIN 16.667 mls/hr IV .Q15H [facility] Rx#: [id number] DOBUTamine DRIP 500 mg In 172.59 82.154 Dextrose/Water 1 250ml. bag @ 2.5 MCG/KG/MIN 9. 938 mls/hr IV .Q24H [facility] Rx#:[id number] DOBUTamine DRIP 500 mg In 61.281 Dextrose/Water 1 250ml. bag @ 5 MCG/KG/MIN 19.875 mls/hr IV .[id number] [facility] Rx#:[id number] Norepinephrine 32 mg In 79.422 159.044 124.794 Sodium Chloride 0.9% 218 ml @ 0.04 MCG/KG/MIN 2. 664 mls/hr IV .Q24H [facility] Rx#:[id number] Norepinephrine 4 mg In 151.785 Sodium Chloride 0.9% 250 ml @ 0.03 MCG/KG/MIN 15. 145 mls/hr IV .[id number] [facility] Rx#:[id number] Oral 50 50 Output: Urine 1195 750 815 Male - External 100 Other: Voiding Method Indwelling Catheter Indwelling Catheter Indwelling Catheter ABP, PAP, CO, CI - Last Documented Arterial Blood Pressure 90/63 - Exam In general patient is alert and oriented x 3 in no distress HEENT head normocephalic and atraumatic Neck is supple no JVD no goiter no lymphadenopathy no carotid bruit Chest examination is clear to auscultation no crackles no wheezing Cardiac exam reveals regular heart sounds S1 and S2 no gallops no murmurs Abdomen is soft nontender no organomegaly with normal bowel sounds Extremity exam reveals no edema no cyanosis or clubbing Neurological examination reveals no gross focal deficits - Labs CBC & Chem 7: 03/28/23 05:36 03/28/23 05:36 Labs: Abnormal Lab Results - Last 24 Hours (Table) 03/27/23 03/28/23 03/28/23 Range/Units 16:37 03:18 05:36 WBC (3.8-10.6) k/uL Plt Count (150-450) k/uL Neutrophils # (Manual) (1.3-7.7) k/uL Lymphocytes # (Manual) (1.0-4.8) k/uL Monocytes # (Manual) (0-1.0) k/uL Metamyelocytes # (Man) (0) k/uL Myelocytes # (Manual) (0) k/uL Nucleated RBCs (0-0) /100 WBC PT 20.8 H (10.0-12.5) sec INR 2.1 H (<1.2) ABG pH 7.48 H (7.35-7.45) ABG pCO2 26 L (35-45) mmHg ABG pO2 131 H (83-108) mmHg ABG HCO3 19 L (21-25) mmol/L ABG O2 Saturation 98.9 H (94-97) % Chloride (98-107) mmol/L Carbon Dioxide (22-30) mmol/L BUN (9-20) mg/dL Creatinine (0.66-1.25) mg/dL Glucose (74-99) mg/dL POC Glucose (mg/dL) 159 H (70-110) mg/dL Calcium (8.4-10.2) mg/dL 03/28/23 03/28/23 Range/Units 05:36 05:36 WBC 21.0 H (3.8-10.6) k/uL Plt Count 115 L (150-450) k/uL Neutrophils # (Manual) 18.60 H (1.3-7.7) k/uL Lymphocytes # (Manual) 0.63 L (1.0-4.8) k/uL Monocytes # (Manual) 1.68 H (0-1.0) k/uL Metamyelocytes # (Man) 0.21 H (0) k/uL Myelocytes # (Manual) 0.21 H (0) k/uL Nucleated RBCs 1 H (0-0) /100 WBC PT (10.0-12.5) sec INR (<1.2) ABG pH (7.35-7.45) ABG pCO2 (35-45) mmHg ABG pO2 (83-108) mmHg ABG HCO3 (21-25) mmol/L ABG O2 Saturation (94-97) % Chloride 109 H (98-107) mmol/L Carbon Dioxide 17 L (22-30) mmol/L BUN 85 H (9-20) mg/dL Creatinine 1.59 H (0.66-1.25) mg/dL Glucose 129 H (74-99) mg/dL POC Glucose (mg/dL) (70-110) mg/dL Calcium 8.2 L (8.4-10.2) mg/dL Microbiology - Last 24 Hours (Table) 03/27/23 09:12 Blood Culture Gram Stain - Preliminary Blood Blood Culture - Preliminary Gram Neg Bacilli Assessment and Plan Plan: A. fib with RVR Acute on chronic systolic CHF Ischemic cardiomyopathy Hypotension Hyperkalemia Acute kidney injury History of hypertension History of hyperlipidemia history of coronary artery disease Monitor vital signs Monitor CBC Monitor CMP Continue telemetry monitoring Continue oxygen supplementation Encourage use of I-S, Bronchopulmonary hygiene Trend troponins Strict I's and O's, daily weights, continue IV Lasix Continue Lopressor and sotalol Hold Aldactone and eneteresto for now Avoid nephrotoxic agents Ordered 2-D echo Nephrology following Cardiology following Pulmonology following
[2023-03-29] MEDS: ACETAMINOPHEN IV (For NPO) 1,000 MG in EMPTY BAG 1 BAG IVPB PRN ×4 (00:34→23:23)
[2023-03-29 03:43] LABS: HCT 40.2 % (39.0-53.0); HGB 13.4 gm/dL (13.0-17.5); MCH 31.1 pg (25.0-35.0); MCHC 33.3 g/dL (31.0-37.0); MCV 93.4 fL (80.0-100.0); Mean Platelet Volume 11.4; Platelet Count 113 k/uL (150-450); RDW 14.2 % (11.5-15.5)
[2023-03-29 03:57] LABS: INR 3.3 (<1.2); Prothrombin Time 32.6 sec (10.0-12.5)
[2023-03-29 04:01] LABS: African American GFR (CKD) 38 (>60 ml/min/1.73 sqM); Anion Gap 12 mmol/L; Blood Urea Nitrogen 91 mg/dL (9-20); Calcium 7.9 mg/dL (8.4-10.2); Carbon Dioxide 18 mmol/L (22-30); Chloride 109 mmol/L (98-107); Glucose 162 mg/dL (74-99); Non-African American GFR(CKD) 33 (>60 ml/min/1.73 sqM); Potassium 3.9 mmol/L (3.5-5.1); Sodium 139 mmol/L (137-145)
[2023-03-29] MEDS: DILTIAZEM 125 MG in SODIUM CHLORIDE 0.9% 100 ML IV SCH (04:41)
[2023-03-29 05:09] LABS: Band Neutrophils % 14 %; Neutrophils % (M) 83 %; Nucleated Red Blood Cells 1 /100 WBC (0-0); Total Cells Counted 200
[2023-03-29 05:10] LABS: Lymphocytes # (M) 0.65 k/uL (1.0-4.8); Monocytes # (M) 0.65 k/uL (0-1.0); WBC 32.5 k/uL (3.8-10.6)
[2023-03-29 05:12] LABS: Large Platelets Present
[2023-03-29 05:14] LABS: Dohle Bodies Present
[2023-03-29] MEDS: NOREPINEPHRINE 32 MG in SODIUM CHLORIDE 0.9% 218 ML IV SCH ×2 (06:56→17:54)
--- NOTE | 2023-03-29 08:16 | XR ---
EXAMINATION TYPE: XR chest 1V DATE OF EXAM: 03/29/2023 COMPARISON: 03/28/2023 HISTORY: Shortness of breath TECHNIQUE: Single frontal view of the chest is obtained. FINDINGS: A bilateral areas of consolidation greater at the left lung base noted. Multilead cardiac device and left-sided central line stable. Chronic rib deformities. Correlate for mild venous congest ion. No pneumothorax. Arthropathy of the shoulders. Elevated left hemidiaphragm. IMPRESSION: 1. Left basilar consolidation stable. Correlate for mild venous congestion.
[2023-03-29] MEDS: ASPIRIN 81 MG PO SCH (08:45)
[2023-03-29] MEDS: VASOPRESSIN 60 UNIT in SODIUM CHLORIDE 0.9% 150 ML IV SCH (08:45)
[2023-03-29] MEDS: PANTOPRAZOLE 40 MG/10 ML VIAL IVP SCH (08:46)
[2023-03-29] MEDS: IPRATROPIUM-ALBUTEROL 3 ML NEB INHALATION SCH ×4 (09:05→20:29)
[2023-03-29] MEDS: CEFEPIME 2 GM in SODIUM CHLORIDE 0.9% 100 ML IVPB SCH ×2 (09:49→21:10)
[2023-03-29] MEDS: DEXTROSE 5% IN WATER 1,000 ML with SODIUM BICARB (1 MEQ/ML) 150 ML IV SCH (09:50)
--- NOTE | 2023-03-29 11:13 | P.PN ---
Subjective Progress Note Date: 03/29/23 Principal diagnosis: Hypotension. This is a 78-year-old male patient with a known history of atrial fibrillation anticoagulated with warfarin, congestive heart failure, gout, hyperlipidemia, hypertension, coronary artery disease with previous stenting, ischemic cardiomyopathy with AICD placement. Lifelong nonsmoker. He presented to the emergency room yesterday with a 3 to four-day history of increasing shortness of breath, weakness, lower extremity swelling. He was to be on Lasix but has been somewhat noncompliant with that according to the patient's . His x-ray rev ealed evidence of cardiomegaly with mild pulmonary vascular congestion. Diffuse initially increased interstitial markings suspicious for pulmonary edema/CHF. Echocardiogram revealed severely impaired left ventricle systolic function with ejection fraction less than 20%. Anteroapical akinesis with severe hypokinesis and the rest of the segments. White count 6.8. Hemoglobin 12.0. INR 3.3. Emilio telets 76,000. Sodium 137. Potassium 4.9. Bicarb 19. BUN 70. Creatinine 1.62. Glucose 132. He is seen today in consultation on the selective care unit. Currently resting quite flat in bed. Awake and alert in no acute distress. Maintaining O2 saturations in the 90s on 2 L/m per nasal cannula. He is breathing a bit easier today compared to yesterday. He is currently on Lasix 40 mg IV every 8 hours. He is initiated on Farxiga. Progress note dated 03/27/2023. This is a 78-year-old male who is seen today in the intensive care unit, room 267. He was admitted to the hospital on March 25, with a diagnosis of acute kidney injury, congestive heart failure, and atrial fibrillation. The patient was transferred down to the intensive care unit, by our nurse practitioner, because of severe hypotension. On dobutamine by the hospital service, and, norepinephrine was added by cardiology. Currently, he's on 2 L nasal cannula, receiving dobutamine at 2.5 mcg/kg/m, and is on norepinephrine at 14 mcg/m. The patient does not have adequate IV access, so I place a right radial art line, and a left internal jugular triple-lumen catheter. White count 6.4, hemoglobin 12.2, hematocrit 38.3, and platelet count is 89,000. PTT was 28.6 with an INR of 2.9. Sodium 138, potassium 4.8, chlorides 105, CO2 22, anion gap 11, BUN 86, and creatinine 2.14. Albumin 2.7. Chest x-ray shows improving interstitial edema. Progress note dated 03/28/2023. 78-year-old male seen in the intensive care unit, room 267. The patient was admitted to the hospital on March 25, with a diagnosis of acute kidney injury, congestive heart failure, and atrial fibrillation. The patient was transferred down to the intensive care unit, because of hypotension. Dobutamine was started by the hospitalist service, and subsequent to that, with the development of hypotension, norepinephrine, was added, and now vasopressin. Currently, the patient is on 4 L by nasal cannula. He continues on amiodarone at 0.5 mg/m, dobutamine at 2.5 mcg/kg/m, norepinephrine at 28 mcg/m, and vasopressin at 0.04 units per minute. His pro-calcitonin level was quite elevated, and there were gram-negative bacilli, in the blood. The patient is currently on cefepime. BiPAP settings are 12/5, and 40%. He spent most of the night on BiPAP. CODE STATUS has been addressed, but I've asked the nurse to recheck to the family a gain. White count is 21,000, hemoglobin 13.5, hematocrit 41.1, with a platelet count of 115,000. PT is 20.8 with an INR 2.1. Sodium 139, potassium 4.5, chlorides 109, CO2 17, anion gap 13, BUN 85, and creatinine 1.59. Blood gases done last night show pO2 of 131, pCO2 26, and a pH is 7.48. These blood gases are consistent with a combined respiratory alkalosis and mild metabolic acidosis. Chest x-ray shows diffuse bilateral infiltrates, mostly interstitial in nature. Progress note dated 03/29/2023. 78-year-old male seen in room 267. I did have the opportunity to speak to his . The patient for the time being, will remain a full code. The said that he would not want to be on the ventilator, long-term, and certainly would not want a tracheostomy and/or a feeding tube. Currently, he's on 4 L by nasal cannula. BiPAP has been used on and off, at 12/5, and 40%. The patient's on norepinephrine at 34 mcg/m, and vasopressin 0.04 units per minute. The patient is also on Cardizem 5 mg an hour, and a sodium bicarbonate drip at 50 mL an hour, with 3 ampules of sodium bicarbonate and D5W. The patient's blood cultures are positive for gram-negative bacilli, the patient is on cefepime. White count is 32.5, hemoglobin 13.4, hematocrit 40.2, and platelet count 113,000. PTT was 32.6 with an INR 3.3. Sodium 139, potassium 3.9, chlorides 109, CO2 18, anion gap 12, BUN 91, creatinine 1.91. Glucose is 162. Calcium is 7.9. Chest x-ray shows some left basilar consolidation, and some mild venous congestion. Objective - Vital Signs Vital signs: Vital Signs Temp 100.3 F H 03/29/23 08:00 Pulse 105 H 03/29/23 11:00 Resp 29 H 03/29/23 11:00 BP 109/68 03/29/23 11:00 Pulse Ox 95 03/29/23 11:00 FiO2 40 03/29/23 04:00 Intake & Output 03/28/23 03/29/23 03/29/23 18:59 06:59 18:59 Intake Total 770.023 1494.293 576.629 Output Total 900 452 201 Balance 93.768 1181.293 375.629 Weight 151.2 kg Intake: IV 416 927 505 ACETAMINOPHEN IV (For NPO 100 100 ) 1,000 mg In Empty Bag 1 bag @ 400 mls/hr IVPB Q6HR PRN Rx#:[id number] Cefepime 2 gm In Sodium 100 Chloride 0.9% 100 ml @ 25 mls/hr IVPB Q12HR [facility] Rx #:[id number] Dextrose 5% in Water 1, 250 600 250 000 ml @ 50 mls/hr IV . Q23H [facility] with Sodium Bicarb (1 Meq/ml) 150 ml Rx#:[id number] Diltiazem 125 mg In 55 25 Sodium Chloride 0.9% 100 ml @ 5 MG/HR 5 mls/hr IV .Q24H [facility] Rx#:[id number] NS PRESSURE BAG 66 72 30 ceFAZolin 2 gm In Sodium 100 100 Chloride 0.9% 50 ml @ 100 mls/hr IVPB Q8HR [facility] Rx# :[id number] Intake, IV Titration 527.768 416.293 71.629 Amount Amiodarone 450 mg In 291.668 Dextrose 5% in Water 250 ml @ 0.5 MG/MIN 16.667 mls/hr IV .Q15H [facility] Rx#: [id number] DOBUTamine DRIP 500 mg In 82.154 Dextrose/Water 1 250ml. bag @ 2.5 MCG/KG/MIN 9. 938 mls/hr IV .Q24H [facility] Rx#:[id number] Diltiazem 125 mg In 89.25 Sodium Chloride 0.9% 100 ml @ 5 MG/HR 5 mls/hr IV .Q24H [facility] Rx#:[id number] Norepinephrine 32 mg In 153.946 230.041 60.613 Sodium Chloride 0.9% 218 ml @ 0.04 MCG/KG/MIN 2. 664 mls/hr IV .Q24H [facility] Rx#:[id number] Vasopressin 60 unit In 97.002 11.016 Sodium Chloride 0.9% 150 ml @ 0.04 UNITS/MIN 6.12 mls/hr IV .Q24H [facility] Rx#: [id number] Oral 50 290 Output: Urine 900 452 201 Other: Voiding Method Indwelling Catheter Indwelling Catheter Indwelling Catheter # Bowel Movements 1 ABP, PAP, CO, CI - Last Documented Arterial Blood Pressure 125/57 - Exam No acute distress, patient's lethargic, but does arouse. Mild increase in respiratory rate. HEENT examination is grossly unremarkable. Mucous membranes are moist. No oral lesions. Neck supple. Full range of motion. No adenopathy thyromegaly or neck vein distention. Cardiovascular examination reveals regular rhythm rate. S1-S2 normal. No S3 or S4. No discernible murmur noted. Heart sounds are distant. Heart rate 105 bpm. Lungs reveal scattered rhonchi and crackles. No wheezes. Breath sounds are equal bilaterally. Saturations are 95 % on 4 L. Abdomen soft bowel sounds are heard. No masses or tenderness. Extremities are intact. No cyanosis clubbing or edema. Skin is without rash or lesion. Neurologic examination is brief but nonfocal. Patient is a bit lethargic. - Labs CBC & Chem 7: 03/29/23 03:30 03/29/23 03:30 Labs: Abnormal Lab Results - Last 24 Hours (Table) 03/29/23 03/29/23 03/29/23 Range/Units 03:30 03:30 03:30 WBC 32.5 H (3.8-10.6) k/uL Plt Count 113 L (150-450) k/uL Neutrophils # (Manual) 31.50 H (1.3-7.7) k/uL Lymphocytes # (Manual) 0.65 L (1.0-4.8) k/uL Nucleated RBCs 1 H (0-0) /100 WBC PT 32.6 H (10.0-12.5) sec INR 3.3 H (<1.2) Chloride 109 H (98-107) mmol/L Carbon Dioxide 18 L (22-30) mmol/L BUN 91 H (9-20) mg/dL Creatinine 1.91 H (0.66-1.25) mg/dL Glucose 162 H (74-99) mg/dL Calcium 7.9 L (8.4-10.2) mg/dL Microbiology - Last 24 Hours (Table) 03/27/23 09:12 Blood Culture Gram Stain - Preliminary Blood Blood Culture - Preliminary Gram Neg Bacilli Assessment and Plan Assessment: Acute hypoxemic respiratory failure secondary to an acute exacerbation of chronic systolic congestive heart failure. Ejection fraction less than 20%. Hypotension, severe, secondary to cardiomyopathy, and bacteremia/sepsis. Likely sepsis, secondary to gram-negative bacteremia. Severe ischemic cardiomyopathy, status post AICD placement. History of coronary disease with previous stent placements. Chronic atrial fibrillation. History of gout. Hypertension. Hyperlipidemia. Lifelong nonsmoker. Plan: Plan dated 03/27/2023. The patient was transferred to the intensive care unit, for closer monitoring and management. The patient was placed on dobutamine at 2.5 mcg/kg/m, and, for hypotension, is receiving norepinephrine at 14 mcg/m. Labs, x-rays, and medications are reviewed. The patient's overall prognosis remains very guarded. We placed a right radial arterial line today, as well as a left internal jugular triple-lumen catheter, for better monitoring and management. We'll continue to follow make recommendations along the way. Prognosis is certainly guarded. Plan dated 03/28/2023. The patient is currently on cefepime, for gram-negative bacilli discovered in his blood. The patient is on 4 L of oxygen by nasal cannula. The patient can go to BiPAP, with settings of 12/5, and 40%. We'll add vasopressin 0.04 units per minute to the patient's regimen. He is already on norepinephrine at 20 mcg/m. He is also receiving amiodarone 0.5 mg/m, and dobutamine 2.5 mcg/kg/m. We'll ask cardiology to stop the dobutamine. Labs, x-rays, medications are reviewed. The patient's pro-calcitonin level was quite high at 25. Prognosis is certainly guarded. The patient may end up on mechanical ventilation. We'll discuss CODE STATUS with the family again. Plan dated 03/29/2023. The patient continues on antibiotic for the gram-negative bacilli, in the blood. It has not yet been identified. The patient remains on norepinephrine at 34 mcg/m, and vasopressin at 0.04 units per minute. The patient is also on Cardizem at 5 mg an hour. The patient's receiving oxygen by nasal cannula at 4 L. Labs, x-rays, and medications are reviewed. The patient's overall prognosis remains guarded. He remains a full code. I had the opportunity to speak to the patient's . She would like him to stay a full code for the time being. It would be okay to intubate the patient, if necessary, but he would not want long- term intubation, but certainly not want a tracheostomy tube or a feeding tube. Additional recommendations and suggestions are forthcoming. Time with Patient: Greater than 30
--- NOTE | 2023-03-29 11:30 | P.PN ---
Subjective Patient is seen for follow-up for acute kidney injury. He was admitted to the hospital with shortness of breath and increased weakness. Underlying history of CHF with EF of 20%. Patient was maintained on dobutamine and was diuresed on initial admission. Patient was transferred to the ICU due to significant hypotension and shortness of breath. He is currently maintained on pressors. Patient is also in A. fib with RVR with heart rate staying in the 140s. Status post IV Lopressor and amiodarone drip and started on Cardizem drip yesterday. Urine output at about 30- 40 mL/h Levo fed is decreased from yesterday. Blood cultures are growing gram-negative bacilli. Patient is off of BiPAP and maintained on 4 L nasal cannula Objective - Vital Signs Vital signs: Vital Signs Temp 100.3 F H 03/29/23 08:00 Pulse 105 H 03/29/23 11:00 Resp 29 H 03/29/23 11:00 BP 109/68 03/29/23 11:00 Pulse Ox 95 03/29/23 11:00 FiO2 40 03/29/23 04:00 Intake & Output 03/28/23 03/29/23 03/29/23 18:59 06:59 18:59 Intake Total 466.396 6498.293 576.629 Output Total 900 452 201 Balance 93.768 1181.293 375.629 Weight 151.2 kg Intake: IV 416 927 505 ACETAMINOPHEN IV (For NPO 100 100 ) 1,000 mg In Empty Bag 1 bag @ 400 mls/hr IVPB Q6HR PRN Rx#:[id number] Cefepime 2 gm In Sodium 100 Chloride 0.9% 100 ml @ 25 mls/hr IVPB Q12HR [facility] Rx #:[id number] Dextrose 5% in Water 1, 250 600 250 000 ml @ 50 mls/hr IV . Q23H [facility] with Sodium Bicarb (1 Meq/ml) 150 ml Rx#:[id number] Diltiazem 125 mg In 55 25 Sodium Chloride 0.9% 100 ml @ 5 MG/HR 5 mls/hr IV .Q24H [facility] Rx#:[id number] NS PRESSURE BAG 66 72 30 ceFAZolin 2 gm In Sodium 100 100 Chloride 0.9% 50 ml @ 100 mls/hr IVPB Q8HR [facility] Rx# :[id number] Intake, IV Titration 527.768 416.293 71.629 Amount Amiodarone 450 mg In 291.668 Dextrose 5% in Water 250 ml @ 0.5 MG/MIN 16.667 mls/hr IV .Q15H [facility] Rx#: [id number] DOBUTamine DRIP 500 mg In 82.154 Dextrose/Water 1 250ml. bag @ 2.5 MCG/KG/MIN 9. 938 mls/hr IV .Q24H [facility] Rx#:[id number] Diltiazem 125 mg In 89.25 Sodium Chloride 0.9% 100 ml @ 5 MG/HR 5 mls/hr IV .Q24H [facility] Rx#:[id number] Norepinephrine 32 mg In 153.946 230.041 60.613 Sodium Chloride 0.9% 218 ml @ 0.04 MCG/KG/MIN 2. 664 mls/hr IV .Q24H [facility] Rx#:[id number] Vasopressin 60 unit In 97.002 11.016 Sodium Chloride 0.9% 150 ml @ 0.04 UNITS/MIN 6.12 mls/hr IV .Q24H [facility] Rx#: [id number] Oral 50 290 Output: Urine 900 452 201 Other: Voiding Method Indwelling Catheter Indwelling Catheter Indwelling Catheter # Bowel Movements 1 ABP, PAP, CO, CI - Last Documented Arterial Blood Pressure 125/57 - Exam Patient is awake. 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 - Labs CBC & Chem 7: 03/29/23 03:30 03/29/23 03:30 Labs: Abnormal Lab Results - Last 24 Hours (Table) 03/29/23 03/29/23 03/29/23 Range/Units 03:30 03:30 03:30 WBC 32.5 H (3.8-10.6) k/uL Plt Count 113 L (150-450) k/uL Neutrophils # (Manual) 31.50 H (1.3-7.7) k/uL Lymphocytes # (Manual) 0.65 L (1.0-4.8) k/uL Nucleated RBCs 1 H (0-0) /100 WBC PT 32.6 H (10.0-12.5) sec INR 3.3 H (<1.2) Chloride 109 H (98-107) mmol/L Carbon Dioxide 18 L (22-30) mmol/L BUN 91 H (9-20) mg/dL Creatinine 1.91 H (0.66-1.25) mg/dL Glucose 162 H (74-99) mg/dL Calcium 7.9 L (8.4-10.2) mg/dL Microbiology - Last 24 Hours (Table) 03/27/23 09:12 Blood Culture Gram Stain - Preliminary Blood Blood Culture - Preliminary Gram Neg Bacilli Assessment and Plan Assessment: 1. Acute kidney injury, ATN, from hypotension, infection, currently nonoliguric. History of NSAID use prior to admission. No obstruction noted on ultrasound. UA reveals 1+ protein trace blood 2. Acute on chronic systolic CHF with EF of 20% with mild to moderate tricuspid regurgitation 3. Hypotension multifactorial including underlying infection as well as severe cardiomyopathy, maintained on pressors and antibiotics 4. A. fib with RVR, started Cardizem drip 5. Cellulitis left lower extremity with sepsis 6. Metabolic acidosis associated with acute kidney injury Plan: Continue IV bicarb Continue to wean down pressors Avoid nephrotoxic agents Continue antibiotics
--- NOTE | 2023-03-29 11:40 | CONS ---
CONSULTATION HISTORY OF PRESENT ILLNESS: Iker is a 78-year-old gentleman who is admitted to intensive care unit with sepsis, with cellulitis and bacteremia, atrial fibrillation with rapid ventricular rate, hypotension. He is feeling better, more alert, awake, and heart rate is better controlled on Cardizem, still on pressors. PHYSICAL EXAMINATION: VITAL SIGNS: Heart rate is 111 beats per minute, blood pressure is 110/68, respiratory rate 30. NECK: There is no jugular venous distention. CHEST: Exam reveals diminished air entry at the bases. HEART: Exam reveals first and second heart sounds, irregular rhythm and a systolic murmur. ABDOMEN: Soft. EXTREMITIES: Exam of extremities reveals bilateral pitting edema. There is swelling of both lower extremities with cellulitis of the left leg, which is improving. LABORATORY DATA: Lab show that the hemoglobin is 13.4, platelet count is 113. INR is 3.3. ASSESSMENT: 1. Atrial fibrillation with rapid ventricular rate. 2. Cellulitis with septicemia. 3. Congestive heart failure. PLAN: Continue the antibiotics. Continue intravenous Cardizem. MMODL / IJN: [id number] /
--- NOTE | 2023-03-29 15:14 | P.PN ---
Subjective Progress Note Date: 03/29/23 patient is a 78-year-old gentleman with past medical history significant for hypertension, hyperlipidemia, myocardial infarction, AICD implantation, cataracts, atrial fibrillation with ablation presented to the hospital for not feeling well for the last few days. Patient stated that 2 days ago he started feeling lethargic and weak. There was no complain of any fever but patient felt cold. Complaining of shortness of breath at rest. Denies any chest pain. Denies any nausea, vomiting abdominal pain. Patient has chronic swelling of left lower extremity. Complaining of lightheadedness. Denied any orthopnea or PND. Because symptoms, patient came to the ER Initial lab work done in the ER showed WBC 9.5, hemoglobin 13.2, platelet count 58 sodium 1:30, potassium 5.3, BUN 64, creatinine 2.09 EKG done in the ER Chest x-ray done in the ER showed cardiomegaly with stable left chest AICD, mild pulmonary vascular congestion, diffuse increased interstitial markings related to edema versus infiltrates Patient admitted to medicine service 03/26. Patient seen and examined. Still complaining of shortness of breath on exertion. Denies any chest pain. Denies any nausea or vomiting. Currently on 2 L of oxygen On 03/27/2023 patient was seen and examined in the ICU he is somnolent, currently maintained on BiPAP, there is no fever or chills no headache or dizziness no chest pain, no cough no nausea or vomiting no abdominal pain no diarrhea and no urinary symptoms On 03/28/2023 patient was seen and examined in the ICU, he is somnolent, responsive, in no apparent distress, he is still maintained on BiPAP, blood culture is positive for gram-negative bacilli, patient was started on IV cef epime, heart rate is better controlled today at 101, he has low grade fever, white blood count is elevated at 21,000. CODE STATUS was discussed with family today and at this time patient remained full code. On 03/29/2023 patient was seen and examined in the ICU he is alert and oriented 3 today he is off BiPAP and is maintained on oxygen via nasal cannula he is able to answer questions appropriately he is still complaining of severe generalized weakness and shortness of breath otherwise he denies any complaints there is no fever or chills no headache or dizziness no chest pain no shortness of breath no cough no nausea or vomiting no abdominal pain no diarrhea and no urinary symptoms. Objective - Vital Signs Vital signs: Vital Signs Temp 97.7 F 03/29/23 11:15 Pulse 113 H 03/29/23 15:00 Resp 29 H 03/29/23 15:00 BP 104/71 03/29/23 15:00 Pulse Ox 95 03/29/23 15:00 FiO2 40 03/29/23 04:00 Intake & Output 03/28/23 03/29/23 03/29/23 18:59 06:59 18:59 Intake Total 712.704 6943.293 1817.062 Output Total 900 452 326 Balance 93.768 0400.716 0828.062 Weight 151.2 kg Intake: IV 416 927 688 ACETAMINOPHEN IV (For NPO 100 100 ) 1,000 mg In Empty Bag 1 bag @ 400 mls/hr IVPB Q6HR PRN Rx#:[id number] Cefepime 2 gm In Sodium 100 Chloride 0.9% 100 ml @ 25 mls/hr IVPB Q12HR [facility] Rx #:[id number] Dextrose 5% in Water 1, 250 600 400 000 ml @ 50 mls/hr IV . Q23H [facility] with Sodium Bicarb (1 Meq/ml) 150 ml Rx#:[id number] Diltiazem 125 mg In 55 40 Sodium Chloride 0.9% 100 ml @ 5 MG/HR 5 mls/hr IV .Q24H [facility] Rx#:[id number] NS PRESSURE BAG 66 72 48 ceFAZolin 2 gm In Sodium 100 100 Chloride 0.9% 50 ml @ 100 mls/hr IVPB Q8HR [facility] Rx# :[id number] Intake, IV Titration 527.768 416.293 85.062 Amount Amiodarone 450 mg In 291.668 Dextrose 5% in Water 250 ml @ 0.5 MG/MIN 16.667 mls/hr IV .Q15H [facility] Rx#: [id number] DOBUTamine DRIP 500 mg In 82.154 Dextrose/Water 1 250ml. bag @ 2.5 MCG/KG/MIN 9. 938 mls/hr IV .Q24H [facility] Rx#:[id number] Diltiazem 125 mg In 89.25 Sodium Chloride 0.9% 100 ml @ 5 MG/HR 5 mls/hr IV .Q24H [facility] Rx#:[id number] Norepinephrine 32 mg In 153.946 230.041 74.046 Sodium Chloride 0.9% 218 ml @ 0.04 MCG/KG/MIN 2. 664 mls/hr IV .Q24H [facility] Rx#:[id number] Vasopressin 60 unit In 97.002 11.016 Sodium Chloride 0.9% 150 ml @ 0.04 UNITS/MIN 6.12 mls/hr IV .Q24H [facility] Rx#: [id number] Oral 50 290 1044 Output: Urine 900 452 326 Other: Voiding Method Indwelling Catheter Indwelling Catheter Indwelling Catheter # Bowel Movements 1 ABP, PAP, CO, CI - Last Documented Arterial Blood Pressure 114/47 - Exam In general patient is alert and oriented x 3 in no distress HEENT head normocephalic and atraumatic Neck is supple no JVD no goiter no lymphadenopathy no carotid bruit Chest examination is clear to auscultation no crackles no wheezing Cardiac exam reveals regular heart sounds S1 and S2 no gallops no murmurs Abdomen is soft nontender no organomegaly with normal bowel sounds Extremity exam reveals no edema no cyanosis or clubbing Neurological examination reveals no gross focal deficits - Labs CBC & Chem 7: 03/29/23 03:30 03/29/23 03:30 Labs: Abnormal Lab Results - Last 24 Hours (Table) 03/29/23 03/29/23 03/29/23 Range/Units 03:30 03:30 03:30 WBC 32.5 H (3.8-10.6) k/uL Plt Count 113 L (150-450) k/uL Neutrophils # (Manual) 31.50 H (1.3-7.7) k/uL Lymphocytes # (Manual) 0.65 L (1.0-4.8) k/uL Nucleated RBCs 1 H (0-0) /100 WBC PT 32.6 H (10.0-12.5) sec INR 3.3 H (<1.2) Chloride 109 H (98-107) mmol/L Carbon Dioxide 18 L (22-30) mmol/L BUN 91 H (9-20) mg/dL Creatinine 1.91 H (0.66-1.25) mg/dL Glucose 162 H (74-99) mg/dL Calcium 7.9 L (8.4-10.2) mg/dL Microbiology - Last 24 Hours (Table) 03/27/23 09:12 Blood Culture Gram Stain - Final Blood Blood Culture - Final Citrobacter braakii Assessment and Plan Plan: A. fib with RVR Acute on chronic systolic CHF Ischemic cardiomyopathy Hypotension Hyperkalemia Acute kidney injury History of hypertension History of hyperlipidemia history of coronary artery disease Monitor vital signs Monitor CBC Monitor CMP Continue telemetry monitoring Continue oxygen supplementation Encourage use of I-S, Bronchopulmonary hygiene Trend troponins Strict I's and O's, daily weights, continue IV Lasix Continue Lopressor and sotalol Hold Aldactone and eneteresto for now Avoid nephrotoxic agents Ordered 2-D echo Nephrology following Cardiology following Pulmonology following
[2023-03-29] MEDS ORDERED: ZINC OXIDE PASTE (Z-GUARD) 1 APPLIC APPLIC TOPICAL PRN (17:36)
--- NOTE | 2023-03-29 18:18 | CA ---
Transthoracic Echo Report Name: Iker Layton Age: 78 Gender: M : 1945 Exam Date: 03/29/2023 15:03 Exam Location: [facility] Ht (in): 72 Wt (lb): 333 Ordering Physician: Tyshawn Nicolas MD ([id number]) Attending/Referring Phys: Fidencio ARMENTA Photoresist Printer Opal Akhtar RDCS Procedure CPT: Indications: repeat cultures Cardiac Hx: Technical Quality: Very technically difficult study Contrast 1: Definity Total Dose (mL): 2 Contrast 2: Total Dose (mL): MEASUREMENTS (Male / Female) Normal Values FINDINGS Left Ventricle Left ventricular dilatation. Severely reduced global left ventricular systolic function. Left ventricular ejection fraction is estimated at 20-25 %. Anteroapical, anteroseptal and anterolateral akinesis. Right Ventricle Right Atrium Left Atrium Mitral Valve Aortic Valve Tricuspid Valve Pulmonic Valve Pericardium No pericardial effusion. Aorta CONCLUSIONS Severely impaired left ventricle systolic function with segmental wall motion abnormalities Technically limited study. Limited echo. Previewed by: Dr. Maynor Mercedes MD (Electronically Signed) Final Date: 29 March 2023 18:17
[2023-03-29] MEDS: DOCUSATE 100 MG CAP PO SCH (21:12)
[2023-03-30] MEDS: HYDROmorphone 0.5 MG/0.5 ML SYRINGE IVP PRN ×2 (03:47→18:51)
[2023-03-30 04:34] LABS: HCT 38.4 % (39.0-53.0); HGB 12.8 gm/dL (13.0-17.5); MCH 31.3 pg (25.0-35.0); MCHC 33.3 g/dL (31.0-37.0); MCV 93.9 fL (80.0-100.0); RBC 4.09 m/uL (4.30-5.90); RDW 14.2 % (11.5-15.5); WBC 34.3 k/uL (3.8-10.6)
[2023-03-30 04:43] LABS: ALT 13 U/L (4-49); AST 46 U/L (17-59); African American GFR (CKD) 39 (>60 ml/min/1.73 sqM); Albumin 2.3 g/dL (3.5-5.0); Alkaline Phosphatase 94 U/L (38-126); Anion Gap 10 mmol/L; Blood Urea Nitrogen 98 mg/dL (9-20); Calcium 7.7 mg/dL (8.4-10.2); Carbon Dioxide 22 mmol/L (22-30); Chloride 106 mmol/L (98-107); Glucose 142 mg/dL (74-99); Non-African American GFR(CKD) 34 (>60 ml/min/1.73 sqM); Potassium 3.8 mmol/L (3.5-5.1); Sodium 138 mmol/L (137-145); Total Bilirubin 1.2 mg/dL (0.2-1.3); Total Protein 4.5 g/dL (6.3-8.2)
[2023-03-30] MEDS: DILTIAZEM 125 MG in SODIUM CHLORIDE 0.9% 100 ML IV SCH (05:56)
[2023-03-30 06:00] LABS: Band Neutrophils % 5 %; Lymphocytes # (M) 1.03 k/uL (1.0-4.8); Metamyelocytes # (M) 0.34 k/uL (0); Metamyelocytes % 1 %; Monocytes # (M) 2.06 k/uL (0-1.0); Myelocytes # (M) 0.34 k/uL (0); Myelocytes % 1 %; Neutrophils % (M) 85 %; Nucleated Red Blood Cells 0 /100 WBC (0-0); Total Cells Counted 200
[2023-03-30 06:05] LABS: Dohle Bodies Present
[2023-03-30 06:06] LABS: Large Platelets Present
[2023-03-30 06:07] LABS: Platelet Count 93 k/uL (150-450)
--- NOTE | 2023-03-30 06:38 | P.CONS ---
History of Present Illness - Reason for Consult Consult date: 03/29/23 sepsis Requesting physician: Roman Hartman - Chief Complaint Swelling and redness to the left leg x few days - History of Present Illness Patient is a 78-year male with a past medical history significant for hypertension hyperlipidemia atrial fibrillation NH patient presenting to the hospital 4 days ago on 03/25/2022 for evaluation of increasing shortness of breat h the pain has been getting worse for the last few days and the patient was weak unable to get out of the couch EMS was called and the patient was brought into the hospital on presentation to the hospital patient was afebrile initially however he just started spiking fever of 101 F as of 03/26/2023 with a last temperature of 100.3 this morning patient was also noticed to having a increasing swelling redness of the left lower extremity which was extended to the medial thigh he did have a normal white count on admission however the white count is up to 32,000 today was decreased to factor infectious he was consulted for further management of antibiotic therapy patient currently complaining of feeling weak and tired denies any headache or URI symptoms no chest pain has been complaining some shortness of breath did have minimal dry cough no sputum production no nausea noted no abdominal pain no diarrhea has been complaining of swelling redness and pain to the left lower extremity mostly mild to moderate intensity without any radiation and denies having any drainage patient did have a chest x-ray on admission cardiomegaly with stable left chest AICD mild pulmonary vascular congestion last x-ray done this morning left basal consolidation stable patient UA has been negative influenza RSV and COVID testing was negative procalcitonin was 25 blood culture is positive for Citrobacter Review of Systems Positive point and negatives has been mentioned in the HPI, complete review of systems was performed and all other systems are negative Past Medical History Past Medical History: Atrial Fibrillation, Eye Disorder, Hyperlipidemia, Hypertension, Myocardial Infarction (NH) Additional Past Medical History / Comment(s): See Dr Jain's H&P,CATARACTS.PAST AFIB,COVID infection 2021-hospitalized. Last Myocardial Infarction Date:: 2006 History of Any Multi-Drug Resistant Organisms: None Reported Past Surgical History: AICD, Cardiac Ablation, Heart Catheterization With Stent Additional Past Surgical History / Comment(s): bilateral CATARACT, one cardiac stent, total right knee 05/30/16,[facility] Left chest Past Anesthesia/Blood Transfusion Reactions: No Reported Reaction Additional Past Anesthesia/Blood Transfusion Reaction / Comm: no hx blood transfusion Date of Last Stent Placement:: 2006 Type of Cardiac Device: AICD Device Placement Date:: unknown Past Psychological History: No Psychological Hx Reported Smoking Status: Never smoker Past Alcohol Use History: None Reported Past Drug Use History: None Reported - Past Family History Father Family Medical History: Cancer Mother Family Medical History: Cancer Medications and Allergies Home Medications Medication Instructions Recorded Confirmed Type Aspirin 81 mg PO DAILY 04/14/14 04/03/23 History Nitroglycerin Sl Tabs [Nitrostat] 0.4 mg SUBLINGUAL Q5M PRN 04/14/14 04/03/23 History Spironolactone [Aldactone] 12.5 mg PO HS 04/14/14 04/03/23 History Warfarin [Coumadin] 5 mg PO SUTUTHSA@1700 04/14/14 04/03/23 History Sotalol [Betapace] 80 mg PO BID 05/19/17 04/03/23 History Warfarin [Coumadin] 7.5 mg PO MOWEFR@1700 05/19/17 04/03/23 History allopurinoL [Zyloprim] 100 mg PO HS 06/04/21 04/03/23 History Furosemide [Lasix] 20 mg PO DAILY PRN 02/23/22 04/03/23 History Tamsulosin [Flomax] 0.4 mg PO DAILY@1700 02/23/22 04/03/23 History carvediloL [Coreg] 6.25 mg PO BID 02/23/22 04/03/23 History Mv-Min/Folic/K1/Lycopen/Lutein 1 tab PO DAILY 12/21/22 04/03/23 History [Centrum Silver Men Tablet] Sacubitril/Valsartan [Entresto 49 1 tab PO BID 12/21/22 04/03/23 History mg-51 mg Tablet] Allergies Allergy/AdvReac Type Severity Reaction Status Date / Time No Known Allergies Allergy Verified 03/25/23 12:30 Physical Exam Vitals: Vital Signs Temp Pulse Resp BP Pulse Ox FiO2 03/29/23 16:00 97.9 F 112 H 29 H 104/57 95 03/29/23 15:45 113 H 26 H 104/57 94 L 03/29/23 15:30 123 H 30 H 104/57 94 L 03/29/23 15:15 105 H 30 H 104/57 94 L 03/29/23 15:00 113 H 29 H 104/71 95 03/29/23 14:45 112 H 36 H 104/71 94 L 03/29/23 14:30 113 H 28 H 104/71 95 03/29/23 14:15 121 H 27 H 104/71 94 L 03/29/23 14:00 103 H 24 94/50 94 L 03/29/23 13:45 112 H 28 H 94/50 94 L 03/29/23 13:30 107 H 26 H 94/50 95 03/29/23 13:15 105 H 37 H 94/50 95 03/29/23 13:00 113 H 28 H 115/61 95 03/29/23 12:45 112 H 27 H 115/61 94 L 03/29/23 12:30 126 H 24 115/61 92 L 03/29/23 12:15 112 H 32 H 115/61 93 L 03/29/23 12:00 104 H 35 H 122/64 94 L 03/29/23 11:45 106 H 32 H 122/64 94 L 03/29/23 11:30 112 H 32 H 122/64 95 03/29/23 11:15 97.7 F 112 H 24 122/64 94 L 03/29/23 11:00 105 H 29 H 109/68 95 03/29/23 10:45 111 H 29 H 109/68 94 L 03/29/23 10:30 111 H 30 H 109/68 95 03/29/23 10:15 124 H 29 H 109/68 95 03/29/23 10:00 125 H 32 H 113/68 95 03/29/23 09:45 126 H 34 H 113/68 03/29/23 09:30 128 H 36 H 113/68 95 03/29/23 09:16 106 H 03/29/23 09:15 126 H 29 H 113/68 98 03/29/23 09:06 107 H 03/29/23 09:00 114 H 32 H 126/73 96 03/29/23 08:45 128 H 27 H 126/73 96 03/29/23 08:30 126 H 32 H 126/73 97 03/29/23 08:15 115 H 37 H 126/73 97 03/29/23 08:00 100.3 F H 115 H 27 H 125/72 96 03/29/23 07:45 107 H 33 H 125/72 97 03/29/23 07:30 112 H 27 H 125/72 97 03/29/23 07:15 114 H 36 H 125/72 96 03/29/23 07:00 111 H 25 H 121/75 97 03/29/23 06:45 113 H 34 H 96 03/29/23 06:30 146 H 36 H 97 03/29/23 06:15 108 H 29 H 98 03/29/23 06:00 113 H 28 H 03/29/23 05:45 105 H 26 H 97 03/29/23 05:30 96 22 97 03/29/23 05:15 90 21 97 03/29/23 05:00 98 25 H 96 03/29/23 04:45 109 H 21 97 03/29/23 04:30 104 H 21 97 03/29/23 04:15 90 20 97 03/29/23 04:00 99.2 F 111 H 19 107/95 97 40 03/29/23 03:57 40 03/29/23 03:45 126 H 21 96 03/29/23 03:30 128 H 22 96 03/29/23 03:15 112 H 12 97 03/29/23 03:00 130 H 17 97 03/29/23 02:45 126 H 23 97 03/29/23 02:30 112 H 19 97 03/29/23 02:15 110 H 21 120/67 97 03/29/23 02:00 98 14 98 03/29/23 01:45 107 H 20 119/52 97 03/29/23 01:30 138 H 12 97 03/29/23 01:15 124 H 31 H 96 03/29/23 01:00 96 17 119/52 97 03/29/23 00:45 90 19 97 03/29/23 00:30 96 19 96 03/29/23 00:15 94 21 97 03/29/23 00:07 105 H 21 96 03/29/23 00:03 40 03/29/23 00:00 98.0 F 96 23 96 40 03/28/23 23:45 81 21 97 03/28/23 23:30 92 23 96 03/28/23 23:15 94 21 97 03/28/23 23:00 95 22 96 03/28/23 22:45 91 23 96 03/28/23 22:30 94 23 96 03/28/23 22:15 88 24 96 03/28/23 22:00 92 22 97 03/28/23 21:45 93 22 100 03/28/23 21:30 93 23 100 03/28/23 21:15 101 H 21 100 03/28/23 21:00 93 27 H 100 03/28/23 20:49 40 03/28/23 20:45 102 H 18 100 03/28/23 20:32 101 H 03/28/23 20:30 101 H 20 96 03/28/23 20:15 93 24 97 03/28/23 20:00 98.7 F 93 24 97 40 03/28/23 19:45 101 H 23 96 03/28/23 19:30 101 H 23 97 03/28/23 19:15 105 H 23 97 03/28/23 19:00 92 23 117/74 97 03/28/23 18:45 102 H 25 H 96 03/28/23 18:30 108 H 25 H 97 03/28/23 18:15 105 H 22 117/74 98 03/28/23 18:00 101 H 23 96 40 03/28/23 17:45 105 H 24 96 03/28/23 17:30 106 H 23 96 03/28/23 17:15 94 26 H 115/69 96 03/28/23 17:00 101 H 25 H 101/76 95 40 03/28/23 16:45 109 H 22 96 03/28/23 16:30 112 H 22 96 Intake and Output 03/29/23 03/29/23 03/29/23 06:59 14:59 22:59 Intake Total 7064.007 2123.062 122 Output Total 302 326 95 Balance 949.355 3020.062 27 Intake: IV 588 688 122 ACETAMINOPHEN IV (For NPO 100 100 ) 1,000 mg In Empty Bag 1 bag @ 400 mls/hr IVPB Q6HR PRN Rx#:[id number] Cefepime 2 gm In Sodium 100 Chloride 0.9% 100 ml @ 25 mls/hr IVPB Q12HR [facility] Rx #:[id number] Dextrose 5% in Water 1, 400 400 100 000 ml @ 50 mls/hr IV . Q23H [facility] with Sodium Bicarb (1 Meq/ml) 150 ml Rx#:[id number] Diltiazem 125 mg In 40 40 10 Sodium Chloride 0.9% 100 ml @ 5 MG/HR 5 mls/hr IV .Q24H [facility] Rx#:[id number] NS PRESSURE BAG 48 48 12 Intake, IV Titration 343.134 85.062 Amount Diltiazem 125 mg In 89.25 Sodium Chloride 0.9% 100 ml @ 5 MG/HR 5 mls/hr IV .Q24H [facility] Rx#:[id number] Norepinephrine 32 mg In 230.041 74.046 Sodium Chloride 0.9% 218 ml @ 0.04 MCG/KG/MIN 2. 664 mls/hr IV .Q24H [facility] Rx#:[id number] Vasopressin 60 unit In 23.843 11.016 Sodium Chloride 0.9% 150 ml @ 0.04 UNITS/MIN 6.12 mls/hr IV .Q24H [facility] Rx#: [id number] Oral 240 1044 Output: Urine 302 326 95 Other: Voiding Method Indwelling Catheter Indwelling Catheter Indwelling Catheter Weight 151.2 kg ABP, PAP, CO, CI - Last 8 Hours Arterial Blood Pressure 110/55 Arterial Blood Pressure 104/57 Arterial Blood Pressure 94/52 Arterial Blood Pressure 122/52 Arterial Blood Pressure 114/47 Arterial Blood Pressure 112/51 Arterial Blood Pressure 112/50 Arterial Blood Pressure 112/54 Arterial Blood Pressure 103/48 Arterial Blood Pressure 112/51 Arterial Blood Pressure 122/56 Arterial Blood Pressure 122/60 Arterial Blood Pressure 123/59 Arterial Blood Pressure 119/60 Arterial Blood Pressure 237/217 Arterial Blood Pressure 115/55 Arterial Blood Pressure 115/55 Arterial Blood Pressure 107/54 Arterial Blood Pressure 126/58 Arterial Blood Pressure 131/57 Arterial Blood Pressure 125/57 Arterial Blood Pressure 118/56 Arterial Blood Pressure 97/56 Arterial Blood Pressure 118/61 Arterial Blood Pressure 115/62 Arterial Blood Pressure 126/63 Arterial Blood Pressure 130/62 Arterial Blood Pressure 117/51 Arterial Blood Pressure 126/53 Arterial Blood Pressure 124/56 Arterial Blood Pressure 124/61 GENERAL DESCRIPTION: Elderly male lying in bed, no distress. No tachypnea or accessory muscle of respiration use. HEENT: Shows Pallor , no scleral icterus. Oral mucous membrane is dry. No pharyngeal erythema or thrush NECK: Trachea central, no thyromegaly. LUNGS: Unlabored breathing. Decreased breath sound at the base HEART: S1, S2, regular rate and rhythm. No loud murmur ABDOMEN: Soft, no tenderness , guarding or rigidity, no organomegaly EXTREMITIES: Left lower extremity did have swelling and redness redness to the medial thigh has decreased in intensity SKIN: No rash, no masses palpable. NEUROLOGICAL: The patient is awake, alert, oriented x3, mood and affect normal. Results CBC & Chem 7: 04/03/23 04:26 04/03/23 04:26 Labs: Abnormal Lab Results - Last 24 Hours (Table) 03/29/23 03/29/23 03/29/23 Range/Units 03:30 03:30 03:30 WBC 32.5 H (3.8-10.6) k/uL Plt Count 113 L (150-450) k/uL Neutrophils # (Manual) 31.50 H (1.3-7.7) k/uL Lymphocytes # (Manual) 0.65 L (1.0-4.8) k/uL Nucleated RBCs 1 H (0-0) /100 WBC PT 32.6 H (10.0-12.5) sec INR 3.3 H (<1.2) Chloride 109 H (98-107) mmol/L Carbon Dioxide 18 L (22-30) mmol/L BUN 91 H (9-20) mg/dL Creatinine 1.91 H (0.66-1.25) mg/dL Glucose 162 H (74-99) mg/dL Calcium 7.9 L (8.4-10.2) mg/dL Microbiology - Last 24 Hours (Table) 03/27/23 09:12 Blood Culture Gram Stain - Final Blood Blood Culture - Final Citrobacter braakii Assessment and Plan (1) Bacteremia Status: Acute Code(s): R78.81 - BACTEREMIA SNOMED Code(s): 7917708 (2) Left leg cellulitis Status: Acute Code(s): L03.116 - CELLULITIS OF LEFT LOWER LIMB SNOMED Code(s): 84622939374060921 (3) Sepsis Status: Acute Code(s): A41.9 - SEPSIS, UNSPECIFIED ORGANISM SNOMED Code(s): 39344656 Plan: 1patient with sepsis in this patient who did have a fever elevated white count source is likely left lower lobe pneumonia and also left lower extremity cellulitis 2-patient with a Citrobacter bacteremia source could be likely left lower lobe pneumonia 3blood cultures were repeated document clearance of bacteremia 4-patient to continue cefepime 2 g every 12 hours to suggest to the kidney function We will follow on clinical condition and cultures to further adjust medication if needed Thank you for this consultation we will follow the patient along with you Dictation was produced using [employer] dictation software. please excuse any grammatical, word or spelling errors. Time with Patient: Greater than 30
[2023-03-30] MEDS: IPRATROPIUM-ALBUTEROL 3 ML NEB INHALATION SCH ×4 (07:40→19:34)
--- NOTE | 2023-03-30 07:47 | XR ---
EXAMINATION TYPE: XR chest 1V portable DATE OF EXAM: 03/30/2023 7:42 AM CLINICAL INDICATION:Male, 78 years old with history of resp status; H COMPARISON: Chest radiographs from 03/29/2023 TECHNIQUE: XR chest 1V portable Frontal view of the chest. FINDINGS: Lungs/Pleura: There is no evidence of pleural effusion, focal consolidation, or pneumothorax. Pulmonary vascularity: Pulmonary vascular congestion. Heart/mediastinum: Cardiomediastinal silhouette is enlarged and stable. Three lead cardiac conduction device overlying the left hemithorax with lead tips projecting over the right ventricle, right atriu m and coronary sinus. Musculoskeletal: Degenerative changes of the shoulder joints. Other findings: None Lines/Tubes: Left internal jugular central venous catheter with distal tip at the cavoatrial junction. IMPRESSION: Cardiomegaly and mild pulmonary vascular congestion. Correlate with BNP for congestive heart failure.
[2023-03-30] MEDS: DOCUSATE 100 MG CAP PO SCH ×2 (08:48→20:06)
[2023-03-30] MEDS: ASPIRIN 81 MG PO SCH (08:48)
[2023-03-30] MEDS: CEFEPIME 2 GM in SODIUM CHLORIDE 0.9% 100 ML IVPB SCH ×2 (08:48→20:06)
[2023-03-30] MEDS: PANTOPRAZOLE 40 MG/10 ML VIAL IVP SCH (08:48)
--- NOTE | 2023-03-30 11:15 | P.PN ---
Subjective Progress Note Date: 03/30/23 Principal diagnosis: Hypotension. This is a 78-year-old male patient with a known history of atrial fibrillation anticoagulated with warfarin, congestive heart failure, gout, hyperlipidemia, hypertension, coronary artery disease with previous stenting, ischemic cardiomyopathy with AICD placement. Lifelong nonsmoker. He presented to the emergency room yesterday with a 3 to four-day history of increasing shortness of breath, weakness, lower extremity swelling. He was to be on Lasix but has been somewhat noncompliant with that according to the patient's . His x-ray rev ealed evidence of cardiomegaly with mild pulmonary vascular congestion. Diffuse initially increased interstitial markings suspicious for pulmonary edema/CHF. Echocardiogram revealed severely impaired left ventricle systolic function with ejection fraction less than 20%. Anteroapical akinesis with severe hypokinesis and the rest of the segments. White count 6.8. Hemoglobin 12.0. INR 3.3. Emilio telets 76,000. Sodium 137. Potassium 4.9. Bicarb 19. BUN 70. Creatinine 1.62. Glucose 132. He is seen today in consultation on the selective care unit. Currently resting quite flat in bed. Awake and alert in no acute distress. Maintaining O2 saturations in the 90s on 2 L/m per nasal cannula. He is breathing a bit easier today compared to yesterday. He is currently on Lasix 40 mg IV every 8 hours. He is initiated on Farxiga. Progress note dated 03/27/2023. This is a 78-year-old male who is seen today in the intensive care unit, room 267. He was admitted to the hospital on March 25, with a diagnosis of acute kidney injury, congestive heart failure, and atrial fibrillation. The patient was transferred down to the intensive care unit, by our nurse practitioner, because of severe hypotension. On dobutamine by the hospital service, and, norepinephrine was added by cardiology. Currently, he's on 2 L nasal cannula, receiving dobutamine at 2.5 mcg/kg/m, and is on norepinephrine at 14 mcg/m. The patient does not have adequate IV access, so I place a right radial art line, and a left internal jugular triple-lumen catheter. White count 6.4, hemoglobin 12.2, hematocrit 38.3, and platelet count is 89,000. PTT was 28.6 with an INR of 2.9. Sodium 138, potassium 4.8, chlorides 105, CO2 22, anion gap 11, BUN 86, and creatinine 2.14. Albumin 2.7. Chest x-ray shows improving interstitial edema. Progress note dated 03/28/2023. 78-year-old male seen in the intensive care unit, room 267. The patient was admitted to the hospital on March 25, with a diagnosis of acute kidney injury, congestive heart failure, and atrial fibrillation. The patient was transferred down to the intensive care unit, because of hypotension. Dobutamine was started by the hospitalist service, and subsequent to that, with the development of hypotension, norepinephrine, was added, and now vasopressin. Currently, the patient is on 4 L by nasal cannula. He continues on amiodarone at 0.5 mg/m, dobutamine at 2.5 mcg/kg/m, norepinephrine at 28 mcg/m, and vasopressin at 0.04 units per minute. His pro-calcitonin level was quite elevated, and there were gram-negative bacilli, in the blood. The patient is currently on cefepime. BiPAP settings are 12/5, and 40%. He spent most of the night on BiPAP. CODE STATUS has been addressed, but I've asked the nurse to recheck to the family a gain. White count is 21,000, hemoglobin 13.5, hematocrit 41.1, with a platelet count of 115,000. PT is 20.8 with an INR 2.1. Sodium 139, potassium 4.5, chlorides 109, CO2 17, anion gap 13, BUN 85, and creatinine 1.59. Blood gases done last night show pO2 of 131, pCO2 26, and a pH is 7.48. These blood gases are consistent with a combined respiratory alkalosis and mild metabolic acidosis. Chest x-ray shows diffuse bilateral infiltrates, mostly interstitial in nature. Progress note dated 03/29/2023. 78-year-old male seen in room 267. I did have the opportunity to speak to his . The patient for the time being, will remain a full code. The said that he would not want to be on the ventilator, long-term, and certainly would not want a tracheostomy and/or a feeding tube. Currently, he's on 4 L by nasal cannula. BiPAP has been used on and off, at 12/5, and 40%. The patient's on norepinephrine at 34 mcg/m, and vasopressin 0.04 units per minute. The patient is also on Cardizem 5 mg an hour, and a sodium bicarbonate drip at 50 mL an hour, with 3 ampules of sodium bicarbonate and D5W. The patient's blood cultures are positive for gram-negative bacilli, the patient is on cefepime. White count is 32.5, hemoglobin 13.4, hematocrit 40.2, and platelet count 113,000. PTT was 32.6 with an INR 3.3. Sodium 139, potassium 3.9, chlorides 109, CO2 18, anion gap 12, BUN 91, creatinine 1.91. Glucose is 162. Calcium is 7.9. Chest x-ray shows some left basilar consolidation, and some mild venous congestion. Progress note dated 03/30/2023. 78-year-old male seen in room 267. The patient appears a bit more awake today than he did yesterday. Currently, he's on 2 L of oxygen. He is receiving norepinephrine at 11.7 mcg/m, and vasopressin at 0.04 units per minute. Is also on Cardizem 5 mg an hour, and a sodium bicarbonate drip, with 3 ampules of sodium bicarbonate and D5W at 50 mL an hour. I did have a chance to talk to the , both yesterday, and today. The patient's blood cultures showed evidence of Citrobacter, is sensitive to the cefepime that the patient is currently on. White count 34.3, hemoglobin 12.8, hematocrit 38.4, and platelet count 93,000. Sodium 138, potassium 3.8, chlorides 106, CO2 22, anion gap 10, BUN 98, creatinine 1.86. Albumin is 2.3. Chest x-ray shows cardiomegaly, with mild fluid overload. Objective - Vital Signs Vital signs: Vital Signs Temp 97.6 F 03/30/23 04:00 Pulse 96 03/30/23 11:00 Resp 24 03/30/23 11:00 BP 103/67 03/30/23 11:00 Pulse Ox 95 03/30/23 11:00 FiO2 2 03/30/23 00:00 Intake & Output 03/29/23 03/30/23 03/30/23 18:59 06:59 18:59 Intake Total 2145.435 1139.731 281 Output Total 487 463 170 Balance 1658.435 676.731 111 Weight 146.7 kg Intake: IV 932 932 281 ACETAMINOPHEN IV (For NPO 100 100 ) 1,000 mg In Empty Bag 1 bag @ 400 mls/hr IVPB Q6HR PRN Rx#:[id number] Cefepime 2 gm In Sodium 100 100 Chloride 0.9% 100 ml @ 25 mls/hr IVPB Q12HR [facility] Rx #:[id number] Dextrose 5% in Water 1, 600 600 250 000 ml @ 50 mls/hr IV . Q23H [facility] with Sodium Bicarb (1 Meq/ml) 150 ml Rx#:[id number] Diltiazem 125 mg In 60 60 25 Sodium Chloride 0.9% 100 ml @ 5 MG/HR 5 mls/hr IV .Q24H [facility] Rx#:[id number] NS PRESSURE BAG 72 72 6 Intake, IV Titration 169.435 207.731 Amount Diltiazem 125 mg In 125 Sodium Chloride 0.9% 100 ml @ 5 MG/HR 5 mls/hr IV .Q24H [facility] Rx#:[id number] Norepinephrine 32 mg In 158.419 82.731 Sodium Chloride 0.9% 218 ml @ 0.04 MCG/KG/MIN 2. 664 mls/hr IV .Q24H [facility] Rx#:[id number] Vasopressin 60 unit In 11.016 Sodium Chloride 0.9% 150 ml @ 0.04 UNITS/MIN 6.12 mls/hr IV .Q24H [facility] Rx#: [id number] Oral 1044 Output: Urine 487 463 170 Other: Voiding Method Indwelling Catheter Indwelling Catheter ABP, PAP, CO, CI - Last Documented Arterial Blood Pressure 87/72 - Exam No acute distress, the patient is more awake and alert today. Mild increase in respiratory rate. HEENT examination is grossly unremarkable. Mucous membranes are moist. No oral lesions. Neck supple. Full range of motion. No adenopathy thyromegaly or neck vein distention. Cardiovascular examination reveals regular rhythm rate. S1-S2 normal. No S3 or S4. No discernible murmur noted. Heart sounds are distant. Heart rate 96 bpm. Lungs reveal scattered rhonchi and crackles. No wheezes. Breath sounds are equal bilaterally. Saturations are 95% on 2 L nasal cannula. Abdomen soft bowel sounds are heard. No masses or tenderness. Extremities are intact. No cyanosis clubbing or edema. Skin is without rash or lesion. Neurologic examination is brief but nonfocal. Patient is a bit lethargic. - Labs CBC & Chem 7: 03/30/23 04:25 03/30/23 04:25 Labs: Abnormal Lab Results - Last 24 Hours (Table) 03/30/23 03/30/23 Range/Units 04:25 04:25 WBC 34.3 H (3.8-10.6) k/uL RBC 4.09 L (4.30-5.90) m/uL Hgb 12.8 L (13.0-17.5) gm/dL Hct 38.4 L (39.0-53.0) % Plt Count 93 L (150-450) k/uL Neutrophils # (Manual) 30.80 H (1.3-7.7) k/uL Monocytes # (Manual) 2.06 H (0-1.0) k/uL Metamyelocytes # (Man) 0.34 H (0) k/uL Myelocytes # (Manual) 0.34 H (0) k/uL BUN 98 H (9-20) mg/dL Creatinine 1.86 H (0.66-1.25) mg/dL Glucose 142 H (74-99) mg/dL Calcium 7.7 L (8.4-10.2) mg/dL Total Protein 4.5 L (6.3-8.2) g/dL Albumin 2.3 L (3.5-5.0) g/dL Microbiology - Last 24 Hours (Table) 03/27/23 09:12 Blood Culture Gram Stain - Final Blood Blood Culture - Final Citrobacter braakii Assessment and Plan Assessment: Acute hypoxemic respiratory failure secondary to an acute exacerbation of chronic systolic congestive heart failure. Ejection fraction less than 20%. Hypotension, severe, secondary to cardiomyopathy, and bacteremia/sepsis. Likely sepsis, secondary to Citrobacter species, on cefepime. Severe ischemic cardiomyopathy, status post AICD placement. History of coronary disease with previous stent placements. Chronic atrial fibrillation. History of gout. Hypertension. Hyperlipidemia. Lifelong nonsmoker. Plan: Plan dated 03/27/2023. The patient was transferred to the intensive care unit, for closer monitoring and management. The patient was placed on dobutamine at 2.5 mcg/kg/m, and, for hypotension, is receiving norepinephrine at 14 mcg/m. Labs, x-rays, and medications are reviewed. The patient's overall prognosis remains very guarded. We placed a right radial arterial line today, as well as a left internal jugular triple-lumen catheter, for better monitoring and management. We'll continue to follow make recommendations along the way. Prognosis is certainly guarded. Plan dated 03/28/2023. The patient is currently on cefepime, for gram-negative bacilli discovered in his blood. The patient is on 4 L of oxygen by nasal cannula. The patient can go to BiPAP, with settings of 12/5, and 40%. We'll add vasopressin 0.04 units per minute to the patient's regimen. He is already on norepinephrine at 20 mcg/m. He is also receiving amiodarone 0.5 mg/m, and dobutamine 2.5 mcg/kg/m. We'll ask cardiology to stop the dobutamine. Labs, x-rays, medications are reviewed. The patient's pro-calcitonin level was quite high at 25. Prognosis is certainly guarded. The patient may end up on mechanical ventilation. We'll discuss CODE STATUS with the family again. Plan dated 03/29/2023. The patient continues on antibiotic for the gram-negative bacilli, in the blood. It has not yet been identified. The patient remains on norepinephrine at 34 mcg/m, and vasopressin at 0.04 units per minute. The patient is also on Cardizem at 5 mg an hour. The patient's receiving oxygen by nasal cannula at 4 L. Labs, x-rays, and medications are reviewed. The patient's overall prognosis remains guarded. He remains a full code. I had the opportunity to speak to the patient's . She would like him to stay a full code for the time being. It would be okay to intubate the patient, if necessary, but he would not want long- term intubation, but certainly not want a tracheostomy tube or a feeding tube. Additional recommendations and suggestions are forthcoming. Plan dated 03/30/2023. I was again able to speak to the patient's , and give her an update. The patient's norepinephrine requirement has gone down significantly, from 34 mcg/m, down to less than 12 mcg/m. The patient continues both on Cardizem, and vasopressin. Labs, x-rays, and medications are reviewed. The patient's blood cultures are positive for Citrobacter. The Citrobacter is sensitive to cefepime, which is what the patient is on. Labs, x-rays, and medications are reviewed. We will continue to follow the patient, and make recommendations along the way. The patient's overall prognosis is guarded. Time with Patient: Greater than 30
--- NOTE | 2023-03-30 11:21 | PN ---
PROGRESS NOTE HISTORY OF PRESENT ILLNESS: Iker is a 78-year-old gentleman with history of atrial fibrillation with poorly controlled ventricular rate, cardiomyopathy with congestive heart failure, sepsis, cellulitis, who is currently on aspirin 81 mg daily, intravenous antibiotics, Coumadin which is currently on hold with an INR of 3.3 yesterday, Entresto which is on hold. He is on Levophed and vasopressin for hypotension and intravenous Cardizem for rate control. The patient has gotten much better compared to where we were 3 days ago primarily from the septicemia and the IV antibiotics that he is receiving. PHYSICAL EXAMINATION: VITAL SIGNS: Heart rate is 96 beats per minute, blood pressure is 90/60, respiratory rate is 18. CHEST: Exam reveals diminished air entry at the bases. HEART: Reveals first and second heart sounds and a systolic murmur at the apex. ABDOMEN: Soft. EXTREMITIES: Exam of extremities reveals bilateral chronic stasis changes, edema, and cellulitis with erythema that has improved of the left leg. LABORATORY TESTS: White cell count is still elevated at 34. I do not have an INR from this morning. BUN and creatinine are elevated at 98 and 1.8. Blood cultures were done and are pending. PLAN: I will continue the patient on Cardizem. Once blood pressure improves, we will consider adding beta-blockers which in the past have caused hypotension, so I am waiting for the patient to be off the pressors. MMODL / IJN: [id number] /
[2023-03-30 11:24] LABS: INR 2.9 (<1.2); Prothrombin Time 28.7 sec (10.0-12.5)
[2023-03-30] MEDS: DEXTROSE 5% IN WATER 1,000 ML with SODIUM BICARB (1 MEQ/ML) 150 ML IV SCH (11:40)
[2023-03-30] MEDS: VASOPRESSIN 60 UNIT in SODIUM CHLORIDE 0.9% 150 ML IV SCH (11:41)
--- NOTE | 2023-03-30 12:44 | P.PN ---
Subjective Patient is seen for follow-up for acute kidney injury. He was admitted to the hospital with shortness of breath and increased weakness. Underlying history of CHF with EF of 20%. Patient was maintained on dobutamine and was diuresed on initial admission. Patient was transferred to the ICU due to significant hypotension and shortness of breath. He is currently maintained on pressors. Patient is also in A. fib with RVR with heart rate staying in the 140s. Status post IV Lopressor and amiodarone drip and started on Cardizem drip Urine output at about 40-60 mL/h Levo fed is decreased from yesterday. Blood cultures are growing gram-negative bacilli, Citrobacter brakii Patient is off of BiPAP and maintained on 2 L nasal cannula Objective - Vital Signs Vital signs: Vital Signs Temp 97.6 F 03/30/23 04:00 Pulse 96 03/30/23 11:00 Resp 24 03/30/23 11:00 BP 103/67 03/30/23 11:00 Pulse Ox 95 03/30/23 11:00 FiO2 2 03/30/23 00:00 Intake & Output 03/29/23 03/30/23 03/30/23 18:59 06:59 18:59 Intake Total 2145.435 1139.731 434 Output Total 487 463 170 Balance 1658.435 676.731 264 Weight 146.7 kg Intake: IV 932 932 281 ACETAMINOPHEN IV (For NPO 100 100 ) 1,000 mg In Empty Bag 1 bag @ 400 mls/hr IVPB Q6HR PRN Rx#:[id number] Cefepime 2 gm In Sodium 100 100 Chloride 0.9% 100 ml @ 25 mls/hr IVPB Q12HR [facility] Rx #:[id number] Dextrose 5% in Water 1, 600 600 250 000 ml @ 50 mls/hr IV . Q23H [facility] with Sodium Bicarb (1 Meq/ml) 150 ml Rx#:[id number] Diltiazem 125 mg In 60 60 25 Sodium Chloride 0.9% 100 ml @ 5 MG/HR 5 mls/hr IV .Q24H [facility] Rx#:[id number] NS PRESSURE BAG 72 72 6 Intake, IV Titration 169.435 207.731 153 Amount Diltiazem 125 mg In 125 Sodium Chloride 0.9% 100 ml @ 5 MG/HR 5 mls/hr IV .Q24H [facility] Rx#:[id number] Norepinephrine 32 mg In 158.419 82.731 Sodium Chloride 0.9% 218 ml @ 0.04 MCG/KG/MIN 2. 664 mls/hr IV .Q24H [facility] Rx#:[id number] Vasopressin 60 unit In 11.016 153 Sodium Chloride 0.9% 150 ml @ 0.04 UNITS/MIN 6.12 mls/hr IV .Q24H [facility] Rx#: [id number] Oral 1044 Output: Urine 487 463 170 Other: Voiding Method Indwelling Catheter Indwelling Catheter Indwelling Catheter ABP, PAP, CO, CI - Last Documented Arterial Blood Pressure 87/72 - Exam Patient is awake. Comfortable Examination of the heart S1 and S2 Examination of the lungs decreased breath sounds at the bases Abdomen is soft nontender Examination of lower extremities shows edema 1+ bilaterally, erythema on the left leg, wrapped PHYSICAL THERAPIST AIDE exam grossly intact - Labs CBC & Chem 7: 03/30/23 04:25 03/30/23 04:25 Labs: Abnormal Lab Results - Last 24 Hours (Table) 03/30/23 03/30/23 03/30/23 Range/Units 04:25 04:25 10:51 WBC 34.3 H (3.8-10.6) k/uL RBC 4.09 L (4.30-5.90) m/uL Hgb 12.8 L (13.0-17.5) gm/dL Hct 38.4 L (39.0-53.0) % Plt Count 93 L (150-450) k/uL Neutrophils # (Manual) 30.80 H (1.3-7.7) k/uL Monocytes # (Manual) 2.06 H (0-1.0) k/uL Metamyelocytes # (Man) 0.34 H (0) k/uL Myelocytes # (Manual) 0.34 H (0) k/uL PT 28.7 H (10.0-12.5) sec INR 2.9 H (<1.2) BUN 98 H (9-20) mg/dL Creatinine 1.86 H (0.66-1.25) mg/dL Glucose 142 H (74-99) mg/dL Calcium 7.7 L (8.4-10.2) mg/dL Total Protein 4.5 L (6.3-8.2) g/dL Albumin 2.3 L (3.5-5.0) g/dL Microbiology - Last 24 Hours (Table) 03/27/23 09:12 Blood Culture Gram Stain - Final Blood Blood Culture - Final Citrobacter braakii Assessment and Plan Assessment: 1. Acute kidney injury, ATN, from hypotension, infection, currently nonoliguric. History of NSAID use prior to admission. No obstruction noted on ultrasound. UA reveals 1+ protein trace blood 2. Acute on chronic systolic CHF with EF of 20% with mild to moderate tricuspid regurgitation 3. Hypotension multifactorial including underlying infection as well as severe cardiomyopathy, maintained on pressors and antibiotics 4. A. fib with RVR, started Cardizem drip 5. Cellulitis left lower extremity with sepsis 6. Metabolic acidosis associated with acute kidney injury 7. Sepsis with blood cultures growing Citrobacter braakii Plan: Continue IV bicarb Continue to wean down pressors Avoid nephrotoxic agents Continue antibiotics
--- NOTE | 2023-03-30 12:49 | P.PN ---
Subjective Progress Note Date: 03/30/23 Principal diagnosis: Left leg cellulitis and bacteremia Patient is a 78-year old male with a past medical history significant for hypertension hyperlipidemia atrial fibrillation NM patient presenting to the hospital on 03/25/2022 for evaluation of increasing shortness of breath patient did have a fever and elevated white count and a positive blood culture with a Citrobacter. On today's evaluation and that is03/30/2023, the patient denies any fever or any chills, the patient is breathing comfortably on 2 L nasal cannula supplemental oxygen, the patient denies any chest pain, did have occasional cough but no sputum production, patient denies abdominal pain and no nausea/vomiting and no diarrhea has been reported, still complaining of some discomfort in the left l ower extremity. Patient white count is a 34.3, creatinine is 1.86 Objective - Vital Signs Vital signs: Vital Signs Temp 97.6 F 03/30/23 04:00 Pulse 96 03/30/23 07:52 Resp 22 03/30/23 07:00 BP 112/63 03/30/23 06:30 Pulse Ox 94 L 03/30/23 07:00 FiO2 2 03/30/23 00:00 Intake & Output 03/29/23 03/30/23 03/30/23 18:59 06:59 18:59 Intake Total 2145.435 1139.731 61 Output Total 487 463 45 Balance 1658.435 676.731 16 Weight 146.7 kg Intake: IV 932 932 61 ACETAMINOPHEN IV (For NPO 100 100 ) 1,000 mg In Empty Bag 1 bag @ 400 mls/hr IVPB Q6HR PRN Rx#:[id number] Cefepime 2 gm In Sodium 100 100 Chloride 0.9% 100 ml @ 25 mls/hr IVPB Q12HR [facility] Rx #:[id number] Dextrose 5% in Water 1, 600 600 50 000 ml @ 50 mls/hr IV . Q23H [facility] with Sodium Bicarb (1 Meq/ml) 150 ml Rx#:[id number] Diltiazem 125 mg In 60 60 5 Sodium Chloride 0.9% 100 ml @ 5 MG/HR 5 mls/hr IV .Q24H [facility] Rx#:[id number] NS PRESSURE BAG 72 72 6 Intake, IV Titration 169.435 207.731 Amount Diltiazem 125 mg In 125 Sodium Chloride 0.9% 100 ml @ 5 MG/HR 5 mls/hr IV .Q24H [facility] Rx#:[id number] Norepinephrine 32 mg In 158.419 82.731 Sodium Chloride 0.9% 218 ml @ 0.04 MCG/KG/MIN 2. 664 mls/hr IV .Q24H [facility] Rx#:[id number] Vasopressin 60 unit In 11.016 Sodium Chloride 0.9% 150 ml @ 0.04 UNITS/MIN 6.12 mls/hr IV .Q24H [facility] Rx#: [id number] Oral 1044 Output: Urine 487 463 45 Other: Voiding Method Indwelling Catheter Indwelling Catheter ABP, PAP, CO, CI - Last Documented Arterial Blood Pressure 87/72 - Exam GENERAL DESCRIPTION: An elderly male lying in bed in no distress RESPIRATORY SYSTEM: Unlabored breathing , decreased breath sound the bases HEART: S1 S2 regular rate and rhythm , ABDOMEN: Soft , no tenderness EXTREMITIES: Left lower extremity with swelling redness and evidence of skin necrosis - Labs CBC & Chem 7: 03/30/23 04:25 03/30/23 04:25 Labs: Abnormal Lab Results - Last 24 Hours (Table) 03/30/23 03/30/23 Range/Units 04:25 04:25 WBC 34.3 H (3.8-10.6) k/uL RBC 4.09 L (4.30-5.90) m/uL Hgb 12.8 L (13.0-17.5) gm/dL Hct 38.4 L (39.0-53.0) % Plt Count 93 L (150-450) k/uL Neutrophils # (Manual) 30.80 H (1.3-7.7) k/uL Monocytes # (Manual) 2.06 H (0-1.0) k/uL Metamyelocytes # (Man) 0.34 H (0) k/uL Myelocytes # (Manual) 0.34 H (0) k/uL BUN 98 H (9-20) mg/dL Creatinine 1.86 H (0.66-1.25) mg/dL Glucose 142 H (74-99) mg/dL Calcium 7.7 L (8.4-10.2) mg/dL Total Protein 4.5 L (6.3-8.2) g/dL Albumin 2.3 L (3.5-5.0) g/dL Microbiology - Last 24 Hours (Table) 03/27/23 09:12 Blood Culture Gram Stain - Final Blood Blood Culture - Final Citrobacter braakii Assessment and Plan (1) Bacteremia Current Visit: Yes Status: Acute Code(s): R78.81 - BACTEREMIA SNOMED Code(s): 3668630 (2) Left leg cellulitis Current Visit: Yes Status: Acute Code(s): L03.116 - CELLULITIS OF LEFT LOWER LIMB SNOMED Code(s): 65966224484329487 Plan: 1patient with sepsis in this patient who did have a fever elevated white count source is likely left lower extremity cellulitis, in this patient with Citrobacter bacteremia 2-blood cultures were repeated document clearance of bacteremia 3-patient benefit from breast cancer surgery evaluation especially with evidence of skin necrosis to the left lower extremity 4-patient to continue cefepime 2 g every 12 hours to suggest to the kidney function Dictation was produced using [employer] dictation software. please excuse any grammatical, word or spelling errors. Time with Patient: Less than 30
--- NOTE | 2023-03-30 17:02 | P.PN ---
Subjective Progress Note Date: 03/30/23 patient is a 78-year-old gentleman with past medical history significant for hypertension, hyperlipidemia, myocardial infarction, AICD implantation, cataracts, atrial fibrillation with ablation presented to the hospital for not feeling well for the last few days. Patient stated that 2 days ago he started feeling lethargic and weak. There was no complain of any fever but patient felt cold. Complaining of shortness of breath at rest. Denies any chest pain. Denies any nausea, vomiting abdominal pain. Patient has chronic swelling of left lower extremity. Complaining of lightheadedness. Denied any orthopnea or PND. Because symptoms, patient came to the ER Initial lab work done in the ER showed WBC 9.5, hemoglobin 13.2, platelet count 58 sodium 1:30, potassium 5.3, BUN 64, creatinine 2.09 EKG done in the ER Chest x-ray done in the ER showed cardiomegaly with stable left chest AICD, mild pulmonary vascular congestion, diffuse increased interstitial markings related to edema versus infiltrates Patient admitted to medicine service 03/26. Patient seen and examined. Still complaining of shortness of breath on exertion. Denies any chest pain. Denies any nausea or vomiting. Currently on 2 L of oxygen On 03/27/2023 patient was seen and examined in the ICU he is somnolent, currently maintained on BiPAP, there is no fever or chills no headache or dizziness no chest pain, no cough no nausea or vomiting no abdominal pain no diarrhea and no urinary symptoms On 03/28/2023 patient was seen and examined in the ICU, he is somnolent, responsive, in no apparent distress, he is still maintained on BiPAP, blood culture is positive for gram-negative bacilli, patient was started on IV cef epime, heart rate is better controlled today at 101, he has low grade fever, white blood count is elevated at 21,000. CODE STATUS was discussed with family today and at this time patient remained full code. On 03/29/2023 patient was seen and examined in the ICU he is alert and oriented 3 today he is off BiPAP and is maintained on oxygen via nasal cannula he is able to answer questions appropriately he is still complaining of severe generalized weakness and shortness of breath otherwise he denies any complaints there is no fever or chills no headache or dizziness no chest pain no shortness of breath no cough no nausea or vomiting no abdominal pain no diarrhea and no urinary symptoms. On 03/30/2023 patient was seen and examined in the ICU he is alert and oriented 3 he is maintained on oxygen via nasal cannula however he is having more shortness of breath today he denies any chest pain there is no cough no nausea or vomiting no abdominal pain no diarrhea and no urinary symptoms. Blood pressure remains marginal despite pressure support, he will be given 1 dose of IV albumin, will continue to monitor closely. Objective - Vital Signs Vital signs: Vital Signs Temp 97.6 F 03/30/23 04:00 Pulse 106 H 03/30/23 10:47 Resp 22 03/30/23 07:00 BP 112/63 03/30/23 06:30 Pulse Ox 94 L 03/30/23 07:00 FiO2 2 03/30/23 00:00 Intake & Output 03/29/23 03/30/23 03/30/23 18:59 06:59 18:59 Intake Total 2145.435 1139.731 61 Output Total 487 463 45 Balance 1658.435 676.731 16 Weight 146.7 kg Intake: IV 932 932 61 ACETAMINOPHEN IV (For NPO 100 100 ) 1,000 mg In Empty Bag 1 bag @ 400 mls/hr IVPB Q6HR PRN Rx#:[id number] Cefepime 2 gm In Sodium 100 100 Chloride 0.9% 100 ml @ 25 mls/hr IVPB Q12HR [facility] Rx #:[id number] Dextrose 5% in Water 1, 600 600 50 000 ml @ 50 mls/hr IV . Q23H [facility] with Sodium Bicarb (1 Meq/ml) 150 ml Rx#:[id number] Diltiazem 125 mg In 60 60 5 Sodium Chloride 0.9% 100 ml @ 5 MG/HR 5 mls/hr IV .Q24H [facility] Rx#:[id number] NS PRESSURE BAG 72 72 6 Intake, IV Titration 169.435 207.731 Amount Diltiazem 125 mg In 125 Sodium Chloride 0.9% 100 ml @ 5 MG/HR 5 mls/hr IV .Q24H [facility] Rx#:[id number] Norepinephrine 32 mg In 158.419 82.731 Sodium Chloride 0.9% 218 ml @ 0.04 MCG/KG/MIN 2. 664 mls/hr IV .Q24H [facility] Rx#:[id number] Vasopressin 60 unit In 11.016 Sodium Chloride 0.9% 150 ml @ 0.04 UNITS/MIN 6.12 mls/hr IV .Q24H [facility] Rx#: [id number] Oral 1044 Output: Urine 487 463 45 Other: Voiding Method Indwelling Catheter Indwelling Catheter ABP, PAP, CO, CI - Last Documented Arterial Blood Pressure 87/72 - Exam In general patient is alert and oriented x 3 in no distress HEENT head normocephalic and atraumatic Neck is supple no JVD no goiter no lymphadenopathy no carotid bruit Chest examination is clear to auscultation no crackles no wheezing Cardiac exam reveals regular heart sounds S1 and S2 no gallops no murmurs Abdomen is soft nontender no organomegaly with normal bowel sounds Extremity exam reveals no edema no cyanosis or clubbing Neurological examination reveals no gross focal deficits - Labs CBC & Chem 7: 03/30/23 04:25 03/30/23 04:25 Labs: Abnormal Lab Results - Last 24 Hours (Table) 03/30/23 03/30/23 Range/Units 04:25 04:25 WBC 34.3 H (3.8-10.6) k/uL RBC 4.09 L (4.30-5.90) m/uL Hgb 12.8 L (13.0-17.5) gm/dL Hct 38.4 L (39.0-53.0) % Plt Count 93 L (150-450) k/uL Neutrophils # (Manual) 30.80 H (1.3-7.7) k/uL Monocytes # (Manual) 2.06 H (0-1.0) k/uL Metamyelocytes # (Man) 0.34 H (0) k/uL Myelocytes # (Manual) 0.34 H (0) k/uL BUN 98 H (9-20) mg/dL Creatinine 1.86 H (0.66-1.25) mg/dL Glucose 142 H (74-99) mg/dL Calcium 7.7 L (8.4-10.2) mg/dL Total Protein 4.5 L (6.3-8.2) g/dL Albumin 2.3 L (3.5-5.0) g/dL Microbiology - Last 24 Hours (Table) 03/27/23 09:12 Blood Culture Gram Stain - Final Blood Blood Culture - Final Citrobacter braakii Assessment and Plan Plan: A. fib with RVR Acute on chronic systolic CHF Ischemic cardiomyopathy Hypotension Hyperkalemia Acute kidney injury History of hypertension History of hyperlipidemia history of coronary artery disease Monitor vital signs Monitor CBC Monitor CMP Continue telemetry monitoring Continue oxygen supplementation Encourage use of I-S, Bronchopulmonary hygiene Trend troponins Strict I's and O's, daily weights, continue IV Lasix Continue Lopressor and sotalol Hold Aldactone and eneteresto for now Avoid nephrotoxic agents Ordered 2-D echo Nephrology following Cardiology following Pulmonology following
[2023-03-30] MEDS: ALBUMIN HUMAN 25% 50 ML in EMPTY BAG 1 BAG IVPB SCH (17:33)
[2023-03-30 18:00] LABS: ABG Base Excess 0.8 mmol/L; ABG HCO3 24 mmol/L (21-25); ABG Oxygen Saturation 95.6 % (94-97); ABG PCO2 31 mmHg (35-45); ABG PH 7.49 (7.35-7.45); ABG PO2 70 mmHg (83-108); ABG TCO2 25 mmol/L (19-24); Allen Test Performed? Yes
[2023-03-30] MEDS: NOREPINEPHRINE 32 MG in SODIUM CHLORIDE 0.9% 218 ML IV SCH (18:12)
[2023-03-31] MEDS: HYDROmorphone 0.5 MG/0.5 ML SYRINGE IVP PRN ×4 (00:50→20:50)
[2023-03-31] MEDS: DILTIAZEM 125 MG in SODIUM CHLORIDE 0.9% 100 ML IV SCH (06:47)
[2023-03-31 06:51] LABS: HCT 37.5 % (39.0-53.0); HGB 12.2 gm/dL (13.0-17.5); MCH 30.7 pg (25.0-35.0); MCHC 32.4 g/dL (31.0-37.0); MCV 94.6 fL (80.0-100.0); Mean Platelet Volume 12.7; RBC 3.96 m/uL (4.30-5.90); RDW 14.5 % (11.5-15.5)
[2023-03-31 07:02] LABS: Platelet Count 88 k/uL (150-450)
[2023-03-31 07:17] LABS: ALT 10 U/L (4-49); AST 25 U/L (17-59); African American GFR (CKD) 29 (>60 ml/min/1.73 sqM); Albumin 2.3 g/dL (3.5-5.0); Alkaline Phosphatase 89 U/L (38-126); Anion Gap 9 mmol/L; Calcium 7.5 mg/dL (8.4-10.2); Carbon Dioxide 28 mmol/L (22-30); Chloride 101 mmol/L (98-107); Glucose 140 mg/dL (74-99); Non-African American GFR(CKD) 25 (>60 ml/min/1.73 sqM); Sodium 138 mmol/L (137-145); Total Bilirubin 1.2 mg/dL (0.2-1.3); Total Protein 4.6 g/dL (6.3-8.2)
[2023-03-31 07:20] LABS: Blood Urea Nitrogen 115 mg/dL (9-20)
[2023-03-31] MEDS: IPRATROPIUM-ALBUTEROL 3 ML NEB INHALATION SCH ×5 (08:11→20:05)
--- NOTE | 2023-03-31 08:13 | XR ---
EXAMINATION TYPE: XR chest 1V portable DATE OF EXAM: 03/31/2023 COMPARISON: 04/09/2023 HISTORY: Pulmonary congestion TECHNIQUE: Single frontal view of the chest is obtained. FINDINGS: Diffuse interstitial pattern with small left effusion. A cardiac device noted. Left-sided central line. Heart is enlarged and the aorta appears to be prominent. Osseous structures are stable. Degenerative changes spine. IMPRESSION: Findings most of the CHF and stable in appearance.
[2023-03-31] MEDS: CEFEPIME 2 GM in SODIUM CHLORIDE 0.9% 100 ML IVPB SCH (09:19)
[2023-03-31] MEDS: PANTOPRAZOLE 40 MG/10 ML VIAL IVP SCH (09:20)
[2023-03-31] MEDS: DOCUSATE 100 MG CAP PO SCH ×2 (09:20→20:51)
[2023-03-31] MEDS: ASPIRIN 81 MG PO SCH (09:20)
--- NOTE | 2023-03-31 09:46 | CONS ---
CONSULTATION HISTORY OF PRESENT ILLNESS: 78-year-old gentleman who is in the intensive care unit with complex and multiple medical problems including cellulitis with septicemia, cardiomyopathy, congestive heart failure, atrial fibrillation with rapid ventricular rate. He remains in atrial fibrillation with somewhat of a better controlled ventricular rate. At the time of my evaluation, the patient is being moved in the bed. He is in a lot of pain. And the heart rate is up. CURRENT MEDICATIONS: Include: 1. Aspirin. 2. Lipitor. 3. Lopressor 50 b.i.d. LABORATORY DATA: His INR is 2.9. Hemoglobin is 12.2, platelet count is 88. BUN is elevated at 115 with a creatinine of 2.4. PHYSICAL EXAMINATION: VITAL SIGNS: He remains in atrial fibrillation with poorly controlled ventricular rate. Blood pressures are marginal, still requiring pressors. HEART: Exam reveals first and second heart sounds. Irregular rhythm. EXTREMITIES: Exam of extremities reveals chronic changes bilaterally and cellulitis, erythema, and infection primarily involving the left leg. PLAN: I am going to start him back on Coumadin with pharmacy to dose, and we will continue to control his heart rate with beta blockers. MMODL / IJN: [id number] /
[2023-03-31] MEDS ORDERED: SODIUM CHLORIDE 0.9% 500 ML 500 ML IV ONE (10:19)
[2023-03-31 10:27] VITALS: BMI 44.5
[2023-03-31] MEDS: LACTATED RINGERS 1,000 ML IV SCH ×2 (10:28→21:25)
--- NOTE | 2023-03-31 10:30 | P.PN ---
Subjective Progress Note Date: 03/31/23 patient is a 78-year-old gentleman with past medical history significant for hypertension, hyperlipidemia, myocardial infarction, AICD implantation, cataracts, atrial fibrillation with ablation presented to the hospital for not feeling well for the last few days. Patient stated that 2 days ago he started feeling lethargic and weak. There was no complain of any fever but patient felt cold. Complaining of shortness of breath at rest. Denies any chest pain. Denies any nausea, vomiting abdominal pain. Patient has chronic swelling of left lower extremity. Complaining of lightheadedness. Denied any orthopnea or PND. Because symptoms, patient came to the ER Initial lab work done in the ER showed WBC 9.5, hemoglobin 13.2, platelet count 58 sodium 1:30, potassium 5.3, BUN 64, creatinine 2.09 EKG done in the ER Chest x-ray done in the ER showed cardiomegaly with stable left chest AICD, mild pulmonary vascular congestion, diffuse increased interstitial markings related to edema versus infiltrates Patient admitted to medicine service 03/26. Patient seen and examined. Still complaining of shortness of breath on exertion. Denies any chest pain. Denies any nausea or vomiting. Currently on 2 L of oxygen On 03/27/2023 patient was seen and examined in the ICU he is somnolent, currently maintained on BiPAP, there is no fever or chills no headache or dizziness no chest pain, no cough no nausea or vomiting no abdominal pain no diarrhea and no urinary symptoms On 03/28/2023 patient was seen and examined in the ICU, he is somnolent, responsive, in no apparent distress, he is still maintained on BiPAP, blood culture is positive for gram-negative bacilli, patient was started on IV cef epime, heart rate is better controlled today at 101, he has low grade fever, white blood count is elevated at 21,000. CODE STATUS was discussed with family today and at this time patient remained full code. On 03/29/2023 patient was seen and examined in the ICU he is alert and oriented 3 today he is off BiPAP and is maintained on oxygen via nasal cannula he is able to answer questions appropriately he is still complaining of severe generalized weakness and shortness of breath otherwise he denies any complaints there is no fever or chills no headache or dizziness no chest pain no shortness of breath no cough no nausea or vomiting no abdominal pain no diarrhea and no urinary symptoms. On 03/30/2023 patient was seen and examined in the ICU he is alert and oriented 3 he is maintained on oxygen via nasal cannula however he is having more shortness of breath today he denies any chest pain there is no cough no nausea or vomiting no abdominal pain no diarrhea and no urinary symptoms. Blood pressure remains marginal despite pressure support, he will be given 1 dose of IV albumin, will continue to monitor closely. On 03/31/2023 patient remains in the intensive care unit alert and oriented 3. This time patient remains on Lopressor and Cardizem and vasopressin. Creatinine increasing to 2.41 bun 115. Cardiology, care, infectious and nephrology services are following. Patient denies chest pain. Patient denies nausea vomiting or diarrhea. Patient denies any urinary burning or frequency Objective - Vital Signs Vital signs: Vital Signs Temp 97.7 F 03/31/23 04:00 Pulse 122 H 03/31/23 09:45 Resp 20 03/31/23 09:45 BP 109/61 03/31/23 09:45 Pulse Ox 97 03/31/23 09:45 FiO2 2 03/30/23 00:00 Intake & Output 03/30/23 03/31/23 03/31/23 18:59 06:59 18:59 Intake Total 1070.578 939.219 58 Output Total 315 345 Balance 755.578 594.219 58 Weight 149 kg 149 kg Intake: IV 556 751 58 Dextrose 5% in Water 1, 500 650 50 000 ml @ 50 mls/hr IV . Q23H [facility] with Sodium Bicarb (1 Meq/ml) 150 ml Rx#:[id number] Diltiazem 125 mg In 50 65 5 Sodium Chloride 0.9% 100 ml @ 5 MG/HR 5 mls/hr IV .Q24H [facility] Rx#:[id number] Lactated Ringers 1,000 ml 0 @ 75 mls/hr IV .[id number] [facility] Rx#:[id number] NS PRESSURE BAG 6 36 3 Intake, IV Titration 292.578 188.219 Amount Diltiazem 125 mg In 124.25 Sodium Chloride 0.9% 100 ml @ 5 MG/HR 5 mls/hr IV .Q24H [facility] Rx#:[id number] Norepinephrine 32 mg In 139.578 63.969 Sodium Chloride 0.9% 218 ml @ 0.04 MCG/KG/MIN 2. 664 mls/hr IV .Q24H [facility] Rx#:[id number] Vasopressin 60 unit In 153 Sodium Chloride 0.9% 150 ml @ 0.04 UNITS/MIN 6.12 mls/hr IV .Q24H [facility] Rx#: [id number] Oral 222 Output: Urine 315 345 Other: Voiding Method Indwelling Catheter Indwelling Catheter ABP, PAP, CO, CI - Last Documented Arterial Blood Pressure 87/72 - Exam In general patient is alert and oriented x 3 in no distress HEENT head normocephalic and atraumatic Neck is supple no JVD no goiter no lymphadenopathy no carotid bruit Chest examination is clear to auscultation no crackles no wheezing Cardiac exam reveals regular heart sounds S1 and S2 no gallops no murmurs Abdomen is soft nontender no organomegaly with normal bowel sounds Extremity exam reveals no edema no cyanosis or clubbing Neurological examination reveals no gross focal deficits - Labs CBC & Chem 7: 03/31/23 06:38 03/31/23 06:38 Labs: Abnormal Lab Results - Last 24 Hours (Table) 03/30/23 03/30/23 03/31/23 Range/Units 10:51 17:58 06:38 WBC 35.9 H (3.8-10.6) k/uL RBC 3.96 L (4.30-5.90) m/uL Hgb 12.2 L (13.0-17.5) gm/dL Hct 37.5 L (39.0-53.0) % Plt Count 88 L (150-450) k/uL PT 28.7 H (10.0-12.5) sec INR 2.9 H (<1.2) ABG pH 7.49 H (7.35-7.45) ABG pCO2 31 L (35-45) mmHg ABG pO2 70 L (83-108) mmHg ABG Total CO2 25 H (19-24) mmol/L BUN (9-20) mg/dL Creatinine (0.66-1.25) mg/dL Glucose (74-99) mg/dL Calcium (8.4-10.2) mg/dL Total Protein (6.3-8.2) g/dL Albumin (3.5-5.0) g/dL 03/31/23 Range/Units 06:38 WBC (3.8-10.6) k/uL RBC (4.30-5.90) m/uL Hgb (13.0-17.5) gm/dL Hct (39.0-53.0) % Plt Count (150-450) k/uL PT (10.0-12.5) sec INR (<1.2) ABG pH (7.35-7.45) ABG pCO2 (35-45) mmHg ABG pO2 (83-108) mmHg ABG Total CO2 (19-24) mmol/L BUN 115 H* (9-20) mg/dL Creatinine 2.41 H (0.66-1.25) mg/dL Glucose 140 H (74-99) mg/dL Calcium 7.5 L (8.4-10.2) mg/dL Total Protein 4.6 L (6.3-8.2) g/dL Albumin 2.3 L (3.5-5.0) g/dL Microbiology - Last 24 Hours (Table) 03/29/23 15:20 Blood Culture - Preliminary Blood Assessment and Plan Plan: A. fib with RVR Acute on chronic systolic CHF Ischemic cardiomyopathy Hypotension Hyperkalemia Acute kidney injury History of hypertension History of hyperlipidemia history of coronary artery disease Monitor vital signs Monitor CBC Monitor CMP Continue telemetry monitoring Continue oxygen supplementation Encourage use of I-S, Bronchopulmonary hygiene Trend troponins Strict I's and O's, daily weights, continue IV Lasix Continue Lopressor and sotalol Hold Aldactone and eneteresto for now Avoid nephrotoxic agents cardiology following Nephrology following Cardiology following Pulmonology following
--- NOTE | 2023-03-31 10:51 | P.PN ---
Subjective Progress Note Date: 03/31/23 Principal diagnosis: Hypotension. This is a 78-year-old male patient with a known history of atrial fibrillation anticoagulated with warfarin, congestive heart failure, gout, hyperlipidemia, hypertension, coronary artery disease with previous stenting, ischemic cardiomyopathy with AICD placement. Lifelong nonsmoker. He presented to the emergency room yesterday with a 3 to four-day history of increasing shortness of breath, weakness, lower extremity swelling. He was to be on Lasix but has been somewhat noncompliant with that according to the patient's . His x-ray rev ealed evidence of cardiomegaly with mild pulmonary vascular congestion. Diffuse initially increased interstitial markings suspicious for pulmonary edema/CHF. Echocardiogram revealed severely impaired left ventricle systolic function with ejection fraction less than 20%. Anteroapical akinesis with severe hypokinesis and the rest of the segments. White count 6.8. Hemoglobin 12.0. INR 3.3. Emilio telets 76,000. Sodium 137. Potassium 4.9. Bicarb 19. BUN 70. Creatinine 1.62. Glucose 132. He is seen today in consultation on the selective care unit. Currently resting quite flat in bed. Awake and alert in no acute distress. Maintaining O2 saturations in the 90s on 2 L/m per nasal cannula. He is breathing a bit easier today compared to yesterday. He is currently on Lasix 40 mg IV every 8 hours. He is initiated on Farxiga. Progress note dated 03/27/2023. This is a 78-year-old male who is seen today in the intensive care unit, room 267. He was admitted to the hospital on March 25, with a diagnosis of acute kidney injury, congestive heart failure, and atrial fibrillation. The patient was transferred down to the intensive care unit, by our nurse practitioner, because of severe hypotension. On dobutamine by the hospital service, and, norepinephrine was added by cardiology. Currently, he's on 2 L nasal cannula, receiving dobutamine at 2.5 mcg/kg/m, and is on norepinephrine at 14 mcg/m. The patient does not have adequate IV access, so I place a right radial art line, and a left internal jugular triple-lumen catheter. White count 6.4, hemoglobin 12.2, hematocrit 38.3, and platelet count is 89,000. PTT was 28.6 with an INR of 2.9. Sodium 138, potassium 4.8, chlorides 105, CO2 22, anion gap 11, BUN 86, and creatinine 2.14. Albumin 2.7. Chest x-ray shows improving interstitial edema. Progress note dated 03/28/2023. 78-year-old male seen in the intensive care unit, room 267. The patient was admitted to the hospital on March 25, with a diagnosis of acute kidney injury, congestive heart failure, and atrial fibrillation. The patient was transferred down to the intensive care unit, because of hypotension. Dobutamine was started by the hospitalist service, and subsequent to that, with the development of hypotension, norepinephrine, was added, and now vasopressin. Currently, the patient is on 4 L by nasal cannula. He continues on amiodarone at 0.5 mg/m, dobutamine at 2.5 mcg/kg/m, norepinephrine at 28 mcg/m, and vasopressin at 0.04 units per minute. His pro-calcitonin level was quite elevated, and there were gram-negative bacilli, in the blood. The patient is currently on cefepime. BiPAP settings are 12/5, and 40%. He spent most of the night on BiPAP. CODE STATUS has been addressed, but I've asked the nurse to recheck to the family a gain. White count is 21,000, hemoglobin 13.5, hematocrit 41.1, with a platelet count of 115,000. PT is 20.8 with an INR 2.1. Sodium 139, potassium 4.5, chlorides 109, CO2 17, anion gap 13, BUN 85, and creatinine 1.59. Blood gases done last night show pO2 of 131, pCO2 26, and a pH is 7.48. These blood gases are consistent with a combined respiratory alkalosis and mild metabolic acidosis. Chest x-ray shows diffuse bilateral infiltrates, mostly interstitial in nature. Progress note dated 03/29/2023. 78-year-old male seen in room 267. I did have the opportunity to speak to his . The patient for the time being, will remain a full code. The said that he would not want to be on the ventilator, long-term, and certainly would not want a tracheostomy and/or a feeding tube. Currently, he's on 4 L by nasal cannula. BiPAP has been used on and off, at 12/5, and 40%. The patient's on norepinephrine at 34 mcg/m, and vasopressin 0.04 units per minute. The patient is also on Cardizem 5 mg an hour, and a sodium bicarbonate drip at 50 mL an hour, with 3 ampules of sodium bicarbonate and D5W. The patient's blood cultures are positive for gram-negative bacilli, the patient is on cefepime. White count is 32.5, hemoglobin 13.4, hematocrit 40.2, and platelet count 113,000. PTT was 32.6 with an INR 3.3. Sodium 139, potassium 3.9, chlorides 109, CO2 18, anion gap 12, BUN 91, creatinine 1.91. Glucose is 162. Calcium is 7.9. Chest x-ray shows some left basilar consolidation, and some mild venous congestion. Progress note dated 03/30/2023. 78-year-old male seen in room 267. The patient appears a bit more awake today than he did yesterday. Currently, he's on 2 L of oxygen. He is receiving norepinephrine at 11.7 mcg/m, and vasopressin at 0.04 units per minute. Is also on Cardizem 5 mg an hour, and a sodium bicarbonate drip, with 3 ampules of sodium bicarbonate and D5W at 50 mL an hour. I did have a chance to talk to the , both yesterday, and today. The patient's blood cultures showed evidence of Citrobacter, is sensitive to the cefepime that the patient is currently on. White count 34.3, hemoglobin 12.8, hematocrit 38.4, and platelet count 93,000. Sodium 138, potassium 3.8, chlorides 106, CO2 22, anion gap 10, BUN 98, creatinine 1.86. Albumin is 2.3. Chest x-ray shows cardiomegaly, with mild fluid overload. Progress note dated 03/31/2023. 78-year-old male seen again in room 267. The patient's a bit more awake again today than he was yesterday. His is in the room with him. He continues on oxygen at 2 L by nasal cannula. Is on Cardizem 5 mg an hour for atrial fibrillation, and vasopressin at 0.04 units per minute, and norepinephrine at 6 mcg/m, for hypotension. The patient remains on a sodium bicarbonate drip, with 3 ampules of sodium bicarbonate and D5W at 50 mL an hour. Finally, we believe the patient to be a bit dry, and we will add lactated Ringer's at 75 mL an hour. His blood cultures were positive for Citrobacter, and he is currently on cefepime. Arterial blood gases yesterday showed a pO2 of 70, pCO2 31, and a pH is 7.49. This is consistent with respiratory alkalosis. White count 35.9, hemoglobin 12.2, hematocrit 37.5, and platelet count 88,000. Sodium 138, potassium 4, chlorides 101, CO2 28, BUN 1:15, creatinine 2.41, up from 98 and 1.86 respectively. Calcium is 7.5, albumin is 2.3. Chest x-ray shows a diffuse interstitial pattern. Objective - Vital Signs Vital signs: Vital Signs Temp 97.7 F 03/31/23 04:00 Pulse 111 H 03/31/23 10:30 Resp 20 03/31/23 10:30 BP 94/56 03/31/23 10:30 Pulse Ox 100 03/31/23 10:30 FiO2 2 03/30/23 00:00 Intake & Output 03/30/23 03/31/23 03/31/23 18:59 06:59 18:59 Intake Total 1070.578 939.219 824 Output Total 315 345 Balance 755.578 594.219 824 Weight 149 kg 149 kg Intake: IV 556 751 324 Cefepime 2 gm In Sodium 100 Chloride 0.9% 100 ml @ 25 mls/hr IVPB Q12HR [facility] Rx #:[id number] Dextrose 5% in Water 1, 500 650 50 000 ml @ 50 mls/hr IV . Q23H [facility] with Sodium Bicarb (1 Meq/ml) 150 ml Rx#:[id number] Diltiazem 125 mg In 50 65 15 Sodium Chloride 0.9% 100 ml @ 5 MG/HR 5 mls/hr IV .Q24H [facility] Rx#:[id number] Lactated Ringers 1,000 ml 150 @ 75 mls/hr IV .[id number] [facility] Rx#:[id number] NS PRESSURE BAG 6 36 9 Intake, IV Titration 292.578 188.219 500 Amount Diltiazem 125 mg In 124.25 Sodium Chloride 0.9% 100 ml @ 5 MG/HR 5 mls/hr IV .Q24H [facility] Rx#:[id number] Norepinephrine 32 mg In 139.578 63.969 Sodium Chloride 0.9% 218 ml @ 0.04 MCG/KG/MIN 2. 664 mls/hr IV .Q24H [facility] Rx#:[id number] Sodium Chloride 0.9% 500 500 ml 500 ml @ 999 mls/hr IV .Q31M [facility] Rx#:[id number] Vasopressin 60 unit In 153 Sodium Chloride 0.9% 150 ml @ 0.04 UNITS/MIN 6.12 mls/hr IV .Q24H [facility] Rx#: [id number] Oral 222 Output: Urine 315 345 Other: Voiding Method Indwelling Catheter Indwelling Catheter Indwelling Catheter ABP, PAP, CO, CI - Last Documented Arterial Blood Pressure 87/72 - Exam No acute distress, the patient is more awake and alert today. Currently on 2 L. HEENT examination is grossly unremarkable. Mucous membranes are moist. No oral lesions. Neck supple. Full range of motion. No adenopathy thyromegaly or neck vein distention. Cardiovascular examination reveals regular rhythm rate. S1-S2 normal. No S3 or S4. No discernible murmur noted. Heart sounds are distant. Heart rate 109 bpm. Lungs reveal scattered rhonchi and crackles. No wheezes. Breath sounds are equal bilaterally. Saturations are 96 % on 2 L nasal cannula. Abdomen soft bowel sounds are heard. No masses or tenderness. Extremities are intact. No cyanosis clubbing or edema. Skin is without rash or lesion. Neurologic examination is brief but nonfocal. Patient is a bit lethargic. - Labs CBC & Chem 7: 03/31/23 06:38 03/31/23 06:38 Labs: Abnormal Lab Results - Last 24 Hours (Table) 03/30/23 03/30/23 03/31/23 Range/Units 10:51 17:58 06:38 WBC 35.9 H (3.8-10.6) k/uL RBC 3.96 L (4.30-5.90) m/uL Hgb 12.2 L (13.0-17.5) gm/dL Hct 37.5 L (39.0-53.0) % Plt Count 88 L (150-450) k/uL PT 28.7 H (10.0-12.5) sec INR 2.9 H (<1.2) ABG pH 7.49 H (7.35-7.45) ABG pCO2 31 L (35-45) mmHg ABG pO2 70 L (83-108) mmHg ABG Total CO2 25 H (19-24) mmol/L BUN (9-20) mg/dL Creatinine (0.66-1.25) mg/dL Glucose (74-99) mg/dL Calcium (8.4-10.2) mg/dL Total Protein (6.3-8.2) g/dL Albumin (3.5-5.0) g/dL 03/31/23 Range/Units 06:38 WBC (3.8-10.6) k/uL RBC (4.30-5.90) m/uL Hgb (13.0-17.5) gm/dL Hct (39.0-53.0) % Plt Count (150-450) k/uL PT (10.0-12.5) sec INR (<1.2) ABG pH (7.35-7.45) ABG pCO2 (35-45) mmHg ABG pO2 (83-108) mmHg ABG Total CO2 (19-24) mmol/L BUN 115 H* (9-20) mg/dL Creatinine 2.41 H (0.66-1.25) mg/dL Glucose 140 H (74-99) mg/dL Calcium 7.5 L (8.4-10.2) mg/dL Total Protein 4.6 L (6.3-8.2) g/dL Albumin 2.3 L (3.5-5.0) g/dL Microbiology - Last 24 Hours (Table) 03/29/23 15:20 Blood Culture - Preliminary Blood Assessment and Plan Assessment: Acute hypoxemic respiratory failure secondary to an acute exacerbation of chronic systolic congestive heart failure. Ejection fraction less than 20%. Hypotension, severe, secondary to cardiomyopathy, and bacteremia/sepsis. Likely sepsis, secondary to Citrobacter species, on cefepime. Severe ischemic cardiomyopathy, status post AICD placement. History of coronary disease with previous stent placements. Chronic atrial fibrillation. History of gout. Hypertension. Hyperlipidemia. Lifelong nonsmoker. Plan: Plan dated 03/27/2023. The patient was transferred to the intensive care unit, for closer monitoring and management. The patient was placed on dobutamine at 2.5 mcg/kg/m, and, for hypotension, is receiving norepinephrine at 14 mcg/m. Labs, x-rays, and medications are reviewed. The patient's overall prognosis remains very guarded. We placed a right radial arterial line today, as well as a left internal jugular triple-lumen catheter, for better monitoring and management. We'll continue to follow make recommendations along the way. Prognosis is certainly guarded. Plan dated 03/28/2023. The patient is currently on cefepime, for gram-negative bacilli discovered in his blood. The patient is on 4 L of oxygen by nasal cannula. The patient can go to BiPAP, with settings of 12/5, and 40%. We'll add vasopressin 0.04 units per minute to the patient's regimen. He is already on norepinephrine at 20 mcg/m. He is also receiving amiodarone 0.5 mg/m, and dobutamine 2.5 mcg/kg/m. We'll ask cardiology to stop the dobutamine. Labs, x-rays, medications are revi ewed. The patient's pro-calcitonin level was quite high at 25. Prognosis is certainly guarded. The patient may end up on mechanical ventilation. We'll discuss CODE STATUS with the family again. Plan dated 03/29/2023. The patient continues on antibiotic for the gram-negative bacilli, in the blood. It has not yet been identified. The patient remains on norepinephrine at 34 mcg/m, and vasopressin at 0.04 units per minute. The patient is also on Cardizem at 5 mg an hour. The patient's receiving oxygen by nasal cannula at 4 L. Labs, x-rays, and medications are reviewed. The patient's overall prognosis remains guarded. He remains a full code. I had the opportunity to speak to the patient's . She would like him to stay a full code for the time being. It would be okay to intubate the patient, if necessary, but he would not want long- term intubation, but certainly not want a tracheostomy tube or a feeding tube. Additional recommendations and suggestions are forthcoming. Plan dated 03/30/2023. I was again able to speak to the patient's , and give her an update. The patient's norepinephrine requirement has gone down significantly, from 34 mcg/m, down to less than 12 mcg/m. The patient continues both on Cardizem, and vasopressin. Labs, x-rays, and medications are reviewed. The patient's blood cultures are positive for Citrobacter. The Citrobacter is sensitive to cefepime, which is what the patient is on. Labs, x-rays, and medications are reviewed. We will continue to follow the patient, and make recommendations along the way. The patient's overall prognosis is guarded. Plan dated 03/31/2023. The patient appears to be a bit better today. I had a chance to speak to his again today. I gave her an update. The patient does continue on Cardizem drip, vasopressin drip, and norepinephrine drip. In addition, the patient continues a sodium bicarbonate drip. Labs, x-rays, medications are reviewed. The nurse call me yesterday because of worsening respiratory status, but the blood gases were fine, with a pO2 of 70, pCO2 31, and a pH is 7.49. That was on 2 L. Blood cultures are positive for Citrobacter, and he continues on cefepime. We will continue to follow make recommendations along the way. Prognosis is certainly guarded. Time with Patient: Greater than 30
--- NOTE | 2023-03-31 10:55 | P.PN ---
Subjective Patient is seen for follow-up for acute kidney injury. He was admitted to the hospital with shortness of breath and increased weakness. Underlying history of CHF with EF of 20%. Patient was maintained on dobutamine and was diuresed on initial admission. Patient was transferred to the ICU due to significant hypotension and shortness of breath. He is currently maintained on pressors. Maintained on Cardizem drip for A. fib with RVR. Levo fed is slightly lower from yesterday. Urine output has decreased to 15-25 mL per hour. Serum creatinine increased to 2.41 today. Blood cultures are growing gram-negative bacilli, Citrobacter brakii Patient is off of BiPAP and maintained on 2 L nasal cannula Objective - Vital Signs Vital signs: Vital Signs Temp 97.7 F 03/31/23 04:00 Pulse 111 H 03/31/23 10:30 Resp 20 03/31/23 10:30 BP 94/56 03/31/23 10:30 Pulse Ox 100 03/31/23 10:30 FiO2 2 03/30/23 00:00 Intake & Output 03/30/23 03/31/23 03/31/23 18:59 06:59 18:59 Intake Total 1070.578 939.219 824 Output Total 315 345 Balance 755.578 594.219 824 Weight 149 kg 149 kg Intake: IV 556 751 324 Cefepime 2 gm In Sodium 100 Chloride 0.9% 100 ml @ 25 mls/hr IVPB Q12HR [facility] Rx #:[id number] Dextrose 5% in Water 1, 500 650 50 000 ml @ 50 mls/hr IV . Q23H [facility] with Sodium Bicarb (1 Meq/ml) 150 ml Rx#:[id number] Diltiazem 125 mg In 50 65 15 Sodium Chloride 0.9% 100 ml @ 5 MG/HR 5 mls/hr IV .Q24H [facility] Rx#:[id number] Lactated Ringers 1,000 ml 150 @ 75 mls/hr IV .[id number] [facility] Rx#:[id number] NS PRESSURE BAG 6 36 9 Intake, IV Titration 292.578 188.219 500 Amount Diltiazem 125 mg In 124.25 Sodium Chloride 0.9% 100 ml @ 5 MG/HR 5 mls/hr IV .Q24H [facility] Rx#:[id number] Norepinephrine 32 mg In 139.578 63.969 Sodium Chloride 0.9% 218 ml @ 0.04 MCG/KG/MIN 2. 664 mls/hr IV .Q24H [facility] Rx#:[id number] Sodium Chloride 0.9% 500 500 ml 500 ml @ 999 mls/hr IV .Q31M [facility] Rx#:[id number] Vasopressin 60 unit In 153 Sodium Chloride 0.9% 150 ml @ 0.04 UNITS/MIN 6.12 mls/hr IV .Q24H [facility] Rx#: [id number] Oral 222 Output: Urine 315 345 Other: Voiding Method Indwelling Catheter Indwelling Catheter Indwelling Catheter ABP, PAP, CO, CI - Last Documented Arterial Blood Pressure 87/72 - Exam Patient is awake. Comfortable Examination of the heart S1 and S2 Examination of the lungs decreased breath sounds at the bases Abdomen is soft nontender Examination of lower extremities shows edema 1+ bilaterally, erythema on the left leg, somewhat improved [employer] exam grossly intact - Labs CBC & Chem 7: 03/31/23 06:38 03/31/23 06:38 Labs: Abnormal Lab Results - Last 24 Hours (Table) 03/30/23 03/30/23 03/31/23 Range/Units 10:51 17:58 06:38 WBC 35.9 H (3.8-10.6) k/uL RBC 3.96 L (4.30-5.90) m/uL Hgb 12.2 L (13.0-17.5) gm/dL Hct 37.5 L (39.0-53.0) % Plt Count 88 L (150-450) k/uL PT 28.7 H (10.0-12.5) sec INR 2.9 H (<1.2) ABG pH 7.49 H (7.35-7.45) ABG pCO2 31 L (35-45) mmHg ABG pO2 70 L (83-108) mmHg ABG Total CO2 25 H (19-24) mmol/L BUN (9-20) mg/dL Creatinine (0.66-1.25) mg/dL Glucose (74-99) mg/dL Calcium (8.4-10.2) mg/dL Total Protein (6.3-8.2) g/dL Albumin (3.5-5.0) g/dL 03/31/23 Range/Units 06:38 WBC (3.8-10.6) k/uL RBC (4.30-5.90) m/uL Hgb (13.0-17.5) gm/dL Hct (39.0-53.0) % Plt Count (150-450) k/uL PT (10.0-12.5) sec INR (<1.2) ABG pH (7.35-7.45) ABG pCO2 (35-45) mmHg ABG pO2 (83-108) mmHg ABG Total CO2 (19-24) mmol/L BUN 115 H* (9-20) mg/dL Creatinine 2.41 H (0.66-1.25) mg/dL Glucose 140 H (74-99) mg/dL Calcium 7.5 L (8.4-10.2) mg/dL Total Protein 4.6 L (6.3-8.2) g/dL Albumin 2.3 L (3.5-5.0) g/dL Microbiology - Last 24 Hours (Table) 03/29/23 15:20 Blood Culture - Preliminary Blood Assessment and Plan Assessment: 1. Acute kidney injury, ATN, from hypotension, infection, currently nonoliguric. History of NSAID use prior to admission. No obstruction noted on ultrasound. UA reveals 1+ protein trace blood 2. Acute on chronic systolic CHF with EF of 20% with mild to moderate tricuspid regurgitation 3. Hypotension multifactorial including underlying infection as well as severe cardiomyopathy, maintained on pressors and antibiotics 4. A. fib with RVR, started Cardizem drip 5. Cellulitis left lower extremity with sepsis 6. Metabolic acidosis associated with acute kidney injury 7. Sepsis with blood cultures growing Citrobacter braakii Plan: DC IV bicarb Continue with Ringer lactate IV fluid bolus 500 mL 1. Try Lasix 1 if no response to fluid bolus Continue to wean down pressors Avoid nephrotoxic agents Continue antibiotics
--- NOTE | 2023-03-31 11:56 | P.GSCN ---
History of Present Illness Consult date: 03/31/23 Reason for Consult: leg wounds History of present illness: 78-year old male with a past medical history significant for hypertension, hyperlipidemia, atrial fibrillation, [place] currently being treated for hypotension and shortness of breath. He and his state that his legs have been swollen for the last several weeks but noticed since admission the swelling redness of the left lower extremity is now extended to the medial thigh which is worsen than before. The legs now appear to be black at the medial and posterior aspect of the leg and he is complaining of some tenderness and weakness of the legs. He states no significant pain in the legs with walking at home previously. Review of Systems All systems: negative (what is mentioned in the PMH or HPI) Past Medical History Past Medical History: Atrial Fibrillation, Eye Disorder, Hyperlipidemia, Hypert ension, Myocardial Infarction ([place]) Additional Past Medical History / Comment(s): See Dr Jain's H&P,CATARACTS.PAST AFIB,COVID infection 2021-hospitalized. Last Myocardial Infarction Date:: 2006 History of Any Multi-Drug Resistant Organisms: None Reported Past Surgical History: AICD, Cardiac Ablation, Heart Catheterization With Stent Additional Past Surgical History / Comment(s): bilateral CATARACT, one cardiac stent, total right knee 05/30/16,[facility] Left chest Past Anesthesia/Blood Transfusion Reactions: No Reported Reaction Additional Past Anesthesia/Blood Transfusion Reaction / Comm: no hx blood transfusion Date of Last Stent Placement:: 2006 Type of Cardiac Device: AICD Device Placement Date:: unknown Past Psychological History: No Psychological Hx Reported Smoking Status: Never smoker Past Alcohol Use History: None Reported Past Drug Use History: None Reported - Past Family History Father Family Medical History: Cancer Mother Family Medical History: Cancer Medications and Allergies Home Medications Medication Instructions Recorded Confirmed Type Aspirin 81 mg PO DAILY 04/14/14 03/25/23 History Nitroglycerin Sl Tabs [Nitrostat] 0.4 mg SUBLINGUAL Q5M PRN 04/14/14 03/25/23 History Spironolactone [Aldactone] 12.5 mg PO HS 04/14/14 03/25/23 History Warfarin [Coumadin] 5 mg PO SUTUTHSA@1700 04/14/14 03/25/23 History Sotalol [Betapace] 80 mg PO BID 05/19/17 03/25/23 History Warfarin [Coumadin] 7.5 mg PO MOWEFR@1700 05/19/17 03/25/23 History allopurinoL [Zyloprim] 100 mg PO HS 06/04/21 03/25/23 History Furosemide [Lasix] 20 mg PO DAILY PRN 02/23/22 03/25/23 History Tamsulosin [Flomax] 0.4 mg PO DAILY@1700 02/23/22 03/25/23 History carvediloL [Coreg] 6.25 mg PO BID 02/23/22 03/25/23 History Mv-Min/Folic/K1/Lycopen/Lutein 1 tab PO DAILY 12/21/22 03/25/23 History [Centrum Silver Men Tablet] Sacubitril/Valsartan [Entresto 49 1 tab PO BID 12/21/22 03/25/23 History mg-51 mg Tablet] Allergies Allergy/AdvReac Type Severity Reaction Status Date / Time No Known Allergies Allergy Verified 03/25/23 12:30 Surgical - Exam Vital Signs Temp Pulse Resp BP Pulse Ox 97.4 F L 116 H 32 H 79/48 97 03/25/23 06:15 03/25/23 06:15 03/25/23 06:15 03/25/23 06:15 03/25/23 06:15 - General chronically ill, obese - Eyes PERRL, normal ocular movement - ENT normal pinna, normal nares - Neck no masses, no bruits - Respiratory scattered rhonchi - Cardiovascular Rhythm: regular - Abdomen Abdomen: soft, non tender - Integumentary erythema extends from the lower leg to the medial thigh. + TTP ischemic changes and bruising noted at the medial lower leg and lateral thigh. Blistering noted with chronic lymphedematous changes in bilateral lower extremities multiphasic dp and pt signals bilaterally with good capillary refill. - Neurologic normal coordination, no disoriented - Psychiatric oriented to time, oriented to person, speech is normal Results - Labs 03/31/23 06:38 03/31/23 06:38 Abnormal Lab Results - Last 24 Hours (Table) 03/30/23 03/31/23 03/31/23 Range/Units 17:58 06:38 06:38 WBC 35.9 H (3.8-10.6) k/uL RBC 3.96 L (4.30-5.90) m/uL Hgb 12.2 L (13.0-17.5) gm/dL Hct 37.5 L (39.0-53.0) % Plt Count 88 L (150-450) k/uL ABG pH 7.49 H (7.35-7.45) ABG pCO2 31 L (35-45) mmHg ABG pO2 70 L (83-108) mmHg ABG Total CO2 25 H (19-24) mmol/L BUN 115 H* (9-20) mg/dL Creatinine 2.41 H (0.66-1.25) mg/dL Glucose 140 H (74-99) mg/dL Calcium 7.5 L (8.4-10.2) mg/dL Total Protein 4.6 L (6.3-8.2) g/dL Albumin 2.3 L (3.5-5.0) g/dL Microbiology - Last 24 Hours (Table) 03/29/23 15:20 Blood Culture - Preliminary Blood Diabetes panel 03/31/23 Range/Units 06:38 Sodium 138 (137-145) mmol/L Potassium 4.0 (3.5-5.1) mmol/L Chloride 101 (98-107) mmol/L Carbon Dioxide 28 (22-30) mmol/L BUN 115 H* (9-20) mg/dL Creatinine 2.41 H (0.66-1.25) mg/dL Glucose 140 H (74-99) mg/dL Calcium 7.5 L (8.4-10.2) mg/dL AST 25 (17-59) U/L ALT 10 (4-49) U/L Alkaline Phosphatase 89 (38-126) U/L Total Protein 4.6 L (6.3-8.2) g/dL Albumin 2.3 L (3.5-5.0) g/dL Calcium panel 03/31/23 Range/Units 06:38 Calcium 7.5 L (8.4-10.2) mg/dL Albumin 2.3 L (3.5-5.0) g/dL Pituitary panel 03/31/23 Range/Units 06:38 Sodium 138 (137-145) mmol/L Potassium 4.0 (3.5-5.1) mmol/L Chloride 101 (98-107) mmol/L Carbon Dioxide 28 (22-30) mmol/L BUN 115 H* (9-20) mg/dL Creatinine 2.41 H (0.66-1.25) mg/dL Glucose 140 H (74-99) mg/dL Calcium 7.5 L (8.4-10.2) mg/dL Adrenal panel 03/31/23 Range/Units 06:38 Sodium 138 (137-145) mmol/L Potassium 4.0 (3.5-5.1) mmol/L Chloride 101 (98-107) mmol/L Carbon Dioxide 28 (22-30) mmol/L BUN 115 H* (9-20) mg/dL Creatinine 2.41 H (0.66-1.25) mg/dL Glucose 140 H (74-99) mg/dL Calcium 7.5 L (8.4-10.2) mg/dL Total Bilirubin 1.2 (0.2-1.3) mg/dL AST 25 (17-59) U/L ALT 10 (4-49) U/L Alkaline Phosphatase 89 (38-126) U/L Total Protein 4.6 L (6.3-8.2) g/dL Albumin 2.3 L (3.5-5.0) g/dL Assessment and Plan Assessment: Left lower extremity cellulitis Venous ulceration left lower extremity Hypotension Atrial fibrillation Morbid Obesity Ischemic cardiomyopathy Acute kidney injury Plan: Agree with antibiotics for skin infection No surgical intervention at this time. Will monitor area to see if demarcation or continued skin ischemia. At this time patient would not do well with any surgical intervention. Continue supportive care. Will follow with you. Thank you for the consultation.
[2023-03-31] MEDS: VASOPRESSIN 60 UNIT in SODIUM CHLORIDE 0.9% 150 ML IV SCH (12:31)
[2023-03-31] MEDS: METOPROLOL TARTRATE 25 MG TAB PO SCH ×2 (13:09→20:44)
[2023-03-31] MEDS: AMIODARONE 200 MG TAB PO SCH (13:09)
[2023-03-31 13:11] LABS: Band Neutrophils % 1 %; Metamyelocytes % 2 %; Myelocytes % 1 %; Neutrophils % (M) 90 %; Nucleated Red Blood Cells 2 /100 WBC (0-0); Total Cells Counted 200
[2023-03-31 13:12] LABS: Eosinophils # (M) 0.35 k/uL (0-0.7); Lymphocytes # (M) 1.06 k/uL (1.0-4.8); Monocytes # (M) 1.76 k/uL (0-1.0); Myelocytes # (M) 0.35 k/uL (0); WBC 35.2 k/uL (3.8-10.6)
[2023-03-31 13:19] LABS: Large Platelets Present
--- NOTE | 2023-03-31 15:29 | P.PN ---
Subjective Progress Note Date: 03/31/23 Principal diagnosis: Left leg cellulitis and bacteremia Patient is a 78-year old male with a past medical history significant for hypertension hyperlipidemia atrial fibrillation [place] patient presenting to the hospital on 03/25/2022 for evaluation of increasing shortness of breath patient did have a fever and elevated white count and a positive blood culture with a Citrobacter. On today's evaluation and that is 03/31/2023, the patient remains to be afebrile, the patient is breathing comfortably on 2 L nasal cannula supplemental oxygen, the patient denies any chest pain, the patient denies any worsening cough or sputum production, patient denies abdominal pain and no nausea/vomiting and no diarrhea has been reported, patient denies any worsening pain to the left lower extremity. Patient white count is 35.2, creatinine is 2.41 Objective - Vital Signs Vital signs: Vital Signs Temp 97.7 F 03/31/23 04:00 Pulse 123 H 03/31/23 11:34 Resp 18 03/31/23 11:00 BP 108/51 03/31/23 11:00 Pulse Ox 93 L 03/31/23 11:00 FiO2 2 03/30/23 00:00 Intake & Output 03/30/23 03/31/23 03/31/23 18:59 06:59 18:59 Intake Total 1070.578 939.219 902 Output Total 315 345 45 Balance 755.578 594.219 857 Weight 149 kg 149 kg Intake: IV 556 751 402 Cefepime 2 gm In Sodium 100 Chloride 0.9% 100 ml @ 25 mls/hr IVPB Q12HR [facility] Rx #:[id number] Dextrose 5% in Water 1, 500 650 50 000 ml @ 50 mls/hr IV . Q23H [facility] with Sodium Bicarb (1 Meq/ml) 150 ml Rx#:[id number] Diltiazem 125 mg In 50 65 15 Sodium Chloride 0.9% 100 ml @ 5 MG/HR 5 mls/hr IV .Q24H [facility] Rx#:[id number] Lactated Ringers 1,000 ml 225 @ 75 mls/hr IV .[id number] [facility] Rx#:[id number] NS PRESSURE BAG 6 36 12 Intake, IV Titration 292.578 188.219 500 Amount Diltiazem 125 mg In 124.25 Sodium Chloride 0.9% 100 ml @ 5 MG/HR 5 mls/hr IV .Q24H [facility] Rx#:[id number] Norepinephrine 32 mg In 139.578 63.969 Sodium Chloride 0.9% 218 ml @ 0.04 MCG/KG/MIN 2. 664 mls/hr IV .Q24H [facility] Rx#:[id number] Sodium Chloride 0.9% 500 500 ml 500 ml @ 999 mls/hr IV .Q31M [facility] Rx#:[id number] Vasopressin 60 unit In 153 Sodium Chloride 0.9% 150 ml @ 0.04 UNITS/MIN 6.12 mls/hr IV .Q24H [facility] Rx#: [id number] Oral 222 Output: Urine 315 345 45 Other: Voiding Method Indwelling Catheter Indwelling Catheter Indwelling Catheter ABP, PAP, CO, CI - Last Documented Arterial Blood Pressure 87/72 - Exam GENERAL DESCRIPTION: An elderly male lying in bed in no distress RESPIRATORY SYSTEM: Unlabored breathing , decreased breath sound the bases HEART: S1 S2 regular rate and rhythm , ABDOMEN: Soft , no tenderness EXTREMITIES: Left lower extremity with swelling redness and evidence of skin necrosis - Labs CBC & Chem 7: 03/31/23 06:38 03/31/23 06:38 Labs: Abnormal Lab Results - Last 24 Hours (Table) 03/30/23 03/31/23 03/31/23 Range/Units 17:58 06:38 06:38 WBC 35.9 H (3.8-10.6) k/uL RBC 3.96 L (4.30-5.90) m/uL Hgb 12.2 L (13.0-17.5) gm/dL Hct 37.5 L (39.0-53.0) % Plt Count 88 L (150-450) k/uL ABG pH 7.49 H (7.35-7.45) ABG pCO2 31 L (35-45) mmHg ABG pO2 70 L (83-108) mmHg ABG Total CO2 25 H (19-24) mmol/L BUN 115 H* (9-20) mg/dL Creatinine 2.41 H (0.66-1.25) mg/dL Glucose 140 H (74-99) mg/dL Calcium 7.5 L (8.4-10.2) mg/dL Total Protein 4.6 L (6.3-8.2) g/dL Albumin 2.3 L (3.5-5.0) g/dL Microbiology - Last 24 Hours (Table) 03/29/23 15:20 Blood Culture - Preliminary Blood Assessment and Plan (1) Bacteremia Current Visit: Yes Status: Acute Code(s): R78.81 - BACTEREMIA SNOMED Code(s): 4134872 (2) Left leg cellulitis Current Visit: Yes Status: Acute Code(s): L03.116 - CELLULITIS OF LEFT LOWER LIMB SNOMED Code(s): 30694990848260450 Plan: 1patient with sepsis in this patient who did have a fever elevated white count source is likely left lower extremity cellulitis, in this patient with Citrobacter bacteremia 2-blood cultures were repeated document clearance of bacteremia 3-patient has been evaluated by vascular surgery did not recommend any surgical intervention at this point 4-patient to continue cefepime 1 g every 12 hours , we'll add daptomycin for gram-positive coverage in view of persistent cellulitis and elevated white count Dictation was produced using [employer] dictation software. please excuse any gramma tical, word or spelling errors. Time with Patient: Greater than 30
[2023-03-31] MEDS ORDERED: ACETAMINOPHEN TAB 500 MG TAB PO STA (17:34)
[2023-03-31] MEDS: CEFEPIME 1 GM in SODIUM CHLORIDE 0.9% 50 ML IVPB SCH (20:45)
[2023-04-01] MEDS: SODIUM CHLORIDE 0.9% 250 ML IV SCH ×4 (00:26→02:40)
[2023-04-01] MEDS: HYDROmorphone 0.5 MG/0.5 ML SYRINGE IVP PRN ×3 (04:16→20:56)
[2023-04-01 05:52] LABS: HCT 37.1 % (39.0-53.0); HGB 12.1 gm/dL (13.0-17.5); MCH 31.2 pg (25.0-35.0); MCHC 32.7 g/dL (31.0-37.0); MCV 95.4 fL (80.0-100.0); RBC 3.89 m/uL (4.30-5.90); RDW 14.2 % (11.5-15.5)
[2023-04-01 05:54] LABS: Platelet Count 85 k/uL (150-450)
[2023-04-01 06:12] LABS: African American GFR (CKD) 20 (>60 ml/min/1.73 sqM); Anion Gap 12 mmol/L; Calcium 7.4 mg/dL (8.4-10.2); Carbon Dioxide 20 mmol/L (22-30); Chloride 104 mmol/L (98-107); Glucose 138 mg/dL (74-99); Non-African American GFR(CKD) 18 (>60 ml/min/1.73 sqM); Potassium 4.3 mmol/L (3.5-5.1); Sodium 136 mmol/L (137-145)
[2023-04-01 06:21] LABS: Band Neutrophils % 15 %; Eosinophils # (M) 0.42 k/uL (0-0.7); Metamyelocytes # (M) 0.84 k/uL (0); Metamyelocytes % 2 %; Monocytes # (M) 1.68 k/uL (0-1.0); Myelocytes # (M) 1.26 k/uL (0); Myelocytes % 3 %; Neutrophils % (M) 75 %; Nucleated Red Blood Cells 0 /100 WBC (0-0)
[2023-04-01 06:22] LABS: Total Cells Counted 200
[2023-04-01 06:23] LABS: Toxic Granulation Present; Toxic Vacuolation Present
--- NOTE | 2023-04-01 06:42 | XR ---
EXAMINATION TYPE: XR chest 1V portable DATE OF EXAM: 04/01/2023 5:17 AM COMPARISON: Chest radiographs from 03/31/2023 TECHNIQUE: XR chest 1V portable Portable AP radiograph of the chest. CLINICAL INDICATION:Male, 78 years old with history of pulmonary status; FINDINGS: Lungs/Pleura: Small left pleural effusion redemonstrated. Diffuse interstitial pattern redemonstrated . No pneumothorax. Heart/mediastinum: Cardiomediastinal silhouette is enlarged and stable. Three lead cardiac conduction device overlying the left hemithorax with lead tips projecting over the right ventricle, right atriu m and coronary sinus. Musculoskeletal: No acute osseous pathology. Other findings: None Lines/Tubes: Stable left IJ central venous catheter. IMPRESSION: Overall stable examination with CHF exacerbation, small left pleural effusion, and pulmonary vascular congestion.
[2023-04-01] MEDS ORDERED: FUROSEMIDE 10 MG/ML 10 ML VIAL IV STA (07:02)
[2023-04-01] MEDS: VASOPRESSIN 60 UNIT in SODIUM CHLORIDE 0.9% 150 ML IV SCH (07:34)
[2023-04-01] MEDS: NOREPINEPHRINE 32 MG in SODIUM CHLORIDE 0.9% 218 ML IV SCH (07:34)
[2023-04-01] MEDS: DILTIAZEM 125 MG in SODIUM CHLORIDE 0.9% 100 ML IV SCH ×2 (07:35→17:37)
[2023-04-01 07:41] LABS: C Reactive Protein 34.2 mg/dL (<1.0)
[2023-04-01 07:42] LABS: Blood Urea Nitrogen 125 mg/dL (9-20)
[2023-04-01] MEDS: IPRATROPIUM-ALBUTEROL 3 ML NEB INHALATION SCH ×4 (08:10→20:08)
[2023-04-01] MEDS: METOPROLOL TARTRATE 25 MG TAB PO SCH ×5 (08:56→20:39)
[2023-04-01] MEDS: PANTOPRAZOLE 40 MG/10 ML VIAL IVP SCH (08:56)
[2023-04-01] MEDS: DOCUSATE 100 MG CAP PO SCH ×2 (08:56→20:44)
[2023-04-01] MEDS: CEFEPIME 1 GM in SODIUM CHLORIDE 0.9% 50 ML IVPB SCH ×2 (08:56→20:43)
[2023-04-01] MEDS: AMIODARONE 200 MG TAB PO SCH ×2 (08:56→20:39)
[2023-04-01] MEDS: ASPIRIN 81 MG PO SCH (08:56)
--- NOTE | 2023-04-01 09:45 | P.PN ---
Subjective Progress Note Date: 04/01/23 Principal diagnosis: Hypotension. This is a 78-year-old male patient with a known history of atrial fibrillation anticoagulated with warfarin, congestive heart failure, gout, hyperlipidemia, hypertension, coronary artery disease with previous stenting, ischemic cardiomyopathy with AICD placement. Lifelong nonsmoker. He presented to the emergency room yesterday with a 3 to four-day history of increasing shortness of breath, weakness, lower extremity swelling. He was to be on Lasix but has been somewhat noncompliant with that according to the patient's . His x-ray rev ealed evidence of cardiomegaly with mild pulmonary vascular congestion. Diffuse initially increased interstitial markings suspicious for pulmonary edema/CHF. Echocardiogram revealed severely impaired left ventricle systolic function with ejection fraction less than 20%. Anteroapical akinesis with severe hypokinesis and the rest of the segments. White count 6.8. Hemoglobin 12.0. INR 3.3. Emilio telets 76,000. Sodium 137. Potassium 4.9. Bicarb 19. BUN 70. Creatinine 1.62. Glucose 132. He is seen today in consultation on the selective care unit. Currently resting quite flat in bed. Awake and alert in no acute distress. Maintaining O2 saturations in the 90s on 2 L/m per nasal cannula. He is breathing a bit easier today compared to yesterday. He is currently on Lasix 40 mg IV every 8 hours. He is initiated on Farxiga. Progress note dated 03/27/2023. This is a 78-year-old male who is seen today in the intensive care unit, room 267. He was admitted to the hospital on March 25, with a diagnosis of acute kidney injury, congestive heart failure, and atrial fibrillation. The patient was transferred down to the intensive care unit, by our nurse practitioner, because of severe hypotension. On dobutamine by the hospital service, and, norepinephrine was added by cardiology. Currently, he's on 2 L nasal cannula, receiving dobutamine at 2.5 mcg/kg/m, and is on norepinephrine at 14 mcg/m. The patient does not have adequate IV access, so I place a right radial art line, and a left internal jugular triple-lumen catheter. White count 6.4, hemoglobin 12.2, hematocrit 38.3, and platelet count is 89,000. PTT was 28.6 with an INR of 2.9. Sodium 138, potassium 4.8, chlorides 105, CO2 22, anion gap 11, BUN 86, and creatinine 2.14. Albumin 2.7. Chest x-ray shows improving interstitial edema. Progress note dated 03/28/2023. 78-year-old male seen in the intensive care unit, room 267. The patient was admitted to the hospital on March 25, with a diagnosis of acute kidney injury, congestive heart failure, and atrial fibrillation. The patient was transferred down to the intensive care unit, because of hypotension. Dobutamine was started by the hospitalist service, and subsequent to that, with the development of hypotension, norepinephrine, was added, and now vasopressin. Currently, the patient is on 4 L by nasal cannula. He continues on amiodarone at 0.5 mg/m, dobutamine at 2.5 mcg/kg/m, norepinephrine at 28 mcg/m, and vasopressin at 0.04 units per minute. His pro-calcitonin level was quite elevated, and there were gram-negative bacilli, in the blood. The patient is currently on cefepime. BiPAP settings are 12/5, and 40%. He spent most of the night on BiPAP. CODE STATUS has been addressed, but I've asked the nurse to recheck to the family a gain. White count is 21,000, hemoglobin 13.5, hematocrit 41.1, with a platelet count of 115,000. PT is 20.8 with an INR 2.1. Sodium 139, potassium 4.5, chlorides 109, CO2 17, anion gap 13, BUN 85, and creatinine 1.59. Blood gases done last night show pO2 of 131, pCO2 26, and a pH is 7.48. These blood gases are consistent with a combined respiratory alkalosis and mild metabolic acidosis. Chest x-ray shows diffuse bilateral infiltrates, mostly interstitial in nature. Progress note dated 03/29/2023. 78-year-old male seen in room 267. I did have the opportunity to speak to his . The patient for the time being, will remain a full code. The said that he would not want to be on the ventilator, long-term, and certainly would not want a tracheostomy and/or a feeding tube. Currently, he's on 4 L by nasal cannula. BiPAP has been used on and off, at 12/5, and 40%. The patient's on norepinephrine at 34 mcg/m, and vasopressin 0.04 units per minute. The patient is also on Cardizem 5 mg an hour, and a sodium bicarbonate drip at 50 mL an hour, with 3 ampules of sodium bicarbonate and D5W. The patient's blood cultures are positive for gram-negative bacilli, the patient is on cefepime. White count is 32.5, hemoglobin 13.4, hematocrit 40.2, and platelet count 113,000. PTT was 32.6 with an INR 3.3. Sodium 139, potassium 3.9, chlorides 109, CO2 18, anion gap 12, BUN 91, creatinine 1.91. Glucose is 162. Calcium is 7.9. Chest x-ray shows some left basilar consolidation, and some mild venous congestion. Progress note dated 03/30/2023. 78-year-old male seen in room 267. The patient appears a bit more awake today than he did yesterday. Currently, he's on 2 L of oxygen. He is receiving norepinephrine at 11.7 mcg/m, and vasopressin at 0.04 units per minute. Is also on Cardizem 5 mg an hour, and a sodium bicarbonate drip, with 3 ampules of sodium bicarbonate and D5W at 50 mL an hour. I did have a chance to talk to the , both yesterday, and today. The patient's blood cultures showed evidence of Citrobacter, is sensitive to the cefepime that the patient is currently on. White count 34.3, hemoglobin 12.8, hematocrit 38.4, and platelet count 93,000. Sodium 138, potassium 3.8, chlorides 106, CO2 22, anion gap 10, BUN 98, creatinine 1.86. Albumin is 2.3. Chest x-ray shows cardiomegaly, with mild fluid overload. Progress note dated 03/31/2023. 78-year-old male seen again in room 267. The patient's a bit more awake again today than he was yesterday. His is in the room with him. He continues on oxygen at 2 L by nasal cannula. Is on Cardizem 5 mg an hour for atrial fibrillation, and vasopressin at 0.04 units per minute, and norepinephrine at 6 mcg/m, for hypotension. The patient remains on a sodium bicarbonate drip, with 3 ampules of sodium bicarbonate and D5W at 50 mL an hour. Finally, we believe the patient to be a bit dry, and we will add lactated Ringer's at 75 mL an hour. His blood cultures were positive for Citrobacter, and he is currently on cefepime. Arterial blood gases yesterday showed a pO2 of 70, pCO2 31, and a pH is 7.49. This is consistent with respiratory alkalosis. White count 35.9, hemoglobin 12.2, hematocrit 37.5, and platelet count 88,000. Sodium 138, potassium 4, chlorides 101, CO2 28, BUN 1:15, creatinine 2.41, up from 98 and 1.86 respectively. Calcium is 7.5, albumin is 2.3. Chest x-ray shows a diffuse interstitial pattern. Progress note dated 04/01/2023. 78-year-old male seen again today in room 267. Each day, the patient has had incremental improvement in his mental status. Currently, the patient is on 3 L of oxygen. He continues on cefepime and daptomycin as per infectious diseases. The patient is getting lactated Ringer's at 75 mL an hour, vasopressin at 0.04 units per minute, and norepinephrine at 5.7 mcg/m. The patient is also on Cardizem 5 mg an hour. The patient's white count is 42,000, hemoglobin 12.1, hematocrit 37.1, with a platelet count of 85,000. A blood gas done on the night shows a pO2 of 70, pCO2 31, and a pH is 7.49. Sodium 136, potassium 4.3, chlor ides 104, CO2 20, BUN 125, and creatinine 3.22. The patient's glucose is 138, and the calcium is 7.4. Blood cultures are positive for Citrobacter. The chest x-rays consistent with CHF. Objective - Vital Signs Vital signs: Vital Signs Temp 97.6 F 04/01/23 04:00 Pulse 101 H 04/01/23 08:24 Resp 25 H 04/01/23 07:15 BP 98/65 04/01/23 07:15 Pulse Ox 95 04/01/23 07:15 FiO2 2 03/30/23 00:00 Intake & Output 03/31/23 04/01/23 04/01/23 18:59 06:59 18:59 Intake Total 2371.257 1193.236 336.950 Output Total 310 100 5 Balance 2061.257 1093.236 331.950 Weight 149 kg 153.8 kg Intake: IV 1071 1163 83 Cefepime 2 gm In Sodium 100 Chloride 0.9% 100 ml @ 25 mls/hr IVPB Q12HR [facility] Rx #:[id number] Dextrose 5% in Water 1, 50 000 ml @ 50 mls/hr IV . Q23H [facility] with Sodium Bicarb (1 Meq/ml) 150 ml Rx#:[id number] Diltiazem 125 mg In 60 55 5 Sodium Chloride 0.9% 100 ml @ 5 MG/HR 5 mls/hr IV .Q24H [facility] Rx#:[id number] Lactated Ringers 1,000 ml 825 825 75 @ 75 mls/hr IV .[id number] [facility] Rx#:[id number] NS PRESSURE BAG 36 33 3 Sodium Chloride 0.9% 250 250 ml @ 999 mls/hr IV .Q16M [facility] Rx#:[id number] Intake, IV Titration 650.257 30.236 253.950 Amount Diltiazem 125 mg In 124 Sodium Chloride 0.9% 100 ml @ 5 MG/HR 5 mls/hr IV .Q24H [facility] Rx#:[id number] Norepinephrine 32 mg In 16.739 30.236 13.364 Sodium Chloride 0.9% 218 ml @ 0.04 MCG/KG/MIN 2. 664 mls/hr IV .Q24H [facility] Rx#:[id number] Sodium Chloride 0.9% 500 500 ml 500 ml @ 999 mls/hr IV .Q31M [facility] Rx#:[id number] Vasopressin 60 unit In 133.518 116.586 Sodium Chloride 0.9% 150 ml @ 0.04 UNITS/MIN 6.12 mls/hr IV .Q24H [facility] Rx#: [id number] Oral 650 Output: Urine 310 100 5 Other: Voiding Method Indwelling Catheter Indwelling Catheter ABP, PAP, CO, CI - Last Documented Arterial Blood Pressure 87/72 - Exam No acute distress, the patient is more awake and alert today. Currently on 3 L. HEENT examination is grossly unremarkable. Mucous membranes are moist. No oral lesions. Neck supple. Full range of motion. No adenopathy thyromegaly or neck vein distention. Cardiovascular examination reveals regular rhythm rate. S1-S2 normal. No S3 or S4. No discernible murmur noted. Heart sounds are distant. Heart rate 101 bpm. Lungs reveal scattered rhonchi and crackles. No wheezes. Breath sounds are equal bilaterally. Saturations are 95% on 3 L nasal cannula. Abdomen soft bowel sounds are heard. No masses or tenderness. Extremities are intact. No cyanosis clubbing or edema. Skin is without rash or lesion. Neurologic examination is brief but nonfocal. Patient is a bit lethargic. - Labs CBC & Chem 7: 04/01/23 05:32 04/01/23 05:32 Labs: Abnormal Lab Results - Last 24 Hours (Table) 03/31/23 04/01/23 04/01/23 Range/Units 06:38 05:32 05:32 WBC 35.2 H 42.0 H (3.8-10.6) k/uL RBC 3.89 L (4.30-5.90) m/uL Hgb 12.1 L (13.0-17.5) gm/dL Hct 37.1 L (39.0-53.0) % Plt Count 85 L (150-450) k/uL Neutrophils # (Manual) 32.00 H 37.80 H (1.3-7.7) k/uL Monocytes # (Manual) 1.76 H 1.68 H (0-1.0) k/uL Metamyelocytes # (Man) 0.70 H 0.84 H (0) k/uL Myelocytes # (Manual) 0.35 H 1.26 H (0) k/uL Nucleated RBCs 2 H (0-0) /100 WBC Sodium 136 L (137-145) mmol/L Carbon Dioxide 20 L (22-30) mmol/L BUN 125 H* (9-20) mg/dL Creatinine 3.22 H (0.66-1.25) mg/dL Glucose 138 H (74-99) mg/dL Calcium 7.4 L (8.4-10.2) mg/dL C-Reactive Protein 34.2 H (<1.0) mg/dL Microbiology - Last 24 Hours (Table) 03/29/23 15:20 Blood Culture - Preliminary Blood Assessment and Plan Assessment: Acute hypoxemic respiratory failure secondary to an acute exacerbation of chronic systolic congestive heart failure. Ejection fraction less than 20%. Hypotension, severe, secondary to cardiomyopathy, and bacteremia/sepsis. Likely sepsis, secondary to Citrobacter species, on cefepime and daptomycin. Severe ischemic cardiomyopathy, status post AICD placement. History of coronary disease with previous stent placements. Chronic atrial fibrillation. History of gout. Hypertension. Hyperlipidemia. Lifelong nonsmoker. Plan: Plan dated 03/27/2023. The patient was transferred to the intensive care unit, for closer monitoring and management. The patient was placed on dobutamine at 2.5 mcg/kg/m, and, for hypotension, is receiving norepinephrine at 14 mcg/m. Labs, x-rays, and medications are reviewed. The patient's overall prognosis remains very guarded. We placed a right radial arterial line today, as well as a left internal jugular triple-lumen catheter, for better monitoring and management. We'll continue to follow make recommendations along the way. Prognosis is certainly guarded. Plan dated 03/28/2023. The patient is currently on cefepime, for gram-negative bacilli discovered in h is blood. The patient is on 4 L of oxygen by nasal cannula. The patient can go to BiPAP, with settings of 12/5, and 40%. We'll add vasopressin 0.04 units per minute to the patient's regimen. He is already on norepinephrine at 20 mcg/m. He is also receiving amiodarone 0.5 mg/m, and dobutamine 2.5 mcg/kg/m. We'll ask cardiology to stop the dobutamine. Labs, x-rays, medications are reviewed. The patient's pro-calcitonin level was quite high at 25. Prognosis is certainly guarded. The patient may end up on mechanical ventilation. We'll discuss CODE STATUS with the family again. Plan dated 03/29/2023. The patient continues on antibiotic for the gram-negative bacilli, in the blood. It has not yet been identified. The patient remains on norepinephrine at 34 mcg/m, and vasopressin at 0.04 units per minute. The patient is also on Cardizem at 5 mg an hour. The patient's receiving oxygen by nasal cannula at 4 L. Labs, x-rays, and medications are reviewed. The patient's overall prognosis remains guarded. He remains a full code. I had the opportunity to speak to the patient's . She would like him to stay a full code for the time being. It would be okay to intubate the patient, if necessary, but he would not want long- term intubation, but certainly not want a tracheostomy tube or a feeding tube. Additional recommendations and suggestions are forthcoming. Plan dated 03/30/2023. I was again able to speak to the patient's , and give her an update. The patient's norepinephrine requirement has gone down significantly, from 34 mcg/m, down to less than 12 mcg/m. The patient continues both on Cardizem, and vasopressin. Labs, x-rays, and medications are reviewed. The patient's blood cultures are positive for Citrobacter. The Citrobacter is sensitive to ce fepime, which is what the patient is on. Labs, x-rays, and medications are reviewed. We will continue to follow the patient, and make recommendations along the way. The patient's overall prognosis is guarded. Plan dated 03/31/2023. The patient appears to be a bit better today. I had a chance to speak to his again today. I gave her an update. The patient does continue on Cardizem drip, vasopressin drip, and norepinephrine drip. In addition, the patient continues a sodium bicarbonate drip. Labs, x-rays, medications are reviewed. The nurse call me yesterday because of worsening respiratory status, but the blood gases were fine, with a pO2 of 70, pCO2 31, and a pH is 7.49. That was on 2 L. Blood cultures are positive for Citrobacter, and he continues on cefepime. We will continue to follow make recommendations along the way. Prognosis is certainly guarded. Plan dated 04/01/2023. The patient is a bit better clinically, in terms of his mental status. Additionally, his norepinephrine dose has come down, to 5.7 mcg/m. He continues on Cardizem 5 mg an hour, and vasopressin at 0.04 units per minute. Labs, x- rays, medications are reviewed. The patient was seen by infectious diseases, and they added daptomycin. We will continue to follow and make recommendations along the way. The patient's overall prognosis remains very guarded. Time with Patient: Greater than 30
[2023-04-01] MEDS: LACTATED RINGERS 1,000 ML IV SCH (10:03)
[2023-04-01] MEDS ORDERED: SODIUM CHLORIDE 0.9% 500 ML 500 ML IV ONE (11:02)
--- NOTE | 2023-04-01 11:07 | P.PN ---
Subjective Patient is seen for follow-up for acute kidney injury. He was admitted to the hospital with shortness of breath and increased weakness. Underlying history of CHF with EF of 20%. Patient was maintained on dobutamine and was diuresed on initial admission. Patient was transferred to the ICU due to significant hypotension and shortness of breath. He is currently maintained on pressors. Maintained on Cardizem drip for A. fib with RVR. Levo fed is slightly lower from yesterday. Urine output has decreased 0 - 5 mL per hour Blood cultures are growing gram-negative bacilli, Citrobacter brakii Patient is off of BiPAP and maintained on 2 L nasal cannula Objective - Vital Signs Vital signs: Vital Signs Temp 97.4 F L 04/01/23 08:00 Pulse 113 H 04/01/23 10:15 Resp 22 04/01/23 10:15 BP 101/64 04/01/23 10:15 Pulse Ox 94 L 04/01/23 10:15 FiO2 2 03/30/23 00:00 Intake & Output 03/31/23 04/01/23 04/01/23 18:59 06:59 18:59 Intake Total 2371.257 2301.249 4250.950 Output Total 310 100 30 Balance 2061.257 5593.684 4727.950 Weight 149 kg 153.8 kg Intake: IV 1071 1163 417 Cefepime 2 gm In Sodium 100 100 Chloride 0.9% 100 ml @ 25 mls/hr IVPB Q12HR [facility] Rx #:[id number] Dextrose 5% in Water 1, 50 000 ml @ 50 mls/hr IV . Q23H [facility] with Sodium Bicarb (1 Meq/ml) 150 ml Rx#:[id number] Diltiazem 125 mg In 60 55 5 Sodium Chloride 0.9% 100 ml @ 5 MG/HR 5 mls/hr IV .Q24H [facility] Rx#:[id number] Lactated Ringers 1,000 ml 825 825 300 @ 75 mls/hr IV .[id number] [facility] Rx#:[id number] NS PRESSURE BAG 36 33 12 Sodium Chloride 0.9% 250 250 ml @ 999 mls/hr IV .Q16M [facility] Rx#:[id number] Intake, IV Titration 650.257 30.236 253.950 Amount Diltiazem 125 mg In 124 Sodium Chloride 0.9% 100 ml @ 5 MG/HR 5 mls/hr IV .Q24H [facility] Rx#:[id number] Norepinephrine 32 mg In 16.739 30.236 13.364 Sodium Chloride 0.9% 218 ml @ 0.04 MCG/KG/MIN 2. 664 mls/hr IV .Q24H [facility] Rx#:[id number] Sodium Chloride 0.9% 500 500 ml 500 ml @ 999 mls/hr IV .Q31M [facility] Rx#:[id number] Vasopressin 60 unit In 133.518 116.586 Sodium Chloride 0.9% 150 ml @ 0.04 UNITS/MIN 6.12 mls/hr IV .Q24H [facility] Rx#: [id number] Oral 650 600 Output: Urine 310 100 30 Other: Voiding Method Indwelling Catheter Indwelling Catheter Indwelling Catheter ABP, PAP, CO, CI - Last Documented Arterial Blood Pressure 87/72 - Exam Patient is awake. Comfortable Examination of the heart S1 and S2 Examination of the lungs decreased breath sounds at the bases Abdomen is soft nontender Examination of lower extremities shows edema 1+ bilaterally, erythema on the left leg, somewhat improved LUGGAGE LINER exam grossly intact - Labs CBC & Chem 7: 04/01/23 05:32 04/01/23 05:32 Labs: Abnormal Lab Results - Last 24 Hours (Table) 03/31/23 04/01/23 04/01/23 Range/Units 06:38 05:32 05:32 WBC 35.2 H 42.0 H (3.8-10.6) k/uL RBC 3.89 L (4.30-5.90) m/uL Hgb 12.1 L (13.0-17.5) gm/dL Hct 37.1 L (39.0-53.0) % Plt Count 85 L (150-450) k/uL Neutrophils # (Manual) 32.00 H 37.80 H (1.3-7.7) k/uL Monocytes # (Manual) 1.76 H 1.68 H (0-1.0) k/uL Metamyelocytes # (Man) 0.70 H 0.84 H (0) k/uL Myelocytes # (Manual) 0.35 H 1.26 H (0) k/uL Nucleated RBCs 2 H (0-0) /100 WBC Sodium 136 L (137-145) mmol/L Carbon Dioxide 20 L (22-30) mmol/L BUN 125 H* (9-20) mg/dL Creatinine 3.22 H (0.66-1.25) mg/dL Glucose 138 H (74-99) mg/dL Calcium 7.4 L (8.4-10.2) mg/dL C-Reactive Protein 34.2 H (<1.0) mg/dL Microbiology - Last 24 Hours (Table) 03/29/23 15:20 Blood Culture - Preliminary Blood Assessment and Plan Assessment: 1. Acute kidney injury, ATN, from hypotension, infection, currently nonoliguric. History of NSAID use prior to admission. No obstruction noted on ultrasound. UA reveals 1+ protein trace blood. Renal function continues to worsen. Patient may need renal replacement therapy. This is discussed with the family. 2. Acute on chronic systolic CHF with EF of 20% with mild to moderate tricuspid regurgitation 3. Hypotension multifactorial including underlying infection as well as severe cardiomyopathy, maintained on pressors and antibiotics 4. A. fib with RVR, maintained on Cardizem drip 5. Cellulitis left lower extremity with sepsis 6. Metabolic acidosis associated with acute kidney injury 7. Sepsis with blood cultures growing Citrobacter braakii Plan: DC IV fluids if no response to fluid bolus. Patient did not respond to IV Lasix earlier this morning. Discussed renal replacement therapy with family. is agreeable if needed. We will continue to assess for need for dialysis on a daily basis.
--- NOTE | 2023-04-01 11:11 | P.PN ---
Subjective Progress Note Date: 04/01/23 Principal diagnosis: Left leg cellulitis and bacteremia Patient is a 78-year old male with a past medical history significant for hypertension hyperlipidemia atrial fibrillation [place] patient presenting to the hospital on 03/25/2022 for evaluation of increasing shortness of breath patient did have a fever and elevated white count and a positive blood culture with a Citrobacter. On today's evaluation and that is 04/01/2023, the patient denies any fever or any chills, the patient is breathing comfortably on 2 L nasal cannula oxygen, the patient denies any chest pain, the patient did have occasional dry cough with no sputum production, patient denies abdominal pain and no nausea/vomiting and no diarrhea has been reported, patient denies any worsening pain to the left lower extremity. Patient white count is up to 42,000, creatinine is up to 3.22 Objective - Vital Signs Vital signs: Vital Signs Temp 97.4 F L 04/01/23 08:00 Pulse 103 H 04/01/23 09:45 Resp 26 H 04/01/23 09:45 BP 85/51 04/01/23 09:45 Pulse Ox 95 04/01/23 09:45 FiO2 2 03/30/23 00:00 Intake & Output 03/31/23 04/01/23 04/01/23 18:59 06:59 18:59 Intake Total 2371.257 5416.810 6863.950 Output Total 310 100 20 Balance 2061.257 5344.840 2675.950 Weight 149 kg 153.8 kg Intake: IV 1071 1163 339 Cefepime 2 gm In Sodium 100 100 Chloride 0.9% 100 ml @ 25 mls/hr IVPB Q12HR [facility] Rx #:[id number] Dextrose 5% in Water 1, 50 000 ml @ 50 mls/hr IV . Q23H [facility] with Sodium Bicarb (1 Meq/ml) 150 ml Rx#:[id number] Diltiazem 125 mg In 60 55 5 Sodium Chloride 0.9% 100 ml @ 5 MG/HR 5 mls/hr IV .Q24H [facility] Rx#:[id number] Lactated Ringers 1,000 ml 825 825 225 @ 75 mls/hr IV .[id number] [facility] Rx#:[id number] NS PRESSURE BAG 36 33 9 Sodium Chloride 0.9% 250 250 ml @ 999 mls/hr IV .Q16M [facility] Rx#:[id number] Intake, IV Titration 650.257 30.236 253.950 Amount Diltiazem 125 mg In 124 Sodium Chloride 0.9% 100 ml @ 5 MG/HR 5 mls/hr IV .Q24H [facility] Rx#:[id number] Norepinephrine 32 mg In 16.739 30.236 13.364 Sodium Chloride 0.9% 218 ml @ 0.04 MCG/KG/MIN 2. 664 mls/hr IV .Q24H [facility] Rx#:[id number] Sodium Chloride 0.9% 500 500 ml 500 ml @ 999 mls/hr IV .Q31M [facility] Rx#:[id number] Vasopressin 60 unit In 133.518 116.586 Sodium Chloride 0.9% 150 ml @ 0.04 UNITS/MIN 6.12 mls/hr IV .Q24H [facility] Rx#: [id number] Oral 650 600 Output: Urine 310 100 20 Other: Voiding Method Indwelling Catheter Indwelling Catheter Indwelling Catheter ABP, PAP, CO, CI - Last Documented Arterial Blood Pressure 87/72 - Exam GENERAL DESCRIPTION: An elderly male lying in bed in no distress RESPIRATORY SYSTEM: Unlabored breathing , decreased breath sound the bases HEART: S1 S2 regular rate and rhythm , ABDOMEN: Soft , no tenderness EXTREMITIES: Left lower extremity with swelling redness and blister with some sk in necrosis - Labs CBC & Chem 7: 04/01/23 05:32 04/01/23 05:32 Labs: Abnormal Lab Results - Last 24 Hours (Table) 03/31/23 04/01/23 04/01/23 Range/Units 06:38 05:32 05:32 WBC 35.2 H 42.0 H (3.8-10.6) k/uL RBC 3.89 L (4.30-5.90) m/uL Hgb 12.1 L (13.0-17.5) gm/dL Hct 37.1 L (39.0-53.0) % Plt Count 85 L (150-450) k/uL Neutrophils # (Manual) 32.00 H 37.80 H (1.3-7.7) k/uL Monocytes # (Manual) 1.76 H 1.68 H (0-1.0) k/uL Metamyelocytes # (Man) 0.70 H 0.84 H (0) k/uL Myelocytes # (Manual) 0.35 H 1.26 H (0) k/uL Nucleated RBCs 2 H (0-0) /100 WBC Sodium 136 L (137-145) mmol/L Carbon Dioxide 20 L (22-30) mmol/L BUN 125 H* (9-20) mg/dL Creatinine 3.22 H (0.66-1.25) mg/dL Glucose 138 H (74-99) mg/dL Calcium 7.4 L (8.4-10.2) mg/dL C-Reactive Protein 34.2 H (<1.0) mg/dL Microbiology - Last 24 Hours (Table) 03/29/23 15:20 Blood Culture - Preliminary Blood Assessment and Plan (1) Bacteremia Current Visit: Yes Status: Acute Code(s): R78.81 - BACTEREMIA SNOMED Code(s): 5702067 (2) Left leg cellulitis Current Visit: Yes Status: Acute Code(s): L03.116 - CELLULITIS OF LEFT LOWER LIMB SNOMED Code(s): 16202827913400030 Plan: 1patient with sepsis in this patient who did have a fever elevated white count source is likely left lower extremity cellulitis, in this patient with Citr obacter bacteremia 2-blood cultures were repeated document clearance of bacteremia 3-patient has been evaluated by vascular surgery did not recommend any surgical intervention at this point 4-patient condition remains to be critical, patient to continue cefepime and daptomycin while monitor his clinical course closely prognosis remains to be guarded Dictation was produced using [employer] dictation software. please excuse any grammatical, word or spelling errors. Time with Patient: Less than 30
--- NOTE | 2023-04-01 11:13 | PN ---
PROGRESS NOTE SUBJECTIVE: Iker is a 78-year-old gentleman, who is in the ICU for almost a week now with cellulitis and sepsis for which he is on antibiotics, atrial fibrillation with poorly controlled ventricular rate, hypotension, and congestive heart failure. This morning, he appears alert and awake. Denies any chest pain. He is on 5 mg of Cardizem, Lopressor 25 b.i.d., Levophed and amiodarone had been added. OBJECTIVE: VITAL SIGNS: On exam, heart rate is around 90 to 110 beats per minute, blood pressure is 98/62, respiratory rate is 18. CHEST: Reveals diminished air entry bilaterally. I do not hear any crackles or rhonchi. HEART: Reveals first and second heart sounds. Systolic murmur at the apex. ABDOMEN: Soft. EXTREMITIES: Exam of extremities reveals bilateral cellulitis, chronic stasis changes and edema. LABORATORIES: Show that the white cell count is 42, platelet count is 85; potassium is 4.3, BUN is 125, creatinine is 3.2. ASSESSMENT: 1. Atrial fibrillation with poorly controlled ventricular rate. 2. Cellulitis with septicemia. 3. Acute on chronic renal failure. 4. Congestive heart failure, systolic. PLAN: I will continue him on his current medications. Hopefully, stop the Cardizem. Pharmacy will dose his Coumadin. We will check an INR today. MMODL / IJN: [id number] /
[2023-04-01] MEDS: MIDODRINE 5 MG TAB PO SCH ×2 (11:40→16:41)
--- NOTE | 2023-04-01 12:18 | P.PN ---
Subjective Progress Note Date: 04/01/23 Patient seen and examined. No significant changes per nursing. Objective - Vital Signs Vital signs: Vital Signs Temp 97.4 F L 04/01/23 08:00 Pulse 112 H 04/01/23 11:50 Resp 30 H 04/01/23 11:30 BP 115/77 04/01/23 11:30 Pulse Ox 91 L 04/01/23 11:30 FiO2 2 03/30/23 00:00 Intake & Output 03/31/23 04/01/23 04/01/23 18:59 06:59 18:59 Intake Total 2371.257 3903.217 8230.950 Output Total 310 100 45 Balance 2061.257 4276.375 3747.950 Weight 149 kg 153.8 kg Intake: IV 1071 1163 1073 Cefepime 2 gm In Sodium 100 100 Chloride 0.9% 100 ml @ 25 mls/hr IVPB Q12HR [facility] Rx #:[id number] Dextrose 5% in Water 1, 50 000 ml @ 50 mls/hr IV . Q23H [facility] with Sodium Bicarb (1 Meq/ml) 150 ml Rx#:[id number] Diltiazem 125 mg In 60 55 5 Sodium Chloride 0.9% 100 ml @ 5 MG/HR 5 mls/hr IV .Q24H [facility] [place] Rx#:[id number] Lactated Ringers 1,000 ml 825 825 450 @ 75 mls/hr IV .[id number] [facility] [place] Rx#:[id number] NS PRESSURE BAG 36 33 18 Sodium Chloride 0.9% 250 250 500 ml @ 999 mls/hr IV .Q16M [facility] [place] Rx#:[id number] Intake, IV Titration 650.257 30.236 253.950 Amount Diltiazem 125 mg In 124 Sodium Chloride 0.9% 100 ml @ 5 MG/HR 5 mls/hr IV .Q24H [facility] [place] Rx#:[id number] Norepinephrine 32 mg In 16.739 30.236 13.364 Sodium Chloride 0.9% 218 ml @ 0.04 MCG/KG/MIN 2. 664 mls/hr IV .Q24H [facility] [place] Rx#:[id number] Sodium Chloride 0.9% 500 500 ml 500 ml @ 999 mls/hr IV .Q31M [facility] Rx#:[id number] Vasopressin 60 unit In 133.518 116.586 Sodium Chloride 0.9% 150 ml @ 0.04 UNITS/MIN 6.12 mls/hr IV .Q24H [facility] [place] Rx#: [id number] Oral 650 600 Output: Urine 310 100 45 Other: Voiding Method Indwelling Catheter Indwelling Catheter Indwelling Catheter ABP, PAP, CO, CI - Last Documented Arterial Blood Pressure 87/72 - Exam - General chronically ill, obese - Eyes PERRL, normal ocular movement - ENT normal pinna, normal nares - Neck no masses, no bruits - Respiratory scattered rhonchi - Abdomen Abdomen: soft, non tender - Integumentary erythema extends from the lower leg to the medial thigh. + TTP Areas of eschar at the left posterior leg, otherwise. Improving erythema Blistering noted with chronic lymphedematous changes in bilateral lower extremities multiphasic dp and pt signals bilaterally with good capillary refill. - Neurologic normal coordination, no disoriented - Psychiatric oriented to time, oriented to person, speech is normal - Labs CBC & Chem 7: 04/01/23 05:32 04/01/23 05:32 Labs: Abnormal Lab Results - Last 24 Hours (Table) 03/31/23 04/01/23 04/01/23 Range/Units 06:38 05:32 05:32 WBC 35.2 H 42.0 H (3.8-10.6) k/uL RBC 3.89 L (4.30-5.90) m/uL Hgb 12.1 L (13.0-17.5) gm/dL Hct 37.1 L (39.0-53.0) % Plt Count 85 L (150-450) k/uL Neutrophils # (Manual) 32.00 H 37.80 H (1.3-7.7) k/uL Monocytes # (Manual) 1.76 H 1.68 H (0-1.0) k/uL Metamyelocytes # (Man) 0.70 H 0.84 H (0) k/uL Myelocytes # (Manual) 0.35 H 1.26 H (0) k/uL Nucleated RBCs 2 H (0-0) /100 WBC Sodium 136 L (137-145) mmol/L Carbon Dioxide 20 L (22-30) mmol/L BUN 125 H* (9-20) mg/dL Creatinine 3.22 H (0.66-1.25) mg/dL Glucose 138 H (74-99) mg/dL Calcium 7.4 L (8.4-10.2) mg/dL C-Reactive Protein 34.2 H (<1.0) mg/dL Microbiology - Last 24 Hours (Table) 03/29/23 15:20 Blood Culture - Preliminary Blood Assessment and Plan Assessment: Left lower extremity cellulitis Venous ulceration left lower extremity Hypotension Atrial fibrillation Morbid Obesity Ischemic cardiomyopathy Acute kidney injury Plan: Continue antibiotics, no further aggressive intervention at this time, we will apply Silvadene to the left lower extremity as well. Allow for demarcation of areas of ischemia. Continue with supportive care. Check venous duplex
[2023-04-01 12:57] LABS: Prothrombin Time 20.2 sec (10.0-12.5)
--- NOTE | 2023-04-01 13:59 | US ---
EXAMINATION TYPE: US venous doppler duplex LE DATE OF EXAM: 04/01/2023 1:30 PM COMPARISON: NONE CLINICAL INDICATION: Male, 78 years old with history of swelling; Edema/ open wounds bilateral lower legs SIDE PERFORMED: Bilateral TECHNIQUE: The lower extremity deep venous system is examined utilizing real time linear array sonog yamila with graded compression, doppler sonography and color-flow sonography. VESSELS IMAGED: Common Femoral Vein Deep Femoral Vein Greater Saphenous Vein * Femoral Vein Popliteal Vein Small Saphenous Vein * Proximal Calf Veins (* superficial vessels) Limited views due to extensive edema and pt morbid obesity Right Leg: Visualized portions appeared negative for DVT/ distal femoral vein and proximal calf vein s unable to be visualized. Grayscale, color doppler, spectral doppler imaging performed of the deep v eins of the lower extremities. There is normal flow, compressibility, vascular waveforms. Left Leg: Visualized portions appeared negative for DVT/ Distal femoral vein, popliteal veins, and p roximal calf veins unable to be visualized due to edema, open wounds, and pt morbid obesity. Grayscal e, color doppler, spectral doppler imaging performed of the deep veins of the lower extremities. The re is normal flow, compressibility, vascular waveforms. Subjacent edema within the bilateral lower extremities. IMPRESSION: 1. No evidence for deep vein thrombosis, evaluation limited by patient body habitus. 2. Bilateral subcutaneous edema.
[2023-04-01] MEDS: FUROSEMIDE 10 MG/ML 4 ML VIAL IV SCH (15:31)
[2023-04-01] MEDS: DAPAGLIFLOZIN PROPANEDIOL 10 MG TABLET PO SCH (15:31)
[2023-04-01] MEDS: SOTALOL 80 MG TAB PO SCH (15:32)
--- NOTE | 2023-04-01 16:07 | P.PN ---
Subjective Progress Note Date: 04/01/23 patient is a 78-year-old gentleman with past medical history significant for hypertension, hyperlipidemia, myocardial infarction, AICD implantation, cataracts, atrial fibrillation with ablation presented to the hospital for not feeling well for the last few days. Patient stated that 2 days ago he started feeling lethargic and weak. There was no complain of any fever but patient felt cold. Complaining of shortness of breath at rest. Denies any chest pain. Denies any nausea, vomiting abdominal pain. Patient has chronic swelling of left lower extremity. Complaining of lightheadedness. Denied any orthopnea or PND. Because symptoms, patient came to the ER Initial lab work done in the ER showed WBC 9.5, hemoglobin 13.2, platelet count 58 sodium 1:30, potassium 5.3, BUN 64, creatinine 2.09 EKG done in the ER Chest x-ray done in the ER showed cardiomegaly with stable left chest AICD, mild pulmonary vascular congestion, diffuse increased interstitial markings related to edema versus infiltrates Patient admitted to medicine service 03/26. Patient seen and examined. Still complaining of shortness of breath on exertion. Denies any chest pain. Denies any nausea or vomiting. Currently on 2 L of oxygen On 03/27/2023 patient was seen and examined in the ICU he is somnolent, currently maintained on BiPAP, there is no fever or chills no headache or dizziness no chest pain, no cough no nausea or vomiting no abdominal pain no diarrhea and no urinary symptoms On 03/28/2023 patient was seen and examined in the ICU, he is somnolent, responsive, in no apparent distress, he is still maintained on BiPAP, blood culture is positive for gram-negative bacilli, patient was started on IV cef epime, heart rate is better controlled today at 101, he has low grade fever, white blood count is elevated at 21,000. CODE STATUS was discussed with family today and at this time patient remained full code. On 03/29/2023 patient was seen and examined in the ICU he is alert and oriented 3 today he is off BiPAP and is maintained on oxygen via nasal cannula he is able to answer questions appropriately he is still complaining of severe generalized weakness and shortness of breath otherwise he denies any complaints there is no fever or chills no headache or dizziness no chest pain no shortness of breath no cough no nausea or vomiting no abdominal pain no diarrhea and no urinary symptoms. On 03/30/2023 patient was seen and examined in the ICU he is alert and oriented 3 he is maintained on oxygen via nasal cannula however he is having more shortness of breath today he denies any chest pain there is no cough no nausea or vomiting no abdominal pain no diarrhea and no urinary symptoms. Blood pressure remains marginal despite pressure support, he will be given 1 dose of IV albumin, will continue to monitor closely. On 03/31/2023 patient remains in the intensive care unit alert and oriented 3. This time patient remains on Lopressor and Cardizem and vasopressin. Creatinine increasing to 2.41 bun 115. Cardiology, care, infectious and nephrology services are following. Patient denies chest pain. Patient denies nausea vomiting or diarrhea. Patient denies any urinary burning or frequency On 04/01/2023 patient was seen and examined in the ICU he is alert and oriented 3 in no apparent distress, he is complaining of shortness of breath when he tries to speak, he has severe weakness, vital exam reveals a temperature of 97.6 pulse 126 respiration 30 blood pressure 104/67 pulse ox 95% on 3 L nasal cannula his white blood count is 42,000 hemoglobin 12.1 platelet count 85. Infectious disease, pulmonary critical care, nephrology and cardiology are following. Prognosis is guarded. Objective - Vital Signs Vital signs: Vital Signs Temp 97.4 F L 04/01/23 08:00 Pulse 113 H 04/01/23 10:15 Resp 22 04/01/23 10:15 BP 101/64 04/01/23 10:15 Pulse Ox 94 L 04/01/23 10:15 FiO2 2 03/30/23 00:00 Intake & Output 03/31/23 04/01/23 04/01/23 18:59 06:59 18:59 Intake Total 2371.257 7815.600 0113.950 Output Total 310 100 30 Balance 2061.257 5938.840 5524.950 Weight 149 kg 153.8 kg Intake: IV 1071 1163 417 Cefepime 2 gm In Sodium 100 100 Chloride 0.9% 100 ml @ 25 mls/hr IVPB Q12HR [facility] Rx #:[id number] Dextrose 5% in Water 1, 50 000 ml @ 50 mls/hr IV . Q23H [facility] with Sodium Bicarb (1 Meq/ml) 150 ml Rx#:[id number] Diltiazem 125 mg In 60 55 5 Sodium Chloride 0.9% 100 ml @ 5 MG/HR 5 mls/hr IV .Q24H [facility] Rx#:[id number] Lactated Ringers 1,000 ml 825 825 300 @ 75 mls/hr IV .[id number] [facility] Rx#:[id number] NS PRESSURE BAG 36 33 12 Sodium Chloride 0.9% 250 250 ml @ 999 mls/hr IV .Q16M [facility] Rx#:[id number] Intake, IV Titration 650.257 30.236 253.950 Amount Diltiazem 125 mg In 124 Sodium Chloride 0.9% 100 ml @ 5 MG/HR 5 mls/hr IV .Q24H [facility] Rx#:[id number] Norepinephrine 32 mg In 16.739 30.236 13.364 Sodium Chloride 0.9% 218 ml @ 0.04 MCG/KG/MIN 2. 664 mls/hr IV .Q24H [facility] Rx#:[id number] Sodium Chloride 0.9% 500 500 ml 500 ml @ 999 mls/hr IV .Q31M [facility] Rx#:[id number] Vasopressin 60 unit In 133.518 116.586 Sodium Chloride 0.9% 150 ml @ 0.04 UNITS/MIN 6.12 mls/hr IV .Q24H [facility] Rx#: [id number] Oral 650 600 Output: Urine 310 100 30 Other: Voiding Method Indwelling Catheter Indwelling Catheter Indwelling Catheter ABP, PAP, CO, CI - Last Documented Arterial Blood Pressure 87/72 - Exam In general patient is alert and oriented x 3 in no distress HEENT head normocephalic and atraumatic Neck is supple no JVD no goiter no lymphadenopathy no carotid bruit Chest examination is clear to auscultation no crackles no wheezing Cardiac exam reveals regular heart sounds S1 and S2 no gallops no murmurs Abdomen is soft nontender no organomegaly with normal bowel sounds Extremity exam reveals no edema no cyanosis or clubbing Neurological examination reveals no gross focal deficits - Labs CBC & Chem 7: 04/01/23 05:32 04/01/23 05:32 Labs: Abnormal Lab Results - Last 24 Hours (Table) 03/31/23 04/01/23 04/01/23 Range/Units 06:38 05:32 05:32 WBC 35.2 H 42.0 H (3.8-10.6) k/uL RBC 3.89 L (4.30-5.90) m/uL Hgb 12.1 L (13.0-17.5) gm/dL Hct 37.1 L (39.0-53.0) % Plt Count 85 L (150-450) k/uL Neutrophils # (Manual) 32.00 H 37.80 H (1.3-7.7) k/uL Monocytes # (Manual) 1.76 H 1.68 H (0-1.0) k/uL Metamyelocytes # (Man) 0.70 H 0.84 H (0) k/uL Myelocytes # (Manual) 0.35 H 1.26 H (0) k/uL Nucleated RBCs 2 H (0-0) /100 WBC Sodium 136 L (137-145) mmol/L Carbon Dioxide 20 L (22-30) mmol/L BUN 125 H* (9-20) mg/dL Creatinine 3.22 H (0.66-1.25) mg/dL Glucose 138 H (74-99) mg/dL Calcium 7.4 L (8.4-10.2) mg/dL C-Reactive Protein 34.2 H (<1.0) mg/dL Microbiology - Last 24 Hours (Table) 03/29/23 15:20 Blood Culture - Preliminary Blood Assessment and Plan Plan: A. fib with RVR Acute on chronic systolic CHF Ischemic cardiomyopathy Hypotension Hyperkalemia Acute kidney injury History of hypertension History of hyperlipidemia history of coronary artery disease Monitor vital signs Monitor CBC Monitor CMP Continue telemetry monitoring Continue oxygen supplementation Encourage use of I-S, Bronchopulmonary hygiene Trend troponins Strict I's and O's, daily weights, continue IV Lasix Continue Lopressor and sotalol Hold Aldactone and eneteresto for now Avoid nephrotoxic agents cardiology following Nephrology following Cardiology following Pulmonology following
[2023-04-01] MEDS ORDERED: WARFARIN 5 MG TAB PO ONE (18:00)
[2023-04-02] MEDS: HYDROmorphone 0.5 MG/0.5 ML SYRINGE IVP PRN ×3 (02:40→22:28)
[2023-04-02] MEDS: VASOPRESSIN 60 UNIT in SODIUM CHLORIDE 0.9% 150 ML IV SCH (02:45)
[2023-04-02] MEDS: DILTIAZEM 125 MG in SODIUM CHLORIDE 0.9% 100 ML IV SCH (03:59)
[2023-04-02] MEDS: ACETAMINOPHEN IV (For NPO) 1,000 MG in EMPTY BAG 1 BAG IVPB PRN (04:31)
[2023-04-02 05:48] LABS: Anion Gap 16 mmol/L; Calcium 7.5 mg/dL (8.4-10.2); Carbon Dioxide 18 mmol/L (22-30); Chloride 102 mmol/L (98-107); Glucose 124 mg/dL (74-99); Potassium 4.8 mmol/L (3.5-5.1); Sodium 136 mmol/L (137-145)
[2023-04-02 05:54] LABS: African American GFR (CKD) 17 (>60 ml/min/1.73 sqM); Non-African American GFR(CKD) 15 (>60 ml/min/1.73 sqM)
[2023-04-02 06:00] LABS: HCT 36.6 % (39.0-53.0); HGB 12.1 gm/dL (13.0-17.5); MCH 31.2 pg (25.0-35.0); MCV 94.7 fL (80.0-100.0); Mean Platelet Volume 12.7; RBC 3.87 m/uL (4.30-5.90); RDW 14.7 % (11.5-15.5)
[2023-04-02 06:06] LABS: INR 2.3 (<1.2); Prothrombin Time 23.2 sec (10.0-12.5)
[2023-04-02 06:18] LABS: Blood Urea Nitrogen 144 mg/dL (9-20)
[2023-04-02] MEDS: MIDODRINE 5 MG TAB PO SCH ×3 (06:51→16:44)
[2023-04-02 06:56] LABS: WBC 50.6 k/uL (3.8-10.6)
[2023-04-02 07:23] LABS: Platelet Count 128 k/uL (150-450)
--- NOTE | 2023-04-02 07:52 | XR ---
EXAMINATION TYPE: XR chest 1V portable DATE OF EXAM: 04/02/2023 5:56 AM COMPARISON: Chest radiographs from 04/01/2023 TECHNIQUE: XR chest 1V portable Portable AP radiograph of the chest. CLINICAL INDICATION:Male, 78 years old with history of pulm congestion; FINDINGS: Lungs/Pleura: Small left pleural effusion redemonstrated. Diffuse interstitial pattern redemonstrated . No pneumothorax. Heart/mediastinum: Cardiomediastinal silhouette is enlarged and stable. Three lead cardiac conduction device overlying the left hemithorax with lead tips projecting over the right ventricle, right atriu m and coronary sinus. Musculoskeletal: No acute osseous pathology. Other findings: None Lines/Tubes: Stable left IJ central venous catheter. IMPRESSION: Overall stable examination with CHF exacerbation, small left pleural effusion, and pulmonary vascular congestion.
[2023-04-02] MEDS: IPRATROPIUM-ALBUTEROL 3 ML NEB INHALATION SCH ×4 (08:07→21:22)
--- NOTE | 2023-04-02 09:43 | P.PN ---
Subjective Progress Note Date: 04/02/23 Principal diagnosis: Hypotension. This is a 78-year-old male patient with a known history of atrial fibrillation anticoagulated with warfarin, congestive heart failure, gout, hyperlipidemia, hypertension, coronary artery disease with previous stenting, ischemic cardiomyopathy with AICD placement. Lifelong nonsmoker. He presented to the emergency room yesterday with a 3 to four-day history of increasing shortness of breath, weakness, lower extremity swelling. He was to be on Lasix but has been somewhat noncompliant with that according to the patient's . His x-ray rev ealed evidence of cardiomegaly with mild pulmonary vascular congestion. Diffuse initially increased interstitial markings suspicious for pulmonary edema/CHF. Echocardiogram revealed severely impaired left ventricle systolic function with ejection fraction less than 20%. Anteroapical akinesis with severe hypokinesis and the rest of the segments. White count 6.8. Hemoglobin 12.0. INR 3.3. Emilio telets 76,000. Sodium 137. Potassium 4.9. Bicarb 19. BUN 70. Creatinine 1.62. Glucose 132. He is seen today in consultation on the selective care unit. Currently resting quite flat in bed. Awake and alert in no acute distress. Maintaining O2 saturations in the 90s on 2 L/m per nasal cannula. He is breathing a bit easier today compared to yesterday. He is currently on Lasix 40 mg IV every 8 hours. He is initiated on Farxiga. Progress note dated 03/27/2023. This is a 78-year-old male who is seen today in the intensive care unit, room 267. He was admitted to the hospital on March 25, with a diagnosis of acute kidney injury, congestive heart failure, and atrial fibrillation. The patient was transferred down to the intensive care unit, by our nurse practitioner, because of severe hypotension. On dobutamine by the hospital service, and, norepinephrine was added by cardiology. Currently, he's on 2 L nasal cannula, receiving dobutamine at 2.5 mcg/kg/m, and is on norepinephrine at 14 mcg/m. The patient does not have adequate IV access, so I place a right radial art line, and a left internal jugular triple-lumen catheter. White count 6.4, hemoglobin 12.2, hematocrit 38.3, and platelet count is 89,000. PTT was 28.6 with an INR of 2.9. Sodium 138, potassium 4.8, chlorides 105, CO2 22, anion gap 11, BUN 86, and creatinine 2.14. Albumin 2.7. Chest x-ray shows improving interstitial edema. Progress note dated 03/28/2023. 78-year-old male seen in the intensive care unit, room 267. The patient was admitted to the hospital on March 25, with a diagnosis of acute kidney injury, congestive heart failure, and atrial fibrillation. The patient was transferred down to the intensive care unit, because of hypotension. Dobutamine was started by the hospitalist service, and subsequent to that, with the development of hypotension, norepinephrine, was added, and now vasopressin. Currently, the patient is on 4 L by nasal cannula. He continues on amiodarone at 0.5 mg/m, dobutamine at 2.5 mcg/kg/m, norepinephrine at 28 mcg/m, and vasopressin at 0.04 units per minute. His pro-calcitonin level was quite elevated, and there were gram-negative bacilli, in the blood. The patient is currently on cefepime. BiPAP settings are 12/5, and 40%. He spent most of the night on BiPAP. CODE STATUS has been addressed, but I've asked the nurse to recheck to the family a gain. White count is 21,000, hemoglobin 13.5, hematocrit 41.1, with a platelet count of 115,000. PT is 20.8 with an INR 2.1. Sodium 139, potassium 4.5, chlorides 109, CO2 17, anion gap 13, BUN 85, and creatinine 1.59. Blood gases done last night show pO2 of 131, pCO2 26, and a pH is 7.48. These blood gases are consistent with a combined respiratory alkalosis and mild metabolic acidosis. Chest x-ray shows diffuse bilateral infiltrates, mostly interstitial in nature. Progress note dated 03/29/2023. 78-year-old male seen in room 267. I did have the opportunity to speak to his . The patient for the time being, will remain a full code. The said that he would not want to be on the ventilator, long-term, and certainly would not want a tracheostomy and/or a feeding tube. Currently, he's on 4 L by nasal cannula. BiPAP has been used on and off, at 12/5, and 40%. The patient's on norepinephrine at 34 mcg/m, and vasopressin 0.04 units per minute. The patient is also on Cardizem 5 mg an hour, and a sodium bicarbonate drip at 50 mL an hour, with 3 ampules of sodium bicarbonate and D5W. The patient's blood cultures are positive for gram-negative bacilli, the patient is on cefepime. White count is 32.5, hemoglobin 13.4, hematocrit 40.2, and platelet count 113,000. PTT was 32.6 with an INR 3.3. Sodium 139, potassium 3.9, chlorides 109, CO2 18, anion gap 12, BUN 91, creatinine 1.91. Glucose is 162. Calcium is 7.9. Chest x-ray shows some left basilar consolidation, and some mild venous congestion. Progress note dated 03/30/2023. 78-year-old male seen in room 267. The patient appears a bit more awake today than he did yesterday. Currently, he's on 2 L of oxygen. He is receiving norepinephrine at 11.7 mcg/m, and vasopressin at 0.04 units per minute. Is also on Cardizem 5 mg an hour, and a sodium bicarbonate drip, with 3 ampules of sodium bicarbonate and D5W at 50 mL an hour. I did have a chance to talk to the , both yesterday, and today. The patient's blood cultures showed evidence of Citrobacter, is sensitive to the cefepime that the patient is currently on. White count 34.3, hemoglobin 12.8, hematocrit 38.4, and platelet count 93,000. Sodium 138, potassium 3.8, chlorides 106, CO2 22, anion gap 10, BUN 98, creatinine 1.86. Albumin is 2.3. Chest x-ray shows cardiomegaly, with mild fluid overload. Progress note dated 03/31/2023. 78-year-old male seen again in room 267. The patient's a bit more awake again today than he was yesterday. His is in the room with him. He continues on oxygen at 2 L by nasal cannula. Is on Cardizem 5 mg an hour for atrial fibrillation, and vasopressin at 0.04 units per minute, and norepinephrine at 6 mcg/m, for hypotension. The patient remains on a sodium bicarbonate drip, with 3 ampules of sodium bicarbonate and D5W at 50 mL an hour. Finally, we believe the patient to be a bit dry, and we will add lactated Ringer's at 75 mL an hour. His blood cultures were positive for Citrobacter, and he is currently on cefepime. Arterial blood gases yesterday showed a pO2 of 70, pCO2 31, and a pH is 7.49. This is consistent with respiratory alkalosis. White count 35.9, hemoglobin 12.2, hematocrit 37.5, and platelet count 88,000. Sodium 138, potassium 4, chlorides 101, CO2 28, BUN 1:15, creatinine 2.41, up from 98 and 1.86 respectively. Calcium is 7.5, albumin is 2.3. Chest x-ray shows a diffuse interstitial pattern. Progress note dated 04/01/2023. 78-year-old male seen again today in room 267. Each day, the patient has had incremental improvement in his mental status. Currently, the patient is on 3 L of oxygen. He continues on cefepime and daptomycin as per infectious diseases. The patient is getting lactated Ringer's at 75 mL an hour, vasopressin at 0.04 units per minute, and norepinephrine at 5.7 mcg/m. The patient is also on Cardizem 5 mg an hour. The patient's white count is 42,000, hemoglobin 12.1, hematocrit 37.1, with a platelet count of 85,000. A blood gas done on the night shows a pO2 of 70, pCO2 31, and a pH is 7.49. Sodium 136, potassium 4.3, chlor ides 104, CO2 20, BUN 125, and creatinine 3.22. The patient's glucose is 138, and the calcium is 7.4. Blood cultures are positive for Citrobacter. The chest x-rays consistent with CHF. Progress note dated 04/02/2023. 78-year-old male seen again in room 267. The patient's about the same today as he was yesterday. He has a fluctuating mental status. Currently, he's on 3 L of oxygen. He is receiving Cardizem 5 mg an hour, and vasopressin at 0.04 units per minute, and norepinephrine at 5.7 mcg/m. The patient's also getting saline at KVO. He continues on cefepime and daptomycin. His is in the room, and we have communicated his situation, on a daily basis. White count 50.6, hemog lobin 12.1, hematocrit 36.6, with a platelet count of 128,000. PTT is 23.2 with an INR of 2.3. Sodium 136, potassium 4.8, chlorides 102, CO2 18, anion gap 16, BUN 144 and creatinine 3.64. Blood cultures are positive for Citrobacter. Chest x-ray shows a pattern consistent with pulmonary vascular overload. Lower extremity Dopplers, were negative for DVT. Objective - Vital Signs Vital signs: Vital Signs Temp 97.6 F 04/02/23 04:00 Pulse 94 04/02/23 08:19 Resp 28 H 04/02/23 07:00 BP 111/66 04/02/23 07:00 Pulse Ox 92 L 04/02/23 07:00 FiO2 2 03/30/23 00:00 Intake & Output 04/01/23 04/02/23 04/02/23 18:59 06:59 18:59 Intake Total 2193.047 573.655 13 Output Total 70 29 Balance 2123.047 544.655 13 Weight 154.4 kg Intake: IV 1111 346 13 Cefepime 2 gm In Sodium 100 100 Chloride 0.9% 100 ml @ 25 mls/hr IVPB Q12HR [facility] Rx #:[id number] Diltiazem 125 mg In 5 Sodium Chloride 0.9% 100 ml @ 5 MG/HR 5 mls/hr IV .Q24H [facility] Rx#:[id number] KVO 20 210 10 Lactated Ringers 1,000 ml 450 @ 75 mls/hr IV .[id number] [facility] Rx#:[id number] NS PRESSURE BAG 36 36 3 Sodium Chloride 0.9% 250 500 ml @ 999 mls/hr IV .Q16M [facility] Rx#:[id number] Intake, IV Titration 282.047 197.655 Amount Diltiazem 125 mg In 124 Sodium Chloride 0.9% 100 ml @ 5 MG/HR 5 mls/hr IV .Q24H [facility] Rx#:[id number] Diltiazem 125 mg In 4.333 56.166 Sodium Chloride 0.9% 100 ml @ Titrate IV .Q0M [facility] Rx#:[id number] Norepinephrine 32 mg In 37.128 24.087 Sodium Chloride 0.9% 218 ml @ 0.04 MCG/KG/MIN 2. 664 mls/hr IV .Q24H [facility] Rx#:[id number] Vasopressin 60 unit In 116.586 117.402 Sodium Chloride 0.9% 150 ml @ 0.04 UNITS/MIN 6.12 mls/hr IV .Q24H [facility] Rx#: [id number] Oral 800 30 Output: Urine 70 29 Other: Voiding Method Indwelling Catheter Indwelling Catheter # Bowel Movements 1 1 ABP, PAP, CO, CI - Last Documented Arterial Blood Pressure 87/72 - Exam No acute distress, the patient is more awake and alert today. Currently on 3 L. HEENT examination is grossly unremarkable. Mucous membranes are moist. No oral lesions. Neck supple. Full range of motion. No adenopathy thyromegaly or neck vein distention. Cardiovascular examination reveals regular rhythm rate. S1-S2 normal. No S3 or S4. No discernible murmur noted. Heart sounds are distant. Heart rate 94 bpm. Lungs reveal scattered rhonchi and crackles. No wheezes. Breath sounds are equal bilaterally. Saturations are 94 % on 3 L nasal cannula. Abdomen soft bowel sounds are heard. No masses or tenderness. Extremities are intact. No cyanosis or clubbing. There is significant edema, and open sores on the left leg. Skin is without rash or lesion. Neurologic examination is brief but nonfocal. Patient is a bit lethargic. - Labs CBC & Chem 7: 04/02/23 05:22 04/02/23 05:22 Labs: Abnormal Lab Results - Last 24 Hours (Table) 04/01/23 04/02/23 04/02/23 Range/Units 11:08 05:22 05:22 WBC 50.6 H* (3.8-10.6) k/uL RBC 3.87 L (4.30-5.90) m/uL Hgb 12.1 L (13.0-17.5) gm/dL Hct 36.6 L (39.0-53.0) % Plt Count 128 L D (150-450) k/uL PT 20.2 H 23.2 H (10.0-12.5) sec INR 2.0 H 2.3 H (<1.2) Sodium (137-145) mmol/L Carbon Dioxide (22-30) mmol/L BUN (9-20) mg/dL Creatinine (0.66-1.25) mg/dL Glucose (74-99) mg/dL Calcium (8.4-10.2) mg/dL 04/02/23 Range/Units 05:22 WBC (3.8-10.6) k/uL RBC (4.30-5.90) m/uL Hgb (13.0-17.5) gm/dL Hct (39.0-53.0) % Plt Count (150-450) k/uL PT (10.0-12.5) sec INR (<1.2) Sodium 136 L (137-145) mmol/L Carbon Dioxide 18 L (22-30) mmol/L BUN 144 H* (9-20) mg/dL Creatinine 3.64 H (0.66-1.25) mg/dL Glucose 124 H (74-99) mg/dL Calcium 7.5 L (8.4-10.2) mg/dL Microbiology - Last 24 Hours (Table) 03/29/23 15:20 Blood Culture - Preliminary Blood Assessment and Plan Assessment: Acute hypoxemic respiratory failure secondary to an acute exacerbation of chronic systolic congestive heart failure. Ejection fraction less than 20%. Hypotension, severe, secondary to cardiomyopathy, and bacteremia/sepsis. Likely sepsis, secondary to Citrobacter species, on cefepime and daptomycin. Severe ischemic cardiomyopathy, status post AICD placement. History of coronary disease with previous stent placements. Chronic atrial fibrillation. History of gout. Hypertension. Hyperlipidemia. Lifelong nonsmoker. Plan: Plan dated 03/27/2023. The patient was transferred to the intensive care unit, for closer monitoring and management. The patient was placed on dobutamine at 2.5 mcg/kg/m, and, for hypotension, is receiving norepinephrine at 14 mcg/m. Labs, x-rays, and medications are reviewed. The patient's overall prognosis remains very guarded. We placed a right radial arterial line today, as well as a left internal jugular triple-lumen catheter, for better monitoring and management. We'll continue to follow make recommendations along the way. Prognosis is certainly guarded. Plan dated 03/28/2023. The patient is currently on cefepime, for gram-negative bacilli discovered in his blood. The patient is on 4 L of oxygen by nasal cannula. The patient can go to BiPAP, with settings of 12/5, and 40%. We'll add vasopressin 0.04 units per minute to the patient's regimen. He is already on norepinephrine at 20 mcg/m. He is also receiving amiodarone 0.5 mg/m, and dobutamine 2.5 mcg/kg/m. We'll ask cardiology to stop the dobutamine. Labs, x-rays, medications are reviewed. The patient's pro-calcitonin level was quite high at 25. Prognosis is certainly guarded. The patient may end up on mechanical ventilation. We'll discuss CODE STATUS with the family again. Plan dated 03/29/2023. The patient continues on antibiotic for the gram-negative bacilli, in the blood. It has not yet been identified. The patient remains on norepinephrine at 34 mcg/m, and vasopressin at 0.04 units per minute. The patient is also on Cardizem at 5 mg an hour. The patient's receiving oxygen by nasal cannula at 4 L. Labs, x-rays, and medications are reviewed. The patient's overall prognosis remains guarded. He remains a full code. I had the opportunity to speak to the patient's . She would like him to stay a full code for the time being. It would be okay to intubate the patient, if necessary, but he would not want long- term intubation, but certainly not want a tracheostomy tube or a feeding tube. Additional recommendations and suggestions are forthcoming. Plan dated 03/30/2023. I was again able to speak to the patient's , and give her an update. The patient's norepinephrine requirement has gone down significantly, from 34 mcg/m, down to less than 12 mcg/m. The patient continues both on Cardizem, and vasopressin. Labs, x-rays, and medications are reviewed. The patient's blood cultures are positive for Citrobacter. The Citrobacter is sensitive to cefepime, which is what the patient is on. Labs, x-rays, and medications are reviewed. We will continue to follow the patient, and make recommendations along the way. The patient's overall prognosis is guarded. Plan dated 03/31/2023. The patient appears to be a bit better today. I had a chance to speak to his again today. I gave her an update. The patient does continue on Cardizem drip, vasopressin drip, and norepinephrine drip. In addition, the patient continues a sodium bicarbonate drip. Labs, x-rays, medications are reviewed. The nurse call me yesterday because of worsening respiratory status, but the blood gases were fine, with a pO2 of 70, pCO2 31, and a pH is 7.49. That was on 2 L. Blood cultures are positive for Citrobacter, and he continues on cefepime. We will continue to follow make recommendations along the way. Prognosis is certainly guarded. Plan dated 04/01/2023. The patient is a bit better clinically, in terms of his mental status. Additionally, his norepinephrine dose has come down, to 5.7 mcg/m. He continues on Cardizem 5 mg an hour, and vasopressin at 0.04 units per minute. Labs, x- rays, medications are reviewed. The patient was seen by infectious diseases, and they added daptomycin. We will continue to follow and make recommendations along the way. The patient's overall prognosis remains very guarded. Plan dated 04/02/2023. The patient's overall condition, the last day or so, has remained about the same. His mental status is fluctuating. The patient continues on vasopressin, and norepinephrine. The patient is also on Cardizem for his atrial fibrillation. We will continue to follow the patient, and make recommendations along the way. Blood cultures are positive for Citrobacter, and the patient continues on cefepime and daptomycin as per infectious diseases. Labs, x-rays, and medications are reviewed. The patient's overall prognosis remains guarded. Time with Patient: Greater than 30
[2023-04-02] MEDS: CEFEPIME 1 GM in SODIUM CHLORIDE 0.9% 50 ML IVPB SCH (09:56)
[2023-04-02] MEDS: PIPERACILLIN-TAZOBACTAM 3.375 GM in SODIUM CHLORIDE 0.9% 100 ML IVPB SCH ×2 (09:58→22:41)
[2023-04-02] MEDS: PANTOPRAZOLE 40 MG/10 ML VIAL IVP SCH (09:59)
[2023-04-02] MEDS: DOCUSATE 100 MG CAP PO SCH ×2 (10:00→22:28)
[2023-04-02] MEDS: ASPIRIN 81 MG PO SCH (10:00)
[2023-04-02] MEDS: AMIODARONE 200 MG TAB PO SCH ×2 (10:00→22:28)
[2023-04-02] MEDS: METOPROLOL TARTRATE 25 MG TAB PO SCH ×3 (10:00→22:28)
--- NOTE | 2023-04-02 10:14 | P.PN ---
Subjective Progress Note Date: 04/02/23 patient is a 78-year-old gentleman with past medical history significant for hypertension, hyperlipidemia, myocardial infarction, AICD implantation, cataracts, atrial fibrillation with ablation presented to the hospital for not feeling well for the last few days. Patient stated that 2 days ago he started feeling lethargic and weak. There was no complain of any fever but patient felt cold. Complaining of shortness of breath at rest. Denies any chest pain. Denies any nausea, vomiting abdominal pain. Patient has chronic swelling of left lower extremity. Complaining of lightheadedness. Denied any orthopnea or PND. Because symptoms, patient came to the ER Initial lab work done in the ER showed WBC 9.5, hemoglobin 13.2, platelet count 58 sodium 1:30, potassium 5.3, BUN 64, creatinine 2.09 EKG done in the ER Chest x-ray done in the ER showed cardiomegaly with stable left chest AICD, mild pulmonary vascular congestion, diffuse increased interstitial markings related to edema versus infiltrates Patient admitted to medicine service 03/26. Patient seen and examined. Still complaining of shortness of breath on exertion. Denies any chest pain. Denies any nausea or vomiting. Currently on 2 L of oxygen On 03/27/2023 patient was seen and examined in the ICU he is somnolent, currently maintained on BiPAP, there is no fever or chills no headache or dizziness no chest pain, no cough no nausea or vomiting no abdominal pain no diarrhea and no urinary symptoms On 03/28/2023 patient was seen and examined in the ICU, he is somnolent, responsive, in no apparent distress, he is still maintained on BiPAP, blood culture is positive for gram-negative bacilli, patient was started on IV ce fepime, heart rate is better controlled today at 101, he has low grade fever, white blood count is elevated at 21,000. CODE STATUS was discussed with family today and at this time patient remained fu code. On 03/29/2023 patient was seen and examined in the ICU he is alert and oriented 3 today he is off BiPAP and is maintained on oxygen via nasal cannula he is able to answer questions appropriately he is still complaining of severe generalized weakness and shortness of breath otherwise he denies any complaints there is no fever or chills no headache or dizziness no chest pain no shortness of breath no cough no nausea or vomiting no abdominal pain no diarrhea and no urinary symptoms. On 03/30/2023 patient was seen and examined in the ICU he is alert and oriented 3 he is maintained on oxygen via nasal cannula however he is having more shortness of breath today he denies any chest pain there is no cough no nausea or vomiting no abdominal pain no diarrhea and no urinary symptoms. Blood pressure remains marginal despite pressure support, he will be given 1 dose of IV albumin, will continue to monitor closely. On 03/31/2023 patient remains in the intensive care unit alert and oriented 3. This time patient remains on Lopressor and Cardizem and vasopressin. Creatinine increasing to 2.41 bun 115. Cardiology, care, infectious and nephrology services are following. Patient denies chest pain. Patient denies nausea vomiting or diarrhea. Patient denies any urinary burning or frequency On 04/01/2023 patient was seen and examined in the ICU he is alert and oriented 3 in no apparent distress, he is complaining of shortness of breath when he tries to speak, he has severe weakness, vital exam reveals a temperature of 97.6 pulse 126 respiration 30 blood pressure 104/67 pulse ox 95% on 3 L nasal cannula his white blood count is 42,000 hemoglobin 12.1 platelet count 85. Infectious disease, pulmonary critical care, nephrology and cardiology are following. Prognosis is guarded. On 04/02/23 patient remained in the intensive care unit. White blood cell 15.6 by infectious disease service is following. Creatinine also increasing to 3.64 and bun 144. patient will likely need renal replacement per nephrology recommendation. Patient remains on vasopressin and Levophed. Patient also on Cardizem for rate control. Critical care infectious disease, nephrology, vascul ar surgery and cardiology services are following. Prognosis remains guarded Objective - Vital Signs Vital signs: Vital Signs Temp 97.6 F 04/02/23 04:00 Pulse 94 04/02/23 08:19 Resp 28 H 04/02/23 07:00 BP 111/66 04/02/23 07:00 Pulse Ox 92 L 04/02/23 07:00 FiO2 2 03/30/23 00:00 Intake & Output 04/01/23 04/02/23 04/02/23 18:59 06:59 18:59 Intake Total 2193.047 573.655 36.667 Output Total 70 29 Balance 2123.047 544.655 36.667 Weight 154.4 kg Intake: IV 1111 346 13 Cefepime 2 gm In Sodium 100 100 Chloride 0.9% 100 ml @ 25 mls/hr IVPB Q12HR [facility] Rx #:[id number] Diltiazem 125 mg In 5 Sodium Chloride 0.9% 100 ml @ 5 MG/HR 5 mls/hr IV .Q24H [facility] Rx#:[id number] KVO 20 210 10 Lactated Ringers 1,000 ml 450 @ 75 mls/hr IV .[id number] [facility] Rx#:[id number] NS PRESSURE BAG 36 36 3 Sodium Chloride 0.9% 250 500 ml @ 999 mls/hr IV .Q16M [facility] Rx#:[id number] Intake, IV Titration 282.047 197.655 23.667 Amount Diltiazem 125 mg In 124 Sodium Chloride 0.9% 100 ml @ 5 MG/HR 5 mls/hr IV .Q24H [facility] Rx#:[id number] Diltiazem 125 mg In 4.333 56.166 23.667 Sodium Chloride 0.9% 100 ml @ Titrate IV .Q0M [facility] Rx#:[id number] Norepinephrine 32 mg In 37.128 24.087 Sodium Chloride 0.9% 218 ml @ 0.04 MCG/KG/MIN 2. 664 mls/hr IV .Q24H [facility] Rx#:[id number] Vasopressin 60 unit In 116.586 117.402 Sodium Chloride 0.9% 150 ml @ 0.04 UNITS/MIN 6.12 mls/hr IV .Q24H [facility] Rx#: [id number] Oral 800 30 Output: Urine 70 29 Other: Voiding Method Indwelling Catheter Indwelling Catheter # Bowel Movements 1 1 ABP, PAP, CO, CI - Last Documented Arterial Blood Pressure 87/72 - Exam In general patient is alert and oriented x 3 in no distress HEENT head normocephalic and atraumatic Neck is supple no JVD no goiter no lymphadenopathy no carotid bruit Chest examination is clear to auscultation no crackles no wheezing Cardiac exam reveals regular heart sounds S1 and S2 no gallops no murmurs Abdomen is soft nontender no organomegaly with normal bowel sounds Extremity exam reveals no edema no cyanosis or clubbing Neurological examination reveals no gross focal deficits - Labs CBC & Chem 7: 04/02/23 05:22 11 05:22 Labs: Abnormal Lab Results - Last 24 Hours (Table) 04/01/23 04/02/23 04/02/23 Range/Units 11:08 05:22 05:22 WBC 50.6 H* (3.8-10.6) k/uL RBC 3.87 L (4.30-5.90) m/uL Hgb 12.1 L (13.0-17.5) gm/dL Hct 36.6 L (39.0-53.0) % Plt Count 128 L D (150-450) k/uL PT 20.2 H 23.2 H (10.0-12.5) sec INR 2.0 H 2.3 H (<1.2) Sodium (137-145) mmol/L Carbon Dioxide (22-30) mmol/L BUN (9-20) mg/dL Creatinine (0.66-1.25) mg/dL Glucose (74-99) mg/dL Calcium (8.4-10.2) mg/dL 04/02/23 Range/Units 05:22 WBC (3.8-10.6) k/uL RBC (4.30-5.90) m/uL Hgb (13.0-17.5) gm/dL Hct (39.0-53.0) % Plt Count (150-450) k/uL PT (10.0-12.5) sec INR (<1.2) Sodium 136 L (137-145) mmol/L Carbon Dioxide 18 L (22-30) mmol/L BUN 144 H* (9-20) mg/dL Creatinine 3.64 H (0.66-1.25) mg/dL Glucose 124 H (74-99) mg/dL Calcium 7.5 L (8.4-10.2) mg/dL Microbiology - Last 24 Hours (Table) 03/29/23 15:20 Blood Culture - Preliminary Blood Assessment and Plan Assessment: A. fib with RVR Acute on chronic systolic CHF Sepsis secondary to the positive blood culture Ischemic cardiomyopathy Hypotension Hyperkalemia Acute kidney injury History of hypertension History of hyperlipidemia history of coronary artery disease Patient remains in the intensive care unit Maintained on vasopressors Maintained on Cardizem drip Patient will likely need renal replacement per nephrology Patient remains on IV antibiotics cardiology following Nephrology following Cardiology following Pulmonology following Infectious disease services following Prognosis guarded
--- NOTE | 2023-04-02 10:31 | P.PN ---
Subjective Patient is seen for follow-up for acute kidney injury. He was admitted to the hospital with shortness of breath and increased weakness. Underlying history of CHF with EF of 20%. Patient was maintained on dobutamine and was diuresed on initial admission. He is currently maintained on pressors. Maintained on Cardizem drip for A. fib with RVR. Blood cultures are growing gram-negative bacilli, Citrobacter braki Urine output remains at 0 - 5 mL per hour Serum creatinine at 3.6 with BUN of 144 today. Discussed renal replacement therapy with patient's . At this time she is agreeable however the son will be contacted as well regarding further discussion about CODE STATUS. If aggressive medical therapy is desired patient will need to be dialyzed tomorrow. Objective - Vital Signs Vital signs: Vital Signs Temp 97.6 F 04/02/23 04:00 Pulse 94 04/02/23 08:19 Resp 28 H 04/02/23 07:00 BP 111/66 04/02/23 07:00 Pulse Ox 92 L 04/02/23 07:00 FiO2 2 03/30/23 00:00 Intake & Output 04/01/23 04/02/23 04/02/23 18:59 06:59 18:59 Intake Total 2193.047 573.655 36.667 Output Total 70 29 Balance 2123.047 544.655 36.667 Weight 154.4 kg Intake: IV 1111 346 13 Cefepime 2 gm In Sodium 100 100 Chloride 0.9% 100 ml @ 25 mls/hr IVPB Q12HR [facility] Rx #:[id number] Diltiazem 125 mg In 5 Sodium Chloride 0.9% 100 ml @ 5 MG/HR 5 mls/hr IV .Q24H [facility] Rx#:[id number] KVO 20 210 10 Lactated Ringers 1,000 ml 450 @ 75 mls/hr IV .[id number] [facility] Rx#:[id number] NS PRESSURE BAG 36 36 3 Sodium Chloride 0.9% 250 500 ml @ 999 mls/hr IV .Q16M [facility] Rx#:[id number] Intake, IV Titration 282.047 197.655 23.667 Amount Diltiazem 125 mg In 124 Sodium Chloride 0.9% 100 ml @ 5 MG/HR 5 mls/hr IV .Q24H [facility] Rx#:[id number] Diltiazem 125 mg In 4.333 56.166 23.667 Sodium Chloride 0.9% 100 ml @ Titrate IV .Q0M [facility] Rx#:[id number] Norepinephrine 32 mg In 37.128 24.087 Sodium Chloride 0.9% 218 ml @ 0.04 MCG/KG/MIN 2. 664 mls/hr IV .Q24H [facility] Rx#:[id number] Vasopressin 60 unit In 116.586 117.402 Sodium Chloride 0.9% 150 ml @ 0.04 UNITS/MIN 6.12 mls/hr IV .Q24H [facility] Rx#: [id number] Oral 800 30 Output: Urine 70 29 Other: Voiding Method Indwelling Catheter Indwelling Catheter # Bowel Movements 1 1 ABP, PAP, CO, CI - Last Documented Arterial Blood Pressure 87/72 - Exam Patient is awake. Comfortable Examination of the heart S1 and S2 Examination of the lungs decreased breath sounds at the bases Abdomen is soft nontender Examination of lower extremities shows edema 3+ bilaterally, erythema on the left leg, ulcer with minimal bleeding [employer] exam grossly intact - Labs CBC & Chem 7: 04/02/23 05:22 04/02/23 05:22 Labs: Abnormal Lab Results - Last 24 Hours (Table) 04/01/23 04/02/23 04/02/23 Range/Units 11: 05:22 05:22 WBC 50.6 H* (3.8-10.6) k/uL RBC 3.87 L (4.30-5.90) m/uL Hgb 12.1 L (13.0-17.5) gm/dL Hct 36.6 L (39.0-53.0) % Plt Count 128 L D (150-450) k/uL PT 20.2 H 23.2 H (10.0-12.5) sec INR 2.0 H 2.3 H (<1.2) Sodium (137-145) mmol/L Carbon Dioxide (22-30) mmol/L BUN (9-20) mg/dL Creatinine (0.66-1.25) mg/dL Glucose (74-99) mg/dL Calcium (8.4-10.2) mg/dL 04/02/23 Range/Units 05:22 WBC (3.8-10.6) k/uL RBC (4.30-5.90) m/uL Hgb (13.0-17.5) gm/dL Hct (39.0-53.0) % Plt Count (150-450) k/uL PT (10.0-12.5) sec INR (<1.2) Sodium 136 L (137-145) mmol/L Carbon Dioxide 18 L (22-30) mmol/L BUN 144 H* (9-20) mg/dL Creatinine 3.64 H (0.66-1.25) mg/dL Glucose 124 H (74-99) mg/dL Calcium 7.5 L (8.4-10.2) mg/dL Microbiology - Last 24 Hours (Table) 03/29/23 15:20 Blood Culture - Preliminary Blood Assessment and Plan Assessment: 1. Acute kidney injury, ATN, from hypotension, infection, currently nonoliguric. History of NSAID use prior to admission. No obstruction noted on ultrasound. UA reveals 1+ protein trace blood. Renal function continues to worsen. Patient will need renal replacement therapy. This is discussed with the family. 2. Acute on chronic systolic CHF with EF of 20% with mild to moderate tricuspid regurgitation 3. Hypotension multifactorial including underlying infection as well as severe cardiomyopathy, maintained on pressors and antibiotics 4. A. fib with RVR, maintained on Cardizem drip 5. Cellulitis left lower extremity with sepsis 6. Metabolic acidosis associated with acute kidney injury 7. Sepsis with blood cultures growing Citrobacter braakii Plan: Patient will need hemodialysis tomorrow if aggressive medical therapy is desired. Patient has not responded to IV Lasix. Continue off of IV fluids.
[2023-04-02] MEDS: SILVER sulfADIAZINE Cream 400 GM 1 APPLIC APPLIC TOPICAL SCH (11:55)
--- NOTE | 2023-04-02 12:01 | CONS ---
CONSULTATION HISTORY OF PRESENT ILLNESS: Iker is a 78-year-old gentleman with complex and multiple medical problems, who is in the ICU with hypotension, renal failure, and atrial fibrillation and cellulitis with sepsis. This morning, he is feeling better. Continues to be on IV antibiotics and continues to have cellulitis of the left leg and significant edema bilaterally. He also has renal failure and may have to be dialyzed. Most recent BUN is 144, creatinine is 3.6. White cell count is 50 today. Blood cultures have been repeated. He may need debridement of the left leg, which seems to be the source of his infection, but Vascular, I believe, is already on the case. From cardiac standpoint, heart rate is better controlled now. We will try to taper and stop the Cardizem. He is on amiodarone and we will decrease the dose to [address] Continue the metoprolol and he is already on midodrine. PHYSICAL EXAMINATION: GENERAL: Comfortable at rest. Heart rate is 90 beats per minute, blood pressure is 110/60, respiratory rate is 18. CHEST: Reveals diminished air entry at the bases without any crackles or rhonchi. HEART: Reveals first and second heart sounds. Irregular rhythm and a systolic murmur at the left lower sternal border. ABDOMEN: Soft. EXTREMITIES: Reveals bilateral chronic stasis changes, cellulitis. LABORATORY DATA: Show a white cell count of 50, hemoglobin is 12. INR is 2.3. Potassium is 4.8, BUN is 144, creatinine is 3.6. ASSESSMENT AND PLAN: Cellulitis with septic septicemia. ID is on the case. The patient is on antibiotics. Continues to have elevated white cell count. I am told by the nurse that blood cultures are being repeated and ID is changing the antibiotics. We may have to please consider. I am not sure if the patient needs debridement of the left leg as he may have pockets of pus causing the continued elevation and white cell count. From cardiac standpoint, I will try and taper the Cardizem. Continue rest of the medications. Pharmacy will continue to dose his INR. MMARNULFO / USMAN: [id number] /
--- NOTE | 2023-04-02 15:17 | P.PN ---
Subjective Progress Note Date: 04/02/23 Principal diagnosis: Left leg cellulitis and bacteremia Patient is a 78-year old male with a past medical history significant for hypertension hyperlipidemia atrial fibrillation NH patient presenting to the hospital on 03/25/2022 for evaluation of increasing shortness of breath patient did have a fever and elevated white count and a positive blood culture with a Citrobacter. On today's evaluation and that is 04/02/2023, the patient remains to be afebrile, the patient is breathing comfortably on 2 L nasal cannula oxygen, the patient denies any chest pain, the patient denies any worsening cough or sputum production, patient denies abdominal pain and no nausea/vomiting and no diarrhea has been reported, patient pain to the left lower extremity is currently contro lled. Patient white count is up to 50.6, creatinine is up to 3.64 Objective - Vital Signs Vital signs: Vital Signs Temp 96.5 F L 04/02/23 12:00 Pulse 85 04/02/23 14:45 Resp 24 04/02/23 14:45 BP 100/68 04/02/23 14:45 Pulse Ox 96 04/02/23 14:45 FiO2 2 03/30/23 00:00 Intake & Output 04/01/23 04/02/23 04/02/23 18:59 06:59 18:59 Intake Total 2193.047 573.655 528.884 Output Total 70 29 14 Balance 2123.047 544.655 514.884 Weight 154.4 kg Intake: IV 1111 346 274 Cefepime 2 gm In Sodium 100 100 Chloride 0.9% 100 ml @ 25 mls/hr IVPB Q12HR [facility] Rx #:[id number] Diltiazem 125 mg In 5 Sodium Chloride 0.9% 100 ml @ 5 MG/HR 5 mls/hr IV .Q24H [facility] Rx#:[id number] KVO 20 210 150 Lactated Ringers 1,000 ml 450 @ 75 mls/hr IV .[id number] [facility] Rx#:[id number] NS PRESSURE BAG 36 36 24 Piperacillin-Tazobactam 3 100 .375 gm In Sodium Chloride 0.9% 100 ml @ 25 mls/hr IVPB Q12HR [facility] Rx #:[id number] Sodium Chloride 0.9% 250 500 ml @ 999 mls/hr IV .Q16M [facility] Rx#:[id number] Intake, IV Titration 282.047 197.655 54.884 Amount Diltiazem 125 mg In 124 Sodium Chloride 0.9% 100 ml @ 5 MG/HR 5 mls/hr IV .Q24H [facility] Rx#:[id number] Diltiazem 125 mg In 4.333 56.166 26.334 Sodium Chloride 0.9% 100 ml @ Titrate IV .Q0M [facility] Rx#:[id number] Norepinephrine 32 mg In 37.128 24.087 28.550 Sodium Chloride 0.9% 218 ml @ 0.04 MCG/KG/MIN 2. 664 mls/hr IV .Q24H [facility] Rx#:[id number] Vasopressin 60 unit In 116.586 117.402 Sodium Chloride 0.9% 150 ml @ 0.04 UNITS/MIN 6.12 mls/hr IV .Q24H [facility] Rx#: [id number] Oral 800 30 200 Output: Urine 70 29 14 Other: Voiding Method Indwelling Catheter Indwelling Catheter Indwelling Catheter # Bowel Movements 1 1 ABP, PAP, CO, CI - Last Documented Arterial Blood Pressure 87/72 - Exam GENERAL DESCRIPTION: An elderly male lying in bed in no distress RESPIRATORY SYSTEM: Unlabored breathing , decreased breath sound the bases HEART: S1 S2 regular rate and rhythm , ABDOMEN: Soft , no tenderness EXTREMITIES: Left lower extremity with swelling redness and blister with some skin necrosis, redness slightly decreased swelling persist - Labs CBC & Chem 7: 04/02/23 05:22 04/02/23 05:22 Labs: Abnormal Lab Results - Last 24 Hours (Table) 04/02/23 04/02/23 04/02/23 Range/Units 05:22 05:22 05:22 WBC 50.6 H* (3.8-10.6) k/uL RBC 3.87 L (4.30-5.90) m/uL Hgb 12.1 L (13.0-17.5) gm/dL Hct 36.6 L (39.0-53.0) % Plt Count 128 L D (150-450) k/uL PT 23.2 H (10.0-12.5) sec INR 2.3 H (<1.2) Sodium 136 L (137-145) mmol/L Carbon Dioxide 18 L (22-30) mmol/L BUN 144 H* (9-20) mg/dL Creatinine 3.64 H (0.66-1.25) mg/dL Glucose 124 H (74-99) mg/dL Calcium 7.5 L (8.4-10.2) mg/dL C-Reactive Protein (<1.0) mg/dL 04/02/23 Range/Units 09:40 WBC (3.8-10.6) k/uL RBC (4.30-5.90) m/uL Hgb (13.0-17.5) gm/dL Hct (39.0-53.0) % Plt Count (150-450) k/uL PT (10.0-12.5) sec INR (<1.2) Sodium (137-145) mmol/L Carbon Dioxide (22-30) mmol/L BUN (9-20) mg/dL Creatinine (0.66-1.25) mg/dL Glucose (74-99) mg/dL Calcium (8.4-10.2) mg/dL C-Reactive Protein 26.4 H (<1.0) mg/dL Microbiology - Last 24 Hours (Table) 03/29/23 15:20 Blood Culture - Preliminary Blood Assessment and Plan (1) Bacteremia Current Visit: Yes Status: Acute Code(s): R78.81 - BACTEREMIA SNOMED Code(s): 4435727 (2) Left leg cellulitis Current Visit: Yes Status: Acute Code(s): L03.116 - CELLULITIS OF LEFT LOWER LIMB SNOMED Code(s): 29813656572988301 Plan: 1patient with sepsis in this patient who did have a fever elevated white count source is likely left lower extremity cellulitis, in this patient with C itrobacter bacteremia 2-blood cultures were repeated document clearance of bacteremia 3-patient has been evaluated by vascular surgery did not recommend any surgical intervention at this point 4-patient did have worsening of his white count possibly related to the skin necrosis culture has been repeated antibiotic has been adjusted to Zosyn, continue with daptomycin , prognosis remains to be guarded at the bedside and multiple questions concerned were answered Dictation was produced using [employer] software. please excuse any grammatical, word or spelling errors. Time with Patient: Greater than 30
[2023-04-02] MEDS: NOREPINEPHRINE 32 MG in SODIUM CHLORIDE 0.9% 218 ML IV SCH (16:56)
[2023-04-02] MEDS ORDERED: WARFARIN 3 MG TAB PO ONE (18:00)
[2023-04-03 01:09] LABS: ALT 11 U/L (4-49); AST 25 U/L (17-59); Albumin 2.4 g/dL (3.5-5.0); Alkaline Phosphatase 104 U/L (38-126); Anion Gap 15 mmol/L; Calcium 7.5 mg/dL (8.4-10.2); Carbon Dioxide 18 mmol/L (22-30); Chloride 103 mmol/L (98-107); Glucose 123 mg/dL (74-99); Potassium 5.5 mmol/L (3.5-5.1); Sodium 136 mmol/L (137-145); Total Bilirubin 1.3 mg/dL (0.2-1.3); Total Protein 4.9 g/dL (6.3-8.2)
[2023-04-03 01:15] LABS: African American GFR (CKD) 14 (>60 ml/min/1.73 sqM); Non-African American GFR(CKD) 12 (>60 ml/min/1.73 sqM)
[2023-04-03 01:17] LABS: Blood Urea Nitrogen 166 mg/dL (9-20)
[2023-04-03] MEDS: ACETAMINOPHEN IV (For NPO) 1,000 MG in EMPTY BAG 1 BAG IVPB PRN ×2 (03:36→10:10)
[2023-04-03] MEDS: VASOPRESSIN 60 UNIT in SODIUM CHLORIDE 0.9% 150 ML IV SCH (03:51)
[2023-04-03 04:57] LABS: HCT 37.7 % (39.0-53.0); HGB 12.2 gm/dL (13.0-17.5); MCH 30.7 pg (25.0-35.0); MCHC 32.4 g/dL (31.0-37.0); MCV 94.9 fL (80.0-100.0); Mean Platelet Volume 12.2; Platelet Count 141 k/uL (150-450); RBC 3.97 m/uL (4.30-5.90); RDW 14.4 % (11.5-15.5); WBC 46.5 k/uL (3.8-10.6)
[2023-04-03 04:58] LABS: ALT 10 U/L (4-49); AST 21 U/L (17-59); Albumin 2.6 g/dL (3.5-5.0); Alkaline Phosphatase 108 U/L (38-126); Anion Gap 16 mmol/L; Calcium 7.4 mg/dL (8.4-10.2); Carbon Dioxide 21 mmol/L (22-30); Chloride 100 mmol/L (98-107); Glucose 118 mg/dL (74-99); Sodium 137 mmol/L (137-145); Total Bilirubin 1.5 mg/dL (0.2-1.3); Total Protein 5.2 g/dL (6.3-8.2)
[2023-04-03 04:59] LABS: INR 2.8 (<1.2)
[2023-04-03 05:04] LABS: African American GFR (CKD) 12 (>60 ml/min/1.73 sqM); Non-African American GFR(CKD) 11 (>60 ml/min/1.73 sqM)
[2023-04-03 05:09] LABS: Blood Urea Nitrogen 159 mg/dL (9-20)
[2023-04-03 05:21] LABS: Band Neutrophils % 16 %; Eosinophils # (M) 0.47 k/uL (0-0.7); Lymphocytes # (M) 0.93 k/uL (1.0-4.8); Metamyelocytes # (M) 2.79 k/uL (0); Metamyelocytes % 6 %; Monocytes # (M) 0.93 k/uL (0-1.0); Myelocytes # (M) 3.72 k/uL (0); Myelocytes % 8 %; Neutrophils % (M) 64 %; Nucleated Red Blood Cells 0 /100 WBC (0-0); Promyelocytes # (M) 0.47 k/uL (0); Promyelocytes % 1 %; Total Cells Counted 200
[2023-04-03] MEDS: MIDODRINE 5 MG TAB PO SCH (06:38)
--- NOTE | 2023-04-03 08:26 | XR ---
EXAMINATION TYPE: XR chest 1V portable DATE OF EXAM: 04/03/2023 COMPARISON: 04/02/2023 HISTORY: Shortness of breath TECHNIQUE: Single frontal view of the chest is obtained. FINDINGS: Diffuse interstitial pattern and small left effusion and basilar consolidation. Heart is e nlarged. Cardiac device is seen. There is no pneumothorax. Arthropathy of the shoulders. IMPRESSION: Bilateral airspace disease with pleural effusion correlate for CHF otherwise consider pn eumonia. Findings stable.
[2023-04-03] MEDS: IPRATROPIUM-ALBUTEROL 3 ML NEB INHALATION SCH ×2 (08:34→11:38)
--- NOTE | 2023-04-03 09:27 | P.PN ---
Subjective Patient is seen in follow-up for acute kidney injury. Renal function worsening. Oliguric. On Levophed and vasopressin. Also on Cardizem drip for A. fib. Patient on nasal cannula. Family present at bedside. Vital signs - in A. fib and on vasopressor support. General: Resting in bed. HEENT: Head exam is unremarkable. On nasal cannula. LUNGS: Scattered rhonchi. HEART: Irregular rate and rhythm. ABDOMEN: No distention. EXTREMITITES: Lower extremity wounds noted. 2+ edema. Objective - Vital Signs Vital signs: Vital Signs Temp 98.0 F 04/03/23 04:00 Pulse 108 H 04/03/23 08:56 Resp 22 04/03/23 07:00 BP 91/58 04/03/23 07:00 Pulse Ox 95 04/03/23 08:20 FiO2 2 03/30/23 00:00 Intake & Output 04/02/23 04/03/23 04/03/23 18:59 06:59 18:59 Intake Total 667.088 546.583 43 Output Total 19 22 0 Balance 648.088 524.583 43 Weight 157 kg Intake: IV 389 353 23 KVO 250 220 20 NS PRESSURE BAG 39 33 3 Piperacillin-Tazobactam 3 100 100 .375 gm In Sodium Chloride 0.9% 100 ml @ 25 mls/hr IVPB Q12HR [facility] Rx #:[id number] Intake, IV Titration 78.088 153.583 Amount Diltiazem 125 mg In 26.334 0.583 Sodium Chloride 0.9% 100 ml @ Titrate IV .Q0M [facility] Rx#:[id number] Norepinephrine 32 mg In 51.754 Sodium Chloride 0.9% 218 ml @ 0.04 MCG/KG/MIN 2. 664 mls/hr IV .Q24H [facility] Rx#:[id number] Vasopressin 60 unit In 153 Sodium Chloride 0.9% 150 ml @ 0.04 UNITS/MIN 6.12 mls/hr IV .Q24H [facility] Rx#: [id number] Oral 200 40 20 Output: Urine 19 22 0 Other: Voiding Method Indwelling Catheter Indwelling Catheter ABP, PAP, CO, CI - Last Documented Arterial Blood Pressure 87/72 - Labs CBC & Chem 7: 04/03/23 04:26 04/03/23 04:26 Labs: Abnormal Lab Results - Last 24 Hours (Table) 04/02/23 04/02/23 04/03/23 Range/Units 09:40 23:50 04:26 WBC (3.8-10.6) k/uL RBC (4.30-5.90) m/uL Hgb (13.0-17.5) gm/dL Hct (39.0-53.0) % Plt Count (150-450) k/uL Neutrophils # (Manual) (1.3-7.7) k/uL Lymphocytes # (Manual) (1.0-4.8) k/uL Metamyelocytes # (Man) (0) k/uL Myelocytes # (Manual) (0) k/uL Promyelocytes # (Man) (0) k/uL PT 28.0 H (10.0-12.5) sec INR 2.8 H (<1.2) Sodium 136 L (137-145) mmol/L Potassium 5.5 H (3.5-5.1) mmol/L Carbon Dioxide 18 L (22-30) mmol/L BUN 166 H* (9-20) mg/dL Creatinine 4.44 H (0.66-1.25) mg/dL Glucose 123 H (74-99) mg/dL Calcium 7.5 L (8.4-10.2) mg/dL Total Bilirubin (0.2-1.3) mg/dL C-Reactive Protein 26.4 H (<1.0) mg/dL Total Protein 4.9 L (6.3-8.2) g/dL Albumin 2.4 L (3.5-5.0) g/dL 04/03/23 04/03/23 Range/Units 04:26 04:26 WBC 46.5 H (3.8-10.6) k/uL RBC 3.97 L (4.30-5.90) m/uL Hgb 12.2 L (13.0-17.5) gm/dL Hct 37.7 L (39.0-53.0) % Plt Count 141 L (150-450) k/uL Neutrophils # (Manual) 37.20 H (1.3-7.7) k/uL Lymphocytes # (Manual) 0.93 L (1.0-4.8) k/uL Metamyelocytes # (Man) 2.79 H (0) k/uL Myelocytes # (Manual) 3.72 H (0) k/uL Promyelocytes # (Man) 0.47 H (0) k/uL PT (10.0-12.5) sec INR (<1.2) Sodium (137-145) mmol/L Potassium (3.5-5.1) mmol/L Carbon Dioxide 21 L (22-30) mmol/L BUN 159 H* (9-20) mg/dL Creatinine 4.87 H (0.66-1.25) mg/dL Glucose 118 H (74-99) mg/dL Calcium 7.4 L (8.4-10.2) mg/dL Total Bilirubin 1.5 H (0.2-1.3) mg/dL C-Reactive Protein (<1.0) mg/dL Total Protein 5.2 L (6.3-8.2) g/dL Albumin 2.6 L (3.5-5.0) g/dL Microbiology - Last 24 Hours (Table) 03/29/23 15:20 Blood Culture - Preliminary Blood Assessment and Plan Plan: Assessment: 1. Acute kidney injury secondary to ATN secondary to cardiorenal syndrome and septic shock. Creatinine 4.87 today. Oliguric. Baseline creatinine 1-1.2. No hydronephrosis noted on imaging. UA reveals 1+ protein and some blood. 2. Acute on chronic systolic CHF ejection fraction of 20% with mild to moderate tricuspid regurgitation. 3. Volume overload. 4. Coronary disease with prior stenting. 5. Metabolic acidosis secondary to acute kidney injury. 6. Septic shock with Citrobacter bacteremia on antibiotics. Also with lower extremity wounds. 7. A. fib with RVR maintained on amiodarone and Cardizem drip. Plan: Diuretic unresponsive. Discussed with patient and his family present at bedside in detail regarding need to initiate renal replacement therapy. It was discussed that patient is hemodynamically unstable. Patient refused renal replacement therapy. Hospice was discussed. CODE STATUS was also discussed in detail. He will now be changed to no code. 20 minutes spent.
[2023-04-03] MEDS ORDERED: NA PHOS,M-B/NA PHOS,DI-BA 133 ML ENEMA RECTAL ONE (09:40)
--- NOTE | 2023-04-03 09:52 | P.PN ---
Subjective Progress Note Date: 04/03/23 The patient is a 78-year-old male currently admitted to the hospital with cellulitis and bacteremia. Cardiology was consulted for his extensive cardiac history as well as atrial fibrillation. The patient is currently on vasopressin for blood pressure support. Heart rates reasonably well controlled in the low 100s. He is currently on oral metoprolol and IV Cardizem. Patient was interviewed and examined in bed. Patient has mild respiratory distress and states he has labored breathing. He denies any current pain other than being uncomfortable in bed. GENERAL: Well-appearing, well-nourished and in mild respiratory distress. NECK: Supple without JVD or thyromegaly. LUNGS: Breath sounds diminished to auscultation bilaterally. Respiration equal. Bilateral rhonchi. HEART: Irregular rate and rhythm without murmurs, rubs or gallops. S1 and S2 heard. EXTREMITIES: Normal range of motion, +3 pitting edema. Stasis dermatitis noted bilaterally, with large left lower extremity ulcer. TELEMETRY: Persistent atrial fibrillation LABS: WBC 46.5, hemoglobin 12.2, hematocrit 37.7, platelet 141, INR 2.8, sodium 137, potassium 5.0, BUN 159, creatinine 4.87 IMPRESSION: Bacteremia, blood cultures positive for Citrobacter Left lower extremity cellulitis Bilateral venous insufficiency with stasis dermatitis Atrial fibrillation Hypotension secondary to septicemia PLAN: Continue supportive treatment Awaiting follow-up blood cultures Agree with debridement of left lower extremity wound Further recommendations to be based on clinical course Patient as well as his son and his do not want dialysis and the looking for comfort care measures along with hospice care I am dictating on behalf of Dr Álvaro Jain's history/physical and assessment/plan. Objective - Vital Signs Vital signs: Vital Signs Temp 98.0 F 04/03/23 04:00 Pulse 108 H 04/03/23 08:56 Resp 22 04/03/23 07:00 BP 91/58 04/03/23 07:00 Pulse Ox 95 04/03/23 08:20 FiO2 2 03/30/23 00:00 Intake & Output 04/02/23 04/03/23 04/03/23 18:59 06:59 18:59 Intake Total 667.088 546.583 43 Output Total 19 22 0 Balance 648.088 524.583 43 Weight 157 kg Intake: IV 389 353 23 KVO 250 220 20 NS PRESSURE BAG 39 33 3 Piperacillin-Tazobactam 3 100 100 .375 gm In Sodium Chloride 0.9% 100 ml @ 25 mls/hr IVPB Q12HR [facility] Rx #:[id number] Intake, IV Titration 78.088 153.583 Amount Diltiazem 125 mg In 26.334 0.583 Sodium Chloride 0.9% 100 ml @ Titrate IV .Q0M [facility] Rx#:[id number] Norepinephrine 32 mg In 51.754 Sodium Chloride 0.9% 218 ml @ 0.04 MCG/KG/MIN 2. 664 mls/hr IV .Q24H [facility] Rx#:[id number] Vasopressin 60 unit In 153 Sodium Chloride 0.9% 150 ml @ 0.04 UNITS/MIN 6.12 mls/hr IV .Q24H [facility] Rx#: [id number] Oral 200 40 20 Output: Urine 19 22 0 Other: Voiding Method Indwelling Catheter Indwelling Catheter ABP, PAP, CO, CI - Last Documented Arterial Blood Pressure 87/72 - Labs CBC & Chem 7: 04/03/23 04:26 04/03/23 04:26 Labs: Abnormal Lab Results - Last 24 Hours (Table) 04/02/23 04/02/23 04/03/23 Range/Units 09:40 23:50 04:26 WBC (3.8-10.6) k/uL RBC (4.30-5.90) m/uL Hgb (13.0-17.5) gm/dL Hct (39.0-53.0) % Plt Count (150-450) k/uL Neutrophils # (Manual) (1.3-7.7) k/uL Lymphocytes # (Manual) (1.0-4.8) k/uL Metamyelocytes # (Man) (0) k/uL Myelocytes # (Manual) (0) k/uL Promyelocytes # (Man) (0) k/uL PT 28.0 H (10.0-12.5) sec INR 2.8 H (<1.2) Sodium 136 L (137-145) mmol/L Potassium 5.5 H (3.5-5.1) mmol/L Carbon Dioxide 18 L (22-30) mmol/L BUN 166 H* (9-20) mg/dL Creatinine 4.44 H (0.66-1.25) mg/dL Glucose 123 H (74-99) mg/dL Calcium 7.5 L (8.4-10.2) mg/dL Total Bilirubin (0.2-1.3) mg/dL C-Reactive Protein 26.4 H (<1.0) mg/dL Total Protein 4.9 L (6.3-8.2) g/dL Albumin 2.4 L (3.5-5.0) g/dL 04/03/23 04/03/23 Range/Units 04:26 04:26 WBC 46.5 H (3.8-10.6) k/uL RBC 3.97 L (4.30-5.90) m/uL Hgb 12.2 L (13.0-17.5) gm/dL Hct 37.7 L (39.0-53.0) % Plt Count 141 L (150-450) k/uL Neutrophils # (Manual) 37.20 H (1.3-7.7) k/uL Lymphocytes # (Manual) 0.93 L (1.0-4.8) k/uL Metamyelocytes # (Man) 2.79 H (0) k/uL Myelocytes # (Manual) 3.72 H (0) k/uL Promyelocytes # (Man) 0.47 H (0) k/uL PT (10.0-12.5) sec INR (<1.2) Sodium (137-145) mmol/L Potassium (3.5-5.1) mmol/L Carbon Dioxide 21 L (22-30) mmol/L BUN 159 H* (9-20) mg/dL Creatinine 4.87 H (0.66-1.25) mg/dL Glucose 118 H (74-99) mg/dL Calcium 7.4 L (8.4-10.2) mg/dL Total Bilirubin 1.5 H (0.2-1.3) mg/dL C-Reactive Protein (<1.0) mg/dL Total Protein 5.2 L (6.3-8.2) g/dL Albumin 2.6 L (3.5-5.0) g/dL Microbiology - Last 24 Hours (Table) 03/29/23 15:20 Blood Culture - Preliminary Blood
--- NOTE | 2023-04-03 09:58 | P.PN ---
Subjective Progress Note Date: 04/03/23 Hypotension. This is a 78-year-old male patient with a known history of atrial fibrillation anticoagulated with warfarin, congestive heart failure, gout, hyperlipidemia, hypertension, coronary artery disease with previous stenting, ischemic cardiomyopathy with AICD placement. Lifelong nonsmoker. He presented to the emergency room yesterday with a 3 to four-day history of increasing shortness of breath, weakness, lower extremity swelling. He was to be on Lasix but has been somewhat noncompliant with that according to the patient's . His x-ray revealed evidence of cardiomegaly with mild pulmonary vascular congestion. Diffuse initially increased interstitial markings suspicious for pulmonary edema/CHF. Echocardiogram revealed severely impaired left ventricle systolic function with ejection fraction less than 20%. Anteroapical akinesis with severe hypokinesis and the rest of the segments. White count 6.8. Hemoglobin 12.0. INR 3.3. Platelets 76,000. Sodium 137. Potassium 4.9. Bicarb 19. BUN 70. Creatinine 1.62. Glucose 132. He is seen today in consultation on the selective care unit. Currently resting quite flat in bed. Awake and alert in no acute distress. Maintaining O2 saturations in the 90s on 2 L/m per nasal cannula. He is breathing a bit easier today compared to yesterday. He is currently on Lasix 40 mg IV every 8 hours. He is initiated on Farxiga. Progress note dated 03/27/2023. This is a 78-year-old male who is seen today in the intensive care unit, room 267. He was admitted to the hospital on March 25, with a diagnosis of acute kidney injury, congestive heart failure, and atrial fibrillation. The patient was transferred down to the intensive care unit, by our nurse practitioner, because of severe hypotension. On dobutamine by the hospital service, and, norepinephrine was added by cardiology. Currently, he's on 2 L nasal cannula, receiving dobutamine at 2.5 mcg/kg/m, and is on norepinephrine at 14 mcg/m. The patient does not have adequate IV access, so I place a right radial art line, and a left internal jugular triple-lumen catheter. White count 6.4, hemoglobin 12.2, hematocrit 38.3, and platelet count is 89,000. PTT was 28.6 with an INR of 2.9. Sodium 138, potassium 4.8, chlorides 105, CO2 22, anion gap 11, BUN 86, and creatinine 2.14. Albumin 2.7. Chest x-ray shows improving interstitial ed mini. Progress note dated 03/28/2023. 78-year-old male seen in the intensive care unit, room 267. The patient was admitted to the hospital on March 25, with a diagnosis of acute kidney injury, congestive heart failure, and atrial fibrillation. The patient was transferred down to the intensive care unit, because of hypotension. Dobutamine was started by the hospitalist service, and subsequent to that, with the development of hypotension, norepinephrine, was added, and now vasopressin. Currently, the patient is on 4 L by nasal cannula. He continues on amiodarone at 0.5 mg/m, dobutamine at 2.5 mcg/kg/m, norepinephrine at 28 mcg/m, and vasopressin at 0.04 units per minute. His pro-calcitonin level was quite elevated, and there were gram-negative bacilli, in the blood. The patient is currently on cefepime. BiPAP settings are 12/5, and 40%. He spent most of the night on BiPAP. CODE STATUS has been addressed, but I've asked the nurse to recheck to the family again. White count is 21,000, hemoglobin 13.5, hematocrit 41.1, with a platelet count of 115,000. PT is 20.8 with an INR 2.1. Sodium 139, potassium 4.5, chlorides 109, CO2 17, anion gap 13, BUN 85, and creatinine 1.59. Blood gases done last night show pO2 of 131, pCO2 26, and a pH is 7.48. These blood gases are consistent with a combined respiratory alkalosis and mild metabolic acidosis. Chest x-ray shows diffuse bilateral infiltrates, mostly interstitial in nature. Progress note dated 03/29/2023. 78-year-old male seen in room 267. I did have the opportunity to speak to his . The patient for the time being, will remain a full code. The said that he would not want to be on the ventilator, long-term, and certainly would not want a tracheostomy and/or a feeding tube. Currently, he's on 4 L by nasal cannula. BiPAP has been used on and off, at 12/5, and 40%. The patient's on norepinephrine at 34 mcg/m, and vasopressin 0.04 units per minute. The patient is also on Cardizem 5 mg an hour, and a sodium bicarbonate drip at 50 mL an hour, with 3 ampules of sodium bicarbonate and D5W. The patient's blood cultures are positive for gram-negative bacilli, the patient is on cefepime. White count is 32.5, hemoglobin 13.4, hematocrit 40.2, and platelet count 113,000. PTT was 32.6 with an INR 3.3. Sodium 139, potassium 3.9, chlorides 109, CO2 18, anion gap 12, BUN 91, creatinine 1.91. Glucose is 162. Calcium is 7.9. Chest x-ray shows some left basilar consolidation, and some mild venous congestion. Progress note dated 03/30/2023. 78-year-old male seen in room 267. The patient appears a bit more awake today than he did yesterday. Currently, he's on 2 L of oxygen. He is receiving norepinephrine at 11.7 mcg/m, and vasopressin at 0.04 units per minute. Is also on Cardizem 5 mg an hour, and a sodium bicarbonate drip, with 3 ampules of sodium bicarbonate and D5W at 50 mL an hour. I did have a chance to talk to the , both yesterday, and today. The patient's blood cultures showed evidence of Citrobacter, is sensitive to the cefepime that the patient is currently on. White count 34.3, hemoglobin 12.8, hematocrit 38.4, and platelet count 93,000. Sodium 138, potassium 3.8, chlorides 106, CO2 22, anion gap 10, BUN 98, creatinine 1.86. Albumin is 2.3. Chest x-ray shows cardiomegaly, with mild fluid overload. Progress note dated 03/31/2023. 78-year-old male seen again in room 267. The patient's a bit more awake again today than he was yesterday. His is in the room with him. He continues on oxygen at 2 L by nasal cannula. Is on Cardizem 5 mg an hour for atrial fibrillation, and vasopressin at 0.04 units per minute, and norepinephrine at 6 mcg/m, for hypotension. The patient remains on a sodium bicarbonate drip, with 3 ampules of sodium bicarbonate and D5W at 50 mL an hour. Finally, we believe the patient to be a bit dry, and we will add lactated Ringer's at 75 mL an hour. His blood cultures were positive for Citrobacter, and he is currently on cefepime. Arterial blood gases yesterday showed a pO2 of 70, pCO2 31, and a pH is 7.49. This is consistent with respiratory alkalosis. White count 35.9, hemoglobin 12.2, hematocrit 37.5, and platelet count 88,000. Sodium 138, potassium 4, chlorides 101, CO2 28, BUN 1:15, creatinine 2.41, up from 98 and 1.86 respectively. Calcium is 7.5, albumin is 2.3. Chest x-ray shows a diffuse interstitial pattern. Progress note dated 04/01/2023. 78-year-old male seen again today in room 267. Each day, the patient has had incremental improvement in his mental status. Currently, the patient is on 3 L of oxygen. He continues on cefepime and daptomycin as per infectious diseases. The patient is getting lactated Ringer's at 75 mL an hour, vasopressin at 0.04 units per minute, and norepinephrine at 5.7 mcg/m. The patient is also on Cardizem 5 mg an hour. The patient's white count is 42,000, hemoglobin 12.1, hematocrit 37.1, with a platelet count of 85,000. A blood gas done on the night shows a pO2 of 70, pCO2 31, and a pH is 7.49. Sodium 136, potassium 4.3, chlorides 104, CO2 20, BUN 125, and creatinine 3.22. The patient's glucose is 138, and the calcium is 7.4. Blood cultures are positive for Citrobacter. The chest x-rays consistent with CHF. Progress note dated 04/02/2023. 78-year-old male seen again in room 267. The patient's about the same today as he was yesterday. He has a fluctuating mental status. Currently, he's on 3 L of oxygen. He is receiving Cardizem 5 mg an hour, and vasopressin at 0.04 units per minute, and norepinephrine at 5.7 mcg/m. The patient's also getting saline at KVO. He continues on cefepime and daptomycin. His is in the room, and we have communicated his situation, on a daily basis. White count 50.6, hemoglobin 12.1, hematocrit 36.6, with a platelet count of 128,000. PTT is 23.2 with an INR of 2.3. Sodium 136, potassium 4.8, chlorides 102, CO2 18, anion gap 16, BUN 144 and creatinine 3.64. Blood cultures are positive for Citrobacter. Chest x-ray shows a pattern consistent with pulmonary vascular overload. Lower extremity Dopplers, were negative for DVT. On today's evaluation of 04/03/2023, the patient has an active soft tissue infection in his left lower extremity with secondary sepsis. There is significant amount of necrosis and foul smell coming from his left lower extremity and the patient's white cell count remains elevated at 46.5. He remains on pressors and the patient is on a combination of norepinephrine and vasopressin. He is on norepinephrine at 0.06 mitral respiratory kilogram per minute and vasopressin is running at a physiologic dose. He is also on Cardizem drip at 2.5 mg an hour for his chronic A. fib. He is in renal failure. The white cell count is elevated. The BUN is at 159 with a creatinine of 4.8. Sodium levels of 137, potassium level is at 5. Patient remains on a combination of Zosyn and daptomycin. Nephrology is made recommendations for dialysis. Nevertheless, the patient did not show any interest. He thinks his comorbidities and his overall performance of functional status extremely poor and he wanted to go with hospice care. As such, hospice was consulted. The patient is currently on 3 L of oxygen by nasal cannula. Breathing is nonlabored. His most recent chest x-ray that was done this morning shows cardiomegaly and increased interstitial edema and left-sided pleural effusion. The patient has a AICD/pacer over his left chest. Objective - Vital Signs Vital signs: Vital Signs Temp 98.0 F 04/03/23 04:00 Pulse 108 H 04/03/23 08:56 Resp 22 04/03/23 07:00 BP 91/58 04/03/23 07:00 Pulse Ox 95 04/03/23 08:20 FiO2 2 03/30/23 00:00 Intake & Output 04/02/23 04/03/23 04/03/23 18:59 06:59 18:59 Intake Total 667.088 546.583 43 Output Total 19 22 0 Balance 648.088 524.583 43 Weight 157 kg Intake: IV 389 353 23 KVO 250 220 20 NS PRESSURE BAG 39 33 3 Piperacillin-Tazobactam 3 100 100 .375 gm In Sodium Chloride 0.9% 100 ml @ 25 mls/hr IVPB Q12HR [facility] Rx #:[id number] Intake, IV Titration 78.088 153.583 Amount Diltiazem 125 mg In 26.334 0.583 Sodium Chloride 0.9% 100 ml @ Titrate IV .Q0M [facility] Rx#:[id number] Norepinephrine 32 mg In 51.754 Sodium Chloride 0.9% 218 ml @ 0.04 MCG/KG/MIN 2. 664 mls/hr IV .Q24H [facility] Rx#:[id number] Vasopressin 60 unit In 153 Sodium Chloride 0.9% 150 ml @ 0.04 UNITS/MIN 6.12 mls/hr IV .Q24H [facility] Rx#: [id number] Oral 200 40 20 Output: Urine 19 22 0 Other: Voiding Method Indwelling Catheter Indwelling Catheter ABP, PAP, CO, CI - Last Documented Arterial Blood Pressure 87/72 - Exam No acute distress, the patient is more awake and alert today. Currently on 3 L. HEENT examination is grossly unremarkable. Mucous membranes are moist. No oral lesions. Neck supple. Full range of motion. No adenopathy thyromegaly or neck vein distention. Cardiovascular examination reveals regular rhythm rate. S1-S2 normal. No S3 or S4. No discernible murmur noted. Heart sounds are distant. Lungs reveal scattered rhonchi and crackles. No wheezes. Breath sounds are equal bilaterally. Saturations are 94 % on 3 L nasal cannula. Abdomen soft bowel sounds are heard. No masses or tenderness. Extremities are intact. No cyanosis or clubbing. There is significant edema, and open sores on the left leg. There is areas of necrosis, skin sloughing, edema, and foul-smelling drainage from the skin surface. The wound is large mainly affecting the gerber of the left lower extremity. The patient continues to have mass amount of edema in lower extremities bilaterally. Skin is without rash or lesion. Neurologic examination is brief but nonfocal. Patient is a bit lethargic. - Labs CBC & Chem 7: 04/03/23 04:26 04/03/23 04:26 Labs: Abnormal Lab Results - Last 24 Hours (Table) 04/02/23 04/02/23 04/03/23 Range/Units 09:40 23:50 04:26 WBC (3.8-10.6) k/uL RBC (4.30-5.90) m/uL Hgb (13.0-17.5) gm/dL Hct (39.0-53.0) % Plt Count (150-450) k/uL Neutrophils # (Manual) (1.3-7.7) k/uL Lymphocytes # (Manual) (1.0-4.8) k/uL Metamyelocytes # (Man) (0) k/uL Myelocytes # (Manual) (0) k/uL Promyelocytes # (Man) (0) k/uL PT 28.0 H (10.0-12.5) sec INR 2.8 H (<1.2) Sodium 136 L (137-145) mmol/L Potassium 5.5 H (3.5-5.1) mmol/L Carbon Dioxide 18 L (22-30) mmol/L BUN 166 H* (9-20) mg/dL Creatinine 4.44 H (0.66-1.25) mg/dL Glucose 123 H (74-99) mg/dL Calcium 7.5 L (8.4-10.2) mg/dL Total Bilirubin (0.2-1.3) mg/dL C-Reactive Protein 26.4 H (<1.0) mg/dL Total Protein 4.9 L (6.3-8.2) g/dL Albumin 2.4 L (3.5-5.0) g/dL 04/03/23 04/03/23 Range/Units 04:26 04:26 WBC 46.5 H (3.8-10.6) k/uL RBC 3.97 L (4.30-5.90) m/uL Hgb 12.2 L (13.0-17.5) gm/dL Hct 37.7 L (39.0-53.0) % Plt Count 141 L (150-450) k/uL Neutrophils # (Manual) 37.20 H (1.3-7.7) k/uL Lymphocytes # (Manual) 0.93 L (1.0-4.8) k/uL Metamyelocytes # (Man) 2.79 H (0) k/uL Myelocytes # (Manual) 3.72 H (0) k/uL Promyelocytes # (Man) 0.47 H (0) k/uL PT (10.0-12.5) sec INR (<1.2) Sodium (137-145) mmol/L Potassium (3.5-5.1) mmol/L Carbon Dioxide 21 L (22-30) mmol/L BUN 159 H* (9-20) mg/dL Creatinine 4.87 H (0.66-1.25) mg/dL Glucose 118 H (74-99) mg/dL Calcium 7.4 L (8.4-10.2) mg/dL Total Bilirubin 1.5 H (0.2-1.3) mg/dL C-Reactive Protein (<1.0) mg/dL Total Protein 5.2 L (6.3-8.2) g/dL Albumin 2.6 L (3.5-5.0) g/dL Microbiology - Last 24 Hours (Table) 03/29/23 15:20 Blood Culture - Preliminary Blood Assessment and Plan Plan: Acute hypoxemic respiratory failure secondary to an acute exacerbation of chronic systolic congestive heart failure. Ejection fraction less than 20%. The patient currently is on 3 L of oxygen by nasal cannula. Breathing is nonlabored Septic shock Soft tissue infection involving the left lower extremity. The patient has extensive skin necrosis with drainage. The patient was septic and the time of admission with gram-negative bacillus/Citrobacter and the patient is currently on a combination of Zosyn and daptomycin. Hypotension, severe, secondary to cardiomyopathy, and bacteremia/sepsis. The patient is currently on low-dose norepinephrine and physiologic dose of vasopressin Acute on chronic kidney injury. Creatinine has been on the rise and the patient has a component of mild anion gap metabolic acidosis. Potassium levels at 5.1. Nephrology is on the case. Recommendations were made for hemodialysis, the patient declined. Likely sepsis, secondary to Citrobacter species, on Zosyn and daptomycin. Severe ischemic cardiomyopathy, status post AICD placement. History of coronary disease with previous stent placements. Chronic atrial fibrillation. History of gout. Hypertension. Hyperlipidemia. Lifelong nonsmoker. Acute leukocytosis secondary to above Plan: The patient has made his mind regarding hospice care. Hospice services been consulted. Meanwhile, we'll continue the current treatment. Family is at the bedside. I talked to the . I talked to the son. I talked to cardiology. Family has decided to proceed with hospice care.
[2023-04-03] MEDS: AMIODARONE 200 MG TAB PO SCH (10:07)
[2023-04-03] MEDS: DOCUSATE 100 MG CAP PO SCH (10:07)
[2023-04-03] MEDS: HYDROmorphone 0.5 MG/0.5 ML SYRINGE IVP PRN (10:08)
[2023-04-03] MEDS: METOPROLOL TARTRATE 25 MG TAB PO SCH (10:08)
[2023-04-03] MEDS: PIPERACILLIN-TAZOBACTAM 3.375 GM in SODIUM CHLORIDE 0.9% 100 ML IVPB SCH (10:11)
[2023-04-03] MEDS: SILVER sulfADIAZINE Cream 400 GM 1 APPLIC APPLIC TOPICAL SCH (10:12)
[2023-04-03] MEDS: PANTOPRAZOLE 40 MG/10 ML VIAL IVP SCH (10:13)
[2023-04-03] MEDS: ASPIRIN 81 MG PO SCH (10:14)
--- NOTE | 2023-04-03 10:40 | P.PN ---
Subjective Progress Note Date: 04/03/23 Patient remains in the ICU. Nephrology is recommending dialysis. He remains on IV antibiotics. Family is at the bedside and patient has declined dialysis and is requesting hospice. Hospice consult was placed by medical team. He was also changed to No CODE STATUS. Objective - Vital Signs Vital signs: Vital Signs Temp 98.0 F 04/03/23 04:00 Pulse 100 04/03/23 07:00 Resp 22 04/03/23 07:00 BP 91/58 04/03/23 07:00 Pulse Ox 95 04/03/23 08:20 FiO2 2 03/30/23 00:00 Intake & Output 04/02/23 04/03/23 04/03/23 18:59 06:59 18:59 Intake Total 667.088 546.583 43 Output Total 19 22 0 Balance 648.088 524.583 43 Weight 157 kg Intake: IV 389 353 23 KVO 250 220 20 NS PRESSURE BAG 39 33 3 Piperacillin-Tazobactam 3 100 100 .375 gm In Sodium Chloride 0.9% 100 ml @ 25 mls/hr IVPB Q12HR [facility] Rx #:[id number] Intake, IV Titration 78.088 153.583 Amount Diltiazem 125 mg In 26.334 0.583 Sodium Chloride 0.9% 100 ml @ Titrate IV .Q0M [facility] Rx#:[id number] Norepinephrine 32 mg In 51.754 Sodium Chloride 0.9% 218 ml @ 0.04 MCG/KG/MIN 2. 664 mls/hr IV .Q24H [facility] Rx#:[id number] Vasopressin 60 unit In 153 Sodium Chloride 0.9% 150 ml @ 0.04 UNITS/MIN 6.12 mls/hr IV .Q24H [facility] Rx#: [id number] Oral 200 40 20 Output: Urine 19 22 0 Other: Voiding Method Indwelling Catheter Indwelling Catheter ABP, PAP, CO, CI - Last Documented Arterial Blood Pressure 87/72 - Exam General chronically ill, obese - Eyes PERRL, normal ocular movement - ENT normal pinna, normal nares - Neck no masses, no bruits - Respiratory On nonrebreather. - Abdomen Abdomen: soft - Integumentary erythema extends from the lower leg to the medial thigh. + TTP Areas of eschar at the left posterior leg. Blistering noted with chronic lymphedematous changes in bilateral lower extremities good capillary refill. - Neurologic normal coordination, alert and oriented - Labs CBC & Chem 7: 04/03/23 04:26 04/03/23 04:26 Labs: Abnormal Lab Results - Last 24 Hours (Table) 04/02/23 04/02/23 04/03/23 Range/Units 09:40 23:50 04:26 WBC (3.8-10.6) k/uL RBC (4.30-5.90) m/uL Hgb (13.0-17.5) gm/dL Hct (39.0-53.0) % Plt Count (150-450) k/uL Neutrophils # (Manual) (1.3-7.7) k/uL Lymphocytes # (Manual) (1.0-4.8) k/uL Metamyelocytes # (Man) (0) k/uL Myelocytes # (Manual) (0) k/uL Promyelocytes # (Man) (0) k/uL PT 28.0 H (10.0-12.5) sec INR 2.8 H (<1.2) Sodium 136 L (137-145) mmol/L Potassium 5.5 H (3.5-5.1) mmol/L Carbon Dioxide 18 L (22-30) mmol/L BUN 166 H* (9-20) mg/dL Creatinine 4.44 H (0.66-1.25) mg/dL Glucose 123 H (74-99) mg/dL Calcium 7.5 L (8.4-10.2) mg/dL Total Bilirubin (0.2-1.3) mg/dL C-Reactive Protein 26.4 H (<1.0) mg/dL Total Protein 4.9 L (6.3-8.2) g/dL Albumin 2.4 L (3.5-5.0) g/dL 04/03/23 04/03/23 Range/Units 04:26 04:26 WBC 46.5 H (3.8-10.6) k/uL RBC 3.97 L (4.30-5.90) m/uL Hgb 12.2 L (13.0-17.5) gm/dL Hct 37.7 L (39.0-53.0) % Plt Count 141 L (150-450) k/uL Neutrophils # (Manual) 37.20 H (1.3-7.7) k/uL Lymphocytes # (Manual) 0.93 L (1.0-4.8) k/uL Metamyelocytes # (Man) 2.79 H (0) k/uL Myelocytes # (Manual) 3.72 H (0) k/uL Promyelocytes # (Man) 0.47 H (0) k/uL PT (10.0-12.5) sec INR (<1.2) Sodium (137-145) mmol/L Potassium (3.5-5.1) mmol/L Carbon Dioxide 21 L (22-30) mmol/L BUN 159 H* (9-20) mg/dL Creatinine 4.87 H (0.66-1.25) mg/dL Glucose 118 H (74-99) mg/dL Calcium 7.4 L (8.4-10.2) mg/dL Total Bilirubin 1.5 H (0.2-1.3) mg/dL C-Reactive Protein (<1.0) mg/dL Total Protein 5.2 L (6.3-8.2) g/dL Albumin 2.6 L (3.5-5.0) g/dL Microbiology - Last 24 Hours (Table) 03/29/23 15:20 Blood Culture - Preliminary Blood Assessment and Plan Assessment: Left lower extremity cellulitis Venous ulceration left lower extremity Hypotension Atrial fibrillation Morbid Obesity Ischemic cardiomyopathy Acute kidney injury, requiring hemodialysis Plan: Continue antibiotics. No aggressive intervention planned. Nephrology is recommending hemodialysis however patient is declining. Patient and family are requesting hospice consult. Thank you for this consultation, we will sign off at this time. The impression and plan of care has been dictated as directed. I performed a history and examination of this patient, discussed the same with the dictator. I agree with the dictator's note ,documented as a scribe. Any additional findings or plans will be noted.
--- NOTE | 2023-04-03 11:50 | P.PN ---
Subjective Progress Note Date: 04/03/23 Principal diagnosis: Left leg cellulitis and bacteremia Patient is a 78-year old male with a past medical history significant for hypertension hyperlipidemia atrial fibrillation [facility] patient presenting to the hospital on 03/25/2022 for evaluation of increasing shortness of breath patient did have a fever and elevated white count and a positive blood culture with a Citrobacter. On today's evaluation and that is 04/03/2023, the patient continues to be afebrile , the patient did have slight worsening of his respiratory status and is requiring more supplemental oxygen currently on a nonrebreather , the patient denies any chest pain no cough or sputum production, patient denies Abdominal pain and denies any nausea/vomiting/no diarrhea has been reported patient pain to the left lower extremity is currently controlled. Patient white count is slightly down to 46.5, creatinine is up to 4.87 Objective - Vital Signs Vital signs: Vital Signs Temp 98.0 F 04/03/23 04:00 Pulse 108 H 04/03/23 08:56 Resp 22 04/03/23 07:00 BP 91/58 04/03/23 07:00 Pulse Ox 95 04/03/23 08:20 FiO2 2 03/30/23 00:00 Intake & Output 04/02/23 04/03/23 04/03/23 18:59 06:59 18:59 Intake Total 667.088 546.583 43 Output Total 19 22 0 Balance 648.088 524.583 43 Weight 157 kg Intake: IV 389 353 23 KVO 250 220 20 NS PRESSURE BAG 39 33 3 Piperacillin-Tazobactam 3 100 100 .375 gm In Sodium Chloride 0.9% 100 ml @ 25 mls/hr IVPB Q12HR [facility] Rx #:[id number] Intake, IV Titration 78.088 153.583 Amount Diltiazem 125 mg In 26.334 0.583 Sodium Chloride 0.9% 100 ml @ Titrate IV .Q0M [facility] Rx#:[id number] Norepinephrine 32 mg In 51.754 Sodium Chloride 0.9% 218 ml @ 0.04 MCG/KG/MIN 2. 664 mls/hr IV .Q24H [facility] Rx#:[id number] Vasopressin 60 unit In 153 Sodium Chloride 0.9% 150 ml @ 0.04 UNITS/MIN 6.12 mls/hr IV .Q24H [facility] Rx#: [id number] Oral 200 40 20 Output: Urine 19 22 0 Other: Voiding Method Indwelling Catheter Indwelling Catheter ABP, PAP, CO, CI - Last Documented Arterial Blood Pressure 87/72 - Exam GENERAL DESCRIPTION: An elderly male lying in bed in no distress RESPIRATORY SYSTEM: Unlabored breathing , decreased breath sound the bases HEART: S1 S2 regular rate and rhythm , ABDOMEN: Soft , no tenderness EXTREMITIES: Left lower extremity with swelling redness and blister with some skin necrosis, redness slightly decreased swelling persist - Labs CBC & Chem 7: 04/03/23 04:26 04/03/23 04:26 Labs: Abnormal Lab Results - Last 24 Hours (Table) 04/02/23 04/02/23 04/03/23 Range/Units 09:40 23:50 04:26 WBC (3.8-10.6) k/uL RBC (4.30-5.90) m/uL Hgb (13.0-17.5) gm/dL Hct (39.0-53.0) % Plt Count (150-450) k/uL Neutrophils # (Manual) (1.3-7.7) k/uL Lymphocytes # (Manual) (1.0-4.8) k/uL Metamyelocytes # (Man) (0) k/uL Myelocytes # (Manual) (0) k/uL Promyelocytes # (Man) (0) k/uL PT 28.0 H (10.0-12.5) sec INR 2.8 H (<1.2) Sodium 136 L (137-145) mmol/L Potassium 5.5 H (3.5-5.1) mmol/L Carbon Dioxide 18 L (22-30) mmol/L BUN 166 H* (9-20) mg/dL Creatinine 4.44 H (0.66-1.25) mg/dL Glucose 123 H (74-99) mg/dL Calcium 7.5 L (8.4-10.2) mg/dL Total Bilirubin (0.2-1.3) mg/dL C-Reactive Protein 26.4 H (<1.0) mg/dL Total Protein 4.9 L (6.3-8.2) g/dL Albumin 2.4 L (3.5-5.0) g/dL 04/03/23 04/03/23 Range/Units 04:26 04:26 WBC 46.5 H (3.8-10.6) k/uL RBC 3.97 L (4.30-5.90) m/uL Hgb 12.2 L (13.0-17.5) gm/dL Hct 37.7 L (39.0-53.0) % Plt Count 141 L (150-450) k/uL Neutrophils # (Manual) 37.20 H (1.3-7.7) k/uL Lymphocytes # (Manual) 0.93 L (1.0-4.8) k/uL Metamyelocytes # (Man) 2.79 H (0) k/uL Myelocytes # (Manual) 3.72 H (0) k/uL Promyelocytes # (Man) 0.47 H (0) k/uL PT (10.0-12.5) sec INR (<1.2) Sodium (137-145) mmol/L Potassium (3.5-5.1) mmol/L Carbon Dioxide 21 L (22-30) mmol/L BUN 159 H* (9-20) mg/dL Creatinine 4.87 H (0.66-1.25) mg/dL Glucose 118 H (74-99) mg/dL Calcium 7.4 L (8.4-10.2) mg/dL Total Bilirubin 1.5 H (0.2-1.3) mg/dL C-Reactive Protein (<1.0) mg/dL Total Protein 5.2 L (6.3-8.2) g/dL Albumin 2.6 L (3.5-5.0) g/dL Assessment and Plan (1) Bacteremia Current Visit: Yes Status: Acute Code(s): R78.81 - BACTEREMIA SNOMED Code(s): 8147513 (2) Left leg cellulitis Current Visit: Yes Status: Acute Code(s): L03.116 - CELLULITIS OF LEFT LOWER LIMB SNOMED Code(s): 48757151757754895 Plan: 1patient with sepsis in this patient who did have a fever elevated white count source is likely left lower extremity cellulitis, in this patient with Citrobacter bacteremia 2-blood cultures were repeated document clearance of bacteremia 3-patient has been evaluated by vascular surgery did not recommend any surgical intervention at this point 4-patient did have some improvement in his white count, patient to Zosyn and daptomycin , prognosis remains to be guarded and according to the nursing staff possible plan is for hospice which may be appropriate for him Dictation was produced using [employer] dictation software. please excuse any grammatical, word or spelling errors. Time with Patient: Less than 30
[2023-04-03 12:19] VITALS: BP 99/55; PULSE 90; RESP 18; TEMP 98.1
[2023-04-03] MEDS ORDERED: WARFARIN 1 MG TAB PO ONE (18:00)
== END 2023-04-03 12:13 | disposition hospice, inpatient (51) | DRG 871 ==
LOC: EC 06:09 → 2SICU 11:28 → 3SCARD 11:49 → 2SICU 03-27 05:12
PROVIDERS: ADMIT Internal Medicine; ATTEND Internal Medicine
PROC: 4A133J1 Monitoring of Arterial Pulse, Peripheral, Percutaneous Approach (ICD-10-PCS; principal; 2023-03-27)
PROC: 4A133B1 Monitoring of Arterial Pressure, Peripheral, Percutaneous Approach (ICD-10-PCS; principal; 2023-03-27)
PROC: 03HY32Z Insertion of Monitoring Device into Upper Artery, Percutaneous Approach (ICD-10-PCS; principal; 2023-03-27)
PROC: 5A09357 Assistance with Respiratory Ventilation, Less than 24 Consecutive Hours, Continuous Positive Airway Pressure (ICD-10-PCS; 2023-03-27)
DX: A41.59 Other Gram-negative sepsis (principal); I50.23 Acute on chronic systolic (congestive) heart failure; J96.01 Acute respiratory failure with hypoxia; R65.21 Severe sepsis with septic shock; N17.0 Acute kidney failure with tubular necrosis; L03.116 Cellulitis of left lower limb; E87.3 Alkalosis; I13.0 Hypertensive heart and chronic kidney disease with heart failure and stage 1 through stage 4 chronic kidney disease, or unspecified chronic kidney disease; I48.19 Other persistent atrial fibrillation; L97.929 Non-pressure chronic ulcer of unspecified part of left lower leg with unspecified severity; S27.808A Other injury of diaphragm, initial encounter; Z68.42 Body mass index [BMI] 45.0-49.9, adult; B96.89 Other specified bacterial agents as the cause of diseases classified elsewhere; E66.01 Morbid (severe) obesity due to excess calories; E78.5 Hyperlipidemia, unspecified; E86.9 Volume depletion, unspecified; E87.5 Hyperkalemia; I07.1 Rheumatic tricuspid insufficiency; I25.10 Atherosclerotic heart disease of native coronary artery without angina pectoris; I25.2 Old myocardial infarction; Z51.5 Encounter for palliative care; Z66 Do not resuscitate; I25.5 Ischemic cardiomyopathy; M10.9 Gout, unspecified; I87.2 Venous insufficiency (chronic) (peripheral); N18.9 Chronic kidney disease, unspecified; H26.9 Unspecified cataract; Z79.82 Long term (current) use of aspirin; Z79.01 Long term (current) use of anticoagulants; Z79.899 Other long term (current) drug therapy; Z86.16 Personal history of COVID-19; T50.1X6A Underdosing of loop [high-ceiling] diuretics, initial encounter; Z91.128 Patient's intentional underdosing of medication regimen for other reason; Z95.810 Presence of automatic (implantable) cardiac defibrillator; Z95.5 Presence of coronary angioplasty implant and graft; Z20.822 Contact with and (suspected) exposure to COVID-19; Z28.311 Partially vaccinated for COVID-19; Z71.3 Dietary counseling and surveillance
CPT/HCPCS: 36415; 36600; 71045; 71046; 76770; 80048; 80053; 81001; 82533; 82570; 82805; 83605; 83735; 83880; 83935; 84145; 84300; 84484; 85025; 85027; 85610; 85730; 86140; 87040; 87077; 87186; 87636; 93005; 93306; 93308; 93970; 94640; 94660; 96361; 96365; 96366; 96367; 96375; 96376; 99285

== ENCOUNTER 2023-04-03 12:04 | Inpatient (IN) | payer MEDICAID ==
[2023-04-03] MEDS ORDERED: MORPHINE SULFATE 4 MG/ML SYRINGE IV PRN (12:07)
[2023-04-03] MEDS ORDERED: LORazepam 2 MG/ML INJ IV PRN (12:07)
[2023-04-03] MEDS ORDERED: DRY MOUTH SPRAY 44.3 SPRAY/44.3 ML SPRAY MUCOUS MEM PRN (12:07)
[2023-04-03] MEDS ORDERED: ATROPINE OPHTH SOLN 1% 5ML BTL SUBLINGUAL PRN (12:07)
[2023-04-03] MEDS ORDERED: ACETAMINOPHEN SUPPOSITORY 650 MG SUPP RECTAL PRN (12:07)
[2023-04-03] MEDS ORDERED: GLYCOPYRROLATE 0.2 MG/ML 2 ML VIAL IVP PRN (12:07)
[2023-04-03] MEDS ORDERED: ONDANSETRON 4 MG/2 ML VIAL IVP PRN (12:07)
[2023-04-03] MEDS ORDERED: SCOPOLAMINE 1 MG/72 HR PATCH TRANSDERM SCH (12:15)
[2023-04-03] MEDS ORDERED: MORPHINE SULFATE (100 MG/2 ML) 100 MG in SODIUM CHLORIDE 0.9% 100 ML IV SCH (12:15)
[2023-04-03 16:02] VITALS: BP 98/66
--- NOTE | 2023-04-03 17:31 | P.HPIM ---
History of Present Illness H&P Date: 04/03/23 patient is a 78-year-old gentleman with past medical history significant for hypertension, hyperlipidemia, myocardial infarction, AICD implantation, cataracts, atrial fibrillation with ablation presented to the hospital for not feeling well for the last few days. Patient stated that 2 days ago he started feeling lethargic and weak. There was no complain of any fever but patient felt cold. Complaining of shortness of breath at rest. Denies any chest pain. Denies any nausea, vomiting abdominal pain. Patient has chronic swelling of left lower extremity. Complaining of lightheadedness. Denied any orthopnea or PND. Because symptoms, patient came to the ER Initial lab work done in the ER showed WBC 9.5, hemoglobin 13.2, platelet count 58 sodium 1:30, potassium 5.3, BUN 64, creatinine 2.09 EKG done in the ER Chest x-ray done in the ER showed cardiomegaly with stable left chest AICD, mild pulmonary vascular congestion, diffuse increased interstitial markings related to edema versus infiltrates Patient admitted to medicine service. Patient had a prolonged admission to ICU, and on 04/03/2023 patient and family decided to proceed with comfort care only and hospice care. Past Medical History Past Medical History: Atrial Fibrillation, Eye Disorder, Hyperlipidemia, Hypertension, Myocardial Infarction ([place]) Additional Past Medical History / Comment(s): See Dr Jain's H&P,CATARACTS.PAST AFIB,COVID infection 2021-hospitalized. Last Myocardial Infarction Date:: 2006 History of Any Multi-Drug Resistant Organisms: None Reported Past Surgical History: AICD, Cardiac Ablation, Heart Catheterization With Stent Additional Past Surgical History / Comment(s): bilateral CATARACT, one cardiac stent, total right knee 05/30/16,[facility] Left chest Past Anesthesia/Blood Transfusion Reactions: No Reported Reaction Additional Past Anesthesia/Blood Transfusion Reaction / Comment(s): no hx blood transfusion Date of Last Stent Placement:: 2006 Type of Cardiac Device: AICD Device Placement Date:: unknown Past Psychological History: No Psychological Hx Reported Smoking Status: Never smoker Past Alcohol Use History: None Reported Past Drug Use History: None Reported - Past Family History Father Family Medical History: Cancer Mother Family Medical History: Cancer Medications and Allergies Home Medications Medication Instructions Recorded Confirmed Type Aspirin 81 mg PO DAILY 04/14/14 04/03/23 History Nitroglycerin Sl Tabs [Nitrostat] 0.4 mg SUBLINGUAL Q5M PRN 04/14/14 04/03/23 History Spironolactone [Aldactone] 12.5 mg PO HS 04/14/14 04/03/23 History Warfarin [Coumadin] 5 mg PO SUTUTHSA@1700 04/14/14 04/03/23 History Sotalol [Betapace] 80 mg PO BID 05/19/17 04/03/23 History Warfarin [Coumadin] 7.5 mg PO MOWEFR@1700 05/19/17 04/03/23 History allopurinoL [Zyloprim] 100 mg PO HS 06/04/21 04/03/23 History Furosemide [Lasix] 20 mg PO DAILY PRN 02/23/22 04/03/23 History Tamsulosin [Flomax] 0.4 mg PO DAILY@1700 02/23/22 04/03/23 History carvediloL [Coreg] 6.25 mg PO BID 02/23/22 04/03/23 History Mv-Min/Folic/K1/Lycopen/Lutein 1 tab PO DAILY 12/21/22 04/03/23 History [Centrum Silver Men Tablet] Sacubitril/Valsartan [Entresto 49 1 tab PO BID 12/21/22 04/03/23 History mg-51 mg Tablet] Allergies Allergy/AdvReac Type Severity Reaction Status Date / Time No Known Allergies Allergy Verified 03/25/23 12:30 Physical Exam Vitals: Vital Signs Temp Pulse Resp BP Pulse Ox 04/03/23 17:27 87 16 04/03/23 14:00 97.9 F 88 22 98/66 98 Intake and Output 04/03/23 04/03/23 04/03/23 06:59 14:59 22:59 Intake Total 118 9.928 Balance 118 9.928 Intake: Intake, IV Titration 9.928 Amount Morphine Sulfate (100 mg/ 9.928 2 ml) 100 mg In Sodium Chloride 0.9% 100 ml @ 1 MG/HR 1.02 mls/hr IV . Q24H [facility] Rx#:[id number] Oral 118 Other: Weight 157 kg Assessment and Plan Plan: Kevin barnett with [facility]VR Acute on chronic systolic CHF Ischemic cardiomyopathy Hypotension Hyperkalemia Acute kidney injury History of hypertension History of hyperlipidemia history of coronary artery disease At this time plan per family is to proceed with hospice care
[2023-04-03 22:39] VITALS: PULSE 92; RESP 10; TEMP 96.8
== END 2023-04-03 22:27 | disposition expired | DRG 951 ==
LOC: 2SICU 12:16
PROVIDERS: ADMIT Internal Medicine; ATTEND Internal Medicine
DX: Z51.5 Encounter for palliative care (principal); I50.23 Acute on chronic systolic (congestive) heart failure; N17.9 Acute kidney failure, unspecified; E78.5 Hyperlipidemia, unspecified; Z95.810 Presence of automatic (implantable) cardiac defibrillator; Z98.42 Cataract extraction status, left eye; Z98.41 Cataract extraction status, right eye; E87.5 Hyperkalemia; I25.5 Ischemic cardiomyopathy; I48.91 Unspecified atrial fibrillation; I25.2 Old myocardial infarction; Z79.01 Long term (current) use of anticoagulants; I11.0 Hypertensive heart disease with heart failure; I25.10 Atherosclerotic heart disease of native coronary artery without angina pectoris; Z79.82 Long term (current) use of aspirin; Z79.899 Other long term (current) drug therapy; Z86.16 Personal history of COVID-19; Z95.5 Presence of coronary angioplasty implant and graft